=== PATIENT | female | born 1970 | race Caucasian/White ===

== ENCOUNTER 2020-05-22 08:01 | Emergency (ER) | payer OTHER, SELFPAY ==
[2020-05-22 08:09] VITALS: BP 154/79; PULSE 69; RESP 16; TEMP 37; O2SAT 97; BMI 32.3
--- NOTE | 2020-05-22 08:11 | ED.BACK ---
HPI - Back Pain/Injury General Chief Complaint: Back Pain/Injury Stated Complaint: BACK PAIN Time Seen by Provider: 05/22/20 08:11 Source: patient Mode of arrival: ambulatory Limitations: no limitations History of Present Illness MD elicited complaint: back pain Pertinent past history: prior back pain Onset (ago): month(s) Timing: constant Severity: moderate Similar Symptoms Previously: Yes Quality: dull and aching Location: lumbar spine Radiation: left upper leg and right upper leg Relieving factors: movement Context: unknown Associated symptoms: denies other symptoms Treatments prior to arrival: NSAIDS, acetaminophen, other medications, prescription analgesics and other medications Work related injury: No Related Data Previous Rx's Medication Instructions Recorded metformin 500 mg tablet,extended 1,000 mg PO BID 30 Days #120 tab 04/21/20 release 24 hr ezetimibe 10 mg tablet 10 mg PO DAILY 30 Days #30 tab 04/28/20 diazepam [Valium] 5 mg PO TID PRN #10 tab 05/22/20 Allergies Allergy/AdvReac Type Severity Reaction Status Date / Time Iodinated Contrast Media Allergy Intermediate ITCHING Verified 05/22/20 08:11 [IV Dye, Iodine Containing] IVP dye Allergy Unknown facial Uncoded 03/02/20 00:00 swelling, itching Review of Systems Review of Systems: Constitutional : No Weight loss, No Fever, No Chills, ENT/Mouth : No Hearing loss, No Ear Pain, No Nasal Congestion, No Sinus Pain, No Hoarseness, No sore throat, No Rhinorrhea, No Swallowing Difficulty Cardiovascular : No Chest Pain, No SOB Respiratory : No Cough, No Dyspnea Gastrointestinal : No Nausea, No Vomiting, No Diarrhea, No abdominal Pain, No Hematochezia, No Melena Genitourinary : No Dysuria, No Urinary Frequency, No Hematuria, No Urinary Incontinence, Musculoskeletal : positive back pain Skin : No Skin Lesions, No rash Neuro : No Weakness, No Numbness, No Paresthesias, no loss of bowel or bladder incontinence, no saddle anesthesia PMFSH Past Medical History Attestation statement: The following information was validated with the patient. Medical History (Updated 05/22/20 @ 08:36 by Gretchen Perry DO) Chronic back pain Diabetes mellitus with hyperglycemia, with long-term current use of insulin Hyperlipidemia Social History Social History (Updated 05/22/20 @ 08:35 by RIZWAN Agustin Smoking Status: Never smoker Use of substances other than those prescribed or required for medical reasons: No Advance Directives: No Advance Directives Information Provided: No Physical Exam Vital Signs: Vital Signs: Last Vital Signs Temp 98.6 F 05/22/20 08:09 Pulse 69 05/22/20 08:09 Resp 16 05/22/20 08:09 BP 154/79 H 05/22/20 08:09 Pulse Ox 97 05/22/20 08:09 Body Mass Index 32.3 Appearance: Alert. Oriented X3. No acute distress. Eyes: Pupils equal, round and reactive to light. ENT: Pharynx normal. Neck: Normal inspection. Neck supple. CVS: Normal heart rate and rhythm. Pulses normal. Respiratory: No respiratory distress. Breath sounds normal. Abdomen: Soft and nontender. Back: ttp biilateral lower lumbar Skin: Skin warm and dry. Normal skin color. Normal skin turgor. Extremities: No lower extremity edema. No calf ttp Neuro: Oriented X 3. No motor deficit. No sensory deficit. SILT inner thigh, L5 5/5 bilaterally 2+ DTR bilateral patella MDM - Back Pain/Injury MDM Narrative Medical decision making narrative: 49 yo female with chronic back notes it is worse, no b/b incontinence no saddle anesthesia , no IVDA no AC therapy - not toxic, NV intact, no CE symptoms has specialist appointment next week IM toradol DC home Discharge Plan Discharge Clinical Impression: Sciatica Qualifiers: Laterality: bilateral Qualified Code(s): M54.31 - Sciatica, right side Patient Disposition: Home, Self-Care Instructions: Sciatica (ED), Lower Back Exercises (ED) Additional Instructions: return to ED for any worsening symptoms or concerns Prescriptions: New diazepam [Valium] 5 mg tablet 5 mg PO TID PRN (Reason: muscle spasm) Qty: 10 RF: 0 No Action metformin 500 mg tablet extended release 24 hr 1,000 mg PO BID 30 Days Qty: 120 RF: 3 ezetimibe 10 mg tablet 10 mg PO DAILY 30 Days Qty: 30 RF: 3 Referrals: Physician,Unknown [Primary Care Provider] - 2 days (keep your appointment with spine doctor)
[2020-05-22] MEDS: diazePAM 5 MG TABLET PO (09:01)
[2020-05-22] MEDS: Ketorolac Tromethamine 60 MG/2 ML VIAL IM (09:02)
== END 2020-05-22 09:06 | disposition home or self-care (01) ==
PROVIDERS: Emergency Provider Emergency Medicine
DX: M54.41 Lumbago with sciatica, right side (principal); M54.42 Lumbago with sciatica, left side; Z79.899 Other long term (current) drug therapy
CPT/HCPCS: 96372; 99283; 99284; J1885

== ENCOUNTER → 2020-06-03 11:41 | Outpatient (BNVA) | payer OTHER, SELFPAY | PROVIDERS: PCP Nurse Practitioner Family; Visit Provider Physician Assistant | DX: Z76.89 Persons encountering health services in other specified circumstances (principal) ==

== ENCOUNTER 2020-06-09 14:29 | Outpatient (REF) | payer OTHER, SELFPAY ==
--- NOTE | 2020-06-09 14:48 | XR_ITS ---
EXAMINATION: XR WRIST, RIGHT CLINICAL INFORMATION: Pain COMPARISON: Previous right hand x-ray January 2015 TECHNIQUE: 4 views of the right wrist. FINDINGS: Bone alignment is normal. No fracture or dislocation is seen. The joint spaces are normal. There is dorsal soft tissue swelling over the base of the metacarpal bones/USP joint region. XR/XR wrist RT min 3V IMPRESSION: Dorsal soft tissue swelling. Otherwise unremarkable exam.
[2020-06-09 15:16] LABS: MANUAL DIFF FLAG NO
[2020-06-09 15:24] LABS: Basophils Percent Auto 0.6 % (0-2); Eosinophils Absolute Auto 0.4 X10*3/uL (0.0-0.4); Eosinophils Percent Auto 6.2 % (0-4); Hemoglobin 13.2 g/dl (12.0-16.0); Imm Gran Abs Auto 0.02 X10*3/uL (0.00-0.03); Imm Gran Pct Auto 0.3 % (0.0-0.4); Lymphocytes Absolute Auto 2.9 X10*3/uL (1.2-4.9); Lymphocytes Percent Auto 42.5 % (20-40); Mean Corpuscular HGB Conc 32.2 g/dl (31.0-35.0); Mean Corpuscular Volume 93.2 fL (80-98); Mean Platelet Volume 9.8 fL (9.4-12.3); Monocytes Absolute Auto 0.6 X10*3/uL (0.1-1.2); Monocytes Percent Auto 9.1 % (2-11); Neutrophils Absolute Auto 2.8 X10*3/uL (2.0-8.3); Neutrophils Percent Auto 41.3 % (45-73); Platelet Count 289 X10*3/uL (160-400); Red Cell Distribution Width 11.9 % (11.0-16.0); White Blood Count 6.8 X10*3/uL (4.8-10.8)
[2020-06-09 15:47] LABS: Alanine Aminotransferase 61 U/L (0-31); Albumin Level 4.4 g/dL (3.5-5.0); Alkaline Phosphatase 125 U/L (39-117); Anion Gap 15 (12-20); Aspartate Amino Transferase 48 U/L (5-31); Bilirubin Total 0.5 mg/dL (0.0-1.0); Blood Urea Nitrogen 15 mg/dL (9-16); Calcium 10.1 mg/dL (8.4-10.2); Carbon Dioxide 28 mmol/L (22-29); Chloride 98 mmol/L (96-108); Estimated Glomerular Filt Rate 55; Glucose Random 294 mg/dL (60-115); Potassium 4.7 mmol/l (3.3-5.1); Sodium 136 mmol/L (135-145); Total Protein 8.4 g/dL (6.5-8.0)
== END 2020-06-09 14:30 | disposition home or self-care (01) ==
LOC: HO.LAB 14:29
PROVIDERS: Absent Provider Nurse Practitioner Primary Care; PCP Registered Nurse; Referring Provider Nurse Practitioner Gerontology; Visit Provider Physician Assistant
DX: R10.11 Right upper quadrant pain (principal); M25.531 Pain in right wrist; R22.30 Localized swelling, mass and lump, unspecified upper limb
CPT/HCPCS: 36415; 73110; 80053; 85025

== ENCOUNTER 2020-06-17 08:12 | Outpatient (REF) | payer OTHER, SELFPAY ==
--- NOTE | 2020-06-17 08:17 | US_ITS ---
EXAMINATION: US COMPLETE ABDOMEN WITH LIVER ELASTOGRAPHY CLINICAL INFORMATION: Abdominal pain COMPARISON: Previous CT of the abdomen and pelvis January 2019 and abdominal ultrasound November 2018 TECHNIQUE: Real-time imaging of the abdominal viscera. Noninvasive ultrasound liver fibrosis assessment is performed using Amanda ElastPQ point quantification shear wave elastography (pSWE) with a 5 MHz transducer. Multiple elastography samples are obtained. FINDINGS: PANCREAS: Normal. There is a 5 x 0.9 x 2.9 cm solid hypoechoic lesion adjacent to the head of the pancreas and periportal region suggestive of a lymph node. This is unchanged. ABDOMINAL AORTA: The proximal, middle, and distal aortic segments are normal in caliber. INFERIOR VENA CAVA: Visualized portions are normal. LIVER: Liver echotexture is increased. Liver contour is normal. No focal lesion or intrahepatic biliary duct dilatation. The liver is enlarged. The right lobe measures 18 cm in length. The left lobe measures 16 cm in length. The main portal vein is patent with appropriate hepatopedal flow. Shear wave elastography provides a median stiffness of 2.1 m/s (reference: normal median stiffness is 0.81 - 1.22 m/s). The IQR/median stiffness to assess sampling precision is 0.06 (reference: optimal IQR/median stiffness is under 0.3). GALLBLADDER: Surgically removed COMMON BILE DUCT: Normal in caliber measuring 0.7 cm in diameter. RIGHT KIDNEY: Normal. No hydronephrosis. No renal calculi or focal parenchymal lesions. The kidney measures 12.2 cm in maximum dimension. LEFT KIDNEY: There is a 2 mm stone in the lower pole. No hydronephrosis. No focal parenchymal lesions. The kidney measures 12 cm in maximum dimension. SPLEEN: Normal. The spleen measures 10.9 cm in maximum dimension. FREE FLUID: None. US/US abdomen comp w elastography IMPRESSION: 1. Impression: Enlarged echogenic liver suggestive of fatty infiltration. Stable prominent lymph node adjacent to the head of the pancreas/periportal region. Small left renal stone. 2. Elastography: Metavir score F3 to F4 suggestive of moderate to severe increased risk of developing liver fibrosis.
== END 2020-06-17 08:13 | disposition home or self-care (01) ==
LOC: HO.US 08:12
PROVIDERS: PCP Registered Nurse; Visit Provider Physician Assistant
DX: R10.9 Unspecified abdominal pain (principal)
CPT/HCPCS: 76705; 76981

== ENCOUNTER 2020-06-23 14:22 | Outpatient (REF) | payer OTHER, SELFPAY ==
--- NOTE | 2020-06-23 | US_ITS ---
EXAMINATION: US EXTREMITY NON-VASCULAR CLINICAL INFORMATION: Lump right wrist. COMPARISON: None. TECHNIQUE: Limited imaging through the area of lump dorsal wrist was performed. FINDINGS: There is a moderate-sized anechoic fluid collection along the palpable lump right dorsal wrist. There are linear tendon sheaths traversing through this cystic lump, most suggestive of a ganglion or tenosynovitis. The wrist joint was not imaged. US/US extremity nonvascular IMPRESSION: Imaging through the dorsal wrist lump area reveals is a large ganglion, less likely tenosynovitis.
== END 2020-06-23 14:23 | disposition home or self-care (01) ==
LOC: HO.US 14:22
PROVIDERS: PCP Registered Nurse; Visit Provider Nurse Practitioner Primary Care
DX: M25.531 Pain in right wrist (principal); R22.30 Localized swelling, mass and lump, unspecified upper limb
CPT/HCPCS: 76882

== ENCOUNTER → 2020-06-30 13:56 | Outpatient (BNVA) | payer OTHER, SELFPAY | PROVIDERS: PCP Registered Nurse; Referring Provider Registered Nurse; Visit Provider Physician Assistant | DX: Z76.89 Persons encountering health services in other specified circumstances (principal) ==

== ENCOUNTER → 2020-07-14 13:02 | Outpatient (BNVA) | payer OTHER, SELFPAY | PROVIDERS: PCP Registered Nurse; Visit Provider Surgery | DX: M67.431 Ganglion, right wrist (principal) | CPT/HCPCS: 99202 ==

== ENCOUNTER → 2020-09-01 11:23 | Outpatient (BNVA) | payer OTHER, SELFPAY | PROVIDERS: PCP Registered Nurse; Visit Provider Nurse Practitioner Gerontology ==

== ENCOUNTER → 2020-09-04 14:21 | Outpatient (BNVA) | payer OTHER, SELFPAY | PROVIDERS: PCP Registered Nurse; Visit Provider Physician Assistant Medical | DX: S43.402A Unspecified sprain of left shoulder joint, initial encounter (principal); S63.502A Unspecified sprain of left wrist, initial encounter; S60.212A Contusion of left wrist, initial encounter; W10.9XXA Fall (on) (from) unspecified stairs and steps, initial encounter | CPT/HCPCS: 29125; 73030; 73110; 73130; 99203 ==

== ENCOUNTER → 2020-09-09 14:48 | Outpatient (BNVA) | payer OTHER, SELFPAY | PROVIDERS: PCP Registered Nurse; Visit Provider Physician Assistant Medical | DX: S43.402D Unspecified sprain of left shoulder joint, subsequent encounter (principal); S46.002D Unspecified injury of muscle(s) and tendon(s) of the rotator cuff of left shoulder, subsequent encounter; S69.92XD Unspecified injury of left wrist, hand and finger(s), subsequent encounter; X58.XXXD Exposure to other specified factors, subsequent encounter | CPT/HCPCS: 99213 ==

== ENCOUNTER 2020-09-17 07:59 | Outpatient (REF) | payer OTHER, SELFPAY ==
--- NOTE | ~2020-09-17 | MR_ITS ---
EXAMINATION: MRI SHOULDER WITHOUT CONTRAST, LEFT CLINICAL INFORMATION: Shoulder pain, decreased range of motion. COMPARISON: X-ray 09/04/2020. TECHNIQUE: MRI of the shoulder without contrast is performed in a 1.5 Shira high-field scanner. FINDINGS: CORACOACROMIAL ARCH: Moderate acromioclavicular arthritis. Trace fluid in the subacromial-subdeltoid space. Undersurface of the acromion is concave. ROTATOR CUFF: Mild to moderate supraspinatus tendinosis. Articular-sided fraying/ill-defined partial tear in the distal anterior fibers measuring 1.2 x 0.7 cm (AP, ML). Mild infraspinatus tendinosis. Teres minor is intact. Mild subscapularis tendinosis. ROTATOR CUFF MUSCLES: No muscle atrophy or fatty infiltration. BICEPS TENDON: Moderate tendinosis of the proximal intra-articular long head biceps tendon. LABRUM/CAPSULE: No focal labral tear seen. Inferior capsule is intact. GLENOHUMERAL JOINT/MARROW: No fracture. No significant joint effusion. MR/MR shoulder LT wo con IMPRESSION: 1. Mild to moderate supraspinatus tendinosis. 1.2 x 0.7 cm articular-sided fraying/ill-defined partial tear anteriorly. 2. Mild infraspinatus and subscapularis tendinosis. 3. Moderate proximal intra-articular long head biceps tendinosis. 4. Moderate acromioclavicular arthritis.
== END 2020-09-17 08:00 | disposition home or self-care (01) ==
LOC: HO.MRI 07:59
PROVIDERS: Visit Provider Internal Medicine
DX: M25.512 Pain in left shoulder (principal); W18.30XA Fall on same level, unspecified, initial encounter; Y93.9 Activity, unspecified; Y92.9 Unspecified place or not applicable; Y99.0 Civilian activity done for income or pay
CPT/HCPCS: 73221

== ENCOUNTER → 2020-09-17 13:21 | Outpatient (BNVA) | payer OTHER, SELFPAY | PROVIDERS: PCP Registered Nurse; Visit Provider Physician Assistant Medical | DX: S63.502D Unspecified sprain of left wrist, subsequent encounter (principal); S49.92XD Unspecified injury of left shoulder and upper arm, subsequent encounter; X58.XXXD Exposure to other specified factors, subsequent encounter | CPT/HCPCS: 99213 ==

== ENCOUNTER → 2020-09-24 15:08 | Outpatient (BNVA) | payer OTHER, SELFPAY | PROVIDERS: PCP Registered Nurse; Visit Provider Physician Assistant Medical | DX: S63.502D Unspecified sprain of left wrist, subsequent encounter (principal); S46.002D Unspecified injury of muscle(s) and tendon(s) of the rotator cuff of left shoulder, subsequent encounter; X58.XXXD Exposure to other specified factors, subsequent encounter | CPT/HCPCS: 99213 ==

== ENCOUNTER → 2020-10-01 12:35 | Outpatient (BNVA) | payer OTHER, SELFPAY | PROVIDERS: PCP Registered Nurse; Visit Provider Physician Assistant | DX: M75.112 Incomplete rotator cuff tear or rupture of left shoulder, not specified as traumatic (principal) | CPT/HCPCS: 99202 ==

== ENCOUNTER → 2020-10-02 15:24 | Outpatient (BNVA) | payer OTHER, SELFPAY | PROVIDERS: PCP Registered Nurse; Visit Provider Physician Assistant Medical | DX: S63.502D Unspecified sprain of left wrist, subsequent encounter (principal); S46.092D Other injury of muscle(s) and tendon(s) of the rotator cuff of left shoulder, subsequent encounter; X58.XXXD Exposure to other specified factors, subsequent encounter | CPT/HCPCS: 99213 ==

== ENCOUNTER → 2020-10-21 15:20 | Outpatient (BNVA) | payer OTHER, SELFPAY | PROVIDERS: PCP Registered Nurse; Visit Provider Physician Assistant Medical | DX: S46.012D Strain of muscle(s) and tendon(s) of the rotator cuff of left shoulder, subsequent encounter (principal); S63.502D Unspecified sprain of left wrist, subsequent encounter; X58.XXXD Exposure to other specified factors, subsequent encounter | CPT/HCPCS: 99213 ==

== ENCOUNTER 2020-10-23 19:26 | Outpatient (REF) | payer OTHER, SELFPAY ==
--- NOTE | ~2020-10-23 | MR_ITS ---
EXAMINATION: MR WRIST WITHOUT CONTRAST, LEFT CLINICAL INFORMATION: Fall, pain in snuffbox, tenderness, ulnar deviation. Patient reports fall 09/03/2020. COMPARISON: XR left hand/wrist 09/04/2020 TECHNIQUE: MRI of the left wrist was performed using routine sequences on a high-field scanner. FINDINGS: TRIANGULAR FIBROCARTILAGE: The central membranous portion of the triangular fibrocartilage demonstrates diffuse irregular intermediate signal intensity consistent with degeneration and probable fraying. No discrete fluid-filled tear is identified although a subtle tear cannot be entirely excluded. The volar and dorsal radioulnar ligaments appear intact. There is some mild degeneration and fraying of the ulnar band attachments. INTRINSIC LIGAMENTS: There is patchy diffuse degeneration of the scapholunate ligament with no definite discrete fluid-filled tear. The lunotriquetral ligament is grossly intact. TENDONS/MEDIAN NERVE: Intact. ARTICULAR CARTILAGE/BONE: There are focal areas of mild cartilage thinning, small marginal osteophytes, and a few small subchondral degenerative cysts at the pisotriquetral and first CMC joints. There is no acute fracture. JOINT FLUID/SOFT TISSUES: There is a trace distal radioulnar joint effusion. MR/MR wrist LT wo con IMPRESSION: 1. Degeneration and probable fraying of the central membranous portion of the triangular fibrocartilage. A discrete tear is not identified but is difficult to exclude. 2. Degeneration of the scapholunate ligament without a discrete tear identified. 3. 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 4. Trace distal radioulnar joint effusion.
== END 2020-10-23 19:27 | disposition home or self-care (01) ==
LOC: HO.MRI 19:26
PROVIDERS: Visit Provider Internal Medicine
DX: M79.642 Pain in left hand (principal); Z91.81 History of falling
CPT/HCPCS: 73221

== ENCOUNTER 2020-10-27 13:00 | Outpatient (RCR) | payer OTHER, SELFPAY ==
--- NOTE | 2020-09-25 11:56 | MHC.PT.EP ---
[facility] [place] Office [place] Office [place] Office [address] [place] [address] [facility] [place] [phone] F: [phone] F: [phone] F: [phone] F: [phone] Physical Therapy Plan of Care Date of Evaluation: 09/25/20 Date of Surgery: Diagnosis: left shoulder tendonitis Assessment: The patient has reduced cevical, shoulder ROM and strength. She seems to have more pain limitation rather than capsular restriction. Pt needed cues for maximal effort. Her ROM measurements were improved without the use of a goniometer and with repetition. She is a good candidate for skilled PT to educate her on improved sitting posture, body mechanics for house chores, and for gentle AROM, strength to help regain ROM. Frequency and Duration: The patient will be seen 2x/week x 4 weeks Short Term Goals: 2 weeks 1.Pt to able to demonstrate proper sitting posture with the use of a lumbar roll to decrease aggravating factors. 2.Pt to be able to demonstrate proper posture for common leisure activities such as crocheting and phone/tablet use. 3.For the patient to demonstrate proper upright sitting posture with use of the lumbar roll to improve compliance and carryover. 4. Pt to be able to report 50% improvement in functional reaching. 5. Pt to be able to report 50% less pain with getting dressed. Senior Living Goals: 1. Pt to be able to return to normal PLOF without limiting pain. 2. Pt to be able to return to overhead reaching without pain or limitation. 3. Pt to be able to manage her pain with selected exercise and stretching regime. 4. The patient to have greater than 160 degrees of flexion and abduction to show improved functional ROM. 5. The patient to have 5/5 strength with flexion and abduction to demonstrate functional strength 6. The patient to be able to return to all functional reaching, self care ADL's without any limitation from pain or loss of ROM. Treatment Plan: Modalities to reduce pain, spasms and effusion. Manual therapy to restore motion and function. Therapeutic exercise to improve strength and flexibility. Neuromuscular re-education for posture and balance. Therapeutic activities to return to functional activities of daily living. Electronically signed by: Tania Pruett PT DPT Please sign and return to therapist. Thank you for your referral.
== END 2021-03-16 09:29 | disposition home or self-care (01) ==
LOC: HO.PT 13:00
PROVIDERS: Visit Provider Physician Assistant Medical
DX: M75.92 Shoulder lesion, unspecified, left shoulder (principal)
CPT/HCPCS: 97110; 97112; 97140; 97162

== ENCOUNTER → 2020-10-28 13:51 | Outpatient (BNVA) | payer OTHER, SELFPAY | PROVIDERS: PCP Registered Nurse; Visit Provider Physician Assistant Medical | DX: S46.002D Unspecified injury of muscle(s) and tendon(s) of the rotator cuff of left shoulder, subsequent encounter (principal); S63.502D Unspecified sprain of left wrist, subsequent encounter; X58.XXXD Exposure to other specified factors, subsequent encounter | CPT/HCPCS: 99213 ==

== ENCOUNTER → 2020-11-09 15:02 | Outpatient (BNVA) | payer OTHER, SELFPAY | PROVIDERS: PCP Registered Nurse; Visit Provider Orthopaedic Surgery | DX: M79.642 Pain in left hand (principal) | CPT/HCPCS: 99202 ==

== ENCOUNTER → 2020-11-13 15:04 | Outpatient (BNVA) | payer OTHER, SELFPAY | PROVIDERS: PCP Registered Nurse; Visit Provider Physician Assistant Medical | DX: M75.112 Incomplete rotator cuff tear or rupture of left shoulder, not specified as traumatic (principal); S63.502D Unspecified sprain of left wrist, subsequent encounter; X58.XXXD Exposure to other specified factors, subsequent encounter | CPT/HCPCS: 99213 ==

== ENCOUNTER → 2020-12-11 09:57 | Outpatient (BNVA) | payer OTHER, SELFPAY | PROVIDERS: PCP Registered Nurse; Visit Provider Surgery | DX: R10.13 Epigastric pain (principal) | CPT/HCPCS: 99212 ==

== ENCOUNTER 2020-12-25 10:43 | Outpatient (REF) | payer OTHER, SELFPAY ==
[2020-12-25 15:53] LABS: Blood Urea Nitrogen 15 mg/dL (9-16); Estimated Glomerular Filt Rate > 60
== END 2020-12-25 10:44 | disposition home or self-care (01) ==
LOC: HO.LAB 10:43
PROVIDERS: PCP Registered Nurse; Visit Provider Surgery
DX: R10.13 Epigastric pain (principal); R10.9 Unspecified abdominal pain
CPT/HCPCS: 36415; 82565; 84520

== ENCOUNTER 2020-12-28 15:32 | Outpatient (REF) | payer OTHER, SELFPAY ==
--- NOTE | ~2020-12-28 | CT_ITS ---
EXAMINATION: CT ABDOMEN AND PELVIS WITH CONTRAST CLINICAL INFORMATION: Epigastric pain COMPARISON: Previous abdominal ultrasound June 2020 CT of the abdomen and pelvis December 2018 TECHNIQUE: Multidetector volumetric images were obtained from the superior aspect of the liver through the pubic symphysis following administration 85 mL of Omnipaque 350 intravenous contrast. Sagittal and coronal reformatted images were obtained on the technologist's workstation. Oral contrast: Yes This CT examination was performed using dose optimization techniques as appropriate, variously including the following: *Automated exposure control *Adjustment of mA and/or kV according to patient size (this includes techniques or standardized protocols for targeted exams where dose is matched to indication/reason for exam; i.e. extremities or head) *Use of iterative reconstruction technique DLP: 428 mGy-cm FINDINGS: LUNG BASES: The visualized lung bases are unremarkable. LIVER, GALLBLADDER, AND BILIARY TREE: The liver is normal in size, shape, and attenuation. No focal hepatic lesion or biliary ductal dilatation is present. The gallbladder has been removed. PANCREAS: Unremarkable. SPLEEN: Unremarkable. ADRENAL GLANDS: Unremarkable. KIDNEYS AND URETERS: The kidneys are normal in size, shape, and attenuation. No hydronephrosis, hydroureter, or calculi seen. No perinephric stranding. BLADDER: Unremarkable. GASTROINTESTINAL TRACT: There is stool throughout the colon suggestive of constipation. There are no dilated loops of bowel to suggest obstruction. The small and large bowel are otherwise unremarkable. The appendix is unremarkable. The stomach is unremarkable. ABDOMINAL WALL: There is diastasis of the rectus muscles. LYMPH NODES: There are prominent periportal lymph nodes. Largest lymph node is a periportal or precaval lymph node that measures 2.4 x 3 cm axial 28 series 3. This does not appear appreciably changed from 2019 exam. There are small, small bowel mesentery and retroperitoneal lymph nodes. No other adenopathy is seen. There is no ascites. VASCULAR: Unremarkable. PELVIC VISCERA: Unremarkable. OSSEOUS STRUCTURES: Unremarkable. CT/CT abdomen pelvis w con IMPRESSION: Prominent periportal lymph nodes similar to January 2019 exam. There are also smaller retroperitoneal and small bowel mesentery lymph nodes. Constipation. Post cholecystectomy.
[2020-12-28] MEDS: iohexoL 350 MG/ML 100 ML INFUS..BTL 85 ML IV (16:35)
[2020-12-28] MEDS: Barium Sulfate Oral (Berry) 450 ML ORAL.SUSP PO (16:36)
== END 2020-12-28 15:33 | disposition home or self-care (01) ==
LOC: HO.CT 15:32
PROVIDERS: PCP Registered Nurse; Visit Provider Surgery
DX: R10.13 Epigastric pain (principal)
CPT/HCPCS: 74177; Q9967

== ENCOUNTER → 2020-12-31 10:03 | Outpatient (BNVA) | payer OTHER, SELFPAY | PROVIDERS: PCP Registered Nurse; Referring Provider Registered Nurse; Visit Provider Surgery | DX: R10.13 Epigastric pain (principal) | CPT/HCPCS: 99212 ==

== ENCOUNTER → 2021-03-18 07:32 | Outpatient (BNVA) | payer OTHER, SELFPAY | PROVIDERS: PCP Internal Medicine; Visit Provider Physician Assistant | DX: K59.09 Other constipation (principal); R74.8 Abnormal levels of other serum enzymes; R93.5 Abnormal findings on diagnostic imaging of other abdominal regions, including retroperitoneum | CPT/HCPCS: 99212 ==

== ENCOUNTER → 2021-09-29 12:54 | Outpatient (BNVA) | payer MEDICAID, SELFPAY | PROVIDERS: PCP Internal Medicine; Referring Provider Internal Medicine; Visit Provider Physician Assistant | DX: Z13.89 Encounter for screening for other disorder (principal) ==

== ENCOUNTER 2021-10-23 09:20 | Outpatient (REF) | payer MEDICAID, SELFPAY ==
[2021-10-23 09:35] LABS: MANUAL DIFF FLAG NO
[2021-10-23 10:04] LABS: Basophils Absolute Auto 0.1 X10*3/uL (0.0-0.2); Basophils Percent Auto 0.8 % (0-2); Eosinophils Absolute Auto 0.4 X10*3/uL (0.0-0.4); Hematocrit 34.3 % (37.0-47.0); Hemoglobin 11.2 g/dl (12.0-16.0); Lymphocytes Absolute Auto 3.4 X10*3/uL (1.2-4.9); Lymphocytes Percent Auto 52.6 % (20-40); Mean Corpuscular HGB Conc 32.7 g/dl (31.0-35.0); Mean Corpuscular Hemoglobin 29.8 pg (27.0-33.0); Mean Corpuscular Volume 91.2 fL (80.0-98.0); Mean Platelet Volume 9.6 fL (9.4-12.3); Monocytes Absolute Auto 0.6 X10*3/uL (0.1-1.2); Monocytes Percent Auto 9.1 % (2-11); Neutrophils Percent Auto 31.5 % (45-73); Platelet Count 310 X10*3/uL (160-400); Red Blood Count 3.76 X10*6/uL (4.20-5.50); Red Cell Distribution Width 12.5 % (11.0-16.0); White Blood Count 6.5 X10*3/uL (4.8-10.8)
[2021-10-23 10:28] LABS: Alanine Aminotransferase 28 U/L (0-31); Albumin Level 3.8 g/dL (3.5-5.0); Alkaline Phosphatase 80 U/L (39-117); Anion Gap 12 (12-20); Aspartate Amino Transferase 26 U/L (5-31); Bilirubin Total 0.3 mg/dL (0.0-1.0); Blood Urea Nitrogen 18 mg/dL (9-16); Calcium 9.3 mg/dL (8.4-10.2); Carbon Dioxide 26 mmol/L (22-29); Chloride 103 mmol/L (96-108); Cholesterol 183 mg/dL; Estimated Glomerular Filt Rate > 60; Glucose Random 173 mg/dL (60-115); HDL Cholesterol 34 mg/dL; LDL Cholesterol Calculated 85 mg/dl; Potassium 4.1 mmol/L (3.3-5.1); Sodium 137 mmol/L (135-145); Total Protein 7.4 g/dL (6.5-8.0); Triglycerides 324 mg/dL
[2021-10-23 10:36] LABS: Thyroid Stimulating Hormone 0.32 uIU/mL (0.32-4.0)
[2021-10-25 13:21] LABS: Myeloperoxidase Antibody <1.0 AI; Proteinase 3 PR3 Antibodies <1.0 AI
[2021-10-26 19:11] LABS: Immunoglobulin G Subclass 1 589 mg/dL (382-929); Immunoglobulin G Subclass 2 400 mg/dL (241-700); Immunoglobulin G Subclass 3 30 mg/dL (22-178); Immunoglobulin G Subclass 4 44.3 mg/dL (4-86); Immunoglobulin G Total 1171 mg/dL (600-1640)
[2021-10-26 21:57] LABS: Prot Elec - Albumin 3.8 g/dL (3.8-4.8); Prot Elec - Alpha1 0.2 g/dL (0.2-0.3); Prot Elec - Alpha2 0.9 g/dL (0.5-0.9); Prot Elec - Beta 1 0.6 g/dL (0.4-0.6); Prot Elec - Beta 2 0.7 g/dL (0.2-0.5); Prot Elec - Gamma 1.2 g/dL (0.8-1.7); Prot Elec - Total Protein 7.3 g/dL (6.1-8.1)
[2021-10-27 08:26] LABS: PEU-Protein Creat Ratio Rand 0.124 (0.021-0.161); PEU-Rand. Prot/Creat Ratio 124 mg/g creat (21-161); PEU-Random Ur. Gamma Globulin 0 %; PEU-Random Urine A1 Globulin 0 %; PEU-Random Urine A2 Globulin 0 %; PEU-Random Urine Albumin 100 %; PEU-Random Urine Beta Globulin 0 %; PEU-Random Urine Creatinine 186 mg/dL (20-275); PEU-Random Urine Protein 23 mg/dL (5-24)
[2021-10-28 20:41] LABS: Smooth Muscle Antibody <20 U (<20)
[2021-10-29 00:02] LABS: Soluble Liver Ag Autoantibody <20.1 U (0.0-20.0)
== END 2021-10-23 09:21 | disposition home or self-care (01) ==
LOC: HO.LAB 09:20
PROVIDERS: Absent Provider Physician Assistant; PCP Internal Medicine; Visit Provider Nurse Practitioner Gerontology
DX: K76.0 Fatty (change of) liver, not elsewhere classified (principal); R93.5 Abnormal findings on diagnostic imaging of other abdominal regions, including retroperitoneum; K59.09 Other constipation; E88.09 Other disorders of plasma-protein metabolism, not elsewhere classified; R74.8 Abnormal levels of other serum enzymes
CPT/HCPCS: 80053; 80061; 82570; 82784; 83520; 84156; 84165; 84166; 84443; 85025; 86015; 86021

== ENCOUNTER 2021-10-28 09:30 | Outpatient (REF) | payer MEDICAID, SELFPAY ==
--- NOTE | ~2021-10-28 | MR_ITS ---
EXAMINATION: MR ABDOMEN WITHOUT AND WITH CONTRAST CLINICAL INFORMATION: Constipation. Postcholecystectomy. COMPARISON: CT abdomen/pelvis dated from 12/28/2020. TECHNIQUE: MR abdomen was performed without and with use of 7.5 mL intravenous Gadavist gadolinium contrast. Postcontrast images are performed in multiphase dynamic sequences. Imaging was performed in 3 planes. FINDINGS: LUNG BASES: The visualized lung bases are unremarkable. LIVER, GALLBLADDER, AND BILIARY TREE: There is signal loss in the out of phase images consistent with hepatic steatosis. The liver measures 19.4 cm craniocaudally which is increased from 17.[address] from 12/28/2020. No suspicious liver lesions are identified. Cholecystectomy. Stable mild dilatation of the CBD which is expected in a postcholecystectomy state. No intrahepatic biliary ductal dilatation. PANCREAS: A small nonspecific 1.3 cm hypoenhancing area in the uncinate process of the pancreas adjacent to the SMV (102:79) is unchanged when compared to a CT from 2019. This observation is suboptimally assessed in other sequences due to motion. The main pancreatic duct is nondilated. SPLEEN: Normal. ADRENAL GLANDS: Normal. KIDNEYS AND URETERS: The kidneys are normal in size, shape, and enhance symmetrically. No hydronephrosis. No perinephric stranding. GASTROINTESTINAL TRACT: No bowel obstruction. No ascites or fluid collection. ABDOMINAL WALL: No significant hernia is appreciated. LYMPH NODES: Limited evaluation due to motion. Enlarged peripancreatic and periportal lymph nodes are not significantly changed, for instance a sales representative printing supplies periportal lymph node measuring 3.3 x 1.6 cm (4:20). VASCULAR: Unremarkable. OSSEOUS STRUCTURES: No acute or aggressive-appearing osseous abnormalities. MR/MR abdomen wo/w con IMPRESSION: Nonspecific hypodensity in the uncinate process of the pancreas which is incompletely characterized in this examination due to motion. Recommend correlation with a CT abdomen pancreatic protocol which usually is less degraded by motion than when compared to a CT. Hepatic steatosis. Overall, not significantly changed in the degree of periportal and peripancreatic lymphadenopathy, however as above this examination is very limited due to motion.
== END 2021-10-28 09:31 | disposition home or self-care (01) ==
LOC: HO.MRI 09:30
PROVIDERS: Visit Provider Physician Assistant
DX: R93.5 Abnormal findings on diagnostic imaging of other abdominal regions, including retroperitoneum (principal)
CPT/HCPCS: 74183; A9585

== ENCOUNTER 2021-12-22 08:31 | Outpatient (REF) | payer MEDICAID, SELFPAY ==
--- NOTE | ~2021-12-22 | US_ITS ---
EXAMINATION: US PELVIS CLINICAL INFORMATION: Pelvic and perineal pain. COMPARISON: None TECHNIQUE: Ultrasound of the pelvis is performed using both transabdominal and transvaginal transducers along with Doppler. Transvaginal imaging is performed due to inadequate visualization transabdominally. FINDINGS: Uterus: The uterus is anteverted and measures 7.3 cm in length, 3.9 mL in AP and 5.4 cm in transverse dimension. The double wall endometrial thickness is 0.57 cm. The uterus is smooth in contour and has normal myometrial echogenicity. No visible fibroid. Adnexa: Both ovaries are visualized. There is normal color flow to the adnexa. There is no ovarian torsion. There is no pelvic ascites or fluid collection. Right ovary measures 2.5 x 1.9 x 2.1 cm and volume 5.1 mL. No focal lesion seen. Previously right ovary measured 2.3 x 2.0 x 1.4 cm and volume 3.2 mL. Left ovary measures 2.0 x 1.3 x 1.0 cm and volume 1.3 mL. No focal lesion seen. Imaging through the bladder reveals a prevoid volume of 1 70 mL and a postvoid volume of 23 mL. There are bilateral ureteral jets seen no bladder wall thickening noted. US/US pelvic and transvaginal IMPRESSION: Unremarkable uterus Unremarkable ovaries. Normal bilateral ureteral jet with a small postvoid residual bladder volume of 23 mL.
--- NOTE | ~2021-12-22 | US_ITS ---
EXAMINATION: US ABDOMEN COMPLETE CLINICAL INFORMATION: Fatty change of the liver, abdominal pain. COMPARISON: MRI abdomen 10/28/2021. CT abdomen and pelvis 12/28/2020. Ultrasound abdomen complete 06/17/2020 and 11/07/2018. X-ray KUB 08/15/2018 and 12/27/2017. TECHNIQUE: Real-time imaging of the abdominal viscera. FINDINGS: PANCREAS: Pancreas is normal. There is a prominent lymph node seen adjacent to the pancreatic head /periportal region measuring 5.2 x 1.3 x 5.1 cm ABDOMINAL AORTA: The proximal, mid, and distal segments are normal in caliber. INFERIOR VENA CAVA: Visualized portions are normal. LIVER: The liver is enlarged. Liver echotexture is increased. The liver contour is normal. No focal hepatic lesion. There is no intrahepatic biliary duct dilatation seen. GALLBLADDER: Surgically absent. COMMON BILE DUCT: Upper normal in caliber measuring 0.8 cm in diameter. RIGHT KIDNEY: There are 2 small 2 to 3 mm echogenic densities with twinkle artifact in the mid to lower pole questionable for small stones. No hydronephrosis or focal parenchymal lesions. The kidney measures 12.1 cm in maximum dimension. LEFT KIDNEY: Normal. No hydronephrosis. No renal calculi or focal parenchymal lesions. The kidney measures 12.5 cm in maximum dimension. SPLEEN: Normal. The spleen measures 11.4 cm in maximum dimension. FREE FLUID: None. US/US abdomen complete IMPRESSION: Enlarged echogenic liver suggestive of fatty infiltration. Prominent lymph node in the periportal region/adjacent to the head of the pancreas. This appears unchanged. Question small right renal stones.
== END 2021-12-22 08:32 | disposition home or self-care (01) ==
LOC: HO.HMGCX 08:31
PROVIDERS: PCP Advanced Practice Midwife; Visit Provider Advanced Practice Midwife
DX: R10.2 Pelvic and perineal pain (principal); R10.9 Unspecified abdominal pain; K76.0 Fatty (change of) liver, not elsewhere classified
CPT/HCPCS: 76700; 76830; 76856

== ENCOUNTER 2021-12-25 10:00 | Outpatient (REF) | payer MEDICAID, SELFPAY ==
[2021-12-25 10:11] LABS: MANUAL DIFF FLAG NO
[2021-12-25 10:46] LABS: Basophils Percent Auto 0.6 % (0-2); Eosinophils Absolute Auto 0.5 X10*3/uL (0.0-0.4); Hematocrit 34.9 % (37.0-47.0); Hemoglobin 11.2 g/dl (12.0-16.0); Imm Gran Abs Auto 0.03 X10*3/uL (0.00-0.03); Imm Gran Pct Auto 0.4 % (0.0-0.4); Lymphocytes Absolute Auto 3.2 X10*3/uL (1.2-4.9); Lymphocytes Percent Auto 47.8 % (20-40); Mean Corpuscular HGB Conc 32.1 g/dl (31.0-35.0); Mean Corpuscular Hemoglobin 28.9 pg (27.0-33.0); Mean Corpuscular Volume 90.2 fL (80.0-98.0); Mean Platelet Volume 9.7 fL (9.4-12.3); Monocytes Absolute Auto 0.7 X10*3/uL (0.1-1.2); Monocytes Percent Auto 10.4 % (2-11); Neutrophils Absolute Auto 2.2 x10*3/uL (2.0-8.3); Neutrophils Percent Auto 32.8 % (45-73); Platelet Count 229 X10*3/uL (160-400); Red Blood Count 3.87 X10*6/uL (4.20-5.50); Red Cell Distribution Width 13.2 % (11.0-16.0); White Blood Count 6.7 X10*3/uL (4.8-10.8)
[2021-12-25 11:10] LABS: Estimated Average Glucose 214 mg/dL; Hemoglobin A1c % 9.1 %
[2021-12-25 11:14] LABS: Alanine Aminotransferase 41 U/L (0-31); Albumin Level 3.7 g/dL (3.5-5.0); Alkaline Phosphatase 100 U/L (39-117); Anion Gap 13 (12-20); Aspartate Amino Transferase 39 U/L (5-31); Bilirubin Total 0.2 mg/dL (0.0-1.0); Blood Urea Nitrogen 12 mg/dL (9-16); Calcium 9.4 mg/dL (8.4-10.2); Chloride 98 mmol/L (96-108); Estimated Glomerular Filt Rate > 60; Glucose Random 212 mg/dL (60-115); Potassium 4.3 mmol/L (3.3-5.1); Sodium 136 mmol/L (135-145); Total Protein 7.3 g/dL (6.5-8.0)
[2021-12-25 11:15] LABS: Carbon Dioxide 29 mmol/L (22-29)
[2021-12-25 11:40] LABS: Thyroid Stimulating Hormone 0.81 uIU/mL (0.32-4.0); Vitamin D 25-OH Total 45.3 ng/mL (>30)
== END 2021-12-25 10:01 | disposition home or self-care (01) ==
LOC: HO.LAB 10:00
PROVIDERS: Absent Provider Nurse Practitioner Gerontology; PCP Internal Medicine; Visit Provider Physician Assistant
DX: R10.11 Right upper quadrant pain (principal); K59.09 Other constipation; K62.5 Hemorrhage of anus and rectum; E55.9 Vitamin D deficiency, unspecified; E11.65 Type 2 diabetes mellitus with hyperglycemia
CPT/HCPCS: 36415; 80053; 82306; 83036; 84443; 85025

== ENCOUNTER → 2022-03-24 09:11 | Outpatient (BNVA) | payer OTHER, SELFPAY | PROVIDERS: PCP Internal Medicine; Visit Provider Physician Assistant | DX: S60.413A Abrasion of left middle finger, initial encounter (principal); W50.3XXA Accidental bite by another person, initial encounter | CPT/HCPCS: 36415; 86706; 99203 ==

== ENCOUNTER → 2022-03-30 13:51 | Outpatient (BNVA) | payer OTHER, SELFPAY | PROVIDERS: PCP Internal Medicine; Visit Provider Physician Assistant | DX: S60.413A Abrasion of left middle finger, initial encounter (principal); W50.3XXA Accidental bite by another person, initial encounter | CPT/HCPCS: 99213 ==

== ENCOUNTER 2022-07-19 13:49 | Outpatient (REF) | payer MEDICAID, SELFPAY ==
--- NOTE | ~2022-07-19 | XR_ITS ---
EXAMINATION: XR KNEE, LEFT CLINICAL INFORMATION: Acute left knee pain. COMPARISON: Radiographs left knee 02/19/2007. TECHNIQUE: 3 views of the left knee are obtained. FINDINGS: No fracture or dislocation or destructive process. There is small to moderate suprapatellar effusion. Hoffa's fat pad appears normal. There is spurring at the quadriceps insertion patella. Axial view patella shows no lateralization or tilting. There is small lateral patellar spur. There is no definite joint narrowing. Small marginal osteophyte is present medial tibial plateau. There is interval subtle cystic change posterior medial tibial plateau approximately 1.2 x 1.5 cm. No visible matrix mineralization. This could be related to tendinopathy at the posterior cruciate ligament. Further assessment could be obtained with MRI. XR/XR knee LT 3V IMPRESSION: -Small to moderate suprapatellar effusion. -Spurring at quadriceps insertion patella. No lateralization or tilting. -Benign-appearing cystic change posterior medial tibial plateau, new since 2006. No visible matrix mineralization. This could be related to tendinopathy at the posterior cruciate ligament. Further assessment could be obtained with MRI.
== END 2022-07-19 13:50 | disposition home or self-care (01) ==
LOC: HO.XRAY 13:49
PROVIDERS: PCP Internal Medicine; Visit Provider Emergency Medicine
DX: M25.562 Pain in left knee (principal)
CPT/HCPCS: 73562

== ENCOUNTER → 2022-08-04 14:13 | Outpatient (BNVA) | payer MEDICAID, SELFPAY | PROVIDERS: PCP Internal Medicine; Visit Provider Orthopaedic Surgery | DX: M17.12 Unilateral primary osteoarthritis, left knee (principal); E11.65 Type 2 diabetes mellitus with hyperglycemia | CPT/HCPCS: 99212; J1100 ==

== ENCOUNTER → 2022-10-11 11:09 | Outpatient (BNVA) | payer MEDICAID, SELFPAY | PROVIDERS: PCP Internal Medicine; Visit Provider Orthopaedic Surgery | DX: R20.0 Anesthesia of skin (principal) | CPT/HCPCS: 99212 ==

== ENCOUNTER 2022-11-23 08:50 | Outpatient (REF) | payer MEDICAID, SELFPAY ==
--- NOTE | 2022-11-23 08:53 | EMG_ITS ---
Please see scanned EMG / Nerve Conduction Report. MTDD
== END 2022-11-23 08:51 | disposition home or self-care (01) ==
LOC: HO.NEURO 08:50
PROVIDERS: PCP Internal Medicine; Visit Provider Orthopaedic Surgery
DX: R20.0 Anesthesia of skin (principal)
CPT/HCPCS: 95885; 95911

== ENCOUNTER → 2022-12-28 08:28 | Outpatient (BNVA) | payer MEDICAID, SELFPAY | PROVIDERS: PCP Internal Medicine; Visit Provider Orthopaedic Surgery | DX: G56.03 Carpal tunnel syndrome, bilateral upper limbs (principal); E11.65 Type 2 diabetes mellitus with hyperglycemia | CPT/HCPCS: 99202 ==

== ENCOUNTER 2023-05-09 13:53 | Outpatient (AMB) | payer SELFPAY ==
--- NOTE | 2023-05-09 13:57 | MHC.OFFVIS ---
Intake Intake Visit Reasons: OV-CTS, left upper limb Intake Note: Kelly presents today to discus her A1C and left hand carpal tunnel. Allergies Iodinated Contrast Media [IV Dye, Iodine Containing] Allergy (Intermediate, Verified 12/28/22 08:43) ITCHING HPI OV-CTS, left upper limb HPI Details Kelly is a 52 year old rigt hand dominant woman who returns to discuss her bilateral carpal tunnel syndrome. 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 She continues to have constant numbness in her left middle finger, with intermittent numbness in the thumb and index finger. She would like to discuss scheduling surgery for this hand. She was scheduled for surgery sometime in 01/2023, but this was cancelled due to an elevated HgA1c. Her next test should be done sometime in June. She has numbness in the right hand as well, but this is less bothersome for her right now. She has been modifying her diet the last few months in order to help manage her Diabetes. [facility] Medical History Abdominal pain Chronic back pain Chronic constipation Elevated liver enzymes Essential hypertension H. 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 normal sensation to the tips of all other digits today in clinic No thenar or intrinsic wasting Good APB muscle belly firing and good finger cross Vascular: Cap refill brisk ROM: She can make a fist and extend all her digits. No locking or catching Nerve Conduction Study: Moderate carpal tunnel syndrome bilaterally, slightly worse on the right Normal EMG of the right C5-T1 innervated muscles Dr. Nuñez 11/23/22 Psych Appearance: grossly normal Affect: normal affect Attitude: cooperative Assessment & Plan Assessment & Plan (1) Carpal tunnel syndrome of left wrist: Code(s): G56.02 - Carpal tunnel syndrome, left upper limb (2) Carpal tunnel syndrome of right wrist: Code(s): G56.01 - Carpal tunnel syndrome, right upper limb (3) Type 2 diabetes mellitus with hyperglycemia: Code(s): E11.65 - Type 2 diabetes mellitus with hyperglycemia Plan Assessment & Plan: 1. Left Carpal tunnel syndrome, moderate Symptoms intermittent, but daily, however constant numbness in the middle finger This is her most symptomatic complaint 2. Right Carpal tunnel syndrome, moderate Symptoms intermittent, but daily I educated her about this condition I discussed treatment options I recommend surgery, beginning with the left side, and she is in agreement The risks and benefits of operative treatment were discussed with the patient and the patient wishes to proceed with surgery. These risks include, but are not limited to risk of damage to blood vessels, nerves, tendons, infection, recurrence, incomplete relief of preoperative symptoms, persistent pain, possible need for further surgery and the risks associated with regional blocks and anesthesia. The plan is to take the patient to the operating room sometime in the next few weeks for the following procedures: 1. Left carpal tunnel release, under local All of the preoperative paperwork including the consent was filled out today. All the patient's questions were answered. She denies blood thinners, asthma, heart, lung, kidney issues She is a Diabetic, we are waiting on a new HgA1c that is <8.0% in order to proceed with surgery. Her next appointment for bloodwork is sometime in June. If her next HgA1c is above 8.0% she may contact the clinic and we can consider carpal tunnel injections for her while she works on managing her Diabetes We can discuss treatment for her right hand at a later date. 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 Coding Level of Care Code Est Pt Level 4 (12456) Diagnoses Carpal tunnel syndrome of left wrist G56.02 Carpal tunnel syndrome of right wrist G56.01 Type 2 diabetes mellitus with hyperglycemia E11.65
== END 2023-05-09 14:57 | disposition home or self-care (01) ==
PROVIDERS: PCP Internal Medicine; Visit Provider Orthopaedic Surgery
DX: G56.03 Carpal tunnel syndrome, bilateral upper limbs (principal); E11.65 Type 2 diabetes mellitus with hyperglycemia
CPT/HCPCS: 99214

== ENCOUNTER → 2023-05-09 13:53 | Outpatient (BNVA) | payer OTHER, SELFPAY | PROVIDERS: PCP Internal Medicine; Visit Provider Orthopaedic Surgery | DX: G56.03 Carpal tunnel syndrome, bilateral upper limbs (principal); E11.65 Type 2 diabetes mellitus with hyperglycemia | CPT/HCPCS: 99212 ==

== ENCOUNTER 2023-06-14 18:21 | Outpatient (REF) | payer MEDICAID, SELFPAY ==
[2023-06-19 08:27] LABS: Alphahydroxymidazolam,GCMS Ur NEGATIVE; Alphahydroxytriazolam, GCMS Ur NEGATIVE; Alprazolam, GCMS Urine NEGATIVE; Flurazepam Metabolite,GCMS Ur NEGATIVE; Lorazepam GCMS Urine NEGATIVE; Nordiazepam, GCMS Urine NEGATIVE; Oxazepam, GCMS Urine NEGATIVE; Temazepam, GCMS Urine NEGATIVE
== END 2023-06-14 18:22 | disposition home or self-care (01) ==
LOC: HO.HHCLNP 18:21
PROVIDERS: Visit Provider Internal Medicine
DX: M54.42 Lumbago with sciatica, left side (principal); G89.29 Other chronic pain
CPT/HCPCS: 80346

== ENCOUNTER 2023-08-18 10:51 | Outpatient (REF) | payer OTHER, MEDICAID, SELFPAY ==
[2023-08-18 12:26] LABS: HBS Num1 38.41 mIU/mL (0-7.99); HBc Num1 0.14 S/CO (0.00-0.79); HIV AB/AG Nonreactive (Nonreactive); HIV Num 1 0.06 S/CO (0.00-0.99); Hepatitis A Antibody IgM 0.25 Index (0-0.79); Hepatitis B Core Antibody Nonreactive (Nonreactive); Hepatitis B Surface Antigen Negative (Negative); ~HepC Num1 0.31 S/CO (0.00-0.79); ~Hepatitis A Antibody IgM Nonreactive (Nonreactive); ~Hepatitis B Surface Antibody REACTIVE (Nonreactive); ~Hepatitis C Antibody Nonreactive (Nonreactive)
[2023-08-18 12:27] LABS: Syphilis Screen Nonreactive (Nonreactive)
[2023-08-20 20:28] LABS: TS Negative Control Passed; TS Panel A 0; TS Panel B 0; TS Positive Control Passed; TSpotTB Negative (Negative)
[2023-08-21 18:29] LABS: Mumps Virus IgG Antibody <9.00 AU/mL; Rubella IgG Antibody 8.08 Index; Rubeola IgG (Measles) >300.00 AU/mL
== END 2023-08-18 10:52 | disposition home or self-care (01) ==
LOC: HO.HHCL 10:51
PROVIDERS: Visit Provider Internal Medicine
DX: Z00.00 Encounter for general adult medical examination without abnormal findings (principal); Z11.4 Encounter for screening for human immunodeficiency virus [HIV]; Z11.1 Encounter for screening for respiratory tuberculosis
CPT/HCPCS: 36415; 86481; 86704; 86706; 86709; 86735; 86762; 86765; 86780; 86803; 87340; 87389

== ENCOUNTER 2023-09-21 13:13 | Emergency (ER) | payer OTHER, SELFPAY ==
--- NOTE | 2023-09-21 13:17 | ECG_ITS ---
Test Reason : CHEST PAIN Blood Pressure : / mmHG Vent. Rate : 062 BPM Atrial Rate : 062 BPM P-R Int : 158 ms QRS Dur : 082 ms QT Int : 430 ms P-R-T Axes : 037 002 026 degrees QTc Int : 436 ms Normal sinus rhythm Possible Anterior infarct , age undetermined Abnormal ECG When compared with ECG of 19-AUG-2017 08:55, Borderline criteria for Anterior infarct are now Present Referred By: Edilson [place] Electronically Signed By:ZACKARY BRANDT MD
--- NOTE | 2023-09-21 13:24 | ED_ITS ---
HPI - General Adult General Chief complaint: Chest Pain Stated complaint: Chest pain, headache Related Data Home Medications ?Medication ?Instructions ?Recorded ?Confirmed blood sugar diagnostic #10 ea 06/01/20 03/18/21 cyclobenzaprine 10 mg tablet mg PO 06/01/20 03/18/21 fluoxetine 20 mg capsule 20 mg PO DAILY 06/01/20 03/18/21 lisinopril 20 1 tab PO DAILY 06/01/20 03/18/21 mg-hydrochlorothiazide 25 mg tablet multivitamin-ferrous 1 tab PO DAILY 06/01/20 03/18/21 fumarate-folic acid 18 mg-400 mcg tablet ondansetron HCl 4 mg tablet mg PO 06/01/20 03/18/21 oxycodone 5 mg tablet 5 mg PO BID PRN 06/01/20 03/18/21 pantoprazole 40 mg tablet,delayed 40 mg PO DAILY 06/01/20 03/18/21 release zolpidem 10 mg tablet mg PO 06/01/20 03/18/21 acetaminophen 500 mg tablet 500 mg PO Q12H PRN 07/14/20 03/18/21 diclofenac sodium 1 % topical gel 2 g topical QID 07/14/20 03/18/21 lidocaine 5 % topical patch 0 patch topical 07/14/20 03/18/21 albuterol sulfate 90 mcg/actuation 2 puff PO Q4-6H PRN 09/01/20 03/18/21 aerosol inhaler fluoxetine 40 mg capsule 40 mg PO QAM 09/01/20 03/18/21 furosemide 20 mg tablet 20 mg PO QAM PRN swelling 03/18/21 03/18/21 Previous Rx's ?Medication ?Instructions ?Recorded empagliflozin 25 mg tablet 25 mg PO QAM #30 tabs 06/06/20 (Jardiance) ezetimibe 10 mg tablet 10 mg PO DAILY #30 tabs 11/30/20 diphenhydramine HCl 25 mg capsule 25 mg PO BEDTIME for premed due to 12/25/20 (Benadryl) allery to CT contrast (itching) #2 caps prednisone 50 mg tablet 50 mg PO .4 times for premed prior 12/25/[address] for allergy (itching) #4 tabs bisacodyl 10 mg rectal suppository 10 mg DC DAILY PRN constipation 03/18/21 (Dulcolax (bisacodyl)) #20 ea methylcellulose (laxative) 500 mg 500 mg PO BID #60 tabs 09/21/21 tablet (Citrucel) methylcellulose (laxative) 500 mg 500 mg PO BID #60 tabs 09/29/21 tablet (Citrucel) bisacodyl 10 mg rectal suppository 10 mg DC DAILY PRN for 10/26/21 constipation #20 supp dulaglutide 1.5 mg/0.5 mL 1.5 mg (0.5 mL) subcut QWEEK #2 mL 10/29/21 subcutaneous pen injector (Trulicity) metformin 500 mg tablet,extended 1,000 mg (2 x 500 mg) PO BID #120 11/03/21 release 24 hr tabs cholecalciferol (vitamin D3) 125 125 mcg PO DAILY #30 caps 01/04/22 mcg (5,000 unit) capsule docusate sodium 100 mg capsule 200 mg (2 x 100 mg) PO BEDTIME #60 05/16/22 caps polyethylene glycol 3350 17 gram 17 g PO DAILY #30 packets 05/16/22 oral powder packet Allergies Allergy/AdvReac Type Severity Reaction Status Date / Time Iodinated Contrast Media Allergy Intermediate ITCHING Verified 09/21/23 13:25 [IV Dye, Iodine Containing] PMFSH Past Medical History Medical History Abdominal pain Chronic back pain Chronic constipation Elevated liver enzymes Essential hypertension H. 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 52 yo f hx of NAFLD, DM, HTN presents w/ substernal cp w/ radiation to LUE started upon wakening this am. Also has been having headache diffuse in nature. No sob, fevers, vision changes or dizziness. Plan0- labs, ekg Medical Decision Making Lab Data 09/21/23 13:21 09/21/23 13:21 Labs: Lab Results 09/21/23 Range/Units 13:21 WBC 7.6 (4.8-10.8) X10*3/uL RBC 4.07 L (4.20-5.50) X10*6/uL Hgb 11.1 L (12.0-16.0) g/dl Hct 35.1 L (37.0-47.0) % MCV 86.2 (80.0-98.0) fL MCH 27.3 (27.0-33.0) pg MCHC 31.6 (31.0-35.0) g/dl RDW 14.5 (11.0-16.0) % Plt Count 278 (160-400) X10*3/uL MPV 8.6 L (9.4-12.3) fL Immature Gran % (Auto) 0.3 (0.0-0.4) % Neut % (Auto) 49.1 (45-73) % Lymph % (Auto) 36.8 (20-40) % [place] % (Auto) 6.7 (2-11) % Eos % (Auto) 6.6 H (0-4) % Baso % (Auto) 0.5 (0-2) % Lymph # (Auto) 2.8 (1.2-4.9) X10*3/uL [place] # (Auto) 0.5 (0.1-1.2) X10*3/uL Eos # (Auto) 0.5 H (0.0-0.4) X10*3/uL Baso # (Auto) 0.0 (0.0-0.2) X10*3/uL Abs Immat Gran (auto) 0.02 (0.00-0.03) X10*3/uL Absolute Neuts (auto) 3.7 (2.0-8.3) x10*3/uL Absolute Nucleated RBC 0.000 (0.0-0.012) X10*3/uL Nucleated RBC % (auto) 0.0 (0.0-0.2) /100WBC Sodium 138 (135-145) mmol/L Potassium 4.1 (3.3-5.1) mmol/L Chloride 101 (96-108) mmol/L Carbon Dioxide 27 (22-29) mmol/L Anion Gap 14 (12-20) BUN 16 (9-16) mg/dL Creatinine 0.75 (0.5-1.4) mg/dL Estim Creat Clear Calc 84.7 Estimated GFR > 60 Random Glucose 150 H (60-115) mg/dL Calcium 9.5 (8.4-10.2) mg/dL Magnesium 2.0 (1.6-2.6) mg/dL Total Bilirubin 0.2 (0.0-1.0) mg/dL AST 60 H (5-31) U/L ALT 50 H (0-31) U/L Alkaline Phosphatase 92 (39-117) U/L Troponin I High Sens < 2.7 (<3.5-17.0) ng/L Total Protein 8.0 (6.5-8.0) g/dL Albumin 4.0 (3.5-5.0) g/dL Influenza Type A (PCR) NEGATIVE (Negative) Influenza Type B (PCR) NEGATIVE (Negative) RSV RNA Qual (PCR) NEGATIVE (Negative) SARS-CoV-2 RNA (RT-PCR) NEGATIVE (Negative) Discharge Plan Discharge Clinical Impression: Eloped from emergency department Patient Disposition: Left W/O Completing Treatment Prescriptions: No Action Jardiance 25 mg tablet 25 mg PO QAM Qty: 30 3RF ezetimibe 10 mg tablet 10 mg PO DAILY Qty: 30 0RF diphenhydramine HCl [Benadryl] 25 mg capsule 25 mg PO BEDTIME Qty: 2 0RF Rx Instructions: Take two 25mg caps (50 mg total) one hour prior to the scheduled CT time. prednisone 50 mg tablet 50 mg PO .4 times Qty: 4 0RF Rx Instructions: Take one tablet at 6pm the night before the CT scan, one tablet at midnight the night before the CT and one tablet at 6am the day of the CT. Take the 4th tablet with you to the hospital when you report for the test. Citrucel 500 mg tablet 500 mg PO BID Qty: 60 1RF bisacodyl 10 mg suppository 10 mg DC DAILY PRN (Reason: for constipation) Qty: 20 0RF Trulicity 1.5 mg/0.5 mL pen injector 1.5 mg subcut QWEEK Qty: 2 7RF metformin 500 mg tablet extended release 24 hr 1,000 mg PO BID Qty: 120 6RF cholecalciferol (vitamin D3) 125 mcg (5,000 unit) capsule 125 mcg PO DAILY Qty: 30 11RF docusate sodium 100 mg capsule 200 mg PO BEDTIME Qty: 60 1RF polyethylene glycol 3350 17 gram powder in packet 17 g PO DAILY Qty: 30 1RF zolpidem 10 mg tablet PO Certavite-Antioxidant 18-400 mg-mcg tablet 1 tab PO DAILY fluoxetine 20 mg capsule 20 mg PO DAILY oxycodone 5 mg tablet 5 mg PO BID PRN lisinopril-hydrochlorothiazide 20-25 mg tablet 1 tab PO DAILY pantoprazole 40 mg tablet,delayed release (DR/EC) 40 mg PO DAILY cyclobenzaprine 10 mg tablet PO ondansetron HCl 4 mg tablet PO (DME) FreeStyle Lite Strips Strip See Rx Instructions .ROUTE .MEDSUPPLY Qty: 10 Rx Instructions: As directed albuterol sulfate 90 mcg/actuation HFA aerosol inhaler 2 puff PO Q4-6H PRN fluoxetine 40 mg capsule 40 mg PO QAM acetaminophen 500 mg tablet 500 mg PO Q12H PRN lidocaine 5 % adhesive patch,medicated 0 patch topical diclofenac sodium 1 % gel 2 g topical QID furosemide 20 mg tablet 20 mg PO QAM PRN (Reason: swelling) bisacodyl [Dulcolax (bisacodyl)] 10 mg suppository 10 mg DC DAILY PRN (Reason: constipation) Qty: 20 0RF Citrucel 500 mg tablet 500 mg PO BID Qty: 60 5RF Discharge Date/Time: 09/21/23 18:27
[2023-09-21 13:26] VITALS: BP 115/52; PULSE 73; RESP 17; TEMP 36.6; O2SAT 98; BMI 31.4
[2023-09-21 13:31] LABS: MANUAL DIFF FLAG NO
[2023-09-21 13:33] LABS: Basophils Percent Auto 0.5 % (0-2); Eosinophils Absolute Auto 0.5 X10*3/uL (0.0-0.4); Eosinophils Percent Auto 6.6 % (0-4); Hematocrit 35.1 % (37.0-47.0); Hemoglobin 11.1 g/dl (12.0-16.0); Imm Gran Abs Auto 0.02 X10*3/uL (0.00-0.03); Imm Gran Pct Auto 0.3 % (0.0-0.4); Lymphocytes Absolute Auto 2.8 X10*3/uL (1.2-4.9); Lymphocytes Percent Auto 36.8 % (20-40); Mean Corpuscular HGB Conc 31.6 g/dl (31.0-35.0); Mean Corpuscular Hemoglobin 27.3 pg (27.0-33.0); Mean Corpuscular Volume 86.2 fL (80.0-98.0); Mean Platelet Volume 8.6 fL (9.4-12.3); Monocytes Absolute Auto 0.5 X10*3/uL (0.1-1.2); Monocytes Percent Auto 6.7 % (2-11); Neutrophils Absolute Auto 3.7 x10*3/uL (2.0-8.3); Neutrophils Percent Auto 49.1 % (45-73); Platelet Count 278 X10*3/uL (160-400); Red Blood Count 4.07 X10*6/uL (4.20-5.50); Red Cell Distribution Width 14.5 % (11.0-16.0); White Blood Count 7.6 X10*3/uL (4.8-10.8)
[2023-09-21 13:47] LABS: Alanine Aminotransferase 50 U/L (0-31); Alkaline Phosphatase 92 U/L (39-117); Anion Gap 14 (12-20); Aspartate Amino Transferase 60 U/L (5-31); Bilirubin Total 0.2 mg/dL (0.0-1.0); Blood Urea Nitrogen 16 mg/dL (9-16); Calcium 9.5 mg/dL (8.4-10.2); Carbon Dioxide 27 mmol/L (22-29); Chloride 101 mmol/L (96-108); Creatinine Clr Calc Pharmacy 84.7; Estimated Glomerular Filt Rate > 60; Glucose Random 150 mg/dL (60-115); Potassium 4.1 mmol/L (3.3-5.1); Sodium 138 mmol/L (135-145)
[2023-09-21 13:56] LABS: Troponin-I High Sensitivity < 2.7 ng/L (<3.5-17.0)
[2023-09-21 14:10] LABS: Influenza A PCR NEGATIVE (Negative); Influenza B PCR NEGATIVE (Negative); Resp Syncy Virus RNA Qual PCR NEGATIVE (Negative); SARS COV2 PCR INHOUSE NEGATIVE (Negative)
[2023-09-21 16:51] VITALS: BP 127/71; PULSE 65; RESP 18; TEMP 36.2; O2SAT 98
--- NOTE | 2023-09-21 16:53 | PC.NURSE ---
Pt reporting CP has resolved, now having a HERNANDEZ, GONZALO adjusted to a 3 based off vitals, and labs that have returned.
== END 2023-09-21 18:27 | disposition left against medical advice (07) ==
PROVIDERS: Physician Assistant; Emergency Provider Emergency Medicine
DX: R07.89 Other chest pain (principal); R51.9 Headache, unspecified; Z11.52 Encounter for screening for COVID-19; Z20.822 Contact with and (suspected) exposure to COVID-19; Z79.899 Other long term (current) drug therapy
CPT/HCPCS: 0241U; 36415; 80053; 83735; 84484; 85025; 93005; 99283

== ENCOUNTER → 2023-09-21 13:17 | Outpatient (BNV) | payer OTHER, SELFPAY | PROVIDERS: Emergency Provider Emergency Medicine; Visit Provider Internal Medicine Cardiovascular Disease | DX: R07.9 Chest pain, unspecified (principal) | CPT/HCPCS: 93010 ==

== ENCOUNTER 2023-11-23 15:23 | Outpatient (REF) | payer OTHER, SELFPAY | END 2023-11-23 15:24 | disposition home or self-care (01) | LOC: HO.MAMMO 15:23 | PROVIDERS: PCP Internal Medicine; Visit Provider Internal Medicine | DX: Z12.31 Encounter for screening mammogram for malignant neoplasm of breast (principal) | CPT/HCPCS: 77063; 77067 ==

== ENCOUNTER → 2023-11-23 15:30 | Outpatient (BNV) | payer OTHER, SELFPAY | PROVIDERS: PCP Internal Medicine; Visit Provider Radiology Diagnostic Radiology | DX: Z12.31 Encounter for screening mammogram for malignant neoplasm of breast (principal) | CPT/HCPCS: 77063; 77067 ==

== ENCOUNTER 2024-01-22 17:48 | Outpatient (REF) | payer OTHER, SELFPAY ==
[2024-01-23 15:37] LABS: Bacterial Vaginosis PCR POSITIVE (Negative); Candida Group PCR DETECTED (Not Detect); Candida glab krusei PCR NOT DETECTED (Not Detect); Trichomonas vaginalis PCR NOT DETECTED (Not Detect)
== END 2024-01-22 17:49 | disposition home or self-care (01) ==
LOC: HO.HHCLNP 17:48
PROVIDERS: Visit Provider Nurse Practitioner Family
DX: N89.8 Other specified noninflammatory disorders of vagina (principal)
CPT/HCPCS: 0352U

== ENCOUNTER 2024-04-12 08:58 | Outpatient (REF) | payer OTHER, SELFPAY ==
[2024-04-12 12:43] LABS: Alanine Aminotransferase 45 U/L (0-31); Albumin Level 4.1 g/dL (3.5-5.0); Alkaline Phosphatase 85 U/L (39-117); Anion Gap 12 (12-20); Aspartate Amino Transferase 49 U/L (5-31); Bilirubin Total 0.4 mg/dL (0.0-1.0); Blood Urea Nitrogen 15 mg/dL (9-16); Calcium 9.8 mg/dL (8.4-10.2); Carbon Dioxide 28 mmol/L (22-29); Chloride 103 mmol/L (96-108); Cholesterol 197 mg/dL (<200); Estimated Glomerular Filt Rate > 60; Glucose Random 118 mg/dL (60-115); HDL Cholesterol 47 mg/dL (>40); LDL Cholesterol Calculated 122 mg/dL (<100); Potassium 4.3 mmol/L (3.3-5.1); Sodium 139 mmol/L (135-145); Total Protein 8.1 g/dL (6.5-8.0); Triglycerides 140 mg/dL (<150)
[2024-04-12 14:14] LABS: Reflex LDLD? No
== END 2024-04-12 08:59 | disposition home or self-care (01) ==
LOC: HO.HHCL 08:58
PROVIDERS: Visit Provider Internal Medicine
DX: E11.65 Type 2 diabetes mellitus with hyperglycemia (principal)
CPT/HCPCS: 36415; 80053; 80061

== ENCOUNTER 2024-06-12 16:04 | Emergency (ER) | payer OTHER, SELFPAY ==
--- NOTE | ~2024-06-12 | CT_ITS ---
EXAMINATION: CT ABDOMEN AND PELVIS WITHOUT CONTRAST CLINICAL INFORMATION: Abdominal pain, right lower quadrant. COMPARISON: CT abdomen/pelvis dated 12/28/2020 TECHNIQUE: Multidetector volumetric imaging was performed from the superior aspect of the liver through the pubic symphysis. Sagittal and coronal reformatted images were obtained on the technologist's workstation. This CT examination was performed using dose optimization techniques as appropriate, variously including the following: *Automated exposure control *Adjustment of mA and/or kV according to patient size (this includes techniques or standardized protocols for targeted exams where dose is matched to indication/reason for exam; i.e. extremities or head) *Use of iterative reconstruction technique DLP: 515 mGy-cm FINDINGS: LUNG BASES: The visualized lung bases are unremarkable. LIVER, GALLBLADDER, AND BILIARY TREE: The liver is diffusely low in attenuation likely representing hepatic steatosis. Mild nodular contour of the liver likely represents hepatic cirrhosis. No focal hepatic lesion or biliary ductal dilatation is present. Status post cholecystectomy with surgical clips located in the gallbladder fossa. PANCREAS: Unremarkable. SPLEEN: Unremarkable. ADRENAL GLANDS: Unremarkable. KIDNEYS AND URETERS: The kidneys are normal in size, shape, and attenuation. No hydronephrosis, hydroureter, or calculi seen. No perinephric stranding. BLADDER: Unremarkable. GASTROINTESTINAL TRACT: Significant wall thickening in a short segment of small bowel in the left lower quadrant with bowel wall measuring 8 mm and associated surrounding fat stranding. Fecalization the inflamed loop of small bowel in adjacent loops of small bowel suggesting slow transit. Moderate stool burden. The large bowel is otherwise unremarkable. The appendix is unremarkable. ABDOMINAL WALL: No significant hernia is appreciated. LYMPH NODES: Normal. VASCULAR: Mild atherosclerosis of aorta and its branches. No abdominal aortic aneurysm. PELVIC VISCERA: The uterus and adnexa are unremarkable. Trace amount of free fluid in the pelvis. OSSEOUS STRUCTURES: Unremarkable. CT/CT abdomen pelvis wo IV con IMPRESSION: 1. Significant wall thickening in a short segment of small bowel in the left lower quadrant with associated surrounding fat stranding. Fecalization the inflamed loop of small bowel in adjacent loops of small bowel suggesting slow transit. Findings are suggestive of enteritis. However, given the focal nature, cannot exclude malignancy. Recommend short interval follow-up CT of the abdomen/pelvis in 6-8 weeks to assess for resolution. 2. Hepatic steatosis. Mild nodular contour of the liver likely represents hepatic cirrhosis. Fleischner guidelines were followed. Electronically signed by: Nanette Oviedo MD 06/12/2024 10:20 PM SARAHY MURILLO
[2024-06-12 16:08] VITALS: BP 123/65; PULSE 63; RESP 18; TEMP 36.4; O2SAT 99; BMI 32.2
--- NOTE | 2024-06-12 16:08 | ED.ABDPAIN ---
HPI - Abdominal Pain General Chief Complaint: Abdominal Pain Stated Complaint: Referred by Pcp for CT scan and Blood Work Related Data Home Medications ?Medication ?Instructions ?Recorded ?Confirmed blood sugar diagnostic #10 ea 06/01/20 03/18/21 cyclobenzaprine 10 mg tablet mg PO 06/01/20 03/18/21 fluoxetine 20 mg capsule 20 mg PO DAILY 06/01/20 03/18/21 lisinopril 20 1 tab PO DAILY 06/01/20 03/18/21 mg-hydrochlorothiazide 25 mg tablet multivitamin-ferrous 1 tab PO DAILY 06/01/20 03/18/21 fumarate-folic acid 18 mg-400 mcg tablet ondansetron HCl 4 mg tablet mg PO 06/01/20 03/18/21 oxycodone 5 mg tablet 5 mg PO BID PRN 06/01/20 03/18/21 pantoprazole 40 mg tablet,delayed 40 mg PO DAILY 06/01/20 03/18/21 release zolpidem 10 mg tablet mg PO 06/01/20 03/18/21 acetaminophen 500 mg tablet 500 mg PO Q12H PRN 07/14/20 03/18/21 diclofenac sodium 1 % topical gel 2 g topical QID 07/14/20 03/18/21 lidocaine 5 % topical patch 0 patch topical 07/14/20 03/18/21 albuterol sulfate 90 mcg/actuation 2 puff PO Q4-6H PRN 09/01/20 03/18/21 aerosol inhaler fluoxetine 40 mg capsule 40 mg PO QAM 09/01/20 03/18/21 furosemide 20 mg tablet 20 mg PO QAM PRN swelling 03/18/21 03/18/21 Previous Rx's ?Medication ?Instructions ?Recorded empagliflozin 25 mg tablet 25 mg PO QAM #30 tabs 06/06/20 (Jardiance) ezetimibe 10 mg tablet 10 mg PO DAILY #30 tabs 11/30/20 diphenhydramine HCl 25 mg capsule 25 mg PO BEDTIME for premed due to 12/25/20 (Benadryl) allery to CT contrast (itching) #2 caps prednisone 50 mg tablet 50 mg PO .4 times for premed prior 12/25/[address] for allergy (itching) #4 tabs bisacodyl 10 mg rectal suppository 10 mg KS DAILY PRN constipation 03/18/21 (Dulcolax (bisacodyl)) #20 ea methylcellulose (laxative) 500 mg 500 mg PO BID #60 tabs 09/21/21 tablet (Citrucel) methylcellulose (laxative) 500 mg 500 mg PO BID #60 tabs 09/29/21 tablet (Citrucel) bisacodyl 10 mg rectal suppository 10 mg KS DAILY PRN for 10/26/21 constipation #20 supp dulaglutide 1.5 mg/0.5 mL 1.5 mg (0.5 mL) subcut QWEEK #2 mL 10/29/21 subcutaneous pen [facility]or ([facility] metformin 500 mg tablet,extended 1,000 mg (2 x 500 mg) PO BID #120 11/03/21 release 24 hr tabs cholecalciferol (vitamin D3) 125 125 mcg PO DAILY #30 caps 01/04/22 mcg (5,000 unit) capsule docusate sodium 100 mg capsule 200 mg (2 x 100 mg) PO BEDTIME #60 05/16/22 caps polyethylene glycol 3350 17 gram 17 g PO DAILY #30 packets 05/16/22 oral powder packet Allergies Allergy/AdvReac Type Severity Reaction Status Date / Time Iodinated Contrast Media Allergy Intermediate ITCHING Verified 06/12/24 16:10 [IV Dye, Iodine Containing] PMFSH Past Medical History Medical History Abdominal pain Chronic back pain Chronic constipation Elevated liver enzymes Essential hypertension H. pylori infection Hyperlipidemia IBS (irritable bowel syndrome) Kidney stones NAFLD (nonalcoholic fatty liver disease) Type 2 diabetes mellitus with hyperglycemia Vitamin D deficiency Surgical History H/O colonoscopy History of cholecystectomy History of esophagogastroduodenoscopy (EGD) Family History Family History Father Diabetes Mother Diabetes Sister Diabetes Social History Social History Household Members: Spouse and Children Alcohol intake: never Advance Directives: No Advance Directives Information Provided: No Do you have a plan to hurt others: No Plan Current occupational status: employed 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 Full HPI, ROS and PE to be performed by primary ED provider. 53-year-old female with a past medical history NAFLD, chronic constipation, H pylori, IBS, diabetes, HLD presenting to the ED c/o lower abdominal pain since Monday associated nausea & constipation PE: Abdomen soft diffusely tender > lower abdomen. No rebound or guarding Plan: Labs, UA Medical Decision Making Lab Data 06/12/24 18:41 06/12/24 18:41 Labs: Lab Results 06/12/24 06/12/24 Range/Units 18:41 18:48 WBC 8.3 (4.8-10.8) X10*3/uL RBC 4.39 (4.20-5.50) X10*6/uL Hgb 13.3 (12.0-16.0) g/dl Hct 40.4 (37.0-47.0) % MCV 92.0 (80.0-98.0) fL MCH 30.3 (27.0-33.0) pg MCHC 32.9 (31.0-35.0) g/dl RDW 13.0 (11.0-16.0) % Plt Count 262 (160-400) X10*3/uL MPV 9.0 L (9.4-12.3) fL Immature Gran % (Auto) 0.1 (0.0-0.4) % Neut % (Auto) 30.1 L (45-73) % Lymph % (Auto) 52.5 H (20-40) % [place] % (Auto) 9.6 (2-11) % Eos % (Auto) 6.7 H (0-4) % Baso % (Auto) 1.0 (0-2) % Lymph # (Auto) 4.3 (1.2-4.9) X10*3/uL [place] # (Auto) 0.8 (0.1-1.2) X10*3/uL Eos # (Auto) 0.6 H (0.0-0.4) X10*3/uL Baso # (Auto) 0.1 (0.0-0.2) X10*3/uL Abs Immat Gran (auto) 0.01 (0.00-0.03) X10*3/uL Absolute Neuts (auto) 2.5 (2.0-8.3) x10*3/uL Absolute Nucleated RBC 0.000 (0.0-0.012) X10*3/uL Nucleated RBC % (auto) 0.0 (0.0-0.2) /100WBC Sodium 139 (135-145) mmol/L Potassium 4.2 (3.3-5.1) mmol/L Chloride 104 (96-108) mmol/L Carbon Dioxide 27 (22-29) mmol/L Anion Gap 12 (12-20) BUN 11 (9-16) mg/dL Creatinine 0.69 (0.5-1.4) mg/dL Estim Creat Clear Calc 92.2 Estimated GFR > 60 Random Glucose 106 (60-115) mg/dL Calcium 9.3 (8.4-10.2) mg/dL Magnesium 1.7 (1.6-2.6) mg/dL Total Bilirubin 0.3 (0.0-1.0) mg/dL AST 38 H (5-31) U/L ALT 35 H (0-31) U/L Alkaline Phosphatase 88 (39-117) U/L Total Protein 8.0 (6.5-8.0) g/dL Albumin 4.1 (3.5-5.0) g/dL Lipase 27 (8-78) U/L Beta HCG, Quant < 2 mIU/mL Urine Color Yellow Urine Appearance Clear Urine pH 6.0 (5.0-9.0) Ur Specific [place] >= 1.030 H (1.005-1.025) Urine Protein Negative (Neg-Trace) mg/dL Urine Glucose (UA) >=1000 H (Negative) mg/dL Urine Ketones Negative (Negative) mg/dL Urine Blood Negative (Negative) Urine Nitrite Negative (Negative) Ur Leukocyte Esterase Negative (Negative) Urine RBC 0-2 (0-2) /HPF Urine WBC 11-20 H (0-5) /HPF Ur Squamous Epith Cells 0-2 (0-2) /HPF Urine Bacteria None Seen (None Seen) Hyaline Casts 0-2 (0-2) /LPF Discharge Plan Discharge Clinical Impression: Abdominal pain Patient Disposition: Left W/O Completing Treatment Prescriptions: No Action Jardiance 25 mg tablet 25 mg PO QAM Qty: 30 3RF ezetimibe 10 mg tablet 10 mg PO DAILY Qty: 30 0RF diphenhydramine HCl [Benadryl] 25 mg capsule 25 mg PO BEDTIME Qty: 2 0RF Rx Instructions: Take two 25mg caps (50 mg total) one hour prior to the scheduled CT time. prednisone 50 mg tablet 50 mg PO .4 times Qty: 4 0RF Rx Instructions: Take one tablet at 6pm the night before the CT scan, one tablet at midnight the night before the CT and one tablet at 6am the day of the CT. Take the 4th tablet with you to the hospital when you report for the test. Citrucel 500 mg tablet 500 mg PO BID Qty: 60 1RF bisacodyl 10 mg suppository 10 mg KS DAILY PRN (Reason: for constipation) Qty: 20 0RF Trulicity 1.5 mg/0.5 mL pen injector 1.5 mg subcut QWEEK Qty: 2 7RF metformin 500 mg tablet extended release 24 hr 1,000 mg PO BID Qty: 120 6RF cholecalciferol (vitamin D3) 125 mcg (5,000 unit) capsule 125 mcg PO DAILY Qty: 30 11RF docusate sodium 100 mg capsule 200 mg PO BEDTIME Qty: 60 1RF polyethylene glycol 3350 17 gram powder in packet 17 g PO DAILY Qty: 30 1RF zolpidem 10 mg tablet PO Certavite-Antioxidant 18-400 mg-mcg tablet 1 tab PO DAILY fluoxetine 20 mg capsule 20 mg PO DAILY oxycodone 5 mg tablet 5 mg PO BID PRN lisinopril-hydrochlorothiazide 20-25 mg tablet 1 tab PO DAILY pantoprazole 40 mg tablet,delayed release (DR/EC) 40 mg PO DAILY cyclobenzaprine 10 mg tablet PO ondansetron HCl 4 mg tablet PO (DME) FreeStyle Lite Strips Strip See Rx Instructions .ROUTE .MEDSUPPLY Qty: 10 Rx Instructions: As directed albuterol sulfate 90 mcg/actuation HFA aerosol inhaler 2 puff PO Q4-6H PRN fluoxetine 40 mg capsule 40 mg PO QAM acetaminophen 500 mg tablet 500 mg PO Q12H PRN lidocaine 5 % adhesive patch,medicated 0 patch topical diclofenac sodium 1 % gel 2 g topical QID furosemide 20 mg tablet 20 mg PO QAM PRN (Reason: swelling) bisacodyl [Dulcolax (bisacodyl)] 10 mg suppository 10 mg KS DAILY PRN (Reason: constipation) Qty: 20 0RF Citrucel 500 mg tablet 500 mg PO BID Qty: 60 5RF Discharge Date/Time: 06/12/24 21:51
[2024-06-12 19:01] LABS: MANUAL DIFF FLAG NO
[2024-06-12 19:04] LABS: Basophils Absolute Auto 0.1 X10*3/uL (0.0-0.2); Eosinophils Absolute Auto 0.6 X10*3/uL (0.0-0.4); Eosinophils Percent Auto 6.7 % (0-4); Hematocrit 40.4 % (37.0-47.0); Hemoglobin 13.3 g/dl (12.0-16.0); Imm Gran Abs Auto 0.01 X10*3/uL (0.00-0.03); Imm Gran Pct Auto 0.1 % (0.0-0.4); Lymphocytes Absolute Auto 4.3 X10*3/uL (1.2-4.9); Lymphocytes Percent Auto 52.5 % (20-40); Mean Corpuscular HGB Conc 32.9 g/dl (31.0-35.0); Mean Corpuscular Hemoglobin 30.3 pg (27.0-33.0); Monocytes Absolute Auto 0.8 X10*3/uL (0.1-1.2); Monocytes Percent Auto 9.6 % (2-11); Neutrophils Absolute Auto 2.5 x10*3/uL (2.0-8.3); Neutrophils Percent Auto 30.1 % (45-73); Platelet Count 262 X10*3/uL (160-400); Red Blood Count 4.39 X10*6/uL (4.20-5.50); White Blood Count 8.3 X10*3/uL (4.8-10.8)
[2024-06-12 19:04] LABS: Appearance Urine Clear; Color Urine Yellow; Glucose Urine UA >=1000 mg/dL (Negative); Leukocyte Esterase Urine Negative (Negative); Nitrite Urine Negative (Negative); Specific Gravity - Urine >= 1.030 (1.005-1.025); UMIC TRIGGER UACC YES; Urine Blood Negative (Negative); Urine Ketones Negative (Negative); Urine Protein Negative (Neg-Trace)
[2024-06-12 19:20] LABS: Bacteria Urine None Seen (None Seen); Hyaline Casts Urine 0-2 /LPF (0-2); RBC Urine 0-2 /HPF (0-2); Squamous Epithelial Cell Urine 0-2 /HPF (0-2); UACC Culture Trigger YES
[2024-06-12 19:27] LABS: Alanine Aminotransferase 35 U/L (0-31); Albumin Level 4.1 g/dL (3.5-5.0); Alkaline Phosphatase 88 U/L (39-117); Anion Gap 12 (12-20); Aspartate Amino Transferase 38 U/L (5-31); Bilirubin Total 0.3 mg/dL (0.0-1.0); Blood Urea Nitrogen 11 mg/dL (9-16); Calcium 9.3 mg/dL (8.4-10.2); Carbon Dioxide 27 mmol/L (22-29); Chloride 104 mmol/L (96-108); Creatinine Clr Calc Pharmacy 92.2; Estimated Glomerular Filt Rate > 60; Glucose Random 106 mg/dL (60-115); Lipase 27 U/L (8-78); Magnesium 1.7 mg/dL (1.6-2.6); Potassium 4.2 mmol/L (3.3-5.1); Sodium 139 mmol/L (135-145)
[2024-06-12 19:30] LABS: HCG Quantitative < 2 mIU/mL
== END 2024-06-12 21:51 | disposition left against medical advice (07) ==
PROVIDERS: Physician Assistant; Emergency Provider Emergency Medicine Emergency Medical Services; PCP Internal Medicine
DX: R10.9 Unspecified abdominal pain (principal); E11.9 Type 2 diabetes mellitus without complications; I10 Essential (primary) hypertension; E78.5 Hyperlipidemia, unspecified
CPT/HCPCS: 36415; 74176; 80053; 81001; 83690; 83735; 84702; 85025; 87086; 99282

== ENCOUNTER 2024-07-23 16:50 | Emergency (ER) | payer OTHER, SELFPAY ==
[2024-07-23 17:17] VITALS: BP 118/84; PULSE 132; RESP 20; TEMP 35.9; O2SAT 99; BMI 31.5
--- NOTE | 2024-07-23 17:20 | ED.GENADULT ---
HPI - General Adult General Chief complaint: Nausea/Vomiting/Diarrhea Stated complaint: Vomiting Time Seen by Provider: 07/23/24 18:37 Related Data Home Medications ?Medication ?Instructions ?Recorded ?Confirmed blood sugar diagnostic #10 ea 06/01/20 03/18/21 cyclobenzaprine 10 mg tablet mg PO 06/01/20 03/18/21 fluoxetine 20 mg capsule 20 mg PO DAILY 06/01/20 03/18/21 lisinopril 20 1 tab PO DAILY 06/01/20 03/18/21 mg-hydrochlorothiazide 25 mg tablet multivitamin-ferrous 1 tab PO DAILY 06/01/20 03/18/21 fumarate-folic acid 18 mg-400 mcg tablet ondansetron HCl 4 mg tablet mg PO 06/01/20 03/18/21 oxycodone 5 mg tablet 5 mg PO BID PRN 06/01/20 03/18/21 pantoprazole 40 mg tablet,delayed 40 mg PO DAILY 06/01/20 03/18/21 release zolpidem 10 mg tablet mg PO 06/01/20 03/18/21 acetaminophen 500 mg tablet 500 mg PO Q12H PRN 07/14/20 03/18/21 diclofenac sodium 1 % topical gel 2 g topical QID 07/14/20 03/18/21 lidocaine 5 % topical patch 0 patch topical 07/14/20 03/18/21 albuterol sulfate 90 mcg/actuation 2 puff PO Q4-6H PRN 09/01/20 03/18/21 aerosol inhaler fluoxetine 40 mg capsule 40 mg PO QAM 09/01/20 03/18/21 furosemide 20 mg tablet 20 mg PO QAM PRN swelling 03/18/21 03/18/21 Previous Rx's ?Medication ?Instructions ?Recorded empagliflozin 25 mg tablet 25 mg PO QAM #30 tabs 06/06/20 (Jardiance) ezetimibe 10 mg tablet 10 mg PO DAILY #30 tabs 11/30/20 diphenhydramine HCl 25 mg capsule 25 mg PO BEDTIME for premed due to 12/25/20 (Benadryl) allery to CT contrast (itching) #2 caps prednisone 50 mg tablet 50 mg PO .4 times for premed prior 12/25/[address] for allergy (itching) #4 tabs bisacodyl 10 mg rectal suppository 10 mg MT DAILY PRN constipation 03/18/21 (Dulcolax (bisacodyl)) #20 ea methylcellulose (laxative) 500 mg 500 mg PO BID #60 tabs 09/21/21 tablet (Citrucel) methylcellulose (laxative) 500 mg 500 mg PO BID #60 tabs 09/29/21 tablet (Citrucel) bisacodyl 10 mg rectal suppository 10 mg MT DAILY PRN for 10/26/21 constipation #20 supp dulaglutide 1.5 mg/0.5 mL 1.5 mg (0.5 mL) subcut QWEEK #2 mL 10/29/21 subcutaneous pen injector (Trulicity) metformin 500 mg tablet,extended 1,000 mg (2 x 500 mg) PO BID #120 11/03/21 release 24 hr tabs cholecalciferol (vitamin D3) 125 125 mcg PO DAILY #30 caps 01/04/22 mcg (5,000 unit) capsule docusate sodium 100 mg capsule 200 mg (2 x 100 mg) PO BEDTIME #60 05/16/22 caps polyethylene glycol 3350 17 gram 17 g PO DAILY #30 packets 05/16/22 oral powder packet aluminum-mag hydroxide-simethicone 30 ml PO Q6H PRN indigestion #300 07/23/24 200 mg-200 mg-20 mg/5 mL oral susp mL (Maalox Advanced) famotidine 20 mg tablet (Pepcid) 20 mg PO BID PRN abdominal 07/23/24 discomfort #60 tabs ondansetron 4 mg disintegrating 4 mg PO Q6H #14 tabs 07/23/24 tablet Allergies Allergy/AdvReac Type Severity Reaction Status Date / Time Iodinated Contrast Media Allergy Intermediate ITCHING Verified 07/23/24 17:18 [IV Dye, Iodine Containing] [facility] Past Medical History Medical History Abdominal pain Chronic back pain Chronic constipation Elevated liver enzymes Essential hypertension H. pylori infection Hyperlipidemia IBS (irritable bowel syndrome) Kidney stones NAFLD (nonalcoholic fatty liver disease) Type 2 diabetes mellitus with hyperglycemia Vitamin D deficiency Surgical History H/O colonoscopy History of cholecystectomy History of esophagogastroduodenoscopy (EGD) Family History Family History Father Diabetes Mother Diabetes Sister Diabetes Social History Social History Household Members: Spouse and Children Alcohol intake: never Smoked in Last 30 Days: No Use of substances other than those prescribed or required for medical reasons: No Advance Directives: No Advance Directives Information Provided: Yes Patient : No Current occupational status: employed 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 Patient states no other symptoms. Labs ordered Reevaluation(s) Reevaluation #1: Patient is feeling better I will discharge the patient home at this time with close PCP follow up patient is still pending some of her effusions but his case with the plan to go home Time: 20:11 Medications Administered Discontinued Medications Generic Name Dose Route Start Last Admin Trade Name Dougq PRN Reason Stop Dose Admin Famotidine 20 mg 07/23/24 18:53 07/23/24 19:08 Famotidine/Pf 20 Mg/2 Ml Vial IVPUSH 07/23/24 18:54 20 mg ONCE ONE Administration Sodium Chloride 1,000 mls @ 999 mls/hr 07/23/24 19:00 07/23/24 19:05 Ns IV 07/23/24 20:00 999 mls/hr .Q1H1M GIULIANO Administration Sodium Chloride 1,000 mls @ 999 mls/hr 07/23/24 19:00 07/23/24 19:06 Ns IV 07/23/24 20:00 999 mls/hr .Q1H1M GIULIANO Administration Ondansetron HCl 4 mg 07/23/24 18:53 07/23/24 19:08 Ondansetron Hcl 4 Mg/2 Ml Vial IVPUSH 07/23/24 18:54 4 mg ONCE ONE Administration Medical Decision Making Lab Data 07/23/24 18:10 07/23/24 18:10 Labs: Lab Results 07/23/24 07/23/24 07/23/24 Range/Units 18:10 19:31 19:34 WBC 15.0 H (4.8-10.8) X10*3/uL RBC 5.35 D (4.20-5.50) X10*6/uL Hgb 16.3 H D (12.0-16.0) g/dl Hct 48.5 H D (37.0-47.0) % MCV 90.7 (80.0-98.0) fL MCH 30.5 (27.0-33.0) pg MCHC 33.6 (31.0-35.0) g/dl RDW 12.9 (11.0-16.0) % Plt Count 276 (160-400) X10*3/uL MPV 8.7 L (9.4-12.3) fL Immature Gran % (Auto) 0.4 (0.0-0.4) % Neut % (Auto) 79.5 H (45-73) % Lymph % (Auto) 9.0 L (20-40) % [place] % (Auto) 8.8 (2-11) % Eos % (Auto) 2.0 (0-4) % Baso % (Auto) 0.3 (0-2) % Lymph # (Auto) 1.3 (1.2-4.9) X10*3/uL [place] # (Auto) 1.3 H (0.1-1.2) X10*3/uL Eos # (Auto) 0.3 (0.0-0.4) X10*3/uL Baso # (Auto) 0.1 (0.0-0.2) X10*3/uL Abs Immat Gran (auto) 0.06 H (0.00-0.03) X10*3/uL Absolute Neuts (auto) 11.9 H (2.0-8.3) x10*3/uL Absolute Nucleated RBC 0.000 (0.0-0.012) X10*3/uL Nucleated RBC % (auto) 0.0 (0.0-0.2) /100WBC VBG pH 7.41 (7.32-7.43) VBG pCO2 37 mmHg VBG pO2 80 mmHg VBG HCO3 23 (22-26) mmol/L VBG O2 Saturation 95.0 % VBG Base Excess -0.3 mmol/L Sodium 139 (135-145) mmol/L Potassium 4.7 (3.3-5.1) mmol/L Chloride 99 (96-108) mmol/L Carbon Dioxide 27 (22-29) mmol/L Anion Gap 18 (12-20) BUN 23 H (9-16) mg/dL Creatinine 0.86 (0.5-1.4) mg/dL Estim Creat Clear Calc 73.1 Estimated GFR > 60 Random Glucose 208 H (60-115) mg/dL Calcium 9.9 D (8.4-10.2) mg/dL Total Bilirubin 0.6 (0.0-1.0) mg/dL AST 51 H (5-31) U/L ALT 51 H (0-31) U/L Alkaline Phosphatase 107 (39-117) U/L Troponin I High Sens < 2.7 (<3.5-17.0) ng/L Total Protein 9.6 H (6.5-8.0) g/dL Albumin 4.8 (3.5-5.0) g/dL Lipase 37 (8-78) U/L Beta-Hydroxybutyrate 0.44 H (0.02-0.27) mmol/L Beta HCG, Quant < 2 mIU/mL Urine Color Yellow Urine Appearance Clear Urine pH 7.0 (5.0-9.0) Ur Specific [place] >= 1.030 H (1.005-1.025) Urine Protein Trace (Neg-Trace) mg/dL Urine Glucose (UA) >=1000 H (Negative) mg/dL Urine Ketones 40 (Negative) mg/dL Urine Blood Negative (Negative) Urine Nitrite Negative (Negative) Ur Leukocyte Esterase Negative (Negative) Urine RBC 0-2 (0-2) /HPF Urine WBC 0-5 (0-5) /HPF Ur Squamous Epith Cells 0-2 (0-2) /HPF Urine Bacteria None Seen (None Seen) Hyaline Casts 0-2 (0-2) /LPF Urine Test NEGATIVE (NEGATIVE) Influenza Type A (PCR) NEGATIVE (Negative) Influenza Type B (PCR) NEGATIVE (Negative) RSV RNA Qual (PCR) NEGATIVE (Negative) SARS-CoV-2 RNA (RT-PCR) NEGATIVE (Negative) S. pyogenes GrpA JIMMIE Negative (Negative) Discharge Plan Discharge Clinical Impression: Abdominal pain, Epigastric abdominal pain, Dehydration, Vomiting, Diarrhea Patient Disposition: Home, Self-Care Instructions: Dehydration (ED), Acute Nausea and Vomiting (ED), Acute Diarrhea (ED), Abdominal Pain (ED) Additional Instructions: You were seen in the ER for vomiting and diarrhea. You are found to have some dehydration you were given several L of fluids medications help with the nausea we will send her home with Danaedenisha that she can use as needed for nausea as well if you have any other concerns please return to the ER. Prescriptions: New famotidine [Pepcid] 20 mg tablet 20 mg PO BID PRN (Reason: abdominal discomfort) Qty: 60 0RF alum-mag hydroxide-simeth [Maalox Advanced] 200-200-20 mg/5 mL suspension 30 ml PO Q6H PRN (Reason: indigestion) Qty: 300 0RF ondansetron 4 mg tablet,disintegrating 4 mg PO Q6H Qty: 14 0RF No Action Jardiance 25 mg tablet 25 mg PO QAM Qty: 30 3RF ezetimibe 10 mg tablet 10 mg PO DAILY Qty: 30 0RF diphenhydramine HCl [Benadryl] 25 mg capsule 25 mg PO BEDTIME Qty: 2 0RF Rx Instructions: Take two 25mg caps (50 mg total) one hour prior to the scheduled CT time. prednisone 50 mg tablet 50 mg PO .4 times Qty: 4 0RF Rx Instructions: Take one tablet at 6pm the night before the CT scan, one tablet at midnight the night before the CT and one tablet at 6am the day of the CT. Take the 4th tablet with you to the hospital when you report for the test. Citrucel 500 mg tablet 500 mg PO BID Qty: 60 1RF bisacodyl 10 mg suppository 10 mg MT DAILY PRN (Reason: for constipation) Qty: 20 0RF Trulicity 1.5 mg/0.5 mL pen injector 1.5 mg subcut QWEEK Qty: 2 7RF metformin 500 mg tablet extended release 24 hr 1,000 mg PO BID Qty: 120 6RF cholecalciferol (vitamin D3) 125 mcg (5,000 unit) capsule 125 mcg PO DAILY Qty: 30 11RF docusate sodium 100 mg capsule 200 mg PO BEDTIME Qty: 60 1RF polyethylene glycol 3350 17 gram powder in packet 17 g PO DAILY Qty: 30 1RF zolpidem 10 mg tablet PO Certavite-Antioxidant 18-400 mg-mcg tablet 1 tab PO DAILY fluoxetine 20 mg capsule 20 mg PO DAILY oxycodone 5 mg tablet 5 mg PO BID PRN lisinopril-hydrochlorothiazide 20-25 mg tablet 1 tab PO DAILY pantoprazole 40 mg tablet,delayed release (DR/EC) 40 mg PO DAILY cyclobenzaprine 10 mg tablet PO ondansetron HCl 4 mg tablet PO (DME) FreeStyle Lite Strips Strip See Rx Instructions .ROUTE .MEDSUPPLY Qty: 10 Rx Instructions: As directed albuterol sulfate 90 mcg/actuation HFA aerosol inhaler 2 puff PO Q4-6H PRN fluoxetine 40 mg capsule 40 mg PO QAM acetaminophen 500 mg tablet 500 mg PO Q12H PRN lidocaine 5 % adhesive patch,medicated 0 patch topical diclofenac sodium 1 % gel 2 g topical QID furosemide 20 mg tablet 20 mg PO QAM PRN (Reason: swelling) bisacodyl [Dulcolax (bisacodyl)] 10 mg suppository 10 mg MT DAILY PRN (Reason: constipation) Qty: 20 0RF Citrucel 500 mg tablet 500 mg PO BID Qty: 60 5RF Print Language: [place] Islander
--- NOTE | 2024-07-23 17:24 | ECG_ITS ---
Test Reason : EPIGASTRIC Blood Pressure : */* mmHG Vent. Rate : 125 BPM Atrial Rate : 125 BPM P-R Int : 150 ms QRS Dur : 70 ms QT Int : 320 ms P-R-T Axes : 48 11 31 degrees QTcB Int : 461 ms Sinus tachycardia Possible Left atrial enlargement Anterior infarct (cited on or before 21-Sep-2023) Abnormal ECG When compared with ECG of 21-Sep-2023 13:18, Vent. rate has increased by 63 bpm Questionable change in initial forces of Anterior leads Referred By: Kaushik Otoole Electronically Signed By: Karl Perez
[2024-07-23 18:14] LABS: MANUAL DIFF FLAG NO
[2024-07-23 18:17] LABS: Basophils Absolute Auto 0.1 X10*3/uL (0.0-0.2); Basophils Percent Auto 0.3 % (0-2); Eosinophils Absolute Auto 0.3 X10*3/uL (0.0-0.4); Hematocrit 48.5 % (37.0-47.0); Hemoglobin 16.3 g/dl (12.0-16.0); Imm Gran Abs Auto 0.06 X10*3/uL (0.00-0.03); Imm Gran Pct Auto 0.4 % (0.0-0.4); Lymphocytes Absolute Auto 1.3 X10*3/uL (1.2-4.9); Mean Corpuscular HGB Conc 33.6 g/dl (31.0-35.0); Mean Corpuscular Hemoglobin 30.5 pg (27.0-33.0); Mean Corpuscular Volume 90.7 fL (80.0-98.0); Mean Platelet Volume 8.7 fL (9.4-12.3); Monocytes Absolute Auto 1.3 X10*3/uL (0.1-1.2); Monocytes Percent Auto 8.8 % (2-11); Neutrophils Absolute Auto 11.9 x10*3/uL (2.0-8.3); Neutrophils Percent Auto 79.5 % (45-73); Platelet Count 276 X10*3/uL (160-400); Red Blood Count 5.35 X10*6/uL (4.20-5.50); Red Cell Distribution Width 12.9 % (11.0-16.0)
[2024-07-23 18:25] LABS: IDNOW Serial# 08D9AD1C; Strep A Nucleic Acid Negative (Negative)
[2024-07-23 18:28] VITALS: BP 148/97; PULSE 105; RESP 20; TEMP 36.6; O2SAT 99
[2024-07-23 18:38] LABS: Alanine Aminotransferase 51 U/L (0-31); Albumin Level 4.8 g/dL (3.5-5.0); Alkaline Phosphatase 107 U/L (39-117); Anion Gap 18 (12-20); Aspartate Amino Transferase 51 U/L (5-31); Bilirubin Total 0.6 mg/dL (0.0-1.0); Blood Urea Nitrogen 23 mg/dL (9-16); Calcium 9.9 mg/dL (8.4-10.2); Carbon Dioxide 27 mmol/L (22-29); Chloride 99 mmol/L (96-108); Creatinine Clr Calc Pharmacy 73.1; Estimated Glomerular Filt Rate > 60; Glucose Random 208 mg/dL (60-115); Lipase 37 U/L (8-78); Potassium 4.7 mmol/L (3.3-5.1); Sodium 139 mmol/L (135-145); Total Protein 9.6 g/dL (6.5-8.0)
[2024-07-23 18:44] LABS: HCG Quantitative < 2 mIU/mL; Troponin-I High Sensitivity < 2.7 ng/L (<3.5-17.0)
[2024-07-23 18:52] LABS: Influenza A PCR NEGATIVE (Negative); Influenza B PCR NEGATIVE (Negative); Resp Syncy Virus RNA Qual PCR NEGATIVE (Negative); SARS COV2 PCR INHOUSE NEGATIVE (Negative)
--- NOTE | 2024-07-23 18:54 | ED_ITS ---
HPI - Nausea/Vomiting/Diarrhea General Chief complaint: Nausea/Vomiting/Diarrhea Stated complaint: Vomiting Time Seen by Provider: 07/23/24 18:37 Source: patient and family Mode of arrival: ambulatory Limitations: no limitations History of Present Illness ED Provider: Dr. Gracia HPI Narrative: 53-year-old female past medical history of these chronic epigastric pain chronic constipation ex lap cholecystectomy S elevated liver enzymes type 2 diabetic hypertension hyperlipidemia presents to the emergency department with nausea vomiting and acute on chronic abdominal pain. She started about 15:00 started with diarrhea presented to the ER shortly thereafter. She denies any falls or injuries initially she was tachycardic heart rate has normalized without any intervention she would have labs sent from triage which were showing just mild hypokalemia she denies any sick contacts and states she has otherwise been healthy MD elicited complaint: nausea, vomiting, diarrhea and abdominal pain Related Data Home Medications ?Medication ?Instructions ?Recorded ?Confirmed blood sugar diagnostic #10 ea 06/01/20 03/18/21 cyclobenzaprine 10 mg tablet mg PO 06/01/20 03/18/21 fluoxetine 20 mg capsule 20 mg PO DAILY 06/01/20 03/18/21 lisinopril 20 1 tab PO DAILY 06/01/20 03/18/21 mg-hydrochlorothiazide 25 mg tablet multivitamin-ferrous 1 tab PO DAILY 06/01/20 03/18/21 fumarate-folic acid 18 mg-400 mcg tablet ondansetron HCl 4 mg tablet mg PO 06/01/20 03/18/21 oxycodone 5 mg tablet 5 mg PO BID PRN 06/01/20 03/18/21 pantoprazole 40 mg tablet,delayed 40 mg PO DAILY 06/01/20 03/18/21 release zolpidem 10 mg tablet mg PO 06/01/20 03/18/21 acetaminophen 500 mg tablet 500 mg PO Q12H PRN 07/14/20 03/18/21 diclofenac sodium 1 % topical gel 2 g topical QID 07/14/20 03/18/21 lidocaine 5 % topical patch 0 patch topical 07/14/20 03/18/21 albuterol sulfate 90 mcg/actuation 2 puff PO Q4-6H PRN 09/01/20 03/18/21 aerosol inhaler fluoxetine 40 mg capsule 40 mg PO QAM 09/01/20 03/18/21 furosemide 20 mg tablet 20 mg PO QAM PRN swelling 03/18/21 03/18/21 Previous Rx's ?Medication ?Instructions ?Recorded empagliflozin 25 mg tablet 25 mg PO QAM #30 tabs 06/06/20 (Jardiance) ezetimibe 10 mg tablet 10 mg PO DAILY #30 tabs 11/30/20 diphenhydramine HCl 25 mg capsule 25 mg PO BEDTIME for premed due to 12/25/20 (Benadryl) allery to CT contrast (itching) #2 caps prednisone 50 mg tablet 50 mg PO .4 times for premed prior 12/25/[address] for allergy (itching) #4 tabs bisacodyl 10 mg rectal suppository 10 mg [place] DAILY PRN constipation 03/18/21 (Dulcolax (bisacodyl)) #20 ea methylcellulose (laxative) 500 mg 500 mg PO BID #60 tabs 09/21/21 tablet (Citrucel) methylcellulose (laxative) 500 mg 500 mg PO BID #60 tabs 09/29/21 tablet (Citrucel) bisacodyl 10 mg rectal suppository 10 mg OH DAILY PRN for 10/26/21 constipation #20 supp dulaglutide 1.5 mg/0.5 mL 1.5 mg (0.5 mL) subcut QWEEK #2 mL 10/29/21 subcutaneous [facility] metformin 500 mg tablet,extended 1,000 mg (2 x 500 mg) PO BID #120 11/03/21 release 24 hr tabs cholecalciferol (vitamin D3) 125 125 mcg PO DAILY #30 caps 01/04/22 mcg (5,000 unit) capsule docusate sodium 100 mg capsule 200 mg (2 x 100 mg) PO BEDTIME #60 05/16/22 caps polyethylene glycol 3350 17 gram 17 g PO DAILY #30 packets 05/16/22 oral powder packet Allergies Allergy/AdvReac Type Severity Reaction Status Date / Time Iodinated Contrast Media Allergy Intermediate ITCHING Verified 07/23/24 17:18 [IV Dye, Iodine Containing] Review of Systems 2 Review of Systems: Review of systems: General: Patient denies any fever chills recent illness or falls Musculoskeletal: Denies back pain or body aches or other injuries HEENT: denies headache, runny nose, ear pain Respiratory: denies shortness of breath, cough Cardiovascular: no chest pain or palpitations : denies dysuria, frequency Abdomen: Diarrhea nausea vomiting and generalized abdominal pain Extremities: no swelling, no pain Skin: no diaphoresis Yes all other systems are reviewed and are negative PMFSH Past Medical History Medical History Abdominal pain Chronic back pain Chronic constipation Elevated liver enzymes Essential hypertension H. pylori infection Hyperlipidemia IBS (irritable bowel syndrome) Kidney stones NAFLD (nonalcoholic fatty liver disease) Type 2 diabetes mellitus with hyperglycemia Vitamin D deficiency Surgical History H/O colonoscopy History of cholecystectomy History of esophagogastroduodenoscopy (EGD) Family History Family History Father Diabetes Mother Diabetes Sister Diabetes Social History Social History Household Members: Spouse and Children Alcohol intake: never Smoked in Last 30 Days: No Use of substances other than those prescribed or required for medical reasons: No Advance Directives: No Advance Directives Information Provided: Yes Patient : No Current occupational status: employed 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 Physical Exam 2 Vital Signs: Vital Signs: Last Vital Signs Temp 97.9 F 07/23/24 18:28 Pulse 105 H 07/23/24 18:28 Resp 20 07/23/24 18:28 BP 148/97 H 07/23/24 18:28 Pulse Ox 99 07/23/24 18:28 O2 Del Method Room Air 07/23/24 18:28 BMI result Body Mass Index 31.5 General: Well-appearing well-nourished in no signs of distress HEENT: Normocephalic atraumatic Neck: No signs of JVD, no masses no tenderness or lymphadenopathy Cardiovascular: Regular rate and rhythm Respiratory: Clear to auscultation bilaterally Abdomen: Soft nontender no masses Extremities: Normal pedal pulses no signs of edema Skin: Dry warm no rashes Back: No tenderness full ROM Medical Decision Making Medical Decision Making MDM Narrative: With benign abdomen and labs already coming back I think the patient would benefit from potassium replenishment I will send off a magnesium level I will give the patient a couple of L of fluid Pepcid Zofran and reassess. Differential Diagnosis Differential Diagnoses: The differential diagnosis associated with the presentation includes Dehydration electrolyte abnormality hypokalemia hypomagnesemia GI illness acute surgical abdomen gastritis. Patient has a fairly benign abdomen I do not think there is any indication for CT scan at this time Lab Data MDM Lab Attestation statement: I reviewed the patient's lab results. 07/23/24 18:10 07/23/24 18:10 Labs: Lab Results 07/23/24 Range/Units 18:10 WBC 15.0 H (4.8-10.8) X10*3/uL RBC 5.35 D (4.20-5.50) X10*6/uL Hgb 16.3 H D (12.0-16.0) g/dl Hct 48.5 H D (37.0-47.0) % MCV 90.7 (80.0-98.0) fL MCH 30.5 (27.0-33.0) pg MCHC 33.6 (31.0-35.0) g/dl RDW 12.9 (11.0-16.0) % Plt Count 276 (160-400) X10*3/uL MPV 8.7 L (9.4-12.3) fL Immature Gran % (Auto) 0.4 (0.0-0.4) % Neut % (Auto) 79.5 H (45-73) % Lymph % (Auto) 9.0 L (20-40) % [place] % (Auto) 8.8 (2-11) % Eos % (Auto) 2.0 (0-4) % Baso % (Auto) 0.3 (0-2) % Lymph # (Auto) 1.3 (1.2-4.9) X10*3/uL [place] # (Auto) 1.3 H (0.1-1.2) X10*3/uL Eos # (Auto) 0.3 (0.0-0.4) X10*3/uL Baso # (Auto) 0.1 (0.0-0.2) X10*3/uL Abs Immat Gran (auto) 0.06 H (0.00-0.03) X10*3/uL Absolute Neuts (auto) 11.9 H (2.0-8.3) x10*3/uL Absolute Nucleated RBC 0.000 (0.0-0.012) X10*3/uL Nucleated RBC % (auto) 0.0 (0.0-0.2) /100WBC Sodium 139 (135-145) mmol/L Potassium 4.7 (3.3-5.1) mmol/L Chloride 99 (96-108) mmol/L Carbon Dioxide 27 (22-29) mmol/L Anion Gap 18 (12-20) BUN 23 H (9-16) mg/dL Creatinine 0.86 (0.5-1.4) mg/dL Estim Creat Clear Calc 73.1 Estimated GFR > 60 Random Glucose 208 H (60-115) mg/dL Calcium 9.9 D (8.4-10.2) mg/dL Total Bilirubin 0.6 (0.0-1.0) mg/dL AST 51 H (5-31) U/L ALT 51 H (0-31) U/L Alkaline Phosphatase 107 (39-117) U/L Troponin I High Sens < 2.7 (<3.5-17.0) ng/L Total Protein 9.6 H (6.5-8.0) g/dL Albumin 4.8 (3.5-5.0) g/dL Lipase 37 (8-78) U/L Beta HCG, Quant < 2 mIU/mL Influenza Type A (PCR) NEGATIVE (Negative) Influenza Type B (PCR) NEGATIVE (Negative) RSV RNA Qual (PCR) NEGATIVE (Negative) SARS-CoV-2 RNA (RT-PCR) NEGATIVE (Negative) S. pyogenes GrpA JIMMIE Negative (Negative) Radiology Impression Discussion of test interpretation with radiology: I have reviewed the radiologist's reading. External Record Review External record reviewed: Inpatient record, Office record and Outpatient record Discharge Plan Discharge Prescriptions: No Action Jardiance 25 mg tablet 25 mg PO QAM Qty: 30 3RF ezetimibe 10 mg tablet 10 mg PO DAILY Qty: 30 0RF diphenhydramine HCl [Benadryl] 25 mg capsule 25 mg PO BEDTIME Qty: 2 0RF Rx Instructions: Take two 25mg caps (50 mg total) one hour prior to the scheduled CT time. prednisone 50 mg tablet 50 mg PO .4 times Qty: 4 0RF Rx Instructions: Take one tablet at 6pm the night before the CT scan, one tablet at midnight the night before the CT and one tablet at 6am the day of the CT. Take the 4th tablet with you to the hospital when you report for the test. Citrucel 500 mg tablet 500 mg PO BID Qty: 60 1RF bisacodyl 10 mg suppository 10 mg [place] DAILY PRN (Reason: for constipation) Qty: 20 0RF Trulicity 1.5 mg/0.5 mL pen injector 1.5 mg subcut QWEEK Qty: 2 7RF metformin 500 mg tablet extended release 24 hr 1,000 mg PO BID Qty: 120 6RF cholecalciferol (vitamin D3) 125 mcg (5,000 unit) capsule 125 mcg PO DAILY Qty: 30 11RF docusate sodium 100 mg capsule 200 mg PO BEDTIME Qty: 60 1RF polyethylene glycol 3350 17 gram powder in packet 17 g PO DAILY Qty: 30 1RF zolpidem 10 mg tablet PO Certavite-Antioxidant 18-400 mg-mcg tablet 1 tab PO DAILY fluoxetine 20 mg capsule 20 mg PO DAILY oxycodone 5 mg tablet 5 mg PO BID PRN lisinopril-hydrochlorothiazide 20-25 mg tablet 1 tab PO DAILY pantoprazole 40 mg tablet,delayed release (DR/EC) 40 mg PO DAILY cyclobenzaprine 10 mg tablet PO ondansetron HCl 4 mg tablet PO (DME) FreeStyle Lite Strips Strip See Rx Instructions .ROUTE .MEDSUPPLY Qty: 10 Rx Instructions: As directed albuterol sulfate 90 mcg/actuation HFA aerosol inhaler 2 puff PO Q4-6H PRN fluoxetine 40 mg capsule 40 mg PO QAM acetaminophen 500 mg tablet 500 mg PO Q12H PRN lidocaine 5 % adhesive patch,medicated 0 patch topical diclofenac sodium 1 % gel 2 g topical QID furosemide 20 mg tablet 20 mg PO QAM PRN (Reason: swelling) bisacodyl [Dulcolax (bisacodyl)] 10 mg suppository 10 mg [place] DAILY PRN (Reason: constipation) Qty: 20 0RF Citrucel 500 mg tablet 500 mg PO BID Qty: 60 5RF Print Language: Armenian
[2024-07-23] MEDS: 0.9 % Sodium Chloride 1,000 ML 999 ML IV ×2 (19:05→19:06)
[2024-07-23] MEDS: ondansetron HCL 4 MG/2 ML VIAL IVPUSH (19:08)
[2024-07-23] MEDS: Famotidine/PF 20 MG/2 ML VIAL IVPUSH (19:08)
[2024-07-23 19:20] LABS: Beta-Hydroxybutyrate 0.44 mmol/L (0.02-0.27)
[2024-07-23 19:37] LABS: Appearance Urine Clear; Color Urine Yellow; Glucose Urine UA >=1000 mg/dL (Negative); Leukocyte Esterase Urine Negative (Negative); Nitrite Urine Negative (Negative); Specific Gravity - Urine >= 1.030 (1.005-1.025); UMIC TRIGGER UACC YES; Urine Blood Negative (Negative); Urine Ketones 40 mg/dL (Negative); Urine Protein Trace mg/dL (Neg-Trace)
[2024-07-23 19:41] LABS: VBG Base Excess -0.3 mmol/L; VBG HCO3 23 mmol/L (22-26); VBG pCO2 37 mmHg; VBG pH 7.41 (7.32-7.43); VBG pO2 80 mmHg
[2024-07-23 19:41] LABS: Venous Blood Gas Refer to POC result
[2024-07-23 19:52] LABS: Bacteria Urine None Seen (None Seen); Hyaline Casts Urine 0-2 /LPF (0-2); RBC Urine 0-2 /HPF (0-2); Squamous Epithelial Cell Urine 0-2 /HPF (0-2); WBC Urine 0-5 /HPF (0-5)
[2024-07-23 19:53] LABS: UPreg QC Valid YES; Urine Pregnancy NEGATIVE (NEGATIVE)
[2024-07-23 21:12] VITALS: BP 136/79; PULSE 100; RESP 16; TEMP 36.8; O2SAT 99
== END 2024-07-23 21:13 | disposition home or self-care (01) ==
PROVIDERS: Physician Assistant; Emergency Provider Student in an Organized Health Care Education/Training Program; PCP Internal Medicine
DX: E86.0 Dehydration (principal); R11.2 Nausea with vomiting, unspecified; R19.7 Diarrhea, unspecified; R10.13 Epigastric pain; E11.9 Type 2 diabetes mellitus without complications; I10 Essential (primary) hypertension; E78.5 Hyperlipidemia, unspecified; Z79.84 Long term (current) use of oral hypoglycemic drugs; Z79.85 Long-term (current) use of injectable non-insulin antidiabetic drugs; Z79.899 Other long term (current) drug therapy; Z03.818 Encounter for observation for suspected exposure to other biological agents ruled out
CPT/HCPCS: 0241U; 36415; 80053; 81001; 81025; 82010; 82803; 83690; 84484; 84702; 85025; 87651; 93005; 96361; 96374; 96375; 99284; 99285; J2405

== ENCOUNTER → 2024-07-23 17:24 | Outpatient (BNV) | payer OTHER, SELFPAY | PROVIDERS: Emergency Provider Student in an Organized Health Care Education/Training Program; PCP Internal Medicine; Visit Provider Internal Medicine Cardiovascular Disease | DX: R00.0 Tachycardia, unspecified (principal); R94.31 Abnormal electrocardiogram [ECG] [EKG]; R10.13 Epigastric pain | CPT/HCPCS: 93010 ==

== ENCOUNTER 2024-09-20 09:36 | Emergency (ER) | payer OTHER, SELFPAY ==
--- NOTE | ~2024-09-20 | CT_ITS ---
EXAMINATION: CT ABDOMEN PELVIS WITHOUT IV CONTRAST HISTORY: abdominal pain. Flank pain COMPARISON: Comparison is made with the prior examination dated 06/12/2024. TECHNIQUE: CT scan of the abdomen and pelvis was performed without contrast using standard departmental protocol. Coronal and sagittal reformatted images were generated and reviewed. This CT exam was performed with one or more of the following dose reduction techniques: automated exposure control, adjustment of the mA and/or kV according to patient size, use of iterative reconstruction technique. DLP: 468 mGy-cm FINDINGS: LOWER CHEST: The visualized lung bases are clear. There is no pleural effusion. CARDIOVASCULATURE: The heart is normal in size. There is no pericardial effusion. LIVER: The liver demonstrates diffusely decreased attenuation, consistent with steatosis. The liver again demonstrates a nodular contour, consistent with cirrhosis. There is hypertrophy of the left and caudate lobes. GALLBLADDER / BILE DUCTS: The gallbladder is surgically absent. There is no intra or extrahepatic biliary ductal dilatation. SPLEEN: The spleen is normal in size and has an unremarkable unenhanced appearance. PANCREAS: The pancreas has an unremarkable unenhanced appearance. ADRENAL GLANDS: Unremarkable. KIDNEYS/RETROPERITONEUM: No renal or ureteral calculi are identified. There is no hydronephrosis or hydroureter. LYMPH NODES: No retroperitoneal lymphadenopathy is identified in the abdomen or pelvis. VASCULATURE: The abdominal aorta is normal in caliber. MESENTERY/PERITONEUM: No free fluid. No masses. There is no free intraperitoneal gas. STOMACH: The stomach is unremarkable. SMALL BOWEL: The small bowel is normal in caliber. COLON: There is a large amount of stool throughout the colon. APPENDIX: Normal. URINARY BLADDER/PELVIC ORGANS: The urinary bladder is collapsed, limiting evaluation. The uterus has an unremarkable unenhanced appearance. BONES / SOFT TISSUES: No suspicious bony or soft tissue abnormalities. CT/CT abdomen pelvis wo IV con IMPRESSION: 1. Large amount of stool throughout the colon. 2. No evidence of nephrolithiasis or ureteral obstruction. 3. Cirrhosis of the liver and hepatic steatosis. Electronically signed by: Noah Mccormack MD 09/20/2024 11:50 AM EDT
[2024-09-20 09:45] VITALS: BP 143/78; PULSE 81; RESP 16; TEMP 36.6; O2SAT 98; BMI 30.3
[2024-09-20 10:30] LABS: MANUAL DIFF FLAG NO
[2024-09-20 10:33] LABS: Basophils Absolute Auto 0.1 X10*3/uL (0.0-0.2); Basophils Percent Auto 0.7 % (0-2); Eosinophils Absolute Auto 0.4 X10*3/uL (0.0-0.4); Eosinophils Percent Auto 5.2 % (0-4); Hematocrit 38.5 % (37.0-47.0); Hemoglobin 12.8 g/dl (12.0-16.0); Imm Gran Abs Auto 0.03 X10*3/uL (0.00-0.03); Imm Gran Pct Auto 0.4 % (0.0-0.4); Lymphocytes Absolute Auto 2.8 X10*3/uL (1.2-4.9); Lymphocytes Percent Auto 39.8 % (20-40); Mean Corpuscular HGB Conc 33.2 g/dl (31.0-35.0); Mean Corpuscular Hemoglobin 30.6 pg (27.0-33.0); Mean Corpuscular Volume 92.1 fL (80.0-98.0); Mean Platelet Volume 8.8 fL (9.4-12.3); Monocytes Absolute Auto 0.7 X10*3/uL (0.1-1.2); Monocytes Percent Auto 9.9 % (2-11); Neutrophils Absolute Auto 3.1 x10*3/uL (2.0-8.3); Platelet Count 218 X10*3/uL (160-400); Red Blood Count 4.18 X10*6/uL (4.20-5.50); Red Cell Distribution Width 13.2 % (11.0-16.0); White Blood Count 7.1 X10*3/uL (4.8-10.8)
[2024-09-20 10:34] LABS: Appearance Urine Clear; Color Urine Yellow; Glucose Urine UA >=1000 mg/dL (Negative); Leukocyte Esterase Urine Negative (Negative); Nitrite Urine Negative (Negative); Specific Gravity - Urine >= 1.030 (1.005-1.025); UMIC TRIGGER UACC YES; Urine Blood Negative (Negative); Urine Ketones Negative (Negative); Urine Protein Negative (Neg-Trace)
[2024-09-20 10:39] LABS: Bacteria Urine None Seen (None Seen); Hyaline Casts Urine 0-2 /LPF (0-2); RBC Urine 0-2 /HPF (0-2); UACC Culture Trigger YES
[2024-09-20 10:55] LABS: Alanine Aminotransferase 55 U/L (0-31); Albumin Level 3.6 g/dL (3.5-5.0); Alkaline Phosphatase 79 U/L (39-117); Anion Gap 13 (12-20); Aspartate Amino Transferase 39 U/L (5-31); Bilirubin Direct 0.2 mg/dL (0.0-0.5); Bilirubin Total 0.4 mg/dL (0.0-1.0); Blood Urea Nitrogen 14 mg/dL (9-16); Calcium 9.1 mg/dL (8.4-10.2); Carbon Dioxide 20 mmol/L (22-29); Chloride 106 mmol/L (96-108); Creatinine Clr Calc Pharmacy 90.7; Estimated Glomerular Filt Rate > 60; Glucose Random 216 mg/dL (60-115); Lipase 21 U/L (8-78); Potassium 4.1 mmol/L (3.3-5.1); Sodium 135 mmol/L (135-145); Total Protein 7.6 g/dL (6.5-8.0)
[2024-09-20 10:58] LABS: HCG Quantitative < 2 mIU/mL
--- NOTE | 2024-09-20 11:01 | ED_ITS ---
HPI - General Adult General Chief complaint: General Medical Stated complaint: Back pain Time Seen by Provider: 09/20/24 10:48 Source: patient Mode of arrival: ambulatory Limitations: no limitations History of Present Illness ED Provider: Kaushik Otoole HPI narrative: 53-year-old female history of kidney stones presents to ED for abdominal pain and flank pain with increase urinary frequency. Patient denies any hematuria, vaginal discharge, or vaginal bleeding. Related Data Home Medications ?Medication ?Instructions ?Recorded ?Confirmed blood sugar diagnostic #10 ea 06/01/20 03/18/21 cyclobenzaprine 10 mg tablet mg PO 06/01/20 03/18/21 fluoxetine 20 mg capsule 20 mg PO DAILY 06/01/20 03/18/21 lisinopril 20 1 tab PO DAILY 06/01/20 03/18/21 mg-hydrochlorothiazide 25 mg tablet multivitamin-ferrous 1 tab PO DAILY 06/01/20 03/18/21 fumarate-folic acid 18 mg-400 mcg tablet ondansetron HCl 4 mg tablet mg PO 06/01/20 03/18/21 oxycodone 5 mg tablet 5 mg PO BID PRN 06/01/20 03/18/21 pantoprazole 40 mg tablet,delayed 40 mg PO DAILY 06/01/20 03/18/21 release zolpidem 10 mg tablet mg PO 06/01/20 03/18/21 acetaminophen 500 mg tablet 500 mg PO Q12H PRN 07/14/20 03/18/21 diclofenac sodium 1 % topical gel 2 g topical QID 07/14/20 03/18/21 lidocaine 5 % topical patch 0 patch topical 07/14/20 03/18/21 albuterol sulfate 90 mcg/actuation 2 puff PO Q4-6H PRN 09/01/20 03/18/21 aerosol inhaler fluoxetine 40 mg capsule 40 mg PO QAM 09/01/20 03/18/21 furosemide 20 mg tablet 20 mg PO QAM PRN swelling 03/18/21 03/18/21 Previous Rx's ?Medication ?Instructions ?Recorded empagliflozin 25 mg tablet 25 mg PO QAM #30 tabs 06/06/20 (Jardiance) ezetimibe 10 mg tablet 10 mg PO DAILY #30 tabs 11/30/20 diphenhydramine HCl 25 mg capsule 25 mg PO BEDTIME for premed due to 12/25/20 (Benadryl) allery to CT contrast (itching) #2 caps prednisone 50 mg tablet 50 mg PO .4 times for premed prior 12/25/[address] for allergy (itching) #4 tabs bisacodyl 10 mg rectal suppository 10 mg AR DAILY PRN constipation 03/18/21 (Dulcolax (bisacodyl)) #20 ea methylcellulose (laxative) 500 mg 500 mg PO BID #60 tabs 09/21/21 tablet (Citrucel) methylcellulose (laxative) 500 mg 500 mg PO BID #60 tabs 09/29/21 tablet (Citrucel) bisacodyl 10 mg rectal suppository 10 mg AR DAILY PRN for 10/26/21 constipation #20 supp dulaglutide 1.5 mg/0.5 mL 1.5 mg (0.5 mL) subcut QWEEK #2 mL 10/29/21 subcutaneous pen inject[facility] metformin 500 mg tablet,extended 1,000 mg (2 x 500 mg) PO BID #120 11/03/21 release 24 hr tabs cholecalciferol (vitamin D3) 125 125 mcg PO DAILY #30 caps 01/04/22 mcg (5,000 unit) capsule docusate sodium 100 mg capsule 200 mg (2 x 100 mg) PO BEDTIME #60 05/16/22 caps polyethylene glycol 3350 17 gram 17 g PO DAILY #30 packets 05/16/22 oral powder packet aluminum-mag hydroxide-simethicone 30 ml PO Q6H PRN indigestion #300 07/23/24 200 mg-200 mg-20 mg/5 mL oral susp mL (Maalox Advanced) famotidine 20 mg tablet (Pepcid) 20 mg PO BID PRN abdominal 07/23/24 discomfort #60 tabs ondansetron 4 mg disintegrating 4 mg PO Q6H #14 tabs 07/23/24 tablet polyethylene glycol 3350 17 17 g PO DAILY 1 week #119 grams 09/20/24 gram/dose oral powder (Miralax) Allergies Allergy/AdvReac Type Severity Reaction Status Date / Time Iodinated Contrast Media Allergy Intermediate ITCHING Verified 09/20/24 09:51 [IV Dye, Iodine Containing] Review of Systems 2 Review of Systems: abdominal pain/Flank pain Yes all other systems are reviewed and are negative [facility] Past Medical History Medical History Abdominal pain Chronic back pain Chronic constipation Elevated liver enzymes Essential hypertension H. 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 Physical Exam ED Vital Signs: Vital Signs - 24 hr 09/20/24 09:45 Temperature 97.9 F Pulse Rate 81 Respiratory Rate 16 Blood Pressure 143/78 H Pulse Oximetry 98 Oxygen Delivery Method Room Air BMI result Body Mass Index 30.3 Const General: cooperative, healthy appearing, comfortable, no acute distress, well developed, alert, awake and Physically active Orientation/consciousness: patient oriented x3 HENMT Head: Yes normal to inspection, Yes No palpable skull fracture present, Yes normocephalic and Yes atraumatic Eyes General: appearance normal, both eyes and all related structures Neck Neck: Yes normal visual inspection, Yes full ROM, Yes no lymphadenopathy, Yes no meningeal signs, Yes trachea midline, Yes supple, No anterior neck swelling and No tender Chest Chest palpation & inspection: normal inspection of the chest and normal palpation of entire chest wall Resp Effort & Inspection: normal respiratory effort and able to speak in complete sentences Auscultation: clear to auscultation bilaterally Cardio Jugular venous distension: no JVD Heart sounds: S1 normal heart sound present and S2 normal heart sound present GI Inspection: Yes normal to inspection Palpation (GI): Soft to palpation, not firm, Tenderness to palpation present (GI) in the LLQ and in the RLQ, no guarding and not rigid General: Yes no CVA tenderness Back/Spine/Pelvis Back: no CVA tenderness and back tenderness (LEft flank pain) Skin General skin exam: no rashes or lesions noted, elasticity normal and turgor normal Neuro General: patient oriented x3, gait normal, tone normal, moves all extremities, Normal light touch and pain sensation, no meningeal signs, no focal motor deficits, CN's II-XI intact bilaterally and normal sensation to monofilament Extrem General: Yes normal to inspection, Yes full ROM and Yes capillary refill normal Psych Appearance: grossly normal, well kempt and not disheveled Medications Administered Discontinued Medications Generic Name Dose Route Start Last Admin Trade Name Kwabena PRN Reason Stop Dose Admin Sodium Chloride 1,000 mls @ 999 mls/hr 09/20/24 11:14 09/20/24 12:56 Ns IV 09/20/24 12:14 Infused .Q1H1M STA Infusion Ketorolac Tromethamine 30 mg 09/20/24 11:00 09/20/24 11:05 Ketorolac Tromethamine 30 Mg/Ml Vial IM 09/20/24 11:01 30 mg ONCE ONE Administration Ondansetron HCl 4 mg 09/20/24 11:00 09/20/24 11:05 Ondansetron Odt 4 Mg Tab.Rapdis TRANSLINGU 09/20/24 11:01 4 mg ONCE ONE Administration Medical Decision Making Medical Decision Making MDM Narrative: 53-year-old female presents to ED lower abdominal pain and flank pain with a history of kidney stones. UA shows slight white blood cell count labs are normal. Was sent for CT scan. Unable to do IV contrast due to allergy to IV contrast. Toradol fluids ordered. 12:48pm: Abdominal CT scan negative for kidney stones or any acute abdominal etiology. That is going to shows large amount of stool. Also shows cirrhosis and fatty liver. Patient is educated on this and told to follow up with primary care provider. Patient will be discharged with MiraLax. Not suspecting CA, perforation, peritonitis, spontaneous bacterial peritonitis, pyelonephritis, sepsis, any life-threatening etiology. Urine only shows white blood cells but no bacteria Differential Diagnosis Differential Diagnoses: The differential diagnosis associated with the presentation includes (UTI, kidney stones, pyelonephritis) Admission/Observation Consideration of admission/observation: Escalation of care including admission/observation considered Lab Data MDM Lab Attestation statement: I reviewed the patient's lab results. 09/20/24 10:24 09/20/24 10:24 Labs: Lab Results 03/14/25 Range/Units 10:24 WBC 7.1 (4.8-10.8) X10*3/uL RBC 4.18 L D (4.20-5.50) X10*6/uL Hgb 12.8 D (12.0-16.0) g/dl Hct 38.5 D (37.0-47.0) % MCV 92.1 (80.0-98.0) fL MCH 30.6 (27.0-33.0) pg MCHC 33.2 (31.0-35.0) g/dl RDW 13.2 (11.0-16.0) % Plt Count 218 (160-400) X10*3/uL MPV 8.8 L (9.4-12.3) fL Immature Gran % (Auto) 0.4 (0.0-0.4) % Neut % (Auto) 44.0 L (45-73) % Lymph % (Auto) 39.8 (20-40) % [place] % (Auto) 9.9 (2-11) % Eos % (Auto) 5.2 H (0-4) % Baso % (Auto) 0.7 (0-2) % Lymph # (Auto) 2.8 (1.2-4.9) X10*3/uL [place] # (Auto) 0.7 (0.1-1.2) X10*3/uL Eos # (Auto) 0.4 (0.0-0.4) X10*3/uL Baso # (Auto) 0.1 (0.0-0.2) X10*3/uL Abs Immat Gran (auto) 0.03 (0.00-0.03) X10*3/uL Absolute Neuts (auto) 3.1 (2.0-8.3) x10*3/uL Absolute Nucleated RBC 0.000 (0.0-0.012) X10*3/uL Nucleated RBC % (auto) 0.0 (0.0-0.2) /100WBC Sodium 135 (135-145) mmol/L Potassium 4.1 (3.3-5.1) mmol/L Chloride 106 (96-108) mmol/L Carbon Dioxide 20 L (22-29) mmol/L Anion Gap 13 (12-20) BUN 14 (9-16) mg/dL Creatinine 0.68 (0.5-1.4) mg/dL Estim Creat Clear Calc 90.7 Estimated GFR > 60 Random Glucose 216 H (60-115) mg/dL Calcium 9.1 D (8.4-10.2) mg/dL Total Bilirubin 0.4 (0.0-1.0) mg/dL Direct Bilirubin 0.2 (0.0-0.5) mg/dL AST 39 H (5-31) U/L ALT 55 H (0-31) U/L Alkaline Phosphatase 79 (39-117) U/L Total Protein 7.6 (6.5-8.0) g/dL Albumin 3.6 (3.5-5.0) g/dL Lipase 21 (8-78) U/L Beta HCG, Quant < 2 mIU/mL Urine Color Yellow Urine Appearance Clear Urine pH 6.0 (5.0-9.0) Ur Specific [place] >= 1.030 H (1.005-1.025) Urine Protein Negative (Neg-Trace) mg/dL Urine Glucose (UA) >=1000 H (Negative) mg/dL Urine Ketones Negative (Negative) mg/dL Urine Blood Negative (Negative) Urine Nitrite Negative (Negative) Ur Leukocyte Esterase Negative (Negative) Urine RBC 0-2 (0-2) /HPF Urine WBC 6-10 H (0-5) /HPF Ur Squamous Epith Cells 3-5 (0-2) /HPF Urine Bacteria None Seen (None Seen) Hyaline Casts 0-2 (0-2) /LPF Independent Interpretation I performed an independent interpretation of an: CT Scan Radiology Impression Discussion of test interpretation with radiology: I have reviewed the radiologist's reading. Independent Historian Clinical information obtained from an independent historian. History obtained from or confirmed by: Other Prescription Management I considered prescription management with: Pain Medication Discharge Plan Discharge Clinical Impression: Abdominal pain, Constipation, Hepatic steatosis Patient Disposition: Home, Self-Care Instructions: Constipation (ED), Non-Alcoholic Fatty Liver Disease (ED), Abdominal Pain (ED) Additional Instructions: Recommend follow-up with your primary care provider. CT scan shows constipation. CT scan also shows cirrhosis and fatty liver. 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 Return to the ED immediately for worsening abdominal pain, nausea, vomiting, flank pain, fever, chills, hematuria, dysuria, flank pain, or any other concerning symptoms. FINDINGS: LOWER CHEST: The visualized lung bases are clear. There is no pleural effusion. CARDIOVASCULATURE: The heart is normal in size. There is no pericardial effusion. LIVER: The liver demonstrates diffusely decreased attenuation, consistent with steatosis. The liver again demonstrates a nodular contour, consistent with cirrhosis. There is hypertrophy of the left and caudate lobes. GALLBLADDER / BILE DUCTS: The gallbladder is surgically absent. There is no intra or extrahepatic biliary ductal dilatation. SPLEEN: The spleen is normal in size and has an unremarkable unenhanced appearance. PANCREAS: The pancreas has an unremarkable unenhanced appearance. ADRENAL GLANDS: Unremarkable. KIDNEYS/RETROPERITONEUM: No renal or ureteral calculi are identified. There is no hydronephrosis or hydroureter. LYMPH NODES: No retroperitoneal lymphadenopathy is identified in the abdomen or pelvis. VASCULATURE: The abdominal aorta is normal in caliber. MESENTERY/PERITONEUM: No free fluid. No masses. There is no free intraperitoneal gas. STOMACH: The stomach is unremarkable. SMALL BOWEL: The small bowel is normal in caliber. COLON: There is a large amount of stool throughout the colon. APPENDIX: Normal. URINARY BLADDER/PELVIC ORGANS: The urinary bladder is collapsed, limiting evaluation. The uterus has an unremarkable unenhanced appearance. BONES / SOFT TISSUES: No suspicious bony or soft tissue abnormalities. CT/CT abdomen pelvis wo IV con IMPRESSION: 1. Large amount of stool throughout the colon. 2. No evidence of nephrolithiasis or ureteral obstruction. 3. Cirrhosis of the liver and hepatic steatosis. Electronically signed by: Noah Mccormack MD 09/20/2024 11:50 AM EDT Dictated By: Noah Mccormack MD Signed By: <Electronically signed by Noah Mccormack MD in OV> 09/20/24 1150 DD/ 1110 TD/TT: 09/20/24 1130 Storyboard Artist: Prescriptions: New polyethylene glycol 3350 [Miralax] 17 gram/dose powder 17 g PO DAILY 7 Days Qty: 119 0RF No Action Jardiance 25 mg tablet 25 mg PO QAM Qty: 30 3RF ezetimibe 10 mg tablet 10 mg PO DAILY Qty: 30 0RF diphenhydramine HCl [Benadryl] 25 mg capsule 25 mg PO BEDTIME Qty: 2 0RF Rx Instructions: Take two 25mg caps (50 mg total) one hour prior to the scheduled CT time. prednisone 50 mg tablet 50 mg PO .4 times Qty: 4 0RF Rx Instructions: Take one tablet at 6pm the night before the CT scan, one tablet at midnight the night before the CT and one tablet at 6am the day of the CT. Take the 4th tablet with you to the hospital when you report for the test. Citrucel 500 mg tablet 500 mg PO BID Qty: 60 1RF bisacodyl 10 mg suppository 10 mg AR DAILY PRN (Reason: for constipation) Qty: 20 0RF Trulicity 1.5 mg/0.5 mL pen injector 1.5 mg subcut QWEEK Qty: 2 7RF metformin 500 mg tablet extended release 24 hr 1,000 mg PO BID Qty: 120 6RF cholecalciferol (vitamin D3) 125 mcg (5,000 unit) capsule 125 mcg PO DAILY Qty: 30 11RF docusate sodium 100 mg capsule 200 mg PO BEDTIME Qty: 60 1RF polyethylene glycol 3350 17 gram powder in packet 17 g PO DAILY Qty: 30 1RF famotidine [Pepcid] 20 mg tablet 20 mg PO BID PRN (Reason: abdominal discomfort) Qty: 60 0RF alum-mag hydroxide-simeth [Maalox Advanced] 200-200-20 mg/5 mL suspension 30 ml PO Q6H PRN (Reason: indigestion) Qty: 300 0RF ondansetron 4 mg tablet,disintegrating 4 mg PO Q6H Qty: 14 0RF zolpidem 10 mg tablet PO Certavite-Antioxidant 18-400 mg-mcg tablet 1 tab PO DAILY fluoxetine 20 mg capsule 20 mg PO DAILY oxycodone 5 mg tablet 5 mg PO BID PRN lisinopril-hydrochlorothiazide 20-25 mg tablet 1 tab PO DAILY pantoprazole 40 mg tablet,delayed release (DR/EC) 40 mg PO DAILY cyclobenzaprine 10 mg tablet PO ondansetron HCl 4 mg tablet PO (DME) FreeStyle Lite Strips Strip See Rx Instructions .ROUTE .MEDSUPPLY Qty: 10 Rx Instructions: As directed albuterol sulfate 90 mcg/actuation HFA aerosol inhaler 2 puff PO Q4-6H PRN fluoxetine 40 mg capsule 40 mg PO QAM acetaminophen 500 mg tablet 500 mg PO Q12H PRN lidocaine 5 % adhesive patch,medicated 0 patch topical diclofenac sodium 1 % gel 2 g topical QID furosemide 20 mg tablet 20 mg PO QAM PRN (Reason: swelling) bisacodyl [Dulcolax (bisacodyl)] 10 mg suppository 10 mg AR DAILY PRN (Reason: constipation) Qty: 20 0RF Citrucel 500 mg tablet 500 mg PO BID Qty: 60 5RF Referrals: [facility] [Provider Group] (Cirrhosis hepatic steatosis. Foster pain) Judi Allen MD [Primary Care Provider] - (Abdominal pain. Increased urinary frequency) Stand Alone Forms: Work/School Release Interventions: ED Discharge Assessment Last Done: 09/20/24 13:04 Discharge Date/Time: 09/20/24 13:05 Print Language: Bahamian
[2024-09-20] MEDS: Ondansetron ODT 4 MG TAB.RAPDIS TRANSLINGU (11:05)
[2024-09-20] MEDS: Ketorolac Tromethamine 30 MG/ML VIAL IM (11:05)
--- OUTSIDE RECORDS SUMMARY | 2024-09-20 11:13 | XMS_ITS | Encounter Summary ---
Author Organization [facility] [facility] Address [address] [place] [address] [address] [place] [address] Care Team Providers Care Bingo Clerk Name Role Phone Judi Allen MD Primary Care Provider + Reason for Visit * Reason Comments Med Refill Encounter Details Date Type Department Care Team ([facility] st Contact Info) Description 10/14/2022 Refill [facility] [address] [place], [place] [phone] Judi Allen MD [address] [place], [place] [phone] Chronic bilateral low back pain, unspecified whether sciatica present Social History Tobacco Use Types Packs/Day Years Used Date Smoking Tobacco: Never Smokeless Tobacco: Never Alcohol Use Standard Drinks/Week Comments Never 0 (1 standard drink = 0.6 oz pur e alcohol) PHQ-2 Answer Date Recorded Patient Health Questionnaire-2 Score 0 08/16/2022 Depression Answer Date Recorded Patient Health Questionnaire-2 Score 0 08/16/2022 Comments Unknown Sex and Gender Information Value Date Recorded Sex Assigned at Female 05/09/2022 10:16 AM EDT Legal Sex Female 10:16 AM EDT Gender Identity Female 05/09/2022 10:16 AM EDT Sexual Orientation Don't know 05/09/2022 10 :16 AM EDT COVID-19 Exposure Response Date Recorded In the last 10 days, have yo u been in contact with someone who was confirmed or suspected to have Coronavirus/COVID-19? No / Unsure 10/13/2022 3:05 PM EDT documented as of this encounter Plan of Treatment Upcoming Encounters Date Type Department Care Team (Late st Contact Info) Description 10/09/2024 2:30 PM EDT Clinical Support [facility] [address] [place] [phone] Marlena López RN 11/27/2024 9:15 AM EDT Office Visit [facility] [address] [place] [phone] Judi Allen MD [address] [place] [phone] documented as of this encounter Visit Diagnoses Diagnosis Chronic bilateral low back pain, unspecified whether sciatica present documented in this encounter Care Teams Bingo Clerk Relationship Specialty Start Date End Date Judi Allen MD [address] [place] [phone] PCP - General Family Medicine 03/25/21 documented as of this encounter
--- OUTSIDE RECORDS SUMMARY | 2024-09-20 11:13 | XMS_ITS | Encounter Summary ---
Author Organization [employer] [facility] Address [address] [place] [address] [address] [place] [address] Care Team Providers Care Car Jockey Name Role Phone Judi Allen MD Primary Care Provider + Encounter Details Date Type Department Care Team ([facility] Contact Info) Description 09/23/2022 Telephone [facility] [address] [place], [place] [phone] Judi Allen MD [address] [place], [place] [phone] Social History Tobacco Use Types Packs/Day Years [...] suspected to have Coronavirus/COVID-19? No / Unsure 09/16/2022 10:41 AM EST documented as of this encounter Plan of Treatment Upcoming Encounters Date Type Department Care Team ([facility] Contact Info) Description 10/09/2024 2:30 PM EDT Clinical Support [address] [id number] Marlena López RN 11/27/2024 9:15 AM EDT Office Visit [address] [phone] Judi Allen MD [address] [place] [phone] documented as of this encounter Visit Diagnoses Not on filedocumented in this encounter Care Teams Car Jockey Relationship Specialty Start Date End Date Judi Allen MD [address] [place] [phone] PCP - General Family Medicine 03/25/21 documented as of this encounter
--- OUTSIDE RECORDS SUMMARY | 2024-09-20 11:13 | XMS_ITS | Encounter Summary ---
Author Organization [employer] [facility] Address [address] [facility] 7t [place] [address] Care Team Providers Care Precision Assembly Inspector Name Role Phone Judi Allen MD Primary Care Provider + Encounter Details Date Type Department Care Team (Late st Contact Info) Description 09/20/2024 Orders Only GENERIC EXTERNAL DATA DEPARTMENT Provider, Generic External Data Social History Tobacco Use Types Packs/Day Years Used Date Smoking Tobacco: Never Smokeless Tobacco: Never Alcohol Use Standard Drinks/Week Comments Never 0 (1 standard drink = 0.6 oz pur e alcohol) Depression Answer Date Recorded Patient Health Questionnaire-9 Score 13 08/23/2023 Patient Health Questionnaire-9 Score 13 08/23/2023 Last PHQ-9: Questionnaire Data Not on file 0 08/23/2023 Housing Stability Answer Date Recorded What is your housing situation today? I have luís reynolds 04/28/[address] you li ve. Do you have problems with any of the following? None of the above 04/28/2023 Food Insecurity Answer Date Recorded Within the past 12 months, y ou worried that your food would run out before you got money to buy more: Never True 04/28/2023 Within the past 12 months,th e food you bought just didn't last and you didn't have enough money to get more: Never True Transportation Answer Date Recorded In the past 12 months, has l ack of transportation kept you from medical appts, meetings, work or from getting things needed for daily living? No 04/28/2023 Utilities Answer Date Recorded In the past 12 months, has t he electric, gas, oil or water company threatened to shut off services in your home? No 04/28/2023 Depression Answer Date Recorded Patient Health Questionnaire-2 Score 4 08/23/2023 Comments No Sex and Gender Information Value Date Recorded Sex Assigned at Female 05/09/2022 10:16 AM EDT Legal Sex Female 10:16 AM EDT Gender Identity Female 05/09/2022 10:16 AM EDT Sexual Orientation Don't know 05/09/2022 10 :16 AM EDT documented as of this encounter Plan of Treatment Upcoming Encounters Date Type Department Care Team (Late st Contact Info) Description 10/09/2024 2:30 PM EDT Clinical Support [facility] MED[facility]INE [address] [place] [address] Marlena López RN 11/27/2024 9:15 AM EDT Office Visit [facility] MED[facility]INE [address] [place] [address] [phone] Judi Allen MD [address] [place], [place] [phone] documented as of this encounter Procedures Procedure Name Priority Date/Time Associated Diagnosis Comments URINALYSIS, COMPLETE, WITH REFLEX TO CULTURE Routine 09/20/2024 10:24 AM EDT CBC WITH AUTO DIFFERENTIAL Routine 09/20/2024 10:24 AM EDT HCG, TOTAL, QN Routine 09/20/2024 10:24 AM EDT LIPASE Routine 09/20/2024 10:24 AM EDT HEPATIC FUNCTION PANEL Routine 10:24 AM EDT COMPREHENSIVE METABOLIC PANEL Routine 09/20/2024 10:24 AM EDT documented in this encounter Results * hCG, Total, Quantitative (09/20/2024 10:24 AM EDT) HCG Quantitative <2 mIU/mL [facility] Comment:Weeks post LMP Appro ximate hCG(Last Menstrual Period) Range (mIU/ml)3 - 4 weeks 9 - 1304 - 5 weeks 75 - 2,6005 - 6 weeks 850 - 20,8006 - 7 weeks 4000 - 100,2007 - 12 weeks 11,500 - 289,64932 - 16 weeks 18,300 - 137,77076 - 29 weeks (2nd trimester) 1,400 - 53,98123 - 41 weeks (3rd trimester) 940 - 60,000The [place] B- hCG assay is used for the early detection ofpregnancy; it cannot be used to diagnose any conditionunrelated to . If a B-hCG level is not supportedby the clinical evidence, results should be confirmed by analternative method (qualitative urine hCG, for example). 09/20/2024 10:2 4 AM EDT 09/20/2024 10:27 AM EDT Generic External Data Provider LAB BLOOD ORDERAB LES Final Result Performing Organization Address [facility] Co de Phone Number [facility] [address] [place] [phone] * Lipase (09/20/2024 10:24 AM EDT) Lipase 21 8 - 78 U/L [facility] 09/20/2024 10:2 4 AM EDT 09/20/2024 10:27 AM EDT Generic External Data Provider LAB BLOOD ORDERAB LES Final Result Performing Organization Address [facility] Co de Phone Number [facility] [address] [place] [phone] * Hepatic Function Panel (09/20/2024 10:24 AM EDT) Bilirubin, Direct 0.2 0.0 - 0.5 mg/dL [facility] 09/20/2024 10:2 4 AM EDT 09/20/2024 10:27 AM EDT Generic External Data Provider LAB BLOOD ORDERAB LES Final Result [facility] [address] [place], [place] [phone] * (ABNORMAL) Comprehensive Metabolic Panel (09/20/2024 10:24 AM EDT) Sodium 135 135 - 145 mmol/L [facility] Potassium 4.1 3.3 - 5.1 mmol/L [facility] Chloride 106 96 - 108 mmol/L [facility] Carbon Dioxide 20(L) 22 - 29 mmol/L [facility] Anion Gap 13 12 - 20 [facility] Urea Nitrogen (BUN) 14 9 - 16 mg/dL [facility] Creatinine, Serum 0.68 0.5 - 1.4 mg/dL [facility] Creatinine Clr Calc Pharmacy 90.7 [facility] Comment:Provided height and weight: 157.48 cm,75.1 kg.eGFR (calculated from the MDRD study equation) and eCrCl(calculated from the Cockcroft-Gault equation) are based ondifferent parameters and may not yield comparable results.If eCrCl result is absurd, please check patient'sheight/weight. Estimated Glomerular Filt Rate >60 [facility] Comment:Chronic Kidney Disea se: Estimated GFR < 60 mL/min/1.16x8Letxjh Kidney Disease: Estimated GFR < 15 mL/min/1.73m2 Glucose 216(H) 60 - 115 mg/dL [facility] Calcium 9.1 8.4 - 10.2 mg/dL [facility] Bilirubin, Total 0.4 0.0 - 1.0 mg/dL [facility] Aspartate Amino Transferase 39(H) 5 - 31 U/L [facility] Alanine Aminotransferase 55(H) 0 - 31 U/L [facility] Total Protein 7.6 6.5 - 8.0 g/dL [facility] Albumin Level 3.6 3.5 - 5.0 g/dL [facility] Alkaline Phosphatase 79 39 - 117 U/L [facility] 09/20/2024 10:2 4 AM EDT 09/20/2024 10:27 AM EDT us Generic External Data Provider LAB BLOOD ORDERAB LES Final Result [facility] [address] [place] [phone] * (ABNORMAL) CBC auto differential (09/20/2024 10:24 AM EDT) White Blood Count 7.1 4.8 - 10.8 X10*3/uL [facility] Red Blood Count 4.18(L) 4.20 - 5.50 X10*6/uL [facility] Hemoglobin 12.8 12.0 - 16.0 g/dl [facility] Hematocrit 38.5 37.0 - 47.0 % [facility] Mean Corpuscular Volume 92.1 80.0 - 98.0 fL [facility] Mean Corpuscular Hemoglobin 30.6 27.0 - 33.0 pg [facility] Mean Corpuscular HGB Conc 33.2 31.0 - 35.0 g/dl [facility] Red Cell Distribution Width 13.2 11.0 - 16.0 % [facility] Platelet Count 218 160 - 400 X10*3/uL [facility] Mean Platelet Volume 8.8(L) 9.4 - 12.3 fL [facility] Neutrophils Percent Auto 44.0(L) 45 - 73 % [facility] Imm Gran Pct Auto 0.4 0.0 - 0.4 % [facility] Lymphocytes Percent Auto 39.8 20 - 40 % [facility] Monocytes Percent Auto 9.9 2 - 11 % [facility] Eosinophils Percent Auto 5.2(H) 0 - 4 % [facility] Basophils Percent Auto 0.7 0 - 2 % [facility] NRBC Pct Auto 0.0 0.0 - 0.2 /100WBC [facility] Neutrophils Absolute Auto 3.1 2.0 - 8.3 x10*3/uL [facility] Imm Gran Abs Auto 0.03 0.00 - 0.03 X10*3/uL [facility] Lymphocytes Absolute Auto 2.8 1.2 - 4.9 X10*3/uL [facility] Monocytes Absolute Auto 0.7 0.1 - 1.2 X10*3/uL [facility] Eosinophils Absolute Auto 0.4 0.0 - 0.4 X10*3/uL [facility] Basophils Absolute Auto 0.1 0.0 - 0.2 X10*3/uL [facility] NRBC Abs Auto 0.000 0.0 - 0.012 X10*3/uL [facility] 09/20/2024 10:2 4 AM EDT 09/20/2024 10:27 AM EDT us Generic External Data Provider LAB BLOOD ORDERAB LES Final Result [facility] [address] [place] [phone] * (ABNORMAL) Urinalysis, Complete, with Reflex to Culture (09/20/2024 10:24 AM EDT) Color Urine Yellow [facility] Appearance Urine Clear [facility] PH 6.0 5.0 - 9.0 [facility] Glucose Urine UA >=1000(A) Negative mg/dL [facility] Urine Blood Negative Negative [facility] Specific [place] - Urine >=1.030(H) 1.005 - 1.025 [facility] Urine Protein Negative Neg-Trace mg/dL [facility] Urine Ketones Negative Negative mg/dL [facility] Nitrite Urine Negative Negative [facility] Leukocyte Esterase Urine Negative Negative [facility] RBC Urine 0-2 0 - 2 /HPF [facility] Urine WBC 6-10(A) 0 - 5 /HPF [facility] Urine Squamous Epithelial Cell 3-5 0 - 2 /HPF [facility] Urine Bacteria None Seen None Seen [facility] Hyaline Casts, Urine 0-2 0 - 2 /LPF [facility] 09/20/2024 10:2 4 AM EDT 09/20/2024 10:27 AM EDT Narrative [facility] - 09/20/2024 10:44 AM EDT [id number], [employer] us Generic External Data Provider LAB URINE ORDERAB LES Final Result Performing Organization Address City/State/[facility] Co de Phone Number [facility] [address] [place] [phone] documented in this encounter Visit Diagnoses Not on filedocumented in this encounter Additional Health Concerns Assessment Noted Time PHQ-9 Depression Total Score: 13 024 3:34 PM EST documented as of this encounter Care Teams Precision Assembly Inspector Relationship Specialty Start Date End Date Judi Allen MD [address] [place] [phone] PCP - General Family Medicine 03/25/21 documented as of this encounter
--- OUTSIDE RECORDS SUMMARY | 2024-09-20 11:13 | XMS_ITS | Encounter Summary ---
Author Organization [email or web address] Address [address] [facility] 7t [place] [address] Care Team Providers Care Dining Chair Seat Cushion Trimmer Name Role Phone Judi Allen MD Primary Care Provider + Reason for Visit * Reason Comments Med Refill Encounter Details Date Type Department Care Team ([facility] st Contact Info) Description 09/14/2024 Refill [facility] [address] [place], [place] [phone] Judi Allen MD [address] [place], [place] [phone] Primary insomnia Social History Tobacco Use Types Packs/Day Years [...] Description 10/09/2024 2:30 PM EDT Clinical Support [address] [address] Marlena López RN 11/27/2024 9:15 AM EDT Office Visit [facility] [address] [place] [phone] Judi Allen MD [address] [place] [phone] documented as of this encounter Visit Diagnoses Diagnosis Primary insomnia Persistent disorder of initiating or maintaining sleep documented in this encounter Additional Health Concerns Assessment Noted Time PHQ-9 Depression Total Score: 13 024 3:34 PM EST documented as of this encounter Care Teams Dining Chair Seat Cushion Trimmer Relationship Specialty Start Date End Date Judi Allen MD [address] [place] [phone] PCP - General Family Medicine 03/25/21 documented as of this encounter
--- OUTSIDE RECORDS SUMMARY | 2024-09-20 11:13 | XMS_ITS | Encounter Summary ---
Author Organization [employer] Address [address] [facility] [address] 7t [place] [address] Care Team Providers Care Corset Fitter Name Role Phone Judi Allen MD Primary Care Provider + Encounter Details Date Type Department Care Team (Late st Contact Info) Description 08/27/2024 Refill [facility] [address] [place], [place] [phone] Judi Allen MD [address] [place] [address] Chronic bilateral low back pain, unspecified whether [...] AM EDT documented as of this encounter Miscellaneous Notes * Addendum Note - Kamari López RN - 08/27/2024 12:08 PM ESTAddended by: KAMARI LÓPEZ on: 08/27/2024 12:08 PM Modules accepted: Orders * Telephone Encounter - Brenda Metzger LPN - 08/27/2024 11:48 AM EST Received fax from [facility] Oxycodone 5 mg. documented in this encounter Plan of Treatment Upcoming Encounters Date Type Department Care Team (Late st Contact Info) Description 10/09/2024 2:30 PM EDT Clinical Support [facility] MEDICINE [address] [place] [phone] Kamari López RN 11/27/2024 9:15 AM EDT Office Visit [facility] MEDICINE [address] [place] [phone] Judi Allen MD [address] [place] [address] documented as of this encounter Visit Diagnoses Diagnosis Chronic bilateral low back pain, unspecified whether sciatica present documented in this encounter Additional Health Concerns Assessment Noted Time PHQ-9 Depression Total Score: 13 024 3:34 PM EST documented as of this encounter Care Teams Corset Fitter Relationship Specialty Start Date End Date Judi Allen MD [address] [place] [phone] PCP - General Family Medicine 03/25/21 documented as of this encounter
--- OUTSIDE RECORDS SUMMARY | 2024-09-20 11:13 | XMS_ITS | Encounter Summary ---
Author Organization [employer] [facility] Address [address] [place] [address] 7 [place] [address] Care Team Providers Care Blood Or Blood Bank Technician Name Role Phone Judi Allen MD Primary Care Provider + Encounter Details Date Type Department Care Team (Late st Contact Info) Description 01/30/2023 Orders Only [facility] MEDICINE [address] [place] [address] [phone] Sia Youssef LPN Social History Tobacco Use Types Packs/Day Years [...] Description 10/09/2024 2:30 PM EDT Clinical Support [facility] MEDICINE [address] [place] [address] [phone] Marlena López RN 11/27/2024 9:15 AM EDT Office Visit [address] [phone] Judi Allen MD [address] [place] [phone] documented as of this encounter Visit Diagnoses Not on filedocumented in this encounter Care Teams Blood Or Blood Bank Technician Relationship Specialty Start Date End Date Judi Allen MD [address] [place] [phone] PCP - General Family Medicine 03/25/21 documented as of this encounter
--- OUTSIDE RECORDS SUMMARY | 2024-09-20 11:13 | XMS_ITS | Encounter Summary ---
Author Organization [email or web address] [facility] Address [address] [facility] 7t [place] [address] Care Team Providers Care Human Resources Coordinator Name Role Phone Judi Allen MD Primary Care Provider + Reason for Visit * Reason Comments Med Refill Encounter Details Date Type Department Care Team ([facility] st Contact Info) Description 05/17/2024 Refill [facility] [address] [place], [place] [phone] Judi Allen MD [address] [place], [place] [phone] Type 2 diabetes mellitus with hyperglycemia, without long-term current use of insulin ([facility]) Social History Tobacco Use Types Packs/Day Years [...] is your housing situation today? I have luísklaudia reynolds 04/28/[address] you [...] EDT Clinical Support [facility] [address] [place] [phone] Marlena López RN 11/27/2024 9:15 AM EDT Office Visit [facility] [address] [place] [phone] Judi Allen MD [address] [place] [phone] documented as of this encounter Visit Diagnoses Diagnosis Type 2 diabetes mellitus with hyperglycemia, without long-term current use of insulin ([facility]) documented in this encounter Additional Health Concerns Assessment Noted Time PHQ-9 Depression Total Score: 13 024 3:34 PM EST documented as of this encounter Care Teams Human Resources Coordinator Relationship Specialty Start Date End Date Judi Allen MD [address] [place] [phone] PCP - General Family Medicine 03/25/21 documented as of this encounter
--- OUTSIDE RECORDS SUMMARY | 2024-09-20 11:13 | XMS_ITS | Encounter Summary ---
Author Organization [employer] [facility] Address [address] [place] [address] 7t [place] [address] Care Team Providers Care Requisition Approver Name Role Phone Judi Allen MD Primary Care Provider + Encounter Details Date Type Department Care Team (Late Contact Info) Description 10/27/2022 Orders Only [facility] MEDICINE [address] [place] [phone] Sia Youssef LPN Social History Tobacco Use [...] suspected to have Coronavirus/COVID-19? No / Unsure 10/28/2022 11:37 AM EDT documented as of this encounter Plan of Treatment Upcoming Encounters Date Type Department Care Team (Late st Contact Info) Description 10/09/2024 2:30 PM EDT Clinical Support [facility] MEDICINE [address] [place] [phone] Marlena López RN 11/27/2024 9:15 AM EDT Office Visit [facility] MED[facility] [address] [place] [address] Jdui Allen MD [address] [place] [address] documented as of this encounter Visit Diagnoses Not on filedocumented in this encounter Care Teams Requisition Approver Relationship Specialty Start Date End Date Judi Allen MD [address] [place] [phone] PCP - General Family Medicine 03/25/21 documented as of this encounter
--- OUTSIDE RECORDS SUMMARY | 2024-09-20 11:13 | XMS_ITS | Encounter Summary ---
Author Organization [employer] [facility] Address [address] [place] [address] 7t [place] [address] Care Team Providers Care Financial Internship Name Role Phone Judi Allen MD Primary Care Provider + Reason for Visit * Reason Comments Med Refill Encounter Details Date Type Department Care Team ([facility] st Contact Info) Description 09/06/2022 Refill [facility] [address] [place], [place] [phone] Judi Allen MD [address] [place], [place] [phone] Chronic bilateral low back pain, unspecified whether [...] suspected to have Coronavirus/COVID-19? No / Unsure 08/31/2022 2:16 PM EST documented as of this encounter Plan of Treatment Upcoming Encounters Date Type Department Care Team (Late st Contact Info) Description 10/09/2024 2:30 PM EDT Clinical Support [facility] MEDICINE [address] [place] [phone] Marlena López RN 11/27/2024 9:15 AM EDT Office Visit [facility] [address] [place] [phone] Judi Allen MD [address] [place] [phone] documented as of this encounter Visit Diagnoses Diagnosis Chronic bilateral low back pain, unspecified whether sciatica present documented in this encounter Care Teams Financial Internship Relationship Specialty Start Date End Date Judi Allen MD [address] [place] [phone] PCP - General Family Medicine 03/25/21 documented as of this encounter
--- OUTSIDE RECORDS SUMMARY | 2024-09-20 11:13 | XMS_ITS | Encounter Summary ---
Author Organization [employer] [facility] Address [address] [place] [address] 7t [place] [address] Care Team Providers Care Cash Van Salesperson Name Role Phone Judi Allen MD Primary Care Provider + Encounter Details Date Type Department Care Team ([facility] Contact Info) Description 11/22/2022 Abstract [facility] MEDICINE [address] [place], [place] [phone] Judi Allen MD [address] [place], [place] [phone] Social History Tobacco Use Types Packs/Day Years [...] Upcoming Encounters Date Type Department Care Team ([facility] Contact Info) Description 10/09/2024 2:30 PM EDT Clinical Support [address] [address] Marlena López RN 11/27/2024 9:15 AM EDT Office Visit [address] [phone] Judi Allen MD [address] [place] [phone] documented as of this encounter Visit Diagnoses Not on filedocumented in this encounter Care Teams Cash Van Salesperson Relationship Specialty Start Date End Date Judi Allen MD [address] [place] [phone] PCP - General Family Medicine 03/25/21 documented as of this encounter
--- OUTSIDE RECORDS SUMMARY | 2024-09-20 11:13 | XMS_ITS | Clinical Summary ---
Author Organization [employer] Address [address] [facility] [address] [place] [address] Care Team Providers Care Plate Put In Worker Name Role Phone Judi Allen MD Primary Care Provider + Allergies Active Allergy Reactions Criticality Noted Date Comments Azithromycin 02/28/2017 Iodine 02/28/2017 Medications * This document contains information received from the source organization and may not represent a complete record from that organization. FREESTYLE LITE test strip TEST BLOOD SUGAR TWICE DAILY 100 strip 11 023 Active naloxone (Narcan) 4 mg/0.1 mL nasal spray Administer 1 spray (4 mg) into affected nostril(s) if needed for opioid reversal. 2 each 2 023 Active Multiple Vitamins-Minera ls (CertaVite/Anti oxidants) tablet TAKE 1 TABLET BY MOUTH EVERY DAY 90 tablet 3 023 Active Sodium Fluoride (PreviDent 5000 Plus) 1.1 % cream Apply 1 mg to teeth 3 times daily. 1 g 3 023 Active gabapentin (Neurontin) 300 MG capsuleIndicati ons:Generalized anxiety disorder with panic attacks,Arm paresthesia, left Take 1 capsule (300 mg) by mouth 2 times daily. 60 capsule 3 024 Active pantoprazole (ProtoNix) 40 MG EC tabletIndicatio ns:Gastroesopha geal reflux disease, unspecified whether esophagitis present TAKE 1 TABLET BY MOUTH ONCE DAILY 90 tablet 3 024 Active FLUoxetine (PROzac) 20 MG capsuleIndicati ons:Recurrent major depressive disorder, in partial remission (CMS/HCC) TAKE 3 CAPSULES BY MOUTH EVERY MORNING 270 capsule 3 2 024 Active lidocaine (Lidoderm) 5 % patch APPLY 1 PATCH TOPICALLY TO SKIN, LEAVE ON FOR 12 HOURS AND OFF FOR 12 HOURS DIRECTED 30 patch 3 Active estradiol (Estrace) 0.1 MG/GM vaginal cream INSERT 1 GRAM VAGINALLY EVERY NIGHT FOR 14 DAYS THEN INSERT 1 GRAM VAGINALLY TWICE A WEEK 42.5 g Active cholecalciferol 125 MCG (5000 UT) capsule TAKE 1 CAPSULE BY MOUTH DAILY IN THE MORNING 90 capsule Active clotrimazole-be tamethasone (Lotrisone) creamIndication s:Intertrigo of genitocrural region due to Wendy species APPLY TO THE AFFECTED AREA(S) TWICE DAILY 15 g Active chlorhexidine (Peridex) 0.12 % solution RINSE FOR 30 SECONDS WITH 15 ML THREE TIMES DAILY FOR 11 DAYS, SPIT OUT, DO NOT SWALLOW Active acetaminophen (Tylenol) 500 MG tablet Take 2 tablets (1,000 mg) by mouth every 6 (six) hours if needed for moderate pain or fever for up to 25 doses. 30 tablet Active albuterol (2.5 MG/3ML) 0.083% nebulizer solution Take 3 mL by nebulization every 6 (six) hours if needed for wheezing. 75 mL Active cyclobenzaprine (Flexeril) 10 MG tablet Take 1 tablet (10 mg) by mouth at bedtime for 10 days. 10 tablet Active meclizine (Antivert) 25 MG tablet TAKE 1 TABLET BY MOUTH THREE TIMES DAILY IN THE MORNING, AT NOON, AND AT BEDTIME NEEDED FOR DIZZINESS OR FOR NAUSEA 30 tablet Active Diclofenac Sodium 1 % gelIndications: Arthritis APPLY 2 GRAMS TOPICALLY TO AFFECTED AREA(S) FOUR TIMES DAILY 100 g 3 Active albuterol 108 (90 Base) MCG/ACT inhaler INHALE 2 PUFFS EVERY 4 HOURS NEEDED FOR WHEEZING OR SHORTNESS OF BREATH 8.5 g 3 Active hydrocortisone 2.5 % cream Apply pea sized amount to skin bid for 1 week 15 g Active metFORMIN XR (Glucophage-XR) 500 MG 24 hr tabletIndicatio ns:Type 2 diabetes mellitus with other specified complication, unspecified whether superintendent terminal insulin use (CMS/[facility]) TAKE 2 TABLETS BY MOUTH EVERY TWELVE HOURS 360 tablet 2 Active Multiple Vitamins-Iron (Tab-A-Fatimah/Iro n/Beta Carotene) tablet TAKE 1 TABLET BY MOUTH EVERY DAY 90 tablet 3 Active atorvastatin (Lipitor) 40 MG tablet Take 1 tablet (40 mg) by mouth at bedtime. 90 tablet 3 024 2024 Active lisinopril-hydr oCHLOROthiazide 20-25 MG tablet Take 1 tablet by mouth Once per day. 90 tablet 3 024 Active senna-docusate sodium (Senokot-S) 8.6-50 MG tablet Take 1 tablet by mouth Once per day. 30 tablet 11 024 2024 Active Jardiance 25 MGIndications:T ype 2 diabetes mellitus with hyperglycemia, without long-term current use of insulin ([facility]) TAKE 1 TABLET BY MOUTH EVERY DAY IN THE MORNING 30 tablet 11 025 Active oxyCODONE (Roxicodone) 5 MG immediate release tabletIndicatio ns:Chronic bilateral low back pain, unspecified whether sciatica present Take 1 tablet (5 mg) by mouth every 8 (eight) hours if needed for severe pain for up to 28 days. Do not start before August 29, 2024. 84 tablet 025 2024 Active zolpidem (Ambien) 10 MG tabletIndicatio ns:Primary insomnia TAKE 1 TABLET BY MOUTH AT BEDTIME NEEDED 15 tablet 2 025 Active zolpidem (Ambien) 10 MG tabletIndicatio ns:Primary insomnia TAKE 1 TABLET BY MOUTH AT BEDTIME NEEDED 15 tablet 2 024 2024 Discontinued oxyCODONE (Roxicodone) 5 MG immediate release tabletIndicatio ns:Chronic bilateral low back pain, unspecified whether sciatica present TAKE 1 TABLET BY MOUTH THREE TIMES DAILY IN THE MORNING, AT NOON, AND AT BEDTIME NEEDED FOR SEVERE PAIN 84 tablet 025 2024 Discontinued(R eorder (will not trigger notification to Pharmacy)) Active Problems Problem Noted Date Diagnosed Date Enteritis 06/13/2024 Assessment & Plan (06/13/2024 2:34 PM EST): Likely related to constipation, no evidence of infection. Advised to increase water intake, avoid sodas or sweetened drinks Increase fiber intake (she has metamucil), raisins, prunes, pear. Take Sennakot daily + Bisacodyl supp daily prn constipation more than 1d Hold Trulicity this week as it may have exacerbated an already existing constipation from chronic narcotic rx. She will restart 3mg/w (she has some left at home, from previous rx) and fu w me in few weeks. Drug-induced constipation 06/13/2024 Assessment & Plan (06/13/2024 2:35 PM EST): Likely related to increased dose of Trulicity, she had underlying constipation from chronic narcotic rx. She will hold Trulicity as above, see enteritis POC Chronic idiopathic constipation 05/02/2024 Assessment & Plan (05/02/2024 1:36 PM EDT): May be related to increased Oxycodone dose. Increase fiber and water intake + start Senna. Long-term current use of opiate analgesic 2023 Overview (03/19/2024): Medication: oxycodone 5mg TID PRN Indication: Lumbar OA w/ radiculopathy Last [employer] Agreement: 06/14/23 Sprain of metacarpophalangeal joint of right ricardo mb 02/02/2024 Assessment & Plan (05/02/2024 1:43 PM EDT): S/P cortisol injections. Fu with Orthopaedics prn. Advised to use thumb splint. Assessment & Plan (02/02/2024 1:11 PM EDT): Will order thumb splint to mobilize joint for 4 weeks. Use Tylenol plus Diclofenac gel prn. F/u with me next visit. Osteoarthritis of spine with radiculopathy, lumb ar region 10/09/2023 Assessment & Plan (03/19/2024 8:24 PM EDT): -Good engagement and participation with Group Medical Visit model -Encouraged multifactorial approach to pain control including pharm and non- pharm modalities -UTOX and Pill count as expected Assessment & Plan (02/20/2024 2:32 PM EDT): -Good engagement and participation with Group Medical Visit model -Encouraged multifactorial approach to pain control including pharm and non- pharm modalities -UTOX and Pill count as expected Assessment & Plan (02/02/2024 3:36 PM EDT): She is doing failry well with non pharmacological treatment, will do PA for Lidocaine patch. Will increase oxycodone up to TID to optimize pharmacological management (med tapered down due to breaking narc contract), next dose is due on 02/11/24, it can be refilled on or after 02/07 Pt is aware of rules of narcotic contract and avoid use of other recreational substances. Will continue going to Chronic pain clinic, may need more individualized treatment or additional screening. Assessment & Plan (01/16/2024 3:52 PM EDT): -Good engagement and participation with Group Medical Visit model, today was first visit. -Encouraged multifactorial approach to pain control including pharm and non- pharm modalities -UTOX and Pill count as expected Assessment & Plan (11/10/2023 3:32 PM EDT): -Pain is mildly controlled with Oxycodone bid. I advised to take gabapentin at 3-4pm then at bedtime + Flexeril with tylenol at bedtime -Counseled re acupuncture clinic. I will refer again to chronic pain clinic as she's about to be on a 3 mo school vacation Assessment & Plan (10/09/2023 6:01 PM EDT): -She has known [facility], last Xrays were on 2019 and she has been seen at [facility] until last year. I had a lengthy discussion with patient about the lack of evidence re senior care opiate use on chronic pain and added the fact that she was being taper down to oxycodone bid, I will continue with similar dose and fu after she's seen at In house chronic pain clinic (appt needs to be rs). -Continue gabapentin 300mg bid for neuropathic pain and help with anxiety as well. -Call [facility] and rs appt, I will fu on this in 6w. -Oxycodone 5mg bid sent to pharmacy x 2w, she has Naloxone at home -FU with [employer] team on 10/17 Screening mammogram for breast cancer 08/18/2023 Umbilical hernia without obstruction and without gangrene 08/18/2023 Assessment & Plan (08/18/2023 10:49 AM EST): Asymptomatic and easy reducible Watch and wait, pt to reconsult pain or change in color of skin Bilateral carpal tunnel syndrome 07/26/2023 Assessment & Plan (07/26/2023 9:11 PM EST): Rx bl wrist braces specially at night. FU with Dr Crystal. We'll fu next month and discuss OT option. Generalized anxiety disorder with panic attacks 07/26/2023 Assessment & Plan (10/17/2023 3:47 PM EDT): During IBH Consult Kelly presenting with excessive worry/anxiety, difficulty controlling worry, easily fatigued, difficulty concentrating/Mind going blank , and irritability; for a period of 18+ mo, for all symptoms in the context of work and illness. Work setting and house chores are triggers identified for symptoms. Able to manage in the past, lately not that much. Positive support from family, however, difficulty to express emotions and communicate feelings. PLAN: (check all that apply) Continue with current services (defined as services in the past 12 months) . Pt in wait list for OP services with [facility], provided agency information to patient. Assessment & Plan (10/09/2023 6:07 PM EDT): She seems to have PTSD component as well but not fully committed to therapy due to conflicting schedule Continue Fluoxetine 60mg + Gabapentin bid Will attempt to have a better pain control I advised her to get FMLA so that she can do psychotherapy but she may need to rs appts first. Advised against using benzos or any other recreational substance. She feels safe at home and is able to contract for safety in Assessment & Plan (08/23/2023 4:01 PM EST): During IBH Consult Kelly presenting with depressed mood, loss of interests/pleasure , changes in sleep difficulty falling asleep, psychomotor agitation, trouble concentrating, thoughts of worthlessness or guilt, fatigue/loss of energy, inappropriate guilt , hopelessness, difficulty concentrating and excessive worry/anxiety, difficulty controlling worry, restless/keyed up/On edge, easily fatigued, difficulty concentrating/Mind going blank , irritability, muscle tension, and sleep disturbance difficulty falling asleep; for a period of 18+ mo, for all symptoms in the context of illness or family illness and life stressors (work, home chores). Kelly reported feeling overwhelmed by work stuff and also house chores that she needs to do everyday. Symptoms have been present on and off within the last years. No time to practice self-care. Positive support from family, however, difficulty to express emotions and communicate feelings. PLAN: (check all that apply) New/Additional Services needed Off-site services for . Referral for OP individual therapy will be placed. Clinician will assist patient during next physical appointment. Assessment & Plan (07/26/2023 10:01 PM EST): Increase gabapentin to 300mg bid, hold Prn sedation, persistent edema. Increase fluoxetine as above. Counseled re breathing techniques, reach out for safety. Refer to service. Avoid using meds nto rx for her, avoid benzos. Opiate analgesic contract exists 07/26/2023 Assessment & Plan (08/18/2023 10:49 AM EST): We have done [employer] education re opiate side effects including dizziness, somnolence, constipation, urinary retention, dependance, etc. Patient is aware of the importance of avoiding any activity that requires vigilance while taking these meds including driving. We have discussed re avoiding diversion of medication, including giving pills to relatives. Patient is to keep medications in a safe place and is aware that rx will not be replaced if lost or stolen. Medication is oxycontin. Pt has had repeated pos utox for non-prescribed substances, oxycontin has been tapered down to BID and will fu closely w [employer] nurse Refer to in house pain clinic Pt to fu closely w behavioral health and continue fluoxetine Assessment & Plan (07/26/2023 10:16 PM EST): See knee pain Patient is on Opiate contract which she has broken twice within the past 12mo due to POS Utox for benzos which are not rx for her. Issue has been addressed and will do slow opiate taper. Will consider buprenorphine treatment if dependence continues. Monitor closely with [employer] nurse. Intertrigo of genitocrural region due to Wendy species 07/26/2023 Assessment & Plan (07/26/2023 9:48 PM EST): Use lotrisone cream bid on affected areas, can put Zonc oxide paste on top of it to speed up healing. Counseled re tight control of DM. Carpal tunnel syndrome of left wrist 01/12/2023 Overview (01/12/2023): [facility] on 11/2022 (Dr. Nuñez): Moderate carpal tunnel syndrome bilaterally, slightly worse on the right Normal EMG of the right C5-T1 innervated muscles Assessment & Plan (05/02/2024 1:42 PM EDT): S/P release surgery. Fu with Orthopaedics. Recurrent major depressive disorder, in partial remission 08/17/2022 Assessment & Plan (08/23/2023 4:01 PM EST): During IBH Consult Kelly presenting with depressed mood, loss of interests/pleasure , changes in sleep difficulty falling asleep, psychomotor agitation, trouble concentrating, thoughts of worthlessness or guilt, fatigue/loss of energy, inappropriate guilt , hopelessness, difficulty concentrating and excessive worry/anxiety, difficulty controlling worry, restless/keyed up/On edge, easily fatigued, difficulty concentrating/Mind going blank , irritability, muscle tension, and sleep disturbance difficulty falling asleep; for a period of 18+ mo, for all symptoms in the context of illness or family illness and life stressors (work, home chores). Kelly reported feeling overwhelmed by work stuff and also house chores that she needs to do everyday. Symptoms have been present on and off within the last years. No time to practice self-care. Positive support from family, however, difficulty to express emotions and communicate feelings. PLAN: (check all that apply) New/Additional Services needed Off-site services for . Referral for OP individual therapy will be placed. Clinician will assist patient during next physical appointment. Assessment & Plan (07/26/2023 9:56 PM EST): She had been off fluoxetine for few months, never saw psychotherapist. Increase fluoxetine to 60mg/d Increase gabapentin to 300mg bid, if not tolerated, use only 300mg at bedtime (currently on 100mg bid, tolerates well) Refer to for therapy, she can only do it after 2pm. Assessment & Plan (09/08/2022 9:39 AM EST): Doing better on fluoxetine 60 mg Add gabapentin 100mg BID which she will take in the afternoon after work and at night. Cautioned to take Ambien at least 2 hours after gabapentin if needed. will check with N regarding pharmacology and psychotherapy referral. Encounter for preventive health examination 02/2023 Assessment & Plan (08/18/2023 10:47 AM EST): Discussed with patient re increase fresh fruit and vegetable intake. Counseled re moderate exercise as tolerated, up to 20min/d Patient feels safe at home. PAP smear up to date, next one due 2026 Mammogram to be ordered Eye exam overdue, will refer to [facility] CRC screen report from a few yrs ago pending Lipids/FBS up to date Vaccinations up to date, she declined Covid booster, otherwise up to date Dental visit up to date, next one due January 2024 Assessment & Plan (08/17/2022 11:13 AM EST): Agreed to Influenza and Tdap today. Encouraged to comeback for covid booster and Shingrix In the future. Refer to colonoscopy and mammogram Arm paresthesia, left 08/16/2022 Assessment & Plan (09/08/2022 9:43 AM EST): Resolved. Continue stretching exercises and reconsult PRN. Assessment & Plan (08/17/2022 11:05 AM EST): It could be related to cervical or brachial neuropathy? OA? I explained that it most likely a benign condition, temporarily for now and we will fu at next appt. Reccommended stretching exercises, fu and refer to PT and imaging if sxs perisist in 3m Primary osteoarthritis of left knee 08/16/2022 Assessment & Plan (10/09/2023 6:03 PM EDT): Recurrent. Continue Oxycodone bid, counseled re weight reduction Consider intraarticular injection/PT Assessment & Plan (07/26/2023 9:47 PM EST): Recurrent. She has been treated with oxycodone TID which pt also uses for back pain. Given recent Utox results continue to be POS for benzodiazepines, we will continue slow opiate taper. Continue 5mg bid at next dose for 1mo, I will fu in 4-5w. Counseled regarding safety issues as she has been introducing nonprescriped benzodiazapine. Discussed with her regarding importance of avoiding driving or activities that require vigilance when driving. See previous note on 06/22/23 re taper and FU with [employer] nurse. She couldn't provide urine for Utox today. She's aware that she'll be called for random Utox. Assessment & Plan (09/08/2022 9:41 AM EST): Stable, being treated with oxycodone TID which pt also uses for back pain. Counseled regarding safety issues as she has been introducing nonprescriped benzodiazapine. We have addressed results of Utox and she declines using anything different than oxycodone for pain, Unclear of where Propoxyphene levels in urine are from. Discussed with her regarding importance of avoiding driving or activities that require vigilance when driving. See previous note and FU with [employer] nurse. Will work with her over the next month to cut down to off on nonprescriped controlled substances. FU with me in 4-6 weeks. Anemia 08/12/2022 Cervical lymphadenopathy 08/12/2022 Eczema 08/12/2022 Hypertriglyceridemia 08/12/2022 Wheezing 08/12/2022 Unintentional weight loss 08/12/2022 Tired 08/12/2022 Mass of neck 08/12/2022 Allergic rhinitis 04/15/2014 Insomnia 04/15/2014 Loss of sense of smell 05/17/2013 Backache 02/04/2013 Assessment & Plan (08/17/2022 11:11 AM EST): Has lumbar radiculopathy. 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 Continues to do stretching exercises. Utox today showed not prescribed susbtances. Issue was d/w her and accepted taking someone else's meds. Agreed to modify and avoid this behavior, I will refer to MH team. Will notify [employer] nurse and bring her more often for Utox and pill count. Patient aware of potential interaction of benzos with both ambien and oxycodone Depressive disorder 12/29/2011 Assessment & Plan (08/17/2022 11:09 AM EST): Has increased anxiety, unclear if related to life situations or exacerbated by taking benzos, unclear about other substances. Counseled to cut down to off on benzos. Increase fluoxetine to 60mg and refer to N FU in 3-4w. Type 2 diabetes mellitus wit h other specified complication, unspecified whether superintendent terminal insulin use 12/29/2011 Assessment & Plan (05/02/2024 1:28 PM EDT): Uncontrolled, will increase Trulicity to 4.5 mg. No change in other medications. Continue current medications. Counseled re more frequent low calorie/carb meals. Check fgstk 2x daily Encouraged physical activity as tolerated. FU in 3 months. Assessment & Plan (02/02/2024 12:15 PM EDT): Improving, A1c is not at goal yet. Continue on Metformin + Trulicity + Jardiance, same dose Counseled re more frequent low calorie/carb meals. Check fgstk twice daily Encouraged physical activity as tolerated. FU in 3 months with labs. Assessment & Plan (11/10/2023 3:35 PM EDT): Significantly improved. A1c is not at goal yet. No change in meds Counseled re more frequent low calorie/carb meals. Check fgstk 2x daily Encouraged physical activity as tolerated. FU in 3 months. Assessment & Plan (10/09/2023 6:04 PM EDT): Continue Jardiance + Trulicity + Metformin and fu 1mo Assessment & Plan (08/18/2023 10:46 AM EST): Improving, continue medications, Jardiance added 2 wks ago Fu in 6 wks See previous note Assessment & Plan (07/26/2023 9:50 PM EST): Improved, A1c is not at goal yet. Continue on Trulicity 3mg (4.5mg is not available at this time/back order)+ Metformin 1000mg bid. Add jardiance Counseled re more frequent low calorie/carb meals. Check fgstk 2x daily Encouraged physical activity as tolerated. FU in 4-6w. Assessment & Plan (09/08/2022 9:42 AM EST): Seems to be improved, will FU in 6 weeks. Assessment & Plan (08/17/2022 11:07 AM EST): Uncontrolled Increase trulicity to 3mg/w, continue Metformin Counseled re more frequent low calorie/carb meals. Check fgstk 2x daily Encouraged physical activity as tolerated. FU in 3-4w w labs Essential hypertension 12/29/2011 Assessment & Plan (11/10/2023 3:34 PM EDT): Controlled. Continue lisinopril/hctz same dose Counseled re low salt diet/increase moderate physical activity. Check home BP BIW and prn CP/HERNANDEZ/MAHARAJ Non smoking patient. Assessment & Plan (10/09/2023 6:02 PM EDT): Borderline controlled. Compliant w/meds Continue lasix and lisinopril-HCTZ same dose. Counseled re low salt diet/increase moderate physical activity. Check home BP BIW and prn CP/HERNANDEZ/MAHARAJ Non smoking patient. Assessment & Plan (08/17/2022 11:06 AM EST): Controlled. Compliant w/meds Continue lasix same dose. Bring meds at next appt and discuss about potential change to an cristina inh. Counseled re low salt diet/increase moderate physical activity. Check home BP BIW and prn CP/HERNANDEZ/MAHARAJ Non smoking patient. Kidney stone 12/29/2011 Pure hypercholesterolemia 12/29/2011 Assessment & Plan (05/02/2024 1:34 PM EDT): We discussed re rx options. Recommended moderate amount of exercise and increase consumption of fruit, vegetables, fish and high fiber foods. Should decrease consumption of highly saturated fats or trans fats. Start Atorvastatin 40 mg at bedtime. Fu with labs in 3 months. Resolved Problems Problem Noted Date Diagnosed Date Resolved Date Cough 08/12/2022 02/02/2024 Right flank pain 08/12/2022 02/02/2024 Asthma 04/15/2014 02/02/2024 Encounters Date Type Department Care Team Description 09/20/2024 Orders Only GENERIC EXTERNAL DATA DEPARTMENT Provider, Generic External Data 09/14/2024 Refill [facility] [address] [place], [place] [phone] Judi Allen MD Primary insomnia 09/05/2024 Telephone [facility] [address] [place], [place] [phone] Judi Allen MD Appointment Request 08/27/2024 Refill [facility] [address] [place], [place] [phone] Judi Allen MD Chronic bilateral low back pain, unspecified whether sciatica present 08/04/2024 Refill [facility] [address] [place], [place] [phone] Judi Allen MD Type 2 diabetes mellitus with hyperglycemia, without long-term current use of insulin ([facility]) 07/31/2024 3:30 PM EST Office Visit [facility] [address] [place] [address] Breann Miller, DDNati 07/31/2024 Refill [facility] [address] [place] [address] Judi Allen MD Chronic bilateral low back pain, unspecified whether sciatica present 07/23/2024 Orders Only GENERIC EXTERNAL DATA DEPARTMENT Provider, Generic External Data 07/17/2024 2:30 PM EST Clinical Support [facility] [address] [place] [phone] Marlena López RN Chronic bilateral low back pain, unspecified whether sciatica present (Primary Dx) 07/17/2024 Travel 07/17/2024 Telephone [facility] [address] [place] [address] Marlena López RN 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 07/11/2024 Telephone [facility] [address] [place] [address] Judi Allen MD September recall 07/01/2024 Refill [facility] [address] [place], [place] [phone] Judi Allen MD Chronic bilateral low back pain, unspecified whether sciatica present from Last 3 Months Immunizations Name Administration Dates Next Due Influenza injectable quadriv alent IIV4 with preservative 08/16/2022 Influenza injectable quadriv alent preservative free 07/26/2023,06/08/2020,05/16/2019,08/20 Influenza, seasonal, injecta ble, preservative free 04/27/2016 Pfizer Covid-19 Vaccine 12+ 04/27/2016 Pneumococcal Conjugate PCV 20 07/26/2023 Pneumococcal Polysaccharide PPSV23 09/29/2010 Tdap 08/16/2022,09/29/2010 Social History Tobacco Use Types Packs/Day Years Used Date Smoking Tobacco: Never Smokeless Tobacco: Never Tobacco Cessation:Counseling Given: Not Answered Alcohol Use Standard Drinks/Week Comments Never 0 [...] Don't know 05/09/2022 10 :16 AM EDT Last Filed Vital Signs Vital Sign Reading Time Taken Comments Blood Pressure 135/85 06/13/2024 1:30 PM EST Pulse 78 06/13/2024 1:30 PM EST Temperature 36.6 ??C (97.9 ??F) 06/13/2024 1:30 PM ES T Respiratory Rate 18 06/13/2024 1:30 PM EST Oxygen Saturation 97% 06/12/2024 2:35 PM EST Inhaled Oxygen Concentration - - Weight 77.4 kg (170 lb 9.6 oz) 06/13/2024 1:30 P M EST Height 157.5 cm (5' 2 ) 06/13/2024 1:30 PM EST Body Mass Index 31.2 06/13/2024 1:30 PM EST Plan of Treatment Upcoming Encounters Date Type Department Care Team (Late st Contact Info) Description 10/09/2024 2:30 PM EDT Clinical Support [facility] [address] [place] [phone] Marlena López RN 11/27/2024 9:15 AM EDT Office Visit [facility] [address] [place] [phone] Judi Allen MD [address] [place] [phone] Health Maintenance Due Date Last Done Comments CT Colonography 1970 Colonoscopy 1970 Colorectal Cancer Screening 1970 FIT DNA/Cologuard 1970 FIT 1970 FOBT 1970 Sigmoidoscopy 1970 Eye Exam 1980 Alcohol/Substance Use Screening 1982 Hepatitis B Vaccines (1 of 3 - 19+ 3-dose series) 1989 Zoster Vaccines (1 of 2) 2020 Dental Oral Exam 08/11/2023 02/07/2023, 04/26/2019 Dental Prophylaxis 11/11/2023 05/12/2023, 07/17/2019 Diabetes: Urine Protein Screening 01/06/2024 01/05/2023, 04/28/2020 Dental X-Ray: Bitewings 02/09/2024 02/08/20 23, 09/17/2021, 04/26/2019 Depression Monitoring (PHQ-9) 02/21/2024 08/23/2023, 08/23/2023 COVID-19 Vaccine ( season) 2024 11/25/2020, 11/04/2020, 04/27/2016 Influenza Vaccine (#1) 2024 4, 08/16/2022, 06/08/2020, Additional history exists Diabetes: Hemoglobin A1C 08/02/2024 024, 02/02/2024, 11/10/2023, Additional history exists Diabetes: Foot Exam 08/18/2024 08/18/2023, 08/18/2023, 08/18/2023, Additional history exists Depression Screening 08/23/2024 08/23/2023, 08/23/19 SDOH Screening 09/27/2024 09/28/2023 Pap Smear 11/17/2024 11/17/2021 Lipid Panel 04/12/2025 04/12/2024, 12/09, 04/28/2020 Tobacco Screening 07/31/2025 07/31/2024 Mammogram 11/22/2025 11/23/2023, 07/11, 03/16/2018 Dental X-Ray: Full Mouth 02/08/2026 02/07/2023, 04/09 Cervical Cancer Screening 11/17/2026 HPV/Cotest 11/17/2026 11/17/2021, 11/14/2018 DTaP/Tdap/Td Vaccines (3 - Td or Tdap) 08/16/2032 08/16/2022, 09/29/2010 RSV Patients and Patients Aged 60 years or older (1 - 1-dose 75+ series) 2045 Pneumococcal Vaccine: 50+ Years Completed 07/26/2023, 09/29/2010 HIV Screening Completed 08/18/2023, 01/09, 04/28/2020 Hepatitis C Screening Completed 08/18/2023, 020 HIB Vaccines Aged Out No longer eligi ble based on patient's age to complete this topic HPV Vaccines Aged Out No longer eligi ble based on patient's age to complete this topic Hepatitis A Vaccines Aged Out No long er eligible based on patient's age to complete this topic IPV Vaccines Aged Out No longer eligi ble based on patient's age to complete this topic Meningococcal Vaccine Aged Out No rk lima eligible based on patient's age to complete this topic RSV under 20 months Aged Out No longe r eligible based on patient's age to complete this topic Rotavirus Vaccines Aged Out No longer eligible based on patient's age to complete this topic Procedures Procedure Name Priority Date/Time Associated Diagnosis Comments HCG, TOTAL, QN Routine 09/20/2024 10:24 AM EDT LIPASE Routine 09/20/2024 10:24 AM EDT HEPATIC FUNCTION PANEL Routine 10:24 AM EDT COMPREHENSIVE METABOLIC PANEL Routine 09/20/2024 10:24 AM EDT CBC WITH AUTO DIFFERENTIAL Routine 09/20/2024 10:24 AM EDT URINALYSIS, COMPLETE, WITH REFLEX TO CULTURE Routine 09/20/2024 10:24 AM EDT NO CHARGE VISIT Routine 07/31/2024 3:30 PM EST VENOUS BLOOD GAS Routine 07/23/2024 7:34 PM EST HCG, QL, URINE Routine 07/23/2024 7:31 PM EST URINALYSIS, COMPLETE, WITH REFLEX TO CULTURE Routine 07/23/2024 7:31 PM EST URINALYSIS WITH REFLEX MICROSCOPIC Routine 07/23/2024 7:31 PM EST BETA-HYDROXYBUTYRATE Routine 07/23/2024 6:10 PM EST HIGH SENSITIVITY TROPONIN I Routine 07/23/2024 6:10 PM EST HCG, TOTAL, QN Routine 07/23/2024 6:10 PM EST LIPASE Routine 07/23/2024 6:10 PM EST COMPREHENSIVE METABOLIC PANEL Routine 07/23/2024 6:10 PM EST CBC WITH AUTO DIFFERENTIAL Routine 07/23/2024 6:10 PM EST SARS COV2/INFLUENZA A/B AND RSV RNA QL NAAT Routine 07/23/2024 6:10 PM EST STREP A NUCLEIC ACID Routine 07/23/2024 6:10 PM EST POCT DOREEN-14 URINE DRUG SCREEN Routine 07/17/2024 2:46 PM EST Chronic bilateral low back pain, unspecified whether sciatica present POCT GLYCATED HEMOGLOBIN, TOTAL Routine 05/02/2024 10:26 AM EDT Type 2 diabetes mellitus with hyperglycemia, without long-term current use of insulin ([facility]) LIPID PANEL WITH REFLEX TO DIRECT LDL Routine 04/12/2024 8:58 AM EDT Type 2 diabetes mellitus with hyperglycemia, without long-term current use of insulin ([facility]) BI MAMMOGRAM SCREENING TOMOSYNTHESIS BILATERAL Routine 11/23/2023 3:35 PM EDT HEPATITIS PANEL, GENERAL Routine 08/18/2023 10:53 AM EST Encounter for preventive health examination HIV 1/2 ANTIGEN/ANTIBODY, FOURTH GENERATION W/RFL Routine 08/18/2023 10:53 AM EST Encounter for preventive health examination PROPHYLAXIS - ADULT Routine 05/12/2023 9 :00 AM EDT Xerostomia Dental plaque INTRAORAL - COMPLETE SERIES OF RADIOGRAPHIC IMAGES Routine 02/07/2023 3:00 PM EDT Dental caries Xerostomia Encounter for dental examination PERIODIC ORAL EVALUATION - ESTABLISHED PATIENT Routine 02/07/2023 3:00 PM EDT Dental caries Xerostomia Encounter for dental examination ALBUMIN, RANDOM URINE W/O CREATININE Routine 01/05/2023 10:25 AM EDT Type 2 diabetes mellitus with hyperglycemia, without long-term current use of insulin ([facility]) THINPREP IMAGING PAP AND HPV MRNA E6/E7 WITH REFLEX TO HPV 16,18/45 Routine 11/17/2021 2:37 PM EDT from Last 3 Months or Most Recently Relevant to Health Maintenance Results * (ABNORMAL) Urinalysis, Complete, with Reflex to Culture (09/20/2024 10:24 AM EDT) Only the most recent of2 resultswithin the time period is included. Color Urine Yellow [facility] Appearance Urine Clear [facility] PH 6.0 5.0 - 9.0 [facility] Glucose Urine UA >=1000(A) Negative mg/dL [facility] Urine Blood Negative Negative [facility] Specific [place] - Urine >=1.030(H) 1.005 - 1.025 [facility] Urine Protein Negative Neg-Trace mg/dL [facility] Urine Ketones Negative Negative mg/dL [facility] Nitrite Urine Negative Negative [facility] Leukocyte Esterase Urine Negative Negative [facility] RBC Urine 0-2 0 - 2 /HPF [facility] Urine WBC 6-10(A) 0 - 5 /HPF [facility] Urine Squamous Epithelial Cell 3-5 0 - 2 /HPF [facility] Urine Bacteria None Seen None Seen [facility] Hyaline Casts, Urine 0-2 0 - 2 /LPF [facility] 09/20/2024 10:2 4 AM EDT 09/20/2024 10:27 AM EDT Narrative [facility] - 09/20/2024 10:44 AM EDT [id number], Clean Catch us Generic External Data Provider LAB URINE ORDERAB LES Final Result [facility] [address] [place] [phone] * (ABNORMAL) CBC auto differential (09/20/2024 10:24 AM EDT) Only the most recent of2 resultswithin the time period is included. White Blood Count 7.1 4.8 - 10.8 X10*3/uL [facility] Red Blood Count 4.18(L) 4.20 - 5.50 X10*6/uL [facility] Hemoglobin 12.8 12.0 - 16.0 g/dl [facility] Hematocrit 38.5 37.0 - 47.0 % [facility] Mean Corpuscular Volume 92.1 80.0 - 98.0 fL [facility] Mean Corpuscular Hemoglobin 30.6 27.0 - 33.0 pg [facility] Mean Corpuscular HGB Conc 33.2 31.0 - 35.0 g/dl [facility] Red Cell Distribution Width 13.2 11.0 - 16.0 % [facility] Platelet Count 218 160 - 400 X10*3/uL [facility] Mean Platelet Volume 8.8(L) 9.4 - 12.3 fL [facility] Neutrophils Percent Auto 44.0(L) 45 - 73 % [facility] Imm Gran Pct Auto 0.4 0.0 - 0.4 % [facility] Lymphocytes Percent Auto 39.8 20 - 40 % [facility] Monocytes Percent Auto 9.9 2 - 11 % [facility] Eosinophils Percent Auto 5.2(H) 0 - 4 % [facility] Basophils Percent Auto 0.7 0 - 2 % [facility] NRBC Pct Auto 0.0 0.0 - 0.2 /100WBC [facility] Neutrophils Absolute Auto 3.1 2.0 - 8.3 x10*3/uL [facility] Imm Gran Abs Auto 0.03 0.00 - 0.03 X10*3/uL [facility] Lymphocytes Absolute Auto 2.8 1.2 - 4.9 X10*3/uL [facility] Monocytes Absolute Auto 0.7 0.1 - 1.2 X10*3/uL [facility] Eosinophils Absolute Auto 0.4 0.0 - 0.4 X10*3/uL [facility] Basophils Absolute Auto 0.1 0.0 - 0.2 X10*3/uL [facility] NRBC Abs Auto 0.000 0.0 - 0.012 X10*3/uL [facility] 09/20/2024 10:2 4 AM EDT 09/20/2024 10:27 AM EDT us Generic External Data Provider LAB BLOOD ORDERAB LES Final Result [facility] [address] [place] [phone] * hCG, Total, Quantitative (09/20/2024 10:24 AM EDT) Only the most recent of2 resultswithin the time period is included. HCG Quantitative <2 mIU/mL [facility] Comment:Weeks post LMP Appro ximate hCG(Last Menstrual Period) Range (mIU/ml)3 - 4 weeks 9 - 1304 - 5 weeks 75 - 2,6005 - 6 weeks 850 - 20,8006 - 7 weeks 4000 - 100,2007 - 12 weeks 11,500 - 289,46402 - 16 weeks 18,300 - 137,27745 - 29 weeks (2nd trimester) 1,400 - 53,62321 - 41 weeks (3rd trimester) 940 - [...] ORDERAB LES Final Result Performing Organization Address City/[facility]/ZIP Co de Phone Number [facility] [address] [place] [address] [phone] * Lipase (09/20/2024 10:24 AM EDT) Only the most recent of2 resultswithin the time period is included. Lipase 21 8 - 78 U/L [facility] 09/20/2024 10:2 4 AM EDT 09/20/2024 10:27 AM EDT us Generic External Data Provider LAB BLOOD ORDERAB LES Final Result [facility] [address] [place] [phone] * Hepatic Function Panel (09/20/2024 10:24 AM EDT) Bilirubin, Direct 0.2 0.0 - 0.5 mg/dL [facility] 09/20/2024 10:2 4 AM EDT 09/20/2024 10:27 AM EDT us Generic External Data Provider LAB BLOOD ORDERAB LES Final Result [facility] [address] [place] [address] [phone] * (ABNORMAL) Comprehensive Metabolic Panel (09/20/2024 10:24 AM EDT) Only the most recent of2 resultswithin the time period is included. Sodium 135 135 - 145 mmol/L [facility] Potassium 4.1 3.3 - 5.1 mmol/L [facility] Chloride 106 96 - 108 mmol/L [facility] Carbon Dioxide 20(L) 22 - 29 mmol/L [facility] Anion Gap 13 12 - 20 [facility] Urea Nitrogen (BUN) 14 9 - 16 mg/dL [facility] Creatinine, Serum 0.68 0.5 - 1.4 mg/dL [facility] Creatinine Clr Calc Pharmacy 90.7 [facility] Comment:Provided height and weight: 157.48 cm,75.1 kg.eGFR (calculated from the MDRD study equation) and eCrCl(calculated from the Cockcroft-Gault equation) are based ondifferent parameters and may not yield comparable results.If eCrCl result is absurd, please check patient'sheight/weight. Estimated Glomerular Filt Rate >60 [facility] Comment:Chronic Kidney Disea se: Estimated GFR < 60 mL/min/1.47q3Qgiknx Kidney Disease: Estimated GFR < 15 mL/min/1.73m2 Glucose 216(H) 60 - 115 mg/dL [facility] Calcium 9.1 8.4 - 10.2 mg/dL [facility] Bilirubin, Total 0.4 0.0 - 1.0 mg/dL [facility] Aspartate Amino Transferase 39(H) 5 - 31 U/L [facility] Alanine Aminotransferase 55(H) 0 - 31 U/L [facility] Total Protein 7.6 6.5 - 8.0 g/dL [facility] Albumin Level 3.6 3.5 - 5.0 g/dL [facility] Alkaline Phosphatase 79 39 - 117 U/L [facility] 09/20/2024 10:2 4 AM EDT 09/20/2024 10:27 AM EDT us Generic External Data Provider LAB BLOOD ORDERAB LES Final Result [facility] [address] [place] [phone] * VENOUS BLOOD GAS (07/23/2024 7:34 PM EST) VBG pH 7.41 7.32 - 7.43 [facility] Comment:METER #: [id number] additional_comment: Bishop schrader VBG PCO2 37 mmHg [facility] Comment:METER #: [id number] additional_comment: Bishop schrader VBG PO2 80 mmHg [facility] Comment:METER #: [id number] additional_comment: Bishop [place] Base Excess -0.3 mmol/L [facility] Comment:METER #: [id number] additional_comment: Bishop [place]AR[place] HCO3 23 22 - 26 mmol/L [facility] Comment:METER #: [id number] additional_comment: Bishop schrader O2 Sat, Milo 95.0 % [facility] Comment:METER #: [id number] additional_comment: Bishop schrader 07/23/2024 7:34 PM EST 07/23/2024 7:40 PM EST us Generic External Data Provider LAB BLOOD ORDERAB LES Final Result Performing Organization Address [facility] Co de Phone Number [facility] [address] [place] [phone] * HCG, Qualitative, Urine (07/23/2024 7:31 PM EST) Urine NEGATIVE NEGATIVE [facility] Comment:This test was develo ped to detect early . Falsenegative results may occur after the 5th - 7th week ofpregnancy when using this test method. If clinicallyindicated, consider a serum hCG. 07/23/2024 7:31 PM EST 07/23/2024 7:34 PM EST us Generic External Data Provider LAB URINE ORDERAB LES Final Result Performing Organization Address [facility] Co de [facility] Number [facility] [address] [place] [phone] * (ABNORMAL) Urinalysis w/reflex microscopic (07/23/2024 7:31 PM EST) Color Urine Yellow [facility] Appearance Urine Clear [facility] PH 7.0 5.0 - 9.0 [facility] Glucose Urine UA >=1000(A) Negative mg/dL [facility] Urine Blood Negative Negative [facility] Specific [place] - Urine >=1.030(H) 1.005 - 1.025 [facility] Urine Protein Trace Neg-Trace mg/dL [facility] Urine Ketones 40 Negative mg/dL [facility] Nitrite Urine Negative Negative [facility] Leukocyte Esterase Urine Negative Negative [facility] 07/23/2024 7:31 PM EST 07/23/2024 7:34 PM EST Narrative [facility] - 07/23/2024 7:50 PM EST Urine, Clean Catch us Generic External Data Provider LAB URINE ORDERAB LES Final Result Performing Organization Address [facility] Co de Phone Number [facility] [address] [place] [phone] * Strep A Nucleic Acid (07/23/2024 6:10 PM EST) IDNOW SERIAL# [id number] [facility] Strep A Nucleic Acid Negative Negative [facility] Comment:All test results mus t be correlated with clinical findings.This test has not been evaluated for monitoring treatment ofinfection.Additional follow-up testing using the culture method isrequired if the result is negative and clinical symptomspersist, or in the event of an acute rheumatic feveroutbreak. 07/23/2024 6:10 PM EST 07/23/2024 6:13 PM EST Generic External Data Provider LAB MICROBIOLOGY - GENERAL ORDERABLES Final Result Performing Organization Address [facility]/ZIP Co de Phone Number [facility] [address] [place] [address] [phone] * High Sensitivity Troponin I (07/23/2024 6:10 PM EST) Pathologist [facility] TROPONIN I HIGH SENSITIVITY <2.7 <3.5 - 17.0 ng/L [facility] Comment:The [place] high sens itivity Troponin-I results should beused in conjunction with other diagnostic information suchas ECG, clinical observations and information, and patientsymptoms to aid in the diagnosis of [place]. 07/23/2024 6:10 PM EST 07/23/2024 6:13 PM EST Generic External Data Provider LAB BLOOD ORDERAB LES Final Result Performing Organization Address [facility]/ZIP Co de Phone Number [facility] [address] [place] [phone] [phone] * SARS-CoV-2 RNA, Influenza A/B, and RSV RNA, Ql NAAT (07/23/2024 6:10 PM EST) Pathologist [facility] Influenza A PCR NEGATIVE Negative [facility] Influenza B PCR NEGATIVE Negative [facility] Resp Syncy Virus RNA Qual PCR NEGATIVE Negative [facility] SARS COV2 PCR NEGATIVE Negative [facility] Comment:All test results mus t be correlated with clinical findings.Negative results do not preclude SARS-CoV2, influenza Avirus, influenza B virus and/or RSV infectionand should not be used as the sole basis for treatment orother patient management decisions. Negative results must becombined with clinical observations, patient history, andepidemiological information.This test has not been evaluated for monitoring treatment ofinfection.This test has been authorized by the FDA under an EmergencyUse Authorization (EUA) for use by authorized laboratories.Testing performed on the Stuffle GeneXpert utilizingreal-time RT-PCR.All SARS CoV2 and positive influenza A/B results arereported to [facility]. 07/23/2024 6:10 PM EST 07/23/2024 6:13 PM EST Generic External Data Provider LAB MICROBIOLOGY - GENERAL ORDERABLES Final Result Performing Organization Address [facility]/ZIP Co de Phone Number [facility] [address] [place] [phone] * (ABNORMAL) Beta-Hydroxybutyrate (07/23/2024 6:10 PM EST) Beta-Hydroxybu tyrate 0.44(H) 0.02 - 0.27 mmol/L [facility] 07/23/2024 6:10 PM EST 07/23/2024 6:13 PM EST Generic External Data Provider LAB BLOOD ORDERAB LES Final Result Performing Organization Address [facility] Co de Phone Number [facility] [address] [place] [phone] * POCT DOREEN-14 Urine Drug Screen (07/17/2024 2:46 PM EST) Oxycodone Screen, Urine Positive Urine Urine specimen obtained by clean catch procedure / Unknown 07/17/2024 2:46 PM EST Narrative Marlena López RN - 07/17/2024 2:46 PM EST UTOX cup Lot#[id number] Exp. 04/03/26 Internal Pass Control Judi Allen MD POINT OF CARE TEST ENTER /EDIT ORDERABLES Final Result * (ABNORMAL) POCT HGB A1C (05/02/2024 10:26 AM EDT) Hemoglobin A1C 8.2(A) 4.0 - 6.0 % QC Media Lot # [id number] Lot# Expiration Date Blood 05/02/2024 10:2 6 AM EDT Judi Allen MD POINT OF CARE TEST ENTER /EDIT ORDERABLES Final Result * (ABNORMAL) Lipid Panel with Reflex to Direct LDL (04/12/2024 8:58 AM EDT) Triglycerides 140 <150 mg/dL [facility] Comment:Desirable Triglyceri de: less than 150 mg/dLBorderline High Triglyceride 150-199 mg/dLHigh Triglyceride: 200-499 mg/dLVery High Triglyceride: greater than or equal to 5OO mg/dL Cholesterol 197 <200 mg/dL [facility] Comment:Desirable Cholestero l: less than 200 mg/dLBorderline High Cholesterol: 200-239 mg/dLHigh Cholesterol: greater than 239 mg/dL LDL Cholesterol Calculated 122(H) <100 mg/dL [facility] Comment:Desirable LDL: less than 100 mg/dLNear Optimal/Above Optimal LDL: 110- 129 mg/dLBorderline High LDL: 130-159 mg/dLHigh LDL: 160-189 mg/dLVery High LDL: greater than or equal to 190 mg/dL HDL Cholesterol 47 >40 mg/dL [facility] Comment:Desirable HDL: great er than 40 mg/dL Note: This HDL assay may give artificially low results in patients with liver disease. Blood 04/12/2024 8:58 AM EDT 04/12/2024 11:06 AM EDT us Judi Allen MD LAB BLOOD ORDERABLES Fin al Result [facility] [address] [place] [address] [phone] * BI Mammogram Screening Tomosynthesis Bilateral (11/23/2023 3:35 PM EDT) Anatomical Region Laterality Modality Breast Bilateral Mammography 11/23/2023 3:35 PM EDT Narrative 12/25/2023 8:43 AM EDT ? [facility] [place] ? [address] ?[place] [id number] ? Mammography Report ? Signed ? Patient: Clas,Kelly ?MR#: [id number] ? : 1970 ?Acct:[id number] ? Age/Sex: 53 / F ?ADM Date: 11/23/23 ? Loc: HO.MAMMO ? Attending Dr: Judi Allen MD ? Ordering Physician: Judi Allen MD ?Results: 1Ne ?? gative ? Date of Service: 11/23/23 ?Follow Up: 1 Year From Orig ?? inal Mammogram ? Procedure(s): MM tomosynthesis screening BI ?? Accession Number(s): [id number] ? cc: Judi Allen MD ? EXAMINATION: ?? MM SCREENING DIGITAL BREAST TOMOSYNTHESIS, BILATERAL ? CLINICAL INFORMATION: ? Screening. Asymptomatic. ? COMPARISON: ?? Mammography: This study is compared with prior exams dating back to ?? 2017. ? TECHNIQUE: ?? Digital breast tomosynthesis is performed in both the craniocaudal and ?? mediolateral oblique views along with computer-aided detection (CAD). ?? Synthesized 2D images are generated from the tomosynthesis. ? FINDINGS: ?? There are scattered areas of fibroglandular density (ACR BI-RADS breast ?? composition Category b). ? There are no significant masses, abnormal calcifications, or other ?? abnormalities. ? MM/MM tomosynthesis screening BI ?? IMPRESSION: ?? No mammographic evidence of malignancy. ? ASSESSMENT: ? BI-RADS BI-RADS 1 - Negative ? RECOMMENDATION: ?? Routine annual mammography screening. ? 1 year F/U ? This examination should not preclude the clinical evaluation of a ?? suspicious palpable abnormality. ? This patient's information was entered into a reminder system with a ?? target due date for their next mammogram. ? Dictated By: ?Diamond Figueroa MD ? Signed By: ?<Electronically signed by Diamnod Figueroa MD in OV> ? 12/25/23 0839 ? DD/ [id number] ? TD/TT: ? Airline Pilot/First Officer: ? Procedure Note Ariella Camargo - 12/25/2023 [facility] [address] [place] [address] Dr. [place], [place] [id number] Mammography Report Signed Patient: Elijah Schumacher#: [id number] : 1970Acct:[id number] Age/Sex: 53 / FADM Date: 11/23/23 Loc: HO.MAMMO Attending Dr: Judi Allen MD Ordering Physician: Judi Allenesults: 1Ne gative Date of Service: 11/23/23Follow Up: 1 Year From Orig inal Mammogram Procedure(s): MM tomosynthesis screening BI Accession Number(s): [id number] cc: Judi Allen MD EXAMINATION: MM SCREENING DIGITAL BREAST TOMOSYNTHESIS, BILATERAL CLINICAL INFORMATION: Screening. Asymptomatic. COMPARISON: Mammography: This study is compared with prior exams dating back to 2017. TECHNIQUE: Digital breast tomosynthesis is performed in both the craniocaudal and mediolateral oblique views along with computer-aided detection (CAD). Synthesized 2D images are generated from the tomosynthesis. FINDINGS: There are scattered areas of fibroglandular density (ACR BI-RADS breast composition Category b). There are no significant masses, abnormal calcifications, or other abnormalities. MM/MM tomosynthesis screening BI IMPRESSION: No mammographic evidence of malignancy. ASSESSMENT: BI-RADS BI-RADS 1 - Negative RECOMMENDATION: Routine annual mammography screening. 1 year F/U This examination should not preclude the clinical evaluation of a suspicious palpable abnormality. This patient's information was entered into a reminder system with a target due date for their next mammogram. Dictated By: Diamond Figueroa MD Signed By: <Electronically signed by Diamond Figueroa MD in OV> 12/25/23 0839 DD/ 1535 TD/TT: Airline Pilot/First Officer: Judi Allen MD IMG BI PROCEDURES Final Result * Hepatitis Panel, General (08/18/2023 10:53 AM EST) Hepatitis A IgM Nonreactive Nonreactive [facility] Comment:IgM antibodies to HERNANDEZ V not detected; does not exclude earlyacute or recovered HAV infection. ~Hepatitis B Surface Antibody REACTIVE Nonreactive [facility] Comment:REACTIVE: > 11.99 mI U/mL Hepatitis B Core Antibody Nonreactive Nonreactive [facility] Hepatitis C Antibody Nonreactive Nonreactive [facility] Comment:Antibodies to HCV no t detected; does not exclude early acuteHCV infection. Hepatitis B Surface Ag Negative Negative [facility] Blood 08/18/2023 10:5 3 AM EST 08/18/2023 11:21 AM EST us Judi Allen MD LAB BLOOD ORDERABLES Fin al Result Performing Organization Address [facility] Co de Phone Number [facility] [address] [place] [phone] * HIV-1/2 Antigen and Antibodies, Fourth Generation, with Reflexes (08/18/2023 10:53 AM EST) HIV AB/AG Nonreactive Nonreactive [facility] Comment:HIV-1 p24 Ag and/or HIV-1/HIV-2 Ab not detected.A test result that is nonreactive does not exclude thepossibility of exposure to or infection with HIV-1 and/orHIV-2. Nonreactive results in this assay for individualswith prior exposure to HIV-1 and/or HIV-2 may be due toantigen and antibody levels that are below the limit ofdetection of this assay.The [employer] HIV Ag/Ab Combo assay result andsupplemental assay results should be interpreted inconjunction with the patient's clinical presentation,history and other laboratory results. If the results areinconsistent with clinical evidence, additional testing issuggested to confirm the result. Blood Venous blood specimen / Unknown 08/18/2023 10:53 AM EST 08/18/2023 11:21 AM EST us Judi Allen MD LAB BLOOD ORDERABLES Fin al Result Performing Organization Address [facility] Co de Phone Number [facility] [address] [place] [phone] * Albumin, Random Urine W/O Creatinine (01/05/2023 10:25 AM EDT) Albumin, Urine 0.6 See Note: mg/dL [facility] [employer] [place] [facility] Comment: Reference Range: Reference Range Not established [facility] Comment: The ADA defines abnormalities in albumin excretion as follows: Albuminuria Category ? Result (mcg/mg creatinine) Normal to Mildly increased ?<30 Moderately increased ?30-299 Severely increased ?> OR = 300 The ADA recommends that at least two of three specimens collected within a 3-6 month period be abnormal before considering a patient to be within a diagnostic category. Urine Urine specimen obtained by clean catch procedure / Unknown 01/05/2023 10:25 AM EDT 01/05/2023 10:25 AM EDT Narrative [facility] - 01/05/2023 11:12 PM EDT FASTING:YES FASTING: YES us Judi Allen MD LAB URINE ORDERABLES Fin al Result [facility] [address] [place] [address], [place] [address] [facility] [address] [place] [phone] * THINPREP TIS PAP AND HPV mRNA E6/E7 WITH REFLEX TO HPV 16,18/45 (11/17/2021 2:37 PM EDT) Clinical Information: None given [facility] COMMENT SEE COMMENT [facility] Comment: EXPLANATORY NOTE: ? The Pap is a screening test for cervical cancer. It is ?? not a diagnostic test and is subject to false negative ?? and false positive results. It is most reliable when a ?? satisfactory sample, regularly obtained, is submitted ?? with relevant clinical findings and history, and when ?? the Pap result is evaluated along with historic and ?? current clinical information. ?? COMMENT: This Pap test has been evaluated with computer assisted technology. [facility] Labor Relations Officer: SEE COMMENT [facility] Comment: RMM, CT(ASCP) CT screening location: [address] ??[address] HPV nRNA E6/E7 Not Detected Not Detected [facility] Comment: Methodology: Patents Examiner-Mediated Amplification This assay detects E6/E7 viral messenger RNA (mRNA) from 14 high-risk HPV types (16,18,31,33,35,39,45,51,52,56,58,59,66,68). ? The analytical performance characteristics of this assay have been determined by [facility]. The modifications have not been cleared or approved by the FDA. This assay has been validated pursuant to the CLIA regulations and is used for clinical purposes. ?? For additional information, please refer to http://education.Mama/faq/CCB294a7 (This link if provided for information/ educational purposes only.) Interpretation/Re sult: Negative for intraepithelial lesion or malignancy. [facility] LMP: PM [facility] Prev. BX: NONE GIVEN [facility] Prev. PAP: ASC HPV NEG 11/2018 [facility] Review Labor Relations Officer: SEE COMMENT [facility] Comment: [facility], CT(ASCP) CT screening location: [address] ??[address] SOURCE: None given [facility] Statement Of Adequacy: SEE COMMENT [facility] Comment: Satisfactory for evaluation. Endocervical/transformation zone component present. 11/17/2021 2:37 PM EDT [facility] PATHOLOGY ORDERABLES Final Result [facility] [address] from Last 3 Months or Most Recently Relevant to Health Maintenance Insurance [facility] [place] [id number] * Guarantor: Kelly Schumacher Account Type Relation to Patient Date of Phone Billing Address Personal/Family Self [address] [place] Care Teams Plate Put In Worker Relationship Specialty Start Date End Date Judi Allen MD [address] [place] [address] [place] [address] PCP - General Family Medicine 03/25/21
--- OUTSIDE RECORDS SUMMARY | 2024-09-20 11:13 | XMS_ITS | Encounter Summary ---
Author Organization [employer] Address [address] [place] [address] 7t [place] [address] Care Team Providers Care Pbx Technician Name Role Phone Judi Allen MD Primary Care Provider + Encounter Details Date Type Department Care Team (Late Contact Info) Description 10/28/2022 Orders Only [facility] MED & PEDS [address] [place], [place] [phone] Brenda Metzger LPN Social History Tobacco Use Types Packs/Day [...] Upcoming Encounters Date Type Department Care Team ([facility] Contact Info) Description 10/09/2024 2:30 PM EDT Clinical Support [facility] [address] [place] [address] Marlena López, RN 11/27/2024 9:15 AM EDT Office Visit [facility] [address] [place] [address] Judi Allen MD [address] [place] [address] documented as of this encounter Visit Diagnoses Not on filedocumented in this encounter Care Teams Pbx Technician Relationship Specialty Start Date End Date Judi Allen MD [address] [place] [address] PCP - General Family Medicine 03/25/21 documented as of this encounter
--- OUTSIDE RECORDS SUMMARY | 2024-09-20 11:13 | XMS_ITS | Encounter Summary ---
Author Organization [employer] Address [address] [facility] 7t [place] [address] Care Team Providers Care Carbon Accountant Name Role Phone Judi Allen MD Primary Care Provider + Reason for Visit * Reason Comments Med Refill Encounter Details Date Type Department Care Team ([facility] st Contact Info) Description 04/21/2023 Refill [facility] 230 [place], [place] [phone] Judi Allen MD 230 [place], [place] [phone] Arm paresthesia, left Social History Tobacco Use Types Packs/Day Years Used Date Smoking Tobacco: Never Smokeless Tobacco: Never Alcohol Use Standard Drinks/Week Comments Never 0 (1 standard drink = 0.6 oz pur e alcohol) PHQ-2 Answer Date Recorded Patient Health Questionnaire-2 Score 0 08/16/2022 Housing Stability Answer Date Recorded What is your housing situation today? I have luís reynolds 04/19/[address] you li ve. Do you have problems with any of the following? None of the above 04/19/2023 Food Insecurity Answer Date Recorded Within the past 12 months, y ou worried that your food would run out before you got money to buy more: Never True 04/19/2023 Within the past 12 months,th e food you bought just didn't last and you didn't have enough money to get more: Never True 05/2023 Transportation Answer Date Recorded In the past 12 months, has l ack of transportation kept you from medical appts, meetings, work or from getting things needed for daily living? No 04/19/2023 Utilities Answer Date Recorded In the past 12 months, has t he electric, gas, oil or water company threatened to shut off services in your home? No 04/19/2023 Depression Answer Date Recorded Patient Health Questionnaire-2 [...] Description 10/09/2024 2:30 PM EDT Clinical Support [address] [address] Marlena López RN 11/27/2024 9:15 AM EDT Office Visit [facility] [address] [place] [address] Judi Allen MD [address] [place] [address] documented as of this encounter Visit Diagnoses Diagnosis Arm paresthesia, left Disturbance of skin sensation documented in this encounter Care Teams Carbon Accountant Relationship Specialty Start Date End Date Judi Allen MD [address] [place] [address] PCP - General Family Medicine 03/25/21 documented as of this encounter
--- OUTSIDE RECORDS SUMMARY | 2024-09-20 11:13 | XMS_ITS | Encounter Summary ---
Author Organization [employer] Address [address] [place] [address] 7t [place] [address] Care Team Providers Care Patient Care Name Role Phone Judi Allen MD Primary Care Provider + Encounter Details Date Type Department Care Team (Late Contact Info) Description 11/24/2022 Orders Only [facility] MED & PEDS [address] [place], [place] [phone] Brenda Metzger LPN Social History Tobacco Use [...] Upcoming Encounters Date Type Department Care Team ([facility] Contact Info) Description 10/09/2024 2:30 PM EDT Clinical Support [facility] [address] [place] [address] Marlena López RN 11/27/2024 9:15 AM EDT Office Visit [facility] [address] [place] [address] Judi Allen MD 230 [place] [address] documented as of this encounter Visit Diagnoses Not on filedocumented in this encounter Care Teams Patient Care Relationship Specialty Start Date End Date Judi Allen MD [address] [place] [address] PCP - General Family Medicine 03/25/21 documented as of this encounter
--- OUTSIDE RECORDS SUMMARY | 2024-09-20 11:13 | XMS_ITS | Encounter Summary ---
Author Organization [employer] [facility] Address [address] [place] [address] 7 [place] [address] Care Team Providers Care Cell Lead Name Role Phone Judi Allen MD Primary Care Provider + Reason for Visit * Reason Comments Med Refill Encounter Details Date Type Department Care Team ([facility] st Contact Info) Description 02/17/2023 Refill [facility] 230 [place], [place] [phone] Judi Allen MD 230 [place], [place] [phone] Chronic bilateral low back pain, unspecified whether sciatica present; Primary hypertension Social History Tobacco Use Types Packs/Day Years [...] as of this encounter Miscellaneous Notes * Telephone Encounter - Dorie Brice RN - 02/17/2023 10:37 AM EDT New refill request opened and sent to provider documented in this encounter Plan of Treatment Upcoming Encounters Date Type Department Care Team (Late st Contact Info) Description 10/09/2024 2:30 PM EDT Clinical Support [address] [address] Marlena López RN 11/27/2024 9:15 AM EDT Office Visit [address] [address] Judi Allen MD [address] [place] [address] documented as of this encounter Visit Diagnoses Diagnosis Chronic bilateral low back pain, unspecified whether sciatica present Primary hypertension Unspecified essential hypertension documented in this encounter Care Teams Cell Lead Relationship Specialty Start Date End Date Judi Allen MD [address] [place] [address] PCP - General Family Medicine 03/25/21 documented as of this encounter
--- OUTSIDE RECORDS SUMMARY | 2024-09-20 11:13 | XMS_ITS | Encounter Summary ---
Author Organization [employer] Address [address] [place] [address] 7 [place] [address] Care Team Providers Care Plumber Cub Name Role Phone Judi Allen MD Primary Care Provider + Reason for Visit * Reason Onset Date Comments Appointment Request 09/05/2024 Encounter Details Date Type Department Care Team ([facility] st Contact Info) Description 09/05/2024 Telephone [facility] 230 [place], [place] [phone] Judi Allen MD 230 [place], [place] [phone] Appointment Request Social History Tobacco Use Types Packs/Day Years [...] encounter Miscellaneous Notes * Telephone Encounter - Tiffany Mckeon MA - 09/05/2024 3:35 PM EST Tc to pt to r/s appt with PCP on 09/16/24 as Provider won't be in that afternoon. Appt has been scheduled for 11/27/24 at 9:15 am. documented in this encounter Plan of Treatment Upcoming Encounters Date Type Department Care Team (Late st Contact Info) Description 10/09/2024 2:30 PM EDT Clinical Support [facility] [address] [place] [phone] Marlena López RN 11/27/2024 9:15 AM EDT Office Visit [facility] [address] [place] [address] Judi Allen MD [address] [place] [address] documented as of this encounter Visit Diagnoses Not on filedocumented in this encounter Additional Health Concerns Assessment Noted Time PHQ-9 Depression Total Score: 13 024 3:34 PM EST documented as of this encounter Care Teams Plumber Cub Relationship Specialty Start Date End Date Judi Allen MD [address] [place] [address] PCP - General Family Medicine 03/25/21 documented as of this encounter
--- OUTSIDE RECORDS SUMMARY | 2024-09-20 11:14 | XMS_ITS | Encounter Summary ---
Author Organization [facility] [facility] Address [address] [facility] 7t [place] [address] Care Team Providers Care National Sales Manager Name Role Phone Judi Allen MD Primary Care Provider + Reason for Visit * Reason Comments Med Refill Encounter Details Date Type Department Care Team ([facility] st Contact Info) Description 10/03/2023 Refill [facility] 230 [place], [place] [phone] Judi Allen MD 230 [place], [place] [phone] Chronic bilateral low back pain, unspecified whether [...] Patient Health Questionnaire-2 Score 4 08/23/2023 Comments Unknown Sex and Gender Information Value [...] Description 10/09/2024 2:30 PM EDT Clinical Support [facility] [address] [place] [address] Marlena López RN 11/27/2024 9:15 AM EDT Office Visit [facility] [address] [place] [address] Judi Allen MD [address] [place] [address] documented as of this encounter Visit Diagnoses Diagnosis Chronic bilateral low back pain, unspecified whether sciatica present documented in this encounter Additional Health Concerns Assessment Noted Time PHQ-9 Depression Total Score: 13 024 3:34 PM EST documented as of this encounter Care Teams National Sales Manager Relationship Specialty Start Date End Date Judi Allen MD [address] [place] [address] PCP - General Family Medicine 03/25/21 documented as of this encounter
--- OUTSIDE RECORDS SUMMARY | 2024-09-20 11:14 | XMS_ITS | Encounter Summary ---
Author Organization [employer] [facility] Address [address] [place] [address] 7t [place] [address] Care Team Providers Care Director Of Institutional Sales Name Role Phone Judi Allen MD Primary Care Provider + Encounter Details Date Type Department Care Team (Late st Contact Info) Description 07/28/2022 Orders Only [facility] MED & PEDS [address] [place] [address] Brenda Metzger LPN Social History Tobacco Use Types Packs/Day Years Used Date Smoking Tobacco: Never Smokeless Tobacco: Never Comments Unknown Sex and Gender Information Value [...] suspected to have Coronavirus/COVID-19? No / Unsure 07/19/2022 10:13 AM EST documented as of this encounter Plan of Treatment Upcoming Encounters Date Type Department Care Team (Late st Contact Info) Description 10/09/2024 2:30 PM EDT Clinical Support [facility] [address] [place] [phone] Marlena López RN 11/27/2024 9:15 AM EDT Office Visit [facility] [address] [place] [address] Judi Allen MD [address] [place] [address] [phone] documented as of this encounter Visit Diagnoses Not on filedocumented in this encounter Care Teams Director Of Institutional Sales Relationship Specialty Start Date End Date Judi Allen MD [address] [place] [phone] PCP - General Family Medicine 03/25/21 documented as of this encounter
--- OUTSIDE RECORDS SUMMARY | 2024-09-20 11:14 | XMS_ITS | Encounter Summary ---
Author Organization [employer] Address [address] [facility] 7t [place] [address] Care Team Providers Care Card Game Operator Name Role Phone Judi Allen MD Primary Care Provider + Encounter Details Date Type Department Care Team (Late st Contact Info) Description 01/24/2024 Orders Only [facility] MED [facility] PEDS [address] [place], [place] [phone] Tiki Marie FNP [address] [place] [address] Social History Tobacco Use Types Packs/Day Years [...] Description 10/09/2024 2:30 PM EDT Clinical Support [facility] [address] [place] [address] Marlena López RN 11/27/2024 9:15 AM EDT Office Visit [facility] [address] [place] [phone] Judi Allen MD [address] [place] [address] documented as of this encounter Visit Diagnoses Not on filedocumented in this encounter Additional Health Concerns Assessment Noted Time PHQ-9 Depression Total Score: 13 024 3:34 PM EST documented as of this encounter Care Teams Card Game Operator Relationship Specialty Start Date End Date Juid Allen MD [address] [place] [address] PCP - General Family Medicine 03/25/21 documented as of this encounter
--- OUTSIDE RECORDS SUMMARY | 2024-09-20 11:14 | XMS_ITS | Encounter Summary ---
Author Organization [employer] Address [address] [facility] [address] 7t [place] [address] Care Team Providers Care Social Services Director Name Role Phone Judi Allen MD Primary Care Provider + Encounter Details Date Type Department Care Team (Late st Contact Info) Description 05/29/2023 Orders Only [facility] MED & PEDS [address] [place], [place] [phone] Brenda Metzger LPN Social History Tobacco Use [...] Description 10/09/2024 2:30 PM EDT Clinical Support [facility]INE [address] [place] [address] Marlena López RN 11/27/2024 9:15 AM EDT Office Visit [facility] [address] [place] [address] Judi Allen MD [address] [place] [address] documented as of this encounter Visit Diagnoses Not on filedocumented in this encounter Care Teams Social Services Director Relationship Specialty Start Date End Date Judi Allen MD [address] [place] [address] PCP - General Family Medicine 03/25/21 documented as of this encounter
--- OUTSIDE RECORDS SUMMARY | 2024-09-20 11:14 | XMS_ITS | Encounter Summary ---
Author Organization [employer] Address [address] [facility] 7t [place] [address] Care Team Providers Care Furrier Apprentice Name Role Phone Judi Allen MD Primary Care Provider + Reason for Visit * Reason Comments Med Refill Encounter Details Date Type Department Care Team ([facility] st Contact Info) Description 11/01/2023 Refill [facility] 230 [place], [place] [phone] Judi Allen MD 230 [place], [place] [phone] Arm paresthesia, left Social History Tobacco Use [...] Description 10/09/2024 2:30 PM EDT Clinical Support [address] [address] Marlena López RN 11/27/2024 9:15 AM EDT Office Visit [address] [address] Judi Allen MD [address] [place] [address] documented as of this encounter Visit Diagnoses Diagnosis Arm paresthesia, left Disturbance of skin sensation documented in this encounter Additional Health Concerns Assessment Noted Time PHQ-9 Depression Total Score: 13 024 3:34 PM EST documented as of this encounter Care Teams Furrier Apprentice Relationship Specialty Start Date End Date Judi Allen MD [address] [place] [address] PCP - General Family Medicine 03/25/21 documented as of this encounter
--- OUTSIDE RECORDS SUMMARY | 2024-09-20 11:14 | XMS_ITS | Encounter Summary ---
Author Organization [employer] [facility] Address [address] [place] [address] 7 [place] [address] Care Team Providers Care Cryptography Teacher Name Role Phone Judi Allen MD Primary Care Provider + Encounter Details Date Type Department Care Team (Late st Contact Info) Description 08/12/[address] [facility]INE [address] [place] [address] [phone] Judi Allen MD [address] [place] [address] [phone] Social History Tobacco Use Types Packs/Day Years Used Date Smoking Tobacco: Never Smokeless Tobacco: Never PHQ-2 Answer Date Recorded Patient Health Questionnaire-2 [...] suspected to have Coronavirus/COVID-19? No / Unsure 08/10/2022 2:49 PM EST documented as of this encounter Plan of Treatment Upcoming Encounters Date Type Department Care Team (Late st Contact Info) Description 10/09/2024 2:30 PM EDT Clinical Support [facility] [address] [place] [address] [phone] Marlena López RN 11/27/2024 9:15 AM EDT Office Visit [facility] 230 [place], [place] [phone] Judi Allen MD [address] [place] [address] documented as of this encounter Procedures Procedure Name Priority Date/Time Associated Diagnosis Comments BASIC METABOLIC PANEL Routine 11/09/2021 10:57 AM EDT documented in this encounter Results * (ABNORMAL) Basic Metabolic Panel (11/09/2021 10:57 AM EDT) Glucose 195 mg/dL BUN 12 4 - 21 mg/dL Creatinine 0.5 0.5 - 1.1 mg/dL Potassium 4.2 3.4 - 5.5 mmol/L Sodium 136(A) 137 - 147 mmol/L Blood Venous blood specimen / Unknown us Historical Provider LAB BLOOD ORDERABLES Brie l Result documented in this encounter Visit Diagnoses Not on filedocumented in this encounter Care Teams Cryptography Teacher Relationship Specialty Start Date End Date Judi Allen MD [address] [place] [address] PCP - General Family Medicine 03/25/21 documented as of this encounter
--- OUTSIDE RECORDS SUMMARY | 2024-09-20 11:14 | XMS_ITS | Clinical Summary ---
Author Organization [facility] Address [address] [place] [address] Phone Care Team Providers Care Plant Protection Guard Name Role Phone Name, Michael BYNUM Primary Care Provider [phone] Allergies No known active allergies Medications acetaminophen (TYLENOL) 500 mg tablet Take 1 tablet (500 mg total) by mouth 3 (three) times a day if needed. for pain 02/28/20 24 Active albuterol 2.5 mg /3 mL (0.083 %) nebulizer solution INHALE 1 AMPULE USING A NEBULIZER EVERY 6 HOURS NEEDED FOR WHEEZING 10/13/19 24 Active atorvastatin (LIPITOR) 40 mg tablet Take 1 tablet (40 mg total) by mouth. at bedtime 05/02/20 24 Active bisacodyL (DULCOLAX) 10 mg suppository UNWRAP AND INSERT 1 SUPPOSITORY RECTALLY ONCE DAILY FOR 10 DAYS 06/13/20 24 Active blood sugar diagnostic (FreeStyle Lite Strips) test strip 2 (two) times a day. As Directed 07/31/19 24 Active cholecalciferol (VITAMIN D-3) 125 mcg (5,000 unit) capsule Take 1 capsule (5,000 Units total) by mouth 1 (one) time each day in the morning. 04/23/20 24 Active clotrimazole-be tamethasone (LOTRISONE) 1-0.05 % cream APPLY TOPICALLY TO THE AFFECTED AREA(S) TWICE DAILY 11/01/19 24 Active cyclobenzaprine (FLEXERIL) 10 mg tablet TAKE 1 TABLET BY MOUTH AT BEDTIME FOR 10 DAYS 11/10/19 24 Active diclofenac (VOLTAREN) 1 % topical gel APPLY 2 GRAMS TOPICALLY TO AFFECTED AREA(S) FOUR TIMES DAILY 01/10/20 24 Active Trulicity 3 mg/0.5 mL pen injector injection INJECT ONE PEN (= 3MG) SUBCUTANEOUSLY ONCE A WEEK DIRECTED 02/26/20 24 Active Jardiance 25 mg tablet Take 1 tablet (25 mg total) by mouth 1 (one) time each day in the morning. 07/12/19 25 Active estradioL (ESTRACE) 0.01 % (0.1 mg/gram) vaginal cream INSERT 1 GRAM VAGINALLY EVERY NIGHT FOR FOURTEEN DAYS, THEN INSERT 1 GRAM VAGINALLY TWICE A WEEK 08/29/19 24 Active fluconazole (DIFLUCAN) 150 mg tablet Take 1 tablet (150 mg total) by mouth. 01/24/20 24 Active FLUoxetine (PROzac) 20 mg capsule Take 3 capsules (60 mg total) by mouth 1 (one) time each day in the morning. 08/29/19 24 Active furosemide (LASIX) 20 mg tablet TAKE 1 TABLET BY MOUTH EVERY DAY IN THE MORNING NEEDED FOR SWELLING 03/04/20 24 Active gabapentin (NEURONTIN) 100 mg capsule Take 1 capsule (100 mg total) by mouth 2 (two) times a day. 08/03/19 24 Active hydrocortisone 2.5 % cream APPLY A PEA SIZED AMOUNT TO SKIN TWICE DAILY FOR ONE WEEK 01/22/20 24 Active ibuprofen (ADVIL,MOTRIN) 600 mg tablet TAKE 1 TABLET BY MOUTH THREE TIMES DAILY WITH MEALS NEEDED FOR PAIN DO NOT EXCEED 4 TABLETS PER DAY 02/28/20 24 Active lidocaine (LIDODERM) 5 % patch APPLY 1 PATCH TOPICALLY TO SKIN, LEAVE ON FOR 12 HOURS AND OFF FOR 12 HOURS DIRECTED 08/23/19 24 Active lisinopril-hydr oCHLOROthiazide (PRINZIDE,ZESTO RETIC) 20-25 mg per tablet Take 1 tablet by mouth 1 (one) time each day. 06/03/20 24 Active meclizine (ANTIVERT) 25 mg tablet TAKE 1 TABLET BY MOUTH THREE TIMES DAILY IN THE MORNING, AT NOON, AND AT BEDTIME NEEDED FOR DIZZINESS OR FOR NAUSEA 11/14/19 24 Active metFORMIN XR (GLUCOPHAGE-XR) 500 mg 24 hr tablet Take 2 tablets (1,000 mg total) by mouth every 12 (twelve) hours. 07/08/20 24 Active metroNIDAZOLE (FLAGYL) 500 mg tablet TAKE 1 TABLET BY MOUTH TWICE DAILY FOR 7 DAYS AVOID ALCOHOLIC BEVERAGES WHILE TAKING AND FOR 3 DAYS AFTER 01/24/20 24 Active Certavite-Antio xidant 18-400 mg-mcg tablet tablet Take 1 tablet by mouth 1 (one) time each day. 06/24/20 24 Active oxyCODONE (ROXICODONE) 5 mg immediate release tablet TAKE 1 TABLET BY MOUTH THREE TIMES DAILY IN THE MORNING, AT NOON, AND AT BEDTIME NEEDED FOR SEVERE PAIN 07/04/20 24 Active pantoprazole (PROTONIX) 40 mg EC tablet Take 1 tablet (40 mg total) by mouth 1 (one) time each day. 03/04/20 24 Active predniSONE (DELTASONE) 20 mg tablet TAKE 2 TABLETS BY MOUTH ONCE DAILY IN THE MORNING FOR 5 DAYS 10/13/19 24 Active Stool Softener-Stimul ant Laxat 8.6-50 mg per tablet Take 1 tablet by mouth 1 (one) time each day. 06/13/20 24 Active triamcinolone acetonide (KENALOG-40) 40 mg/mL injection 1 mL (40 mg total) by Other route. 03/12/20 24 Active zolpidem (AMBIEN) 10 mg tablet Take 1 tablet (10 mg total) by mouth at bedtime as needed. 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/22/2023 Overview (07/15/2024): Patient had a wrist arthroscopy and TFCC repair 10 years ago Encounters Date Type Department Care Team Description 07/15/2024 8:30 AM EST Office Visit Orthopedic Surgery - [address] [place] [address] Krystal Reilly PA Trigger finger of right thumb (Primary Dx) from Last 3 Months Immunizations Name Administration Dates Next Due Influenza Quadrivalent, 0.5m l, preservative free (Fluarix; FluLaval; Fluzone) ages 6mo and older (Afluria) 3yo and older 07/26/2023,06/08/2020,05/16/2019,2018 Influenza Quadrivalent, with preservative (Fluzone; Afluria) 6mo and older 08/16/2022 Influenza trivalent, 0.5mL, preservative free (Fluarix; FluLaval; Fluzone) ages 6mo and older (Afluria) 3 years and older 04/27/2016 Pneumococcal conjugate 20 va lent (Prevnar 20, PCV 20) 2mo and older 07/26/2023 Tdap Tetanus diptheria acell ular pertussis (Boostrix; Adacel) 7yo and older 08/16/2022 Social History Tobacco Use Types Packs/Day Years Used Date Smoking Tobacco: Never Smokeless Tobacco: Never Alcohol Use Standard Drinks/Week Comments Never 0 (1 standard drink = 0.6 oz pur e alcohol) Comments Unknown Sex and Gender Information Value Date Recorded Sex Assigned at Not on file Legal Sex Female 8:16 PM EST Gender Identity Not on file Sexual Orientation Not on file Obstetrics History Last Filed Vital Signs Vital Sign Reading Time Taken Comments Blood Pressure 115/73 02/05/2024 1:37 PM EDT Pulse - - Temperature - - Respiratory Rate - - Oxygen Saturation - - Inhaled Oxygen Concentration - - Weight 74.4 kg (164 lb) 02/05/2024 1:37 PM EDT Height 157.5 cm (5' 2 ) 02/05/2024 1:37 PM EDT Body Mass Index 30 02/05/2024 1:37 PM EDT Plan of Treatment Health Maintenance Due Date Last Done Comments Breast Cancer Screening 1970 Diabetes: Annual Foot Exam 1980 Diabetes: Annual Retina Eye Exam 1980 Hepatitis B Vaccines (1 of 3 - 19+ 3-dose series) 1989 Cervical Cancer Screening: Pap Smear 10/22/1991 Zoster Vaccines (1 of 2) 2020 Cholesterol Screening (Lipid Panel) 08/03/2023 Colorectal Cancer Screening: Colonoscopy 08/03/2023 Hepatitis C Screening 08/03/2023 Social Influencers of Health Screening 08/03/2023 COVID-19 Vaccine ( - season) 2024 11/25/2020, 11/04/2020, 04/27/2016 Influenza Vaccine (#1) 2024 , 08/16/2022, 06/08/2020, Additional history exists Diabetes: Annual Urine Albumin-Creatinine Ratio (uACR) 07/15/2024 01/05/2023 Depression Screening 08/23/2024 08/23/2023 Diabetes: Blood Sugar Control Test (HGBA1C) 10/31/2024 05/02/2024 Diabetes: Annual GFR (Glomerular Filtration Rate) 06/12/2025 06/12/2024 Hypertension/CHF/CAD Annual BMP Blood Test 06/12/2025 06/12/2024 DTaP,Tdap,and Td Vaccines (3 - Td or Tdap) 08/16/2032 08/16/2022, 09/29/2010 Pneumococcal Vaccine: 50+ Years Completed 07/26/2023, 09/29/2010 Pneumococcal Vaccine: Pediatrics (0 to 5 Years) and At-Risk Patients (6 to 64 Years) Aged Out 07/26/2023, 09/29/2010 No longer eligibl e based on patient's age to complete this topic HIV Screening Completed 08/18/2023 HIB Vaccines Aged Out No longer eligi [...] on patient's age to complete this topic MMR Vaccines Aged Out No longer eligi ble based on patient's age to complete this topic Meningococcal ACWY Vaccine Aged Out N o longer eligible based on patient's age to complete this topic Meningococcal B Vacine Aged Out No lo nger eligible based on patient's age to complete this topic RSV Immunization Patients Under 20 months Aged Out No longer eligible based on patient's age to complete this topic Varicella Vaccines Aged Out No longer eligible based on patient's age to complete this topic Procedures Procedure Name Priority Date/Time Associated Diagnosis Comments WV INJECTION SINGLE TENDON SHEATH OR LIGAMENT APONEUROSIS Routine 07/15/2024 8:30 AM EST Trigger finger of right thumb from Last 3 Months Results * WV INJECTION SINGLE TENDON SHEATH OR LIGAMENT APONEUROSIS (07/15/2024 8:30 AM EST) Narrative Krystal Reilly PA - 07/15/2024 8:30 AM SVITLANA Moyer ? 07/15/2024 ??9:00 AM Hand / UE Inj/Asp: R thumb A1 for trigger finger Indications: pain Details: 25 G needle, volar approach Medications: 0.5 mL lidocaine 1 %; 20 mg triamcinolone acetonide 40 mg/mL Informed Consent: ??Relevant images/test results available and reviewed: yes ?Health status cleared: ??Yes ??Procedure/treatment, purpose, treatment alternatives, risks/potential complications and benefits explained: yes ?Risk/complications/benefits details: ??Risks of infection, thinning of the skin and temporary skin discoloration discussed. ??Discussed risks of temporary increased pain after injection and swelling and mild redness at injection site for couple days. ??Explained occasionally cortisone injection can cause facial flushing temporarily. ??Benefits pain management. ??For postop injection pain ice, Tylenol and/or NSAIDs if patient can take ??Patient questions answered: yes ?Patient agrees, verbalizes understanding, and wants to proceed: yes ?Consent given by: ??Patient ??Informed consent discussion completed by Physician/KONSTANTIN with patient: ?? Verbal ??Pre-procedure timeout performed: yes ?? Krystal SHANE IN CLINIC/BEDSIDE ORDERABLES Final Result from Last 3 Months Insurance [facility] [employer] Care Teams Plant Protection Guard Relationship Specialty Start Date End Date Name, MD Michael [address] [place] [address] PCP - General 06/23/23
--- OUTSIDE RECORDS SUMMARY | 2024-09-20 11:14 | XMS_ITS | Encounter Summary ---
Author Organization [facility] Address [address] [place] [address] 7 [place] [address] Care Team Providers Care Strap Cutting Machine Operator Name Role Phone Judi Allen MD Primary Care Provider + Encounter Details Date Type Department Care Team (Latest Contact Info) Description 07/17/2019 Abstract [facility] CONVERSION[facility] Dental, Provider, DDS Social History Tobacco Use Types Packs/Day Years Used Date Smoking Tobacco: Never Assessed Comments Unknown Sex and Gender Information Value [...] Description 10/09/2024 2:30 PM EDT Clinical Support [facility] [address] [place] [phone] Marlena López RN 11/27/2024 9:15 AM EDT Office Visit [facility] [address] [place] [phone] Judi Allen MD [address] [place] [address] documented as of this encounter Visit Diagnoses Not on filedocumented in this encounter Care Teams Strap Cutting Machine Operator Relationship Specialty Start Date End Date Judi Allen MD [address] [place] [address] [phone] PCP - General Family Medicine 03/25/21 documented as of this encounter
--- OUTSIDE RECORDS SUMMARY | 2024-09-20 11:14 | XMS_ITS | Encounter Summary ---
Author Organization [facility] Address [address] [place] [address] 7 [place] [address] Care Team Providers Care Manager Quality Systems Name Role Phone Judi Allen MD Primary Care Provider + Encounter Details Date Type Department Care Team (Late st Contact Info) Description 07/13/2022 Orders Only [facility] [address] [place], [place] [phone] Brenda Metzger LPN Social History Tobacco Use [...] 10/09/2024 2:30 PM EDT Clinical Support [facility] [address] [place] [place] [address] [phone] Marlena López RN 11/27/2024 9:15 AM EDT Office Visit [facility] [address] [place] [place] [phone] Judi Allen MD [address] [place], [place] [phone] documented as of this encounter Procedures Procedure Name Priority Date/Time Associated Diagnosis Comments XR KNEE 3 VIEWS LEFT Routine 07/19/2022 2:24 PM EST documented in this encounter Results * XR Knee 3 Views Left (07/19/2022 2:24 PM EST) Anatomical Region Laterality Modality Lower Extremities, Knee Left Radiogra phic Imaging 07/19/2022 2:24 PM EST Narrative 07/23/2022 1:32 PM EST ? [facility] ?[address] ?[place] [address] ?XRay Report ? Signed ? Patient: Clas,Kelly ?MR#: [id number] ? : 1970 ?Acct:[id number] ? Age/Sex: 51 / F ?ADM Date: 07/19/22 ? Loc: HO.XRAY ? Attending Dr: Jose Armando Limon MD ? Ordering Physician: JOSE ARMANDO LIMON MD ?? Date of Service: 07/19/22 ?? Procedure(s): XR knee LT 3V ?? Accession Number(s): [id number] ? cc: JOSE ARMANDO LIMON MD ? EXAMINATION: ?? XR KNEE, LEFT ? CLINICAL INFORMATION: ?? Acute left knee pain. ? COMPARISON: ?? Radiographs left knee 02/19/2007. ? TECHNIQUE: ?? 3 views of the left knee are obtained. ? FINDINGS: ?? No fracture or dislocation or destructive process. There is small to ?? moderate suprapatellar effusion. Hoffa's fat pad appears normal. ? There is spurring at the quadriceps insertion patella. Axial view ?? patella shows no lateralization or tilting. There is small lateral ?? patellar spur. ? There is no definite joint narrowing. Small marginal osteophyte is ?? present medial tibial plateau. ? There is interval subtle cystic change posterior medial tibial plateau ?? approximately 1.2 x 1.5 cm. No visible matrix mineralization. This ?? could be related to tendinopathy at the posterior cruciate ligament. ?? Further assessment could be obtained with MRI. ? XR/XR knee LT 3V ?? IMPRESSION: ?? -Small to moderate suprapatellar effusion. ? -Spurring at quadriceps insertion patella. No lateralization or ?? tilting. ? -Benign-appearing cystic change posterior medial tibial plateau, new ?? since 2006. ?? No visible matrix mineralization. This could be related ?? to tendinopathy at the posterior cruciate ligament. Further assessment ?? could be obtained with MRI. ? Dictated By: ?Spencer Santiago MD ? Signed By: ?<Electronically signed by Spencer Santiago MD in OV> ?07/23/229 ? DD/ [facility] ? TD/TT: ? Sales Service Representative: CRAFT ? Procedure Note Donotuseinterpreter, Image - 08/15/[address] [address] XRay Report Signed Patient: Elijah Schumacher#: [id number] : 1970Acct:[id number] Age/Sex: 51 / FADM Date: 07/19/22 Loc: [facility]IG[facility] Attending Dr: Jose Armando Limon MD Ordering Physician: JOSE ARMANDO LIMON MD Date of Service: 07/19/22 Procedure(s): XR knee LT 3V Accession Number(s): [id number] cc: JOSE ARMANDO LIMON MD EXAMINATION: XR KNEE, LEFT CLINICAL INFORMATION: Acute left knee pain. COMPARISON: Radiographs left knee 02/19/2007. TECHNIQUE: 3 views of the left knee are obtained. FINDINGS: No fracture or dislocation or destructive process. There is small to moderate suprapatellar effusion. Hoffa's fat pad appears normal. There is spurring at the quadriceps insertion patella. Axial view patella shows no lateralization or tilting. There is small lateral patellar spur. There is no definite joint narrowing. Small marginal osteophyte is present medial tibial plateau. There is interval subtle cystic change posterior medial tibial plateau approximately 1.2 x 1.5 cm. No visible matrix mineralization. This could be related to tendinopathy at the posterior cruciate ligament. Further assessment could be obtained with MRI. XR/XR knee LT 3V IMPRESSION: -Small to moderate suprapatellar effusion. -Spurring at quadriceps insertion patella. No lateralization or tilting. -Benign-appearing cystic change posterior medial tibial plateau, new since 2006. No visible matrix mineralization. This could be related to tendinopathy at the posterior cruciate ligament. Further assessment could be obtained with MRI. Dictated By: Spencer Santiago MD Signed By: <Electronically signed by Spencer Santiago MD in OV> 07/23/22 1329 DD/ 1424 TD/TT: Sales Service Representative: [facility] External Provider IMG XR PROCEDURES Final Result documented in this encounter Visit Diagnoses Not on filedocumented in this encounter Care Teams Manager Quality Systems Relationship Specialty Start Date End Date Judi Allen MD [address] [place] [phone] PCP - General Family Medicine 03/25/21 documented as of this encounter
[2024-09-20] MEDS: 0.9 % Sodium Chloride 1,000 ML 999 ML IV (11:21)
[2024-09-20 13:02] VITALS: BP 125/78; PULSE 61; RESP 16; TEMP 36.3; O2SAT 98
[2024-09-20 13:04] VITALS: BP 125/78; PULSE 61; RESP 16; TEMP 36.3; O2SAT 98
== END 2024-09-20 13:05 | disposition home or self-care (01) ==
PROVIDERS: Emergency Provider Emergency Medicine; PCP Internal Medicine
DX: K59.00 Constipation, unspecified (principal); K76.0 Fatty (change of) liver, not elsewhere classified; R10.2 Pelvic and perineal pain; R35.0 Frequency of micturition; K74.60 Unspecified cirrhosis of liver; Z87.442 Personal history of urinary calculi; Z79.899 Other long term (current) drug therapy
CPT/HCPCS: 36415; 74176; 80053; 81001; 82248; 83690; 84702; 85025; 87086; 96360; 96361; 96372; 99284; 99285; J1885

== ENCOUNTER → 2024-09-20 11:00 | Outpatient (BNV) | payer OTHER, SELFPAY | PROVIDERS: Emergency Provider Emergency Medicine; PCP Internal Medicine; Visit Provider Radiology Diagnostic Radiology | DX: K74.60 Unspecified cirrhosis of liver (principal); K76.0 Fatty (change of) liver, not elsewhere classified; K56.41 Fecal impaction | CPT/HCPCS: 74176 ==

== ENCOUNTER 2024-10-07 07:45 | Emergency (ER) | payer OTHER, SELFPAY ==
--- NOTE | ~2024-10-07 | XR_ITS ---
EXAMINATION: XR LUMBAR SPINE 2-3 VIEWS HISTORY: bilateral lower back pain COMPARISON: Comparison is made with the prior examination dated 09/16/2019. FINDINGS: AP, lateral, and coned down views of the lumbar spine are submitted. Osseous mineralization is normal. Five nonrib-bearing lumbar vertebral bodies are identified, maintaining normal height and alignment without evidence of fracture or spondylolisthesis. Minimal degenerative changes are noted with anterior spurring. The intervertebral disc spaces are preserved. The posterior elements are intact. The visualized paraspinal soft tissues are unremarkable. XR/XR lumbar spine 2-3V IMPRESSION: Minimal degenerative disc disease. Electronically signed by: Noah Mccormack MD 10/07/2024 09:45 AM EDT
--- NOTE | ~2024-10-07 | XR_ITS ---
EXAMINATION: XR CHEST 2 VIEWS HISTORY: left sided chest pain COMPARISON: Comparison is made with the prior examination dated 08/18/2017. FINDINGS: PA and lateral views of the chest are submitted. The lungs are expanded and clear. There is no pleural effusion, pneumothorax, or pulmonary vascular congestion. The heart is normal in size. The bones are intact. XR/XR chest 2V IMPRESSION: No acute cardiopulmonary abnormality. Electronically signed by: Noah Mccormack MD 10/07/2024 09:44 AM EDT
[2024-10-07 07:47] VITALS: BP 152/86; PULSE 90; RESP 16; TEMP 36.3; O2SAT 98; BMI 29.2
--- NOTE | 2024-10-07 07:52 | ECG_ITS ---
Test Reason : cp Blood Pressure : */* mmHG Vent. Rate : 71 BPM Atrial Rate : 71 BPM P-R Int : 154 ms QRS Dur : 78 ms QT Int : 422 ms P-R-T Axes : 27 -16 32 degrees QTcB Int : 458 ms Normal sinus rhythm Moderate voltage criteria for LVH, may be normal variant ( R in aVL , Calvin product ) Inferior infarct , age undetermined Cannot rule out Anterior infarct (cited on or before 21-Sep-2023) Abnormal ECG When compared with ECG of 23-Jul-2024 18:03, Vent. rate has decreased by 54 bpm Referred By: Generic ED Physician Electronically Signed By: MARTHA LOPEZ
[2024-10-07 08:05] LABS: MANUAL DIFF FLAG NO
[2024-10-07 08:07] LABS: Basophils Absolute Auto 0.1 X10*3/uL (0.0-0.2); Basophils Percent Auto 0.8 % (0-2); Eosinophils Absolute Auto 0.4 X10*3/uL (0.0-0.4); Eosinophils Percent Auto 4.9 % (0-4); Hematocrit 42.8 % (37.0-47.0); Hemoglobin 14.3 g/dl (12.0-16.0); Imm Gran Abs Auto 0.02 X10*3/uL (0.00-0.03); Imm Gran Pct Auto 0.3 % (0.0-0.4); Lymphocytes Absolute Auto 2.7 X10*3/uL (1.2-4.9); Lymphocytes Percent Auto 37.8 % (20-40); Mean Corpuscular HGB Conc 33.4 g/dl (31.0-35.0); Mean Corpuscular Hemoglobin 31.2 pg (27.0-33.0); Mean Corpuscular Volume 93.4 fL (80.0-98.0); Mean Platelet Volume 8.6 fL (9.4-12.3); Monocytes Absolute Auto 0.6 X10*3/uL (0.1-1.2); Neutrophils Absolute Auto 3.4 x10*3/uL (2.0-8.3); Neutrophils Percent Auto 48.2 % (45-73); Platelet Count 265 X10*3/uL (160-400); Red Blood Count 4.58 X10*6/uL (4.20-5.50); Red Cell Distribution Width 12.7 % (11.0-16.0); White Blood Count 7.1 X10*3/uL (4.8-10.8)
--- NOTE | 2024-10-07 08:10 | PC.NURSE ---
Pt coming from home, reporting she was here 1 week ago for back pain, was told she was constipated, she has been taking the medications she was dc with and has had bowel movents. Denies urinary symptoms, denies problems with urinary/bowl accidents. Pt reporting the pain is becoming more sharp than before.
[2024-10-07 08:26] LABS: Alanine Aminotransferase 34 U/L (0-31); Albumin Level 4.1 g/dL (3.5-5.0); Alkaline Phosphatase 76 U/L (39-117); Anion Gap 12 (12-20); Aspartate Amino Transferase 35 U/L (5-31); Bilirubin Direct 0.2 mg/dL (0.0-0.5); Bilirubin Total 0.5 mg/dL (0.0-1.0); Blood Urea Nitrogen 11 mg/dL (9-16); Calcium 9.3 mg/dL (8.4-10.2); Carbon Dioxide 25 mmol/L (22-29); Chloride 105 mmol/L (96-108); Creatinine Clr Calc Pharmacy 79.8; Estimated Glomerular Filt Rate > 60; Glucose Random 184 mg/dL (60-115); Lipase 26 U/L (8-78); Potassium 3.8 mmol/L (3.3-5.1); Sodium 138 mmol/L (135-145); Total Protein 8.2 g/dL (6.5-8.0)
[2024-10-07 08:33] LABS: Troponin-I High Sensitivity < 2.7 ng/L (<3.5-17.0)
--- NOTE | 2024-10-07 08:33 | ED_ITS ---
HPI - Back Pain/Injury General Chief Complaint: Back Pain/Injury Stated Complaint: Back Pain No Injury Time Seen by Provider: 10/07/24 08:20 Source: patient Mode of arrival: ambulatory Limitations: no limitations History of Present Illness ED Provider: LALITA NICOLE PA-C HPI Narrative: 53 year old female with pmhx significant for HLD, HTN, T2DM, NAFLD presents to the ED today for evaluation of chest pain x3 days and back pain x2 weeks. Her chest pain began on Monday while at rest. Pain has been constant since onset. Pain extends from left side of her chest down her LUE. Pain is reproducible to palpation. Pain is not exertional, positional or relieved by rest. She has not taken any OTC pain medications for this at home. Denies trauma/ injury. No recent upper respiratory symptoms. admits to associated nausea without vomiting. denies hx VT. She also complains of lower back pain. Pain extends from left lower back to right lower back. Pain is worse with movement/ ambulation. She reports history of sciatica. She was prescribed PT in the past for this however was never called to make an appointment. 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 She states she may have pulled her back during one of these transfers. She has been trialing 1/2 a dose of flexeril at home with some relief. Denies numbness/tingling/weakness of the lower extremities, saddle anesthesia, bowel or bladder incontinence or retention, dysuria, hematuria. She adds she was recently diagnosed with constipation. She is taking miralax and has had normal daily BMs. Related Data Home Medications ?Medication ?Instructions ?Recorded ?Confirmed blood sugar diagnostic #10 ea 06/01/20 03/18/21 cyclobenzaprine 10 mg tablet mg PO 06/01/20 03/18/21 fluoxetine 20 mg capsule 20 mg PO DAILY 06/01/20 03/18/21 lisinopril 20 1 tab PO DAILY 06/01/20 03/18/21 mg-hydrochlorothiazide 25 mg tablet multivitamin-ferrous 1 tab PO DAILY 06/01/20 03/18/21 fumarate-folic acid 18 mg-400 mcg tablet ondansetron HCl 4 mg tablet mg PO 06/01/20 03/18/21 oxycodone 5 mg tablet 5 mg PO BID PRN 06/01/20 03/18/21 pantoprazole 40 mg tablet,delayed 40 mg PO DAILY 06/01/20 03/18/21 release zolpidem 10 mg tablet mg PO 06/01/20 03/18/21 acetaminophen 500 mg tablet 500 mg PO Q12H PRN 07/14/20 03/18/21 diclofenac sodium 1 % topical gel 2 g topical QID 07/14/20 03/18/21 lidocaine 5 % topical patch 0 patch topical 07/14/20 03/18/21 albuterol sulfate 90 mcg/actuation 2 puff PO Q4-6H PRN 09/01/20 03/18/21 aerosol inhaler fluoxetine 40 mg capsule 40 mg PO QAM 09/01/20 03/18/21 furosemide 20 mg tablet 20 mg PO QAM PRN swelling 03/18/21 03/18/21 Previous Rx's ?Medication ?Instructions ?Recorded empagliflozin 25 mg tablet 25 mg PO QAM #30 tabs 06/06/20 (Jardiance) ezetimibe 10 mg tablet 10 mg PO DAILY #30 tabs 11/30/20 diphenhydramine HCl 25 mg capsule 25 mg PO BEDTIME for premed due to 12/25/20 (Benadryl) allery to CT contrast (itching) #2 caps prednisone 50 mg tablet 50 mg PO .4 times for premed prior 12/25/[address] for allergy (itching) #4 tabs bisacodyl 10 mg rectal suppository 10 mg NC DAILY PRN constipation 03/18/21 (Dulcolax (bisacodyl)) #20 ea methylcellulose (laxative) 500 mg 500 mg PO BID #60 tabs 09/21/21 tablet (Citrucel) methylcellulose (laxative) 500 mg 500 mg PO BID #60 tabs 09/29/21 tablet (Citrucel) bisacodyl 10 mg rectal suppository 10 mg NC DAILY PRN for 10/26/21 constipation #20 supp dulaglutide 1.5 mg/0.5 mL 1.5 mg (0.5 mL) subcut QWEEK #2 mL 10/29/21 subcutaneous pen injector (Trulicity) metformin 500 mg tablet,extended 1,000 mg (2 x 500 mg) PO BID #120 11/03/21 release 24 hr tabs cholecalciferol (vitamin D3) 125 125 mcg PO DAILY #30 caps 01/04/22 mcg (5,000 unit) capsule docusate sodium 100 mg capsule 200 mg (2 x 100 mg) PO BEDTIME #60 05/16/22 caps polyethylene glycol 3350 17 gram 17 g PO DAILY #30 packets 05/16/22 oral powder packet aluminum-mag hydroxide-simethicone 30 ml PO Q6H PRN indigestion #300 07/23/24 200 mg-200 mg-20 mg/5 mL oral susp mL (Maalox Advanced) famotidine 20 mg tablet (Pepcid) 20 mg PO BID PRN abdominal 07/23/24 discomfort #60 tabs ondansetron 4 mg disintegrating 4 mg PO Q6H #14 tabs 07/23/24 tablet polyethylene glycol 3350 17 17 g PO DAILY 1 week #119 grams 09/20/24 gram/dose oral powder (Miralax) acetaminophen 325 mg tablet 650 mg (2 x 325 mg) PO Q4-6H PRN 10/07/24 (Tylenol) pain (scale score 1-3) #30 tabs cyclobenzaprine 5 mg tablet 5 mg PO Q8H PRN muscle spasm #7 10/07/24 tabs ibuprofen 600 mg tablet 600 mg PO Q8H PRN pain (scale 10/07/24 score 1-3) #20 tabs lidocaine 5 % topical patch 1 patch topical DAILY #15 ea 10/07/24 (Lidoderm) Allergies Allergy/AdvReac Type Severity Reaction Status Date / Time Iodinated Contrast Media Allergy Intermediate ITCHING Verified 10/07/24 07:48 [IV Dye, Iodine Containing] Review of Systems 2 Review of Systems: Yes all other systems are reviewed and are negative [facility] Past Medical History Attestation statement: The following information was validated with the patient. Source: old records reviewed and nursing notes reviewed Medical History NAFLD (nonalcoholic fatty liver disease) Chronic constipation Elevated liver enzymes Abdominal pain Kidney stones H. 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 Skin: Warm, dry, intact. No rashes or lesions. Head: Normocephalic, atraumatic. EENT: Hearing is intact b/l. Conjunctiva clear. Sclera is anicteric. PERRLA. EOM intact. Moist mucous membranes.? Neck: Supple without LAD Cardiac: Chest wall symmetric. There is reproducible tenderness to palpation of left anterior chest wall without palpable deformity or crepitus. RRR. No JVD. Lungs: Normal respiratory effort without accessory muscle use. CTA bilaterally. Abdomen: Soft, non-tender, non-distended. No rebound tenderness or guarding. Positive BS x4. Back: No midline spinous or paraspinal tenderness. No step off deformity. Ext: Upper and lower extremities atraumatic, without tenderness, deformity, swelling or erythema. No pitting edema. No calf tenderness bilaterally. Neuro: AOx3. Normal speech. Strength 5/5 intact throughout. No saddle anesthesia. Sensation intact to light touch. NV intact distally. Ambulating with steady gait. Psych: Appropriate mood and affect. Responds appropriately to questions. Course Course Course Narrative: CBC without leukocytosis or left shift. No anemia. H&H stable. Chemistry without acute electrolyte abnormality requiring intervention. no dariana. liver function at baseline. trop flat x2. cxr without infiltrate or consolidation. ekg showing nsr with a rate of 71 bpm, no acute ischemic changes or st elevations. Medications Administered Discontinued Medications Generic Name Dose Route Start Last Admin Trade Name Kwabena PRN Reason Stop Dose Admin Cyclobenzaprine HCl 10 mg 10/07/24 09:23 10/07/24 10:11 Cyclobenzaprine Hcl 10 Mg Tablet PO 10/07/24 09:24 10 mg ONCE ONE Administration Ketorolac Tromethamine 30 mg 10/07/24 09:24 10/07/24 10:11 Ketorolac Tromethamine 30 Mg/Ml Vial IM 10/07/24 09:25 30 mg ONCE ONE Administration Lidocaine 1 patch 10/07/24 09:24 10/07/24 10:11 Lidocaine 4 % Patch Adh..Patch TRANSDERMA 10/07/24 09:25 1 patch ONCE ONE Administration Protocol Morphine Sulfate 4 mg 10/07/24 11:23 10/07/24 11:36 Morphine Sulfate 4 Mg/Ml Cartridge IVPUSH 10/07/24 11:24 4 mg ONCE ONE Administration Protocol Ondansetron HCl 4 mg 10/07/24 09:59 10/07/24 10:11 Ondansetron Odt 4 Mg Tab.Rapdis TRANSLINGU 10/07/24 10:00 4 mg ONCE ONE Administration Medical Decision Making Medical Decision Making [facility] Narrative: 53 year old female with pmhx significant for HLD, HTN, T2DM, NAFLD presents to the ED today for evaluation of chest pain x3 days and back pain x2 weeks. mildly hypertensive, vitals are otherwise wnl. not tachycardic or hypoxic. This patient presents with chest pain, with symptoms suggestive of noncardiac chest pain.? History without high risk features (not substernal, no exertional component, not relieved with rest). Exam without evidence of volume overload. EKG without signs of active ischemia. Given the timing of pain to ED presentation, plan to send delta troponin to evaluate for NSTEMI. Differential diagnosis also includes anemia, electrolyte abnormality, costochondritis, msk pain, pneumonia, pleurisy. Presentation not consistent with acute PE, pneumothorax, thoracic aortic dissection, cardiac effusion or tamponade, myocarditis, pericarditis. Plan: labs, troponin, EKG, CXR, pain control, reassessment Differential Diagnosis Differential Diagnoses: The differential diagnosis associated with the presentation includes as above. Admission/Observation not indicated. Lab Data [facility] Lab Attestation statement: I reviewed the patient's lab results. as above. 10/07/24 08:01 10/07/24 08:01 Labs: Lab Results 10/07/24 10/07/24 10/07/24 Range/Units 08:01 10:15 12:18 WBC 7.1 (4.8-10.8) X10*3/uL RBC 4.58 (4.20-5.50) X10*6/uL Hgb 14.3 (12.0-16.0) g/dl Hct 42.8 (37.0-47.0) % MCV 93.4 (80.0-98.0) fL MCH 31.2 (27.0-33.0) pg MCHC 33.4 (31.0-35.0) g/dl RDW 12.7 (11.0-16.0) % Plt Count 265 (160-400) X10*3/uL MPV 8.6 L (9.4-12.3) fL Immature Gran % (Auto) 0.3 (0.0-0.4) % Neut % (Auto) 48.2 (45-73) % Lymph % (Auto) 37.8 (20-40) % [place] % (Auto) 8.0 (2-11) % Eos % (Auto) 4.9 H (0-4) % Baso % (Auto) 0.8 (0-2) % Lymph # (Auto) 2.7 (1.2-4.9) X10*3/uL [place] # (Auto) 0.6 (0.1-1.2) X10*3/uL Eos # (Auto) 0.4 (0.0-0.4) X10*3/uL Baso # (Auto) 0.1 (0.0-0.2) X10*3/uL Abs Immat Gran (auto) 0.02 (0.00-0.03) X10*3/uL Absolute Neuts (auto) 3.4 (2.0-8.3) x10*3/uL Absolute Nucleated RBC 0.000 (0.0-0.012) X10*3/uL Nucleated RBC % (auto) 0.0 (0.0-0.2) /100WBC Sodium 138 (135-145) mmol/L Potassium 3.8 (3.3-5.1) mmol/L Chloride 105 (96-108) mmol/L Carbon Dioxide 25 (22-29) mmol/L Anion Gap 12 (12-20) BUN 11 (9-16) mg/dL Creatinine 0.76 (0.5-1.4) mg/dL Estim Creat Clear Calc 79.8 Estimated GFR > 60 Random Glucose 184 H (60-115) mg/dL Calcium 9.3 (8.4-10.2) mg/dL Total Bilirubin 0.5 (0.0-1.0) mg/dL Direct Bilirubin 0.2 (0.0-0.5) mg/dL AST 35 H (5-31) U/L ALT 34 H (0-31) U/L Alkaline Phosphatase 76 (39-117) U/L Troponin I High Sens < 2.7 < 2.7 (<3.5-17.0) ng/L Total Protein 8.2 H (6.5-8.0) g/dL Albumin 4.1 (3.5-5.0) g/dL Lipase 26 (8-78) U/L Urine Color Yellow Urine Appearance Cloudy Urine pH 6.5 (5.0-9.0) Ur Specific [place] >= 1.030 H (1.005-1.025) Urine Protein Negative (Neg-Trace) mg/dL Urine Glucose (UA) >=1000 H (Negative) mg/dL Urine Ketones Trace (Negative) mg/dL Urine Blood Negative (Negative) Urine Nitrite Negative (Negative) Ur Leukocyte Esterase Small (1+) H (Negative) Urine RBC 0-2 (0-2) /HPF Urine WBC 11-20 H (0-5) /HPF Ur Squamous Epith Cells 11-20 (0-2) /HPF Urine Bacteria 1+ (None Seen) Hyaline Casts 0-2 (0-2) /LPF Independent Interpretation I performed an independent interpretation of an: EKG and Plain X-Ray Interpretation: cxr without infiltrate or consolidation xr lumbar spine without fracture EKG showing normal sinus rhythm, rate of 71 beats per minute, QT 422, QTC 458, no acute ischemic changes or ST elevations Radiology Impression Discussion of test interpretation with radiology: I have reviewed the radiologist's reading. Radiologist Impression: Procedure(s): XR chest 2V Accession Number(s): [id number] cc: Judi Allen MD; Lalita Nicole~ EXAMINATION: XR CHEST 2 VIEWS HISTORY: left sided chest pain COMPARISON: Comparison is made with the prior examination dated 08/18/2017. FINDINGS: PA and lateral views of the chest are submitted. The lungs are expanded and clear. There is no pleural effusion, pneumothorax, or pulmonary vascular congestion. The heart is normal in size. The bones are intact. XR/XR chest 2V IMPRESSION: No acute cardiopulmonary abnormality. Procedure(s): XR lumbar spine 2-3V Accession Number(s): [id number] cc: Judi Allen MD; Lalita Nicole~ EXAMINATION: XR LUMBAR SPINE 2-3 VIEWS HISTORY: bilateral lower back pain COMPARISON: Comparison is made with the prior examination dated 09/16/2019. FINDINGS: AP, lateral, and coned down views of the lumbar spine are submitted. Osseous mineralization is normal. Five nonrib-bearing lumbar vertebral bodies are identified, maintaining normal height and alignment without evidence of fracture or spondylolisthesis. Minimal degenerative changes are noted with anterior spurring. The intervertebral disc spaces are preserved. The posterior elements are intact. The visualized paraspinal soft tissues are unremarkable. XR/XR lumbar spine 2-3V IMPRESSION: Minimal degenerative disc disease. External Record Review External record reviewed: Inpatient record Prescription Management I considered prescription management with: Pain Medication Chronic Conditions Patient?s care impacted by: Diabetes and Hypertension Social Determinants Patient?s care significantly limited by Social Determinants of Health including: Other Social Determinant of Health Critical Care Time Critical Care Time Critical Care Time: Yes Total Critical Care Time: 31 Attestation: Critical care time in the amount of 31 minutes has been provided to the patient in terms of direct patient care, frequent reevaluation on IV morphine, review and interpretation of medical data and results, and management of potentially life-threatening conditions. This is all outside of any medical procedures. Discharge Plan Discharge Clinical Impression: Atypical chest pain Patient Disposition: Home, Self-Care Instructions: Chest Pain (ED), Chest Wall Pain (ED) Additional Instructions: You were evaluated in the Emergency Department today for chest pain. Your evaluation has shown no signs of medical conditions requiring emergent intervention at this time. You may take motrin/ tyelnol at home as needed for pain. 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 If you do not have one, a referral has been provided. Please call them to make an appointment, they will not call you. Regarding your back pain, you found relief with a muscle relaxer, NSAID, and lido patch today. I have sent flexeril and lidocaine patches to your pharmacy. You may take motrin/ tyelnol at home as needed. Return to the Emergency Department if you experience worsening or uncontrolled chest pain, shortness of breath, light headedness, feeling faint, nausea, vomiting, or any other concerning symptoms. Prescriptions: New cyclobenzaprine 5 mg tablet 5 mg PO Q8H PRN (Reason: muscle spasm) Qty: 7 0RF lidocaine [Lidoderm] 5 % adhesive patch,medicated 1 patch topical DAILY Qty: 15 0RF Rx Instructions: leave on most painful area for up to 12 hrs ibuprofen 600 mg tablet 600 mg PO Q8H PRN (Reason: pain (scale score 1-3)) Qty: 20 0RF acetaminophen [Tylenol] 325 mg tablet 650 mg PO Q4-6H PRN (Reason: pain (scale score 1-3)) Qty: 30 0RF No Action Jardiance 25 mg tablet 25 mg PO QAM Qty: 30 3RF ezetimibe 10 mg tablet 10 mg PO DAILY Qty: 30 0RF diphenhydramine HCl [Benadryl] 25 mg capsule 25 mg PO BEDTIME Qty: 2 0RF Rx Instructions: Take two 25mg caps (50 mg total) one hour prior to the scheduled CT time. prednisone 50 mg tablet 50 mg PO .4 times Qty: 4 0RF Rx Instructions: Take one tablet at 6pm the night before the CT scan, one tablet at midnight the night before the CT and one tablet at 6am the day of the CT. Take the 4th tablet with you to the hospital when you report for the test. Citrucel 500 mg tablet 500 mg PO BID Qty: 60 1RF bisacodyl 10 mg suppository 10 mg NC DAILY PRN (Reason: for constipation) Qty: 20 0RF Trulicity 1.5 mg/0.5 mL pen injector 1.5 mg subcut QWEEK Qty: 2 7RF metformin 500 mg tablet extended release 24 hr 1,000 mg PO BID Qty: 120 6RF cholecalciferol (vitamin D3) 125 mcg (5,000 unit) capsule 125 mcg PO DAILY Qty: 30 11RF docusate sodium 100 mg capsule 200 mg PO BEDTIME Qty: 60 1RF polyethylene glycol 3350 17 gram powder in packet 17 g PO DAILY Qty: 30 1RF polyethylene glycol 3350 [Miralax] 17 gram/dose powder 17 g PO DAILY 7 Days Qty: 119 0RF famotidine [Pepcid] 20 mg tablet 20 mg PO BID PRN (Reason: abdominal discomfort) Qty: 60 0RF alum-mag hydroxide-simeth [Maalox Advanced] 200-200-20 mg/5 mL suspension 30 ml PO Q6H PRN (Reason: indigestion) Qty: 300 0RF ondansetron 4 mg tablet,disintegrating 4 mg PO Q6H Qty: 14 0RF zolpidem 10 mg tablet PO Certavite-Antioxidant 18-400 mg-mcg tablet 1 tab PO DAILY fluoxetine 20 mg capsule 20 mg PO DAILY oxycodone 5 mg tablet 5 mg PO BID PRN lisinopril-hydrochlorothiazide 20-25 mg tablet 1 tab PO DAILY pantoprazole 40 mg tablet,delayed release (DR/EC) 40 mg PO DAILY cyclobenzaprine 10 mg tablet PO ondansetron HCl 4 mg tablet PO (DME) FreeStyle Lite Strips Strip See Rx Instructions .ROUTE .MEDSUPPLY Qty: 10 Rx Instructions: As directed albuterol sulfate 90 mcg/actuation HFA aerosol inhaler 2 puff PO Q4-6H PRN fluoxetine 40 mg capsule 40 mg PO QAM acetaminophen 500 mg tablet 500 mg PO Q12H PRN lidocaine 5 % adhesive patch,medicated 0 patch topical diclofenac sodium 1 % gel 2 g topical QID furosemide 20 mg tablet 20 mg PO QAM PRN (Reason: swelling) bisacodyl [Dulcolax (bisacodyl)] 10 mg suppository 10 mg NC DAILY PRN (Reason: constipation) Qty: 20 0RF Citrucel 500 mg tablet 500 mg PO BID Qty: 60 5RF Referrals: Judi Allen MD [Primary Care Provider] - Stand Alone Forms: Work/School Release Interventions: ED Discharge Assessment Last Done: 10/07/24 14:52 Discharge Date/Time: 10/07/24 14:52 Print Language: Khmer
[2024-10-07] MEDS: Cyclobenzaprine HCl 10 MG TABLET PO (10:11)
[2024-10-07] MEDS: Ondansetron ODT 4 MG TAB.RAPDIS TRANSLINGU (10:11)
[2024-10-07] MEDS: Ketorolac Tromethamine 30 MG/ML VIAL IM (10:11)
[2024-10-07] MEDS: Lidocaine 4 % Patch ADH..PATCH 1 PATCH TRANSDERMA (10:11)
[2024-10-07 10:22] LABS: Appearance Urine Cloudy; Color Urine Yellow; Glucose Urine UA >=1000 mg/dL (Negative); Leukocyte Esterase Urine Small (1+) (Negative); Nitrite Urine Negative (Negative); PH 6.5 (5.0-9.0); Specific Gravity - Urine >= 1.030 (1.005-1.025); UMIC TRIGGER UACC YES; Urine Blood Negative (Negative); Urine Ketones Trace mg/dL (Negative); Urine Protein Negative (Neg-Trace)
[2024-10-07 10:25] LABS: Bacteria Urine 1+ (None Seen); Hyaline Casts Urine 0-2 /LPF (0-2); RBC Urine 0-2 /HPF (0-2); UACC Culture Trigger YES
[2024-10-07 10:51] VITALS: BP 137/90; PULSE 77; RESP 16; TEMP 36.7; O2SAT 97
[2024-10-07 11:36] VITALS: RESP 22
[2024-10-07] MEDS: Morphine Sulfate 4 MG/ML CARTRIDGE IVPUSH (11:36)
[2024-10-07 11:37] VITALS: BP 154/92; PULSE 71; RESP 20; TEMP 37.2; O2SAT 96
[2024-10-07 12:48] LABS: Troponin-I High Sensitivity < 2.7 ng/L (<3.5-17.0)
[2024-10-07 14:50] VITALS: BP 148/91; PULSE 69; RESP 18; TEMP 36.1; O2SAT 99
[2024-10-07 14:52] VITALS: BP 148/91; PULSE 69; RESP 18; TEMP 36.1; O2SAT 99
== END 2024-10-07 14:52 | disposition home or self-care (01) ==
PROVIDERS: Physician Assistant Medical; Emergency Provider Emergency Medicine; PCP Internal Medicine
DX: R07.89 Other chest pain (principal); M54.50 Low back pain, unspecified; R94.31 Abnormal electrocardiogram [ECG] [EKG]; E11.9 Type 2 diabetes mellitus without complications; Z79.899 Other long term (current) drug therapy
CPT/HCPCS: 36415; 71046; 72100; 80048; 80076; 81001; 83690; 84484; 85025; 87086; 93005; 96372; 96374; 99284; 99285; J1885; J2270

== ENCOUNTER → 2024-10-07 07:52 | Outpatient (BNV) | payer OTHER, SELFPAY | PROVIDERS: Emergency Provider Emergency Medicine; PCP Internal Medicine; Visit Provider Internal Medicine | DX: R07.9 Chest pain, unspecified (principal); R94.31 Abnormal electrocardiogram [ECG] [EKG] | CPT/HCPCS: 93010 ==

== ENCOUNTER → 2024-10-07 09:23 | Outpatient (BNV) | payer OTHER, SELFPAY | PROVIDERS: Emergency Provider Emergency Medicine; PCP Internal Medicine; Visit Provider Radiology Diagnostic Radiology | DX: M54.50 Low back pain, unspecified (principal); R07.9 Chest pain, unspecified | CPT/HCPCS: 71046; 72100 ==

== ENCOUNTER 2024-12-12 15:45 | Outpatient (REF) | payer OTHER, SELFPAY ==
--- NOTE | ~2024-12-12 | MM_ITS ---
EXAMINATION: MM SCREENING DIGITAL BREAST TOMOSYNTHESIS, BILATERAL CLINICAL INFORMATION: Screening. Asymptomatic. COMPARISON: Mammography: Comparison is made with available priors TECHNIQUE: Digital breast mammography with tomosynthesis is performed in both the craniocaudal and mediolateral oblique views along with computer-aided detection (CAD). FINDINGS: The breasts are heterogeneously dense, which may obscure small masses (ACR BI-RADS breast composition Category c). There are no significant masses, abnormal calcifications, or other abnormalities. MM/MM tomosynthesis screening BI IMPRESSION: No mammographic evidence of malignancy. ASSESSMENT: BI-RADS BI-RADS 1 - Negative RECOMMENDATION: Routine annual mammography screening. 1 year F/U This examination should not preclude the clinical evaluation of a suspicious palpable abnormality. This patient's information was entered into a reminder system with a target due date for their next mammogram. Electronically signed by: Avani Overton DO 12/16/2024 05:30 PM EDT
--- OUTSIDE RECORDS SUMMARY | 2024-12-12 18:05 | XMS_ITS | Encounter Summary ---
Author Organization [employer] Address [address] [place] [address] [address] [place] [address] Care Team Providers Care Cloth Shader Name Role Phone Judi Allen MD Primary Care Provider + Reason for Visit * Reason Comments Med Refill Encounter Details Date Type Department Care Team (Late st Contact Info) Description 02/17/[address] [facility] [address] [place], [place] [id number] Judi Allen MD [address] [place] [address] Chronic bilateral low back pain, unspecified whether [...] Care Team (Late st Contact Info) Description 01/07/2025 10:30 AM EDT Clinical Support [facility] [address] [place] [address] Marlena López, MARIPOSA documented as of this encounter Visit Diagnoses Diagnosis Chronic bilateral low back pain, unspecified whether sciatica present Primary hypertension Unspecified essential hypertension documented in this encounter Care Teams Cloth Shader Relationship Specialty Start Date End Date Judi Allen MD [address] [place] [address] PCP - General Family Medicine 03/25/21 documented as of this encounter
== END 2024-12-12 15:46 | disposition home or self-care (01) ==
LOC: HO.MAMMO 15:45
PROVIDERS: PCP Internal Medicine; Visit Provider Internal Medicine
DX: Z12.31 Encounter for screening mammogram for malignant neoplasm of breast (principal)
CPT/HCPCS: 77063; 77067

== ENCOUNTER → 2024-12-12 15:45 | Outpatient (BNV) | payer OTHER, SELFPAY | PROVIDERS: PCP Internal Medicine; Visit Provider Internal Medicine | DX: Z12.31 Encounter for screening mammogram for malignant neoplasm of breast (principal) | CPT/HCPCS: 77063; 77067 ==

== ENCOUNTER 2025-01-16 15:00 | Outpatient (AMB) | payer OTHER, SELFPAY ==
--- NOTE | 2025-01-16 15:02 | A.OFFVIS_ITS ---
Vital Signs 01/16/25 15:18 Height 5 ft 2 in Weight 161 lb BMI 29.4 BP 106/68 Blood Pressure Location Rt brachial Position Sitting Pulse 68 Pulse Source Pulse Oximeter Pulse Oximetry (%) 97 Oxygen Delivery Method Room Air Intake Visit Reasons: Chronic Idiopathic constipation/Corinne pt Intake Note: Patient complex follow up for Chronic constipation Patient cc: C.O. CIC mgmt, education, questions about Linzess, intermittent + mild B/L LQ pain. Pt states that her sx have been much better since starting Linzess. Radioactivity Technician Required: No Accompanied by: Self / Same As Patient Allergies Iodinated Contrast Media (IV Dye, Iodine Containing) Allergy (Intermediate, Verified 01/16/25 15:02) ITCHING Medication List - Last Reconciled 01/16/25 by July Cano CNP acetaminophen (Tylenol) 650 mg (2 x 325 mg) PO Q4-6H PRN albuterol sulfate 90 mcg/actuation 2 puffs PO Q4-6H PRN atorvastatin 40 mg PO BEDTIME blood sugar diagnostic As directed buspirone mg PO BID cholecalciferol (vitamin D3) 125 mcg PO DAILY diclofenac sodium 1% 2 grams topical QID diphenhydramine HCl (Benadryl) 25 mg PO BEDTIME empagliflozin (Jardiance) 25 mg PO QAM ezetimibe 10 mg PO DAILY famotidine (Pepcid) 20 mg PO BID PRN fluoxetine 40 mg PO QAM furosemide 20 mg PO QAM PRN ibuprofen 600 mg PO Q8H PRN lidocaine 5% (Lidoderm) 1 patch topical DAILY linaclotide (Linzess) 145 mcg PO QAM lisinopril-hydrochlorothiazide 20-25 mg 1 tab PO DAILY metformin ER 1,000 mg (2 x 500 mg) PO BID hkljpxjtswfq-ifmp-zulsi acid 18-400 mg-mcg 1 tab PO DAILY pantoprazole 40 mg PO DAILY polyethylene glycol 3350 (Miralax) 17 grams PO DAILY PRN semaglutide (Ozempic) 0.25 mg subcut QWEEK zolpidem mg PO HPI HPI Chronic Idiopathic constipation/Corinne pt: Details: Patient is a 54-year-old female with PMH of diabetes, hypertension and hyperlipidemia. Last visit with SVITLANA Lopez 09/29/2021 for chronic constipation. Shares recent emergency room visits in July and September 2024 due to back pain with findings of significant stool accumulation in her colon. The patient reports improvement in her constipation symptoms since starting Linzess one month ago. She is now having daily bowel movements without straining or pushing, describing her stools as Type 4 on the Bee Stool Chart. Previously, she experienced blood when wiping during episodes of severe constipation, but this has resolved since starting Linzess. She continues to have abdominal pain, particularly in the lower abdomen, which is relieved after using the bathroom. She mentions a history of hemorrhoids that appear during constipation episodes but are not currently present. She denies current use of MiraLax, stating it was ineffective before starting Linzess. She reports following dietary recommendations, including increased consumption of fruits like green apples, pears, and apricots, while avoiding bread and carbohydrates. She denies current heartburn or difficulty swallowing. Patient denies: fever/chills, n/v, appetite changes, pyrosis, reg urgitation,dysphasia or unintentional wt loss . [facility] Medical History (Updated 01/16/25 @ 16:33 by July Cano CNP) Hemorrhoids Colon cancer screening Transaminitis NAFLD (nonalcoholic fatty liver disease) Chronic constipation Elevated liver enzymes Abdominal pain Kidney stones H. 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 Review of Systems Const Reports as per HPI ENT Reports as per HPI Card Reports as per HPI Resp Reports as per HPI GI Reports as per HPI Reports as per HPI Physical Exam Const General: healthy appearing, no acute distress and well developed Nutritional Appearance: well nourished Orientation/consciousness: patient oriented x3 HEENT Head: Yes normal to inspection, Yes normocephalic and Yes atraumatic Face and sinus: Yes normal facial exam Eyes General: appearance normal, both eyes and all related structures Neck Neck: Yes normal visual inspection Resp Effort & Inspection: normal respiratory effort, able to speak in complete sentences, no tracheal deviation and symmetric chest movement Auscultation: clear to auscultation bilaterally Cardio Jugular venous distension: no JVD Rate: regular rate Rhythm: regular rhythm Heart sounds: S1 normal heart sound present, S2 normal heart sound present, no gallops and no murmurs GI Inspection: Yes normal to inspection and No distended Palpation (GI): Soft to palpation, not firm, nontender and No hepatosplenomegaly present Auscultation: normal bowel sounds Neuro General: patient oriented x3 Gait exam (Neuro): Normal gait present Psych Appearance: grossly normal Mental Status: mental status grossly normal Speech and movement: Normal speech and movement present Affect: normal affect Attitude: cooperative Thought process: Normal thought process present Thought content: Normal thought content present Insight: Good insight present (Psych) Judgement: Good judgement present (Psych) Results Reviewed Results Reviewed: Date of Service: 09/20/24 Procedure(s): CT abdomen pelvis wo IV con Accession Number(s): [id number] cc: Kaushik Otoole; Judi Allen MD~ Report Number: [id number]: Total DLP = 468.00 mGy-cm EXAMINATION: CT ABDOMEN PELVIS WITHOUT IV CONTRAST HISTORY: abdominal pain. Flank pain COMPARISON: Comparison is made with the prior examination dated 06/12/2024. TECHNIQUE: CT scan of the abdomen and pelvis was performed without contrast using standard departmental protocol. Coronal and sagittal reformatted images were generated and reviewed. This CT exam was performed with one or more of the following dose reduction techniques: automated exposure control, adjustment of the mA and/or kV according to patient size, use of iterative reconstruction technique. DLP: 468 mGy-cm FINDINGS: LOWER CHEST: The visualized lung bases are clear. There is no pleural effusion. CARDIOVASCULATURE: The heart is normal in size. There is no pericardial effusion. LIVER: The liver demonstrates diffusely decreased attenuation, consistent with steatosis. The liver again demonstrates a nodular contour, consistent with cirrhosis. There is hypertrophy of the left and caudate lobes. GALLBLADDER / BILE DUCTS: The gallbladder is surgically absent. There is no intra or extrahepatic biliary ductal dilatation. SPLEEN: The spleen is normal in size and has an unremarkable unenhanced appearance. PANCREAS: The pancreas has an unremarkable unenhanced appearance. ADRENAL GLANDS: Unremarkable. KIDNEYS/RETROPERITONEUM: No renal or ureteral calculi are identified. There is no hydronephrosis or hydroureter. LYMPH NODES: No retroperitoneal lymphadenopathy is identified in the abdomen or pelvis. VASCULATURE: The abdominal aorta is normal in caliber. MESENTERY/PERITONEUM: No free fluid. No masses. There is no free intraperitoneal gas. STOMACH: The stomach is unremarkable. SMALL BOWEL: The small bowel is normal in caliber. COLON: There is a large amount of stool throughout the colon. APPENDIX: Normal. URINARY BLADDER/PELVIC ORGANS: The urinary bladder is collapsed, limiting evaluation. The uterus has an unremarkable unenhanced appearance. BONES / SOFT TISSUES: No suspicious bony or soft tissue abnormalities. CT/CT abdomen pelvis wo IV con IMPRESSION: 1. Large amount of stool throughout the colon. 2. No evidence of nephrolithiasis or ureteral obstruction. 3. Cirrhosis of the liver and hepatic steatosis. DATE OF SERVICE: 05/07/19 Colon cancer screening Chronic constipation Post-Op dx: Normal colon (Fair to poor prep) Procedure Description: Colonoscopy till cecum Surgeon(s): RIAN MIRANDA COLONOSCOPY PROCEDURE NOTE Procedure: The patient was placed in the left lateral decubitis position and pre-procedure medications were administered. After a digital rectal examination of the ano-rectum, the video colonoscope was inserted into the rectum and advanced through the colon to the cecum. The colonoscope was slowly withdrawn in a retrograde panoramic fashion and the colon mucosa was carefully examined including a retroflexed view of the rectum. Findings and interventions are described below. Procedure Difficulty: Colon was long and tortuous and there was some loop formation. LLQ pressure was applied to intubate the ascending colon Findings: Terminal Ileum ? Not evaluated Cecum ? Partially evaluated due to undigested vegetable matter Ascending Colon ? Partially evaluated due to undigested vegetable matter Transverse Colon - Partially evaluated due to undigested vegetable matter Descending Colon ? Partially evaluated due to undigested vegetable matter Sigmoid Colon ? Partially evaluated due to undigested vegetable matter Rectum ? Partially evaluated due to undigested vegetable matter Ano-rectum - Partially evaluated due to undigested vegetable matter. ranjana-anal skin tags. Colon preparation: Fair/poor in some areas due to undigested vegetable matter which could not be suctioned. 60 to 65% of the mucosa was visualized Impression and Post Procedure Diagnosis: Colonoscopy Findings: No polyps were detected Plan: Patient has an appointment on 05/24/19 in the GI [facility] with Rian Miranda M.D.-. I will discuss colon cancer screening with stool FIT test every 1-2 years since patient was not able to prep adequately for the procedure. Above findings were reviewed with the patient Assessment & Plan Assessment & Plan (1) Chronic constipation: Code(s): K59.09 - Other constipation Category: Medical Plan: C/w Irritable Bowel Syndrome Constipation Type - Improvement on Linzess with daily Type 4 stools, resolved rectal bleeding. - CBC, kidney function, liver enzymes (09/2024): Normal hemoglobin, normal kidney function, elevated liver enzymes. - Continue Linzess at current dose. Reinforced lifestyle modifications to promote regularity: -higher fiber diet, examples provided -adequate hydration with water -150 minutes of moderate intensity exercise per week (2) Colon cancer screening: Comment: 05/07/19 Colonoscopy complete with poor-fair prep. annual FIT testing advised Code(s): Z12.11 - Encounter for screening for malignant neoplasm of colon Category: Medical Plan: Last CRC screening 2019 as above - Order stool-based colorectal cancer screening test. - Proceed with colonoscopy if stools remain regular. (3) Transaminitis: Code(s): R74.01 - Elevation of levels of liver transaminase levels Category: Medical Plan: Unclear etiology, fatty liver disease possible cause. - basic and screening labs ordered, Patient to fast for 8 hours before blood draw (water allowed). - Discuss potential causes and next steps based on results. (4) Hemorrhoids: Code(s): K64.9 - Unspecified hemorrhoids Category: Medical Qualifiers: Hemorrhoid type: unspecified Qualified Code(s): K64.9 - Unspecified hemorrhoids Plan: history of external and intermittent, currently asymptomatic. - Monitor symptoms. - Reassess at follow-up visit if symptoms recur. Plan Follow-up 2 months or sooner as needed Time: I spent a total of 40 minutes on the date of encounter which includes: Preparing to see the patient (reviewed previous documentation, test results and medical history) Performing a medically appropriate exam and/or evaluation Ordering medications, tests, and procedures Documenting clinical information in the health record Orders: Orders Comprehensive [place]. Panel Fast Today July Cano CNP R74.01 - Elevation of levels of liver transaminase levels Smooth Muscle Antibody Today July Cano CNP R74.01 - Elevation of levels of liver transaminase levels Mitochondrial Antibody Today July Cano CNP R74.01 - Elevation of levels of liver transaminase levels Ferritin Today July Cano CNP R74.01 - Elevation of levels of liver transaminase levels Lipase Today July Cano CNP R74.01 - Elevation of levels of liver transaminase levels AMB Fecal Immunochemical Test Today July Cano CNP Z12.11 - Encounter for screening for malignant neoplasm of colon Prothrombin Time INR Today July Cano CNP R74.01 - Elevation of levels of liver transaminase levels Medications: Changed From polyethylene glycol 3350 (Miralax) 17 grams PO DAILY 1 week 119 grams 0RF To polyethylene glycol 3350 (Miralax) 17 grams PO DAILY PRN SVITLANA Danielle Coding Level of Care Code New Pt New Pt Level 3 (75061) Patient Type New Diagnoses Chronic constipation K59.09 Colon cancer screening Z12.11 Transaminitis R74.01 Hemorrhoids, unspecified hemorrhoid type K64.9 Hemorrhoid type: unspecified
--- OUTSIDE RECORDS SUMMARY | 2025-01-16 15:04 | XMS_ITS | Clinical Summary ---
Author Organization [address] [facility] Address [address] [place] [address] Phone Care Team Providers Care Diagnostics Sales Developer Name Role Phone Name, Michael BYNUM Primary Care Provider [phone] Allergies No known active allergies Medications acetaminophen [...] (one) time each day. 03/04/20 24 Active Stool Softener-Stimul ant Laxat 8.6-50 mg per tablet Take 1 tablet by mouth 1 (one) time each day. 06/13/20 24 Active zolpidem (AMBIEN) 10 mg tablet Take 1 tablet (10 mg total) by mouth at bedtime as needed. 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, right, sequela 11/22/2023 Overview (07/15/2024): Patient had a wrist arthroscopy and TFCC repair 10 years ago Immunizations Name Administration Dates Next Due Influenza [...] - - Weight 74.4 kg (164 lb) 10/14/2024 3:14 PM EDT Height 157.5 cm (5' 2.01 ) 10/14/2024 3:14 PM ED T Body Mass Index 29.99 10/14/2024 3:14 PM EDT Plan of Treatment Health Maintenance Due Date Last Done Comments Breast Cancer Screening 1970 Diabetes: Annual Foot Exam 1980 Diabetes: Annual Retina Eye Exam 1980 Hepatitis A Vaccines (1 of 2 - Risk 2-dose series) 1989 Hepatitis B Vaccines (1 of 3 - 19+ 3-dose series) 1989 Cervical Cancer Screening: Pap Smear 10/22/1991 Zoster Vaccines (1 of 2) 2020 Cholesterol Screening (Lipid Panel) 08/03/2023 Colorectal Cancer Screening: Colonoscopy 08/03/2023 Hepatitis C Screening 08/03/2023 Social Influencers of Health Screening 08/03/2023 COVID-19 Vaccine ( season) 2024 11/25/2020, 11/04/2020, 04/27/2016 Diabetes: Annual Urine Albumin-Creatinine Ratio (uACR) 07/15/2024 01/05/2023 Depression Screening 08/23/2024 08/23/2023 Influenza Vaccine (#1) 2025 , 08/16/2022, 06/08/2020, Additional history exists Diabetes: Blood Sugar Control Test (HGBA1C) 04/10/2025 10/09/2024, 05/02/2024 Diabetes: Annual GFR (Glomerular Filtration Rate) 10/07/2025 10/07/2024, 09/20/2024, 07/23/2024, Additional history exists Hypertension/CHF/CAD Annual BMP Blood Test 10/07/2025 10/07/2024, 09/20/2024, 07/23/2024, Additional history exists DTaP,Tdap,and Td Vaccines (3 - Td or Tdap) 08/16/2032 08/16/2022, 09/29/2010 Pneumococcal Vaccine: 50+ Years Completed 07/26/2023, 09/29/2010 HIV Screening Completed 08/18/2023 HIB Vaccines Aged [...] age to complete this topic Meningococcal B Vaccine Aged Out No l onger eligible based on patient's age to complete this topic RSV Immunization Patients Under 20 months Aged Out No longer eligible based on patient's age to complete this topic Varicella Vaccines Aged Out No longer eligible based on patient's age to complete this topic Insurance [facility] [employer] Care Teams Diagnostics Sales Developer Relationship Specialty Start Date End Date Name, MD Michael [address] [facility] [place] PCP - General 06/23/23
--- OUTSIDE RECORDS SUMMARY | 2025-01-16 15:04 | XMS_ITS | Encounter Summary ---
Author Organization [employer] Address [address] [place] [address] [address] [place] [address] Care Team Providers Care Purchase Price Analyst Name Role Phone Judi Allen MD Primary Care Provider + Reason for Visit * Reason Comments Med Refill Encounter Details Date Type Department Care Team (Late st Contact Info) Description 02/17/2023 Refill [facility] [address] [place] [address] Judi Allen MD [address] [place] [address] Chronic bilateral low back pain, unspecified whether [...] Care Team (Late st Contact Info) Description 03/11/2025 9:00 AM EDT Telemedicine [address] [address] Judi Allen MD [address] [place] [phone] 04/16/2025 2:00 PM EDT Clinical Support [address] [address] Marlena López, MARIPOSA documented as of this encounter Visit Diagnoses Diagnosis Chronic bilateral low back pain, unspecified whether sciatica present Primary hypertension Unspecified essential hypertension documented in this encounter Care Teams Purchase Price Analyst Relationship Specialty Start Date End Date Judi Allen MD [address] [place] [phone] PCP - General Family Medicine 03/25/21 documented as of this encounter
[2025-01-16 15:18] VITALS: BP 106/68; PULSE 68; O2SAT 97; BMI 29.4
== END 2025-01-16 15:53 | disposition home or self-care (01) ==
LOC: HO.HGI 15:00
PROVIDERS: PCP Internal Medicine; Visit Provider Nurse Practitioner Family
DX: K59.09 Other constipation (principal); R74.01 Elevation of levels of liver transaminase levels; K64.9 Unspecified hemorrhoids
CPT/HCPCS: 99203

== ENCOUNTER → 2025-01-16 15:00 | Outpatient (BNVA) | payer OTHER, SELFPAY | PROVIDERS: PCP Internal Medicine; Visit Provider Nurse Practitioner Family | DX: Z12.11 Encounter for screening for malignant neoplasm of colon (principal); K59.09 Other constipation; K64.9 Unspecified hemorrhoids; R74.01 Elevation of levels of liver transaminase levels | CPT/HCPCS: 99202 ==

== ENCOUNTER 2025-02-22 10:35 | Outpatient (REF) | payer OTHER, SELFPAY ==
[2025-02-22 11:21] LABS: INTERNATIONAL NORM RATIO 1.1 (0.9-1.1); Prothrombin Time 12.4 SEC (10.9-12.4)
[2025-02-22 11:40] LABS: Alanine Aminotransferase 38 U/L (0-31); Albumin Level 3.8 g/dL (3.5-5.0); Alkaline Phosphatase 94 U/L (39-117); Anion Gap 14 (12-20); Aspartate Amino Transferase 39 U/L (5-31); Blood Urea Nitrogen 12 mg/dL (9-16); Calcium 9.3 mg/dL (8.4-10.2); Carbon Dioxide 27 mmol/L (22-29); Chloride 102 mmol/L (96-108); Cholesterol 195 mg/dL (<200); Estimated Glomerular Filt Rate > 60; HDL Cholesterol 39 mg/dL (>40); Lipase 24 U/L (8-78); Potassium 4.1 mmol/L (3.3-5.1); Sodium 139 mmol/L (135-145); Total Protein 7.3 g/dL (6.5-8.0); Triglycerides 158 mg/dL (<150)
[2025-02-22 12:02] LABS: Ferritin 39 ng/mL (10-250)
[2025-02-22 12:17] LABS: Reflex LDLD? No
== END 2025-02-22 10:36 | disposition home or self-care (01) ==
LOC: HO.LAB 10:35
PROVIDERS: PCP Internal Medicine; Visit Provider Nurse Practitioner Family
DX: E11.65 Type 2 diabetes mellitus with hyperglycemia (principal); R74.01 Elevation of levels of liver transaminase levels
CPT/HCPCS: 36415; 80053; 80061; 80076; 82248; 82728; 83690; 85610; 86015; 86381

== ENCOUNTER 2025-03-26 15:48 | Outpatient (AMB) | payer OTHER, SELFPAY ==
--- NOTE | 2025-03-26 15:50 | A.OFFVIS_ITS ---
Vital Signs 03/26/25 15:51 Height 5 ft 2 in Weight 162 lb BMI 29.6 BP 134/65 Blood Pressure Location Lt brachial Position Sitting Pulse 75 Pulse Oximetry (%) 96 Oxygen Delivery Method Room Air Intake Visit Reasons: 2 mo f/u, labs results Intake Note: Patient cc: Patient 2 month follow up for chronic constipation and lab results. Patient cc: costipation is better, after eating she is getting hicock, denies any other GI issues. Consumer Marketing Analyst Required: Yes Consumer Marketing Analyst Name: Alexis MONIQUE Accompanied by: Self / Same As Patient Allergies Iodinated Contrast Media (IV Dye, Iodine Containing) Allergy (Intermediate, Verified 03/26/25 15:49) ITCHING HPI HPI 2 mo f/u, labs results: Details: Patient is a 54-year-old female with PMH of diabetes, hypertension and hyperlipidemia. Kelly present for f/u on chronic constipation and monitoring of elevated liver enzymes. Pt continues to struggle with chronic constipation. Linzess initially effective, allowing daily BMs and improved passage, but over past ~2 mos, BM frequency has decreased (now q2-3d), with episodes of significant cramping and abdominal discomfort, sometimes radiating toward sciatic nerve distribution; stools are soft when passage finally occurs. Occasional blood on wiping, attributed to hard stools. Linzess taken consistently, 1qd, am, prior to meals. Miralax trialed daily but minimal relief. No new diet changes but did switch DM med from Trulicity to Ozempic within same period. No N/V. Intermittent flatus. No hospitalizations, UC visits, or acute flares since last encounter. Social hx: -denies ETOH use -denies recreational drug use -non-smoker [facility] Medical History (Updated 01/16/25 @ 16:33 by July Cano CNP) Hemorrhoids Colon cancer screening Transaminitis NAFLD (nonalcoholic fatty liver disease) Chronic constipation Elevated liver enzymes Abdominal pain Kidney stones H. 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 Review of Systems Const Reports as per HPI ENT Reports as per HPI Card Reports as per HPI Resp Reports as per HPI GI Reports as per HPI Reports as per HPI Physical Exam Vital Signs: Last Vital Signs Pulse 75 03/26/25 15:51 BP 134/65 03/26/25 15:51 Pulse Ox 96 03/26/25 15:51 Oxygen Delivery Method Room Air 03/26/25 15:51 BMI result Body Mass Index 29.6 Const General: healthy appearing, no acute distress and well developed Nutritional Appearance: average body habitus Orientation/consciousness: patient oriented x3 HEENT Head: Yes normal to inspection, Yes normocephalic and Yes atraumatic Face and sinus: Yes normal facial exam Eyes General: appearance normal, both eyes and all related structures Neck Neck: Yes normal visual inspection Resp Effort & Inspection: normal respiratory effort, able to speak in complete sentences, no tracheal deviation and symmetric chest movement Cardio Jugular venous distension: no JVD GI Inspection: Yes normal to inspection, No distended and Yes obesity Palpation (GI): Soft to palpation, not firm, nontender and No hepatosplenomegaly present Auscultation: normal bowel sounds Neuro General: patient oriented x3 Gait exam (Neuro): Normal gait present Psych Appearance: grossly normal Mental Status: mental status grossly normal Speech and movement: Normal speech and movement present Affect: normal affect Attitude: cooperative Thought process: Normal thought process present Thought content: Normal thought content present Insight: Good insight present (Psych) Judgement: Good judgement present (Psych) Assessment & Plan Assessment & Plan (1) Chronic constipation: Code(s): K59.09 - Other constipation Category: Medical Plan: Worsening since transition to Ozempic; now experiencing interval BMs (q2-3d), hard stools, marked cramping/pain, and minor rectal bleeding. Additional Testing: None immediate?pending outcome stool-based CRC test. Medications: -Plan to increase Linzess to max dose (per pt?s insurance refill cycle; will start higher dose with next fill). -Continue Miralax prn. -Reinforce timing of Linzess (empty stomach, >30 min before meal). -Monitor for increased frequency/looser stools once on higher dose; maintain communication if side effects develop. Lifestyle Recommendations: -Reiterate importance of hydration, high-fiber diet (fruits, veg, beans, nuts per pt preferences). -Encourage physical activity beyond baseline occupational activity. Follow-Up Plan: -RTC in 2 mos to evaluate response to Linzess max titration; reassess bowel regimen efficacy and GI sx. -Report any significant increase in abd pain, N/V, obstipation, or overt GIB promptly. (2) NAFLD (nonalcoholic fatty liver disease): Code(s): K76.0 - Fatty (change of) liver, not elsewhere classified Category: Medical Plan: Stable; mild transaminitis, likely multifactorial (DM, possible central obesity/dyslipidemia), labs reassuring re: exclusion of other etiologies (autoimmune/viral). Additional Testing:Routine hepatic panel monitoring?frequency coordinated w/ PCP. Medications:No new med changes for liver dx; continue DM management as prescribed by PCP/rag room supervisor. Lifestyle Recommendations:Video Games Storywriter to maintain whole-foods diet, limit fried/fatty/sugary foods, avoid alcohol. Follow-Up Plan:Encourage ongoing monitoring with PCP; review hepatic panels at routine intervals. (3) Colon cancer screening: Comment: 05/07/19 Colonoscopy complete with poor-fair prep. annual FIT testing advised Code(s): Z12.11 - Encounter for screening for malignant neoplasm of colon Category: Medical Plan: Incomplete previous colonoscopy due to poor prep; currently pursuing stool-based CRC screen per Endoscopist rec. Additional Testing: -Stool-based screening?kit provided in office, pt to complete and submit. -Shared decision making to proceed with colonoscopy. We will discuss advanced bowel prep regimen for repeat colonoscopy at next visit. Medications:Review as above Lifestyle Recommendations:Re-education on prep compliance strategies for future colonoscopy. Follow-Up Plan:Review stool test results at next visit; advance to colonoscopy if indicated. Plan Follow-up two months or sooner as needed Time: I spent a total of 40 minutes on the date of encounter which includes: Preparing to see the patient (reviewed previous documentation, test results and medical history) Performing a medically appropriate exam and/or evaluation Ordering medications, tests, and procedures Documenting clinical information in the health record Orders: Orders AMB Stool Cards / FIT Kit Given Today Z12.11 - Encounter for screening for malignant neoplasm of colon Referrals GI Procedure Notification Z12.11 - Encounter for screening for malignant neoplasm of colon Medications: New linaclotide Take one tablet daily taken at least 30 minutes before a meal on an empty stomach 290 mcg PO QAM 30 caps 1RF Coding Level of Care Code Established Pt Est Pt Level 5 (45174) Patient Type Established Diagnoses Chronic constipation K59.09 NAFLD (nonalcoholic fatty liver disease) K76.0 Colon cancer screening Z12.11
[2025-03-26 15:51] VITALS: BP 134/65; PULSE 75; O2SAT 96; BMI 29.6
--- OUTSIDE RECORDS SUMMARY | 2025-03-26 19:06 | XMS_ITS | Encounter Summary ---
Author Organization [employer] Address [address] [place] [address] 7 [place] [address] Care Team Providers Care Public Employment Mediator Name Role Phone Judi Allen MD Primary Care Provider + Reason for Visit * Reason Comments Med Refill Encounter Details Date Type Department Care Team (Late st Contact Info) Description 02/17/2023 Refill [facility] MEDICINE [address] [place], [place] [phone] Judi Allen MD 230 [place] [address] Chronic bilateral low back pain, unspecified whether [...] Care Team (Late st Contact Info) Description 04/16/2025 2:00 PM EDT Clinical Support [address] [address] Marlena López, RN 05/21/2025 9:15 AM EST Office Visit [address] [address] Judi Allen MD [address] [place] [address] documented as of this encounter Visit Diagnoses Diagnosis Chronic bilateral low back pain, unspecified whether sciatica present Primary hypertension Unspecified essential hypertension documented in this encounter Care Teams Public Employment Mediator Relationship Specialty Start Date End Date Judi Allen MD [address] [place] [address] PCP - General Family Medicine 03/25/21 documented as of this encounter
--- OUTSIDE RECORDS SUMMARY | 2025-03-26 19:06 | XMS_ITS | Encounter Summary ---
Author Organization [employer] Address [address] [place] [address] 7 [place] [address] Care Team Providers Care Per Diem Physical Therapist Name Role Phone Judi Allen MD Primary Care Provider + Reason for Visit * Reason Comments Med Refill Encounter Details Date Type Department Care Team (Late Contact Info) Description 09/06/[address] [facility] MEDICINE 230 [place] [address] Judi Allen MD 230 [place] [address] Chronic bilateral low back pain, unspecified whether [...] Encounters Date Type Department Care Team (Late Contact Info) Description 04/16/2025 2:00 PM EDT Clinical Support [address] [address] Marlena López RN 05/21/2025 9:15 AM EST Office Visit [address] [address] Judi Allen MD [address] [place] [address] documented as of this encounter Visit Diagnoses Diagnosis Chronic bilateral low back pain, unspecified whether sciatica present documented in this encounter Care Teams Per Diem Physical Therapist Relationship Specialty Start Date End Date Judi Allen MD [address] [place] [address] PCP - General Family Medicine 03/25/21 documented as of this encounter
--- OUTSIDE RECORDS SUMMARY | 2025-03-26 19:06 | XMS_ITS | Encounter Summary ---
Author Organization [employer] Address [address] [facility] 7t [place] [address] Care Team Providers Care Weights And Measures Sealer Name Role Phone Judi Allen MD Primary Care Provider + Encounter Details Date Type Department Care Team ([facility] st Contact Info) Description 01/24/2024 Orders Only [facility] CHC MED & PEDS [address] [place], [place] [phone] Tiki Marie, LUCI [address] [place] [address] Social History Tobacco Use Types Packs/Day Years [...] Description 04/16/2025 2:00 PM EDT Clinical Support [facility] MEDICINE [address] [place] [address] Marlena López RN 05/21/2025 9:15 AM EST Office Visit [facility] MEDICINE [address] [place] [address] Judi Allen MD [address] [place] [address] documented as of this encounter Visit Diagnoses Not on filedocumented in this encounter Additional Health Concerns Assessment Noted Time PHQ-9 Depression Total Score: 13 024 3:34 PM EST documented as of this encounter Care Teams Weights And Measures Sealer Relationship Specialty Start Date End Date Judi Allen MD [address] [place] [phone] PCP - General Family Medicine 03/25/21 documented as of this encounter
--- OUTSIDE RECORDS SUMMARY | 2025-03-26 19:06 | XMS_ITS | Encounter Summary ---
Author Organization [employer] Address [address] [place] [address] 7 [place] [address] Care Team Providers Care Nurse Discharge Name Role Phone Judi Allen MD Primary Care Provider + Encounter Details Date Type Department Care Team (Late st Contact Info) Description 10/27/2022 Orders Only [facility] MEDICINE [address] [place] [address] [phone] Sia Youssef LPN Social History Tobacco Use [...] Description 04/16/2025 2:00 PM EDT Clinical Support [facility] MEDICINE [address] [place] [address] Marlena López RN 05/21/2025 9:15 AM EST Office Visit [facility] MEDICINE 230 [place] [address] Judi Allen MD 230 [place] [address] documented as of this encounter Visit Diagnoses Not on filedocumented in this encounter Care Teams Nurse Discharge Relationship Specialty Start Date End Date Judi Allen MD 230 [place] [address] PCP - General Family Medicine 03/25/21 documented as of this encounter
--- OUTSIDE RECORDS SUMMARY | 2025-03-26 19:06 | XMS_ITS | Encounter Summary ---
Author Organization [employer] Address [address] [place] [address] 7 [place] [address] Care Team Providers Care M1A1 Tank Crewman Name Role Phone Judi Allen MD Primary Care Provider + Reason for Visit * Reason Comments Med Refill Encounter Details Date Type Department Care Team ([facility] st Contact Info) Description 05/17/2024 Refill [facility] MEDICINE 230 [place], [place] [phone] Judi Allen MD 230 [place], [place] [phone] Type 2 diabetes mellitus with hyperglycemia, without long-term current use of insulin ([facility]) Social History Tobacco Use Types Packs/Day Years [...] Description 04/16/2025 2:00 PM EDT Clinical Support [facility] MEDICINE [address] [place] [address] Marlena López RN 05/21/2025 9:15 AM EST Office Visit [facility] MEDICINE [address] [place] [address] Judi Allen MD [address] [place] [address] documented as of this encounter Visit Diagnoses Diagnosis Type 2 diabetes mellitus with hyperglycemia, without long-term current use of insulin ([facility]) documented in this encounter Additional Health Concerns Assessment Noted Time PHQ-9 Depression Total Score: 13 024 3:34 PM EST documented as of this encounter Care Teams M1A1 Tank Crewman Relationship Specialty Start Date End Date Judi Allen MD [address] [place] [address] PCP - General Family Medicine 03/25/21 documented as of this encounter
--- OUTSIDE RECORDS SUMMARY | 2025-03-26 19:06 | XMS_ITS | Encounter Summary ---
Author Organization [employer] Address [address] [place] [address] 7t [place] [address] Care Team Providers Care Grounds Foreman Name Role Phone Judi Allen MD Primary Care Provider + Reason for Visit * Reason Comments Med Refill Encounter Details Date Type Department Care Team ([facility] st Contact Info) Description 10/03/2023 Refill [facility] MEDICINE 230 [place], [place] [phone] Judi Allen MD 230 [place] [address] Chronic bilateral low back pain, unspecified whether [...] Description 04/16/2025 2:00 PM EDT Clinical Support [address] [address] Marlena López RN 05/21/2025 9:15 AM EST Office Visit [address] [address] Judi Allen MD [address] [place] [address] documented as of this encounter Visit Diagnoses Diagnosis Chronic bilateral low back pain, unspecified whether sciatica present documented in this encounter Additional Health Concerns Assessment Noted Time PHQ-9 Depression Total Score: 13 024 3:34 PM EST documented as of this encounter Care Teams Grounds Foreman Relationship Specialty Start Date End Date Judi Allen MD [address] [place] [address] PCP - General Family Medicine 03/25/21 documented as of this encounter
--- OUTSIDE RECORDS SUMMARY | 2025-03-26 19:06 | XMS_ITS | Encounter Summary ---
Author Organization [employer] Address [address] [place] [address] 7 [place] [address] Care Team Providers Care Environmental Coordinator Name Role Phone Judi Allen MD Primary Care Provider + Encounter Details Date Type Department Care Team (Late st Contact Info) Description 01/30/[address] [facility] MEDICINE [address] [place] [address] [phone] Sia Youssef LPN Social History Tobacco Use [...] 04/16/2025 2:00 PM EDT Clinical Support [address] [phone] Marlena López RN 05/21/2025 9:15 AM EST Office Visit [facility] MEDICINE [address] [place] [address] [phone] Judi Allen MD [address] [place] [address] [phone] documented as of this encounter Visit Diagnoses Not on filedocumented in this encounter Care Teams Environmental Coordinator Relationship Specialty Start Date End Date Judi Allen MD [address] [place] [address] PCP - General Family Medicine 03/25/21 documented as of this encounter
--- OUTSIDE RECORDS SUMMARY | 2025-03-26 19:06 | XMS_ITS | Encounter Summary ---
Author Organization [employer] Address [address] [place] [address] 7t [place] [address] Care Team Providers Care Arcade Game Technician Name Role Phone Judi Allen MD Primary Care Provider + Encounter Details Date Type Department Care Team (Late st Contact Info) Description 07/13/2022 Orders Only [facility] CHC MED & PEDS 505 [place], [place] [phone] Brenda Metzger LPN Social History Tobacco Use [...] Description 04/16/2025 2:00 PM EDT Clinical Support [facility] MEDICINE [address] [place] [address] Marlena López, RN 05/21/2025 9:15 AM EST Office Visit [facility] MEDICINE [address] [place] [address] [phone] Judi Allen MD [address] [place] [address] [phone] documented as of this encounter Procedures Procedure Name Priority Date/Time Associated Diagnosis Comments XR KNEE 3 VIEWS LEFT Routine 07/19/2022 2:24 PM EST documented in this encounter Results * XR Knee 3 Views Left (07/19/2022 2:24 PM EST) Anatomical Region Laterality Modality Lower Extremities, Knee Left Radiogra phic Imaging 07/19/2022 2:24 PM EST Narrative 07/23/2022 1:32 PM EST [address] [address] XRay Report Signed Patient: Kelly Schumacher MR#: [id number] : 1970 Acct:[id number] Age/Sex: 51 / F ADM Date: 07/19/22 Loc: HO.XRAY Attending Dr: Jose Armando Limon MD Ordering Physician: JOSE ARMANDO LIMON MD Date of Service: 07/19/22 Procedure(s): XR knee LT 3V Accession Number(s): [id number] cc: JOSE ARMANDO LIMON MD EXAMINATION: XR [...] could be obtained with MRI. Dictated By: Sepncer Santiago MD Signed By: <Electronically signed by Spencer Santiago MD in OV> 07/23/22 1329 DD/ 1424 TD/TT: Hoop Expander: CRAFT Procedure Note Donotuseinterpreter, Image - 08/15/[address] [address] XRay Report Signed Patient: Elijah Schumacher#: [id number] : 1970Acct:[id number] Age/Sex: 51 / FADM Date: 07/19/22 Loc: HO.XRAY Attending Dr: Jose Armando Limon MD Ordering Physician: JOSE ARMANDO LIMON MD Date of Service: 07/19/22 Procedure(s): XR knee LT 3V Accession Number(s): [id number] cc: JOSE ARMANDO LIMON MD EXAMINATION: XR [...] in OV> 07/23/22 1329 DD/ 1424 TD/TT: Hoop Expander: LUANA [facility] External Provider IMG XR PROCEDURES Final Result documented in this encounter Visit Diagnoses Not on filedocumented in this encounter Care Teams Arcade Game Technician Relationship Specialty Start Date End Date Judi Allen MD [address] [place] [address] PCP - General Family Medicine 03/25/21 documented as of this encounter
--- OUTSIDE RECORDS SUMMARY | 2025-03-26 19:06 | XMS_ITS | Encounter Summary ---
Author Organization [employer] Address [address] [place] [address] 7 [place] [address] Care Team Providers Care Factory Lay Out Engineer Name Role Phone Judi Allen MD Primary Care Provider + Reason for Visit * Reason Comments Med Refill Encounter Details Date Type Department Care Team (Late Contact Info) Description 10/14/2022 Refill [facility] MEDICINE 230 [place] [address] Judi Allen MD 230 [place] [address] Chronic bilateral low back pain, unspecified whether [...] Description 04/16/2025 2:00 PM EDT Clinical Support [address] [address] Marlena López RN 05/21/2025 9:15 AM EST Office Visit [address] [address] Judi Allen MD [address] [place] [address] documented as of this encounter Visit Diagnoses Diagnosis Chronic bilateral low back pain, unspecified whether sciatica present documented in this encounter Care Teams Factory Lay Out Engineer Relationship Specialty Start Date End Date Judi Allen MD [address] [place] [phone] PCP - General Family Medicine 03/25/21 documented as of this encounter
--- OUTSIDE RECORDS SUMMARY | 2025-03-26 19:06 | XMS_ITS | Encounter Summary ---
Author Organization [employer] Address [address] [place] [address] 7t [place] [address] Care Team Providers Care Bread Icer Name Role Phone Judi Allen MD Primary Care Provider + Encounter Details Date Type Department Care Team ([facility] Contact Info) Description 11/24/2022 Orders Only [facility] CHC MED & PEDS [address] [place], [place] [phone] Brenda Metzger LPN Social History Tobacco Use [...] Description 04/16/2025 2:00 PM EDT Clinical Support [facility] MEDICINE 230 [place] [address] Marlena López RN 05/21/2025 9:15 AM EST Office Visit [facility] MEDICINE [address] [place] [address] Judi Allen MD 230 [place] [address] documented as of this encounter Visit Diagnoses Not on filedocumented in this encounter Care Teams Bread Icer Relationship Specialty Start Date End Date Judi Allen MD [address] [place] [address] PCP - General Family Medicine 03/25/21 documented as of this encounter
--- OUTSIDE RECORDS SUMMARY | 2025-03-26 19:06 | XMS_ITS | Encounter Summary ---
Author Organization [email or web address] Address [address] [place] [address] 7t [place] [address] Care Team Providers Care Composition Weatherboard Applier Name Role Phone Judi Allen MD Primary Care Provider + Encounter Details Date Type Department Care Team (Late Contact Info) Description 11/22/2022 Abstract [facility] MEDICINE [address] [place] [address] [phone] Judi Allen MD [address] [place] [address] [phone] Social History Tobacco Use Types Packs/Day Years [...] Description 04/16/2025 2:00 PM EDT Clinical Support [facility] MEDICINE [address] [place] [address] Marlena López RN 05/21/2025 9:15 AM EST Office Visit [facility] MEDICINE 230 [place] [address] Judi Allen MD [address] [place] [address] documented as of this encounter Visit Diagnoses Not on filedocumented in this encounter Care Teams Composition Weatherboard Applier Relationship Specialty Start Date End Date Judi Allen MD [address] [place] [phone] PCP - General Family Medicine 03/25/21 documented as of this encounter
--- OUTSIDE RECORDS SUMMARY | 2025-03-26 19:06 | XMS_ITS | Encounter Summary ---
Author Organization [email or web address] Address [address] [place] [address] 7t [place] [address] Care Team Providers Care Fish Checker Name Role Phone Judi Allen MD Primary Care Provider + Encounter Details Date Type Department Care Team ([facility] st Contact Info) Description 05/29/2023 Orders Only [facility] CHC MED & PEDS [address] [place], [place] [phone] Brenda Metzger LPN Social History Tobacco Use [...] Description 04/16/2025 2:00 PM EDT Clinical Support [facility] MEDICINE [address] [place] [address] Marlena López RN 05/21/2025 9:15 AM EST Office Visit [facility] MEDICINE [address] [place] [address] Judi Allen MD [address] [place] [address] documented as of this encounter Visit Diagnoses Not on filedocumented in this encounter Care Teams Fish Checker Relationship Specialty Start Date End Date Judi Allen MD [address] [place] [address] PCP - General Family Medicine 03/25/21 documented as of this encounter
--- OUTSIDE RECORDS SUMMARY | 2025-03-26 19:06 | XMS_ITS | Clinical Summary ---
Author Organization [employer] Address [address] [place] [address] 7[address] [place] [address] Care Team Providers Care Joint Creaser Name Role Phone Gómez Fermin MD Primary Care Provider + Allergies Active Allergy Reactions Criticality Noted Date Comments Azithromycin 02/28/2017 Iodinated Contrast Media Itching High 09/20/2024 Iodine 02/28/2017 Medications * This document contains information received from the source organization and may not represent a complete record from that organization. FREESTYLE LITE test strip TEST BLOOD SUGAR TWICE DAILY 100 strip 11 023 Active naloxone (Narcan) 4 mg/0.1 mL nasal spray Administer 1 spray (4 mg) into affected nostril(s) if needed for opioid reversal. 2 each 2 023 Active Sodium Fluoride (PreviDent 5000 Plus) 1.1 % cream Apply 1 mg to teeth 3 times daily. 1 g 3 023 Active gabapentin (Neurontin) 300 MG capsuleIndicati ons:Generalized anxiety disorder with panic attacks,Arm paresthesia, left Take 1 capsule (300 mg) by mouth 2 times daily. 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 10 tablet 024 Active meclizine (Antivert) 25 MG tablet TAKE 1 TABLET BY MOUTH THREE TIMES DAILY IN THE MORNING, AT NOON, AND AT BEDTIME NEEDED FOR DIZZINESS OR FOR NAUSEA 30 tablet Active Diclofenac Sodium 1 % gelIndications: Arthritis APPLY 2 GRAMS TOPICALLY TO AFFECTED AREA(S) FOUR TIMES DAILY 100 g 3 024 Active hydrocortisone 2.5 % cream Apply pea sized amount to skin bid for 1 week 15 g 024 Active Multiple Vitamins-Iron (Tab-A-Fatimah/Iro n/Beta Carotene) tablet [...] hyperglycemia, without long-term current use of insulin (CMS/[facility]) TAKE 1 TABLET BY MOUTH EVERY DAY IN THE MORNING 30 tablet 11 01/27/2 025 Active lidocaine (Lidoderm) 5 % patchIndication s:Chronic bilateral low back pain with left-sided sciatica Apply 1 patch topically Once per day. Remove & discard patch within 12 hours or as directed by MD. 30 patch 3 025 Active pantoprazole (ProtoNix) 40 MG EC tabletIndicatio ns:Gastroesopha geal reflux disease, unspecified whether esophagitis present TAKE 1 TABLET BY MOUTH EVERY DAY 90 tablet 3 025 Active cholecalciferol (Vitamin D-3) 125 MCG (5000 UT) capsule TAKE 1 CAPSULE BY MOUTH EVERY DAY IN THE MORNING 90 capsule 3 025 Active albuterol 108 (90 Base) MCG/ACT inhaler INHALE 2 PUFFS BY MOUTH EVERY 4 HOURS NEEDED FOR WHEEZING OR SHORTNESS OF BREATH 8.5 g 3 025 Active linaCLOtide (Linzess) 145 MCG capsule Take 1 capsule (145 mcg) by mouth before breakfast. Do not crush or chew. 30 capsule 11 025 2025 Active FLUoxetine (PROzac) 20 MG capsuleIndicati ons:Recurrent major depressive disorder, in partial remission (CMS/HCC) TAKE 3 CAPSULES BY MOUTH EVERY DAY IN THE MORNING 270 capsule 3 025 Active clotrimazole (Lotrimin) 1 % cream APPLY TOPICALLY TWICE DAILY FOR FOURTEEN DAYS 30 g 1 025 Active metFORMIN XR (Glucophage-XR) 500 MG 24 hr tabletIndicatio ns:Type 2 diabetes mellitus with other specified complication, unspecified whether [place] use ([facility]) TAKE 2 TABLETS BY MOUTH EVERY 12 HOURS 360 tablet 2 025 Active busPIRone (Buspar) 5 MG tabletIndicatio ns:Generalized anxiety disorder with panic attacks TAKE 1/2 TABLET BY MOUTH TWICE DAILY FOR 7 DAYS, MAY INCREASE TO 1 TABLET BY MOUTH TWICE DAILY THEREAFTER 60 tablet 1 025 Active Multiple Vitamins-Minera ls (CertaVite/Anti oxidants) tablet TAKE 1 TABLET BY MOUTH EVERY DAY 90 tablet 025 Active semaglutide (Ozempic, 1 MG/DOSE,) 4 MG/3ML solution pen-injectorInd ications:Type 2 diabetes mellitus with hyperglycemia, without long-term current use of insulin ([facility]) Inject 1 mg under the skin 1 (one) time per week. 1 each 3 025 Active oxyCODONE (Roxicodone) 5 MG immediate release tabletIndicatio ns:Chronic bilateral low back pain, unspecified whether sciatica present Take 1 tablet (5 mg) by mouth if needed in the morning, at noon, and at bedtime for severe pain for up to 28 days. 84 tablet 025 2024 Active zolpidem (Ambien) 10 MG tabletIndicatio ns:Primary insomnia TAKE 1 TABLET BY MOUTH AT BEDTIME NEEDED 15 tablet 2 025 Active Multiple Vitamins-Minera ls (CertaVite/Anti oxidants) tablet TAKE 1 TABLET BY MOUTH EVERY DAY 90 tablet 3 023 2024 Discontinued busPIRone (Buspar) 5 MG tabletIndicatio ns:Generalized anxiety disorder with panic attacks TAKE 1/2 TABLET BY MOUTH TWICE DAILY FOR 7 DAYS, MAY INCREASE TO 1 TABLET BY MOUTH TWICE DAILY THEREAFTER 60 tablet 1 025 2024 Discontinued zolpidem (Ambien) 10 MG tabletIndicatio ns:Primary insomnia TAKE 1 TABLET BY MOUTH AT BEDTIME NEEDED 15 tablet 2 025 2024 Discontinued Semaglutide,0.2 5 or 0.5MG/DOS, (Ozempic, 0.25 or 0.5 MG/DOSE,) 2 MG/3ML solution pen-injectorInd ications:Type 2 diabetes mellitus with hyperglycemia, without long-term current use of insulin ([facility]) Inject 0.5 mg under the skin 1 (one) time per week. 3 mL 1 025 2024 Discontinued oxyCODONE (Roxicodone) 5 MG immediate release tabletIndicatio ns:Chronic bilateral low back pain, unspecified whether sciatica present TAKE 1 TABLET BY MOUTH EVERY 8 HOURS NEEDED FOR SEVERE PAIN FOR UP TO 28 DAYS 84 tablet 025 2024 Discontinued(R eorder (will not trigger notification to Pharmacy)) Active Problems Problem Noted Date Diagnosed Date Class 1 obesity due to exces s calories with serious comorbidity and body mass index (BMI) of 30.0 to 30.9 in adult 11/27/2024 Assessment & Plan (03/11/2025 2:56 PM EDT): Discussed re weight reduction options including exercise, life style modifications, diet. Recommended to decrease soda and sugary beverage consumption, increase protein intake with meals (at least 1 portion of protein with each meal) to assist with satiety, increase dietary fiber Recommended at least 150 min/week of moderate intensity exercise. Increase Ozempic to 1 mg/day and continue metformin Follow-up with me in 6 weeks Will refer to dietitian Assessment & Plan (11/28/2024 3:30 PM EDT): Discussed re weight reduction options including exercise, life style modifications, diet. Recommended to decrease soda and sugary beverage consumption, increase protein intake with meals (at least 1 portion of protein with each meal) to assist with satiety, increase dietary fiber Recommended at least 150 min/week of moderate intensity exercise. Patient is on Ozempic mainly due to DM, will continue to titrate up as tolerated. Abnormal CT of the abdomen 10/08/2024 Atypical chest pain 10/08/2024 Elevated liver enzymes 10/08/2024 Assessment & Plan (03/11/2025 3:01 PM EDT): Autoimmune hepatitis test is negative as well as viral hepatitis. It is most likely related to long-term uncontrolled diabetes, obesity and use of narcotics. We discussed about tighter control of diabetes, weight reduction and avoid recreational substances or alcohol Will refer to GI, Dr. Amador does not take her insurance any longer. Epigastric abdominal pain 10/08/2024 Ganglion 10/08/2024 Hepatic steatosis 10/08/2024 NAFLD (nonalcoholic fatty liver disease) 025 Numbness of left hand 10/08/2024 Partial tear of left rotator cuff 10/08/2024 Vitamin D deficiency 10/08/2024 Hyperlipidemia 10/08/2024 Overview (10/08/2024): LDL goal <100 Osteoarthritis of left knee 10/08/2024 Enteritis 06/13/2024 Assessment & Plan (06/13/2024 2:34 [...] see enteritis POC Chronic idiopathic constipation 05/02/2024 Overview (11/28/2024 3:31 PM EDT): >>OVERVIEW FOR CHRONIC CONSTIPATION WRITTEN ON 10/08/2024 3:51 PM BY RADHA MOELLER MA Bowel regimen, be consistent Assessment & Plan (11/28/2024 3:33 PM EDT): She has baseline constipation, probably worsened by oxycodone and GLP 1. Continue Senokot and MiraLAX, add Linzess. Referred back to GI for further evaluation, may need an updated colonoscopy. Assessment & Plan (05/02/2024 1:36 PM EDT): May be related to increased Oxycodone dose. Increase fiber and water intake + start Senna. Long-term current use of opiate analgesic 2023 Overview (03/19/2024): Medication: oxycodone 5mg TID PRN Indication: Lumbar OA w/ radiculopathy Last [employer] Agreement: 06/14/23 Sprain of metacarpophalangeal joint of right ricardo mb 02/02/2024 Assessment & Plan (05/02/2024 1:43 PM EDT): S/P cortisol injections. Fu with Orthopaedics prn. Advised to use thumb splint. Assessment & Plan (02/02/2024 1:11 PM EDT): Will order thumb splint to mobilize joint for 4 weeks. Use Tylenol plus Diclofenac gel prn. F/u with me next visit. 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 -Continue gabapentin 300mg bid for neuropathic pain and help with anxiety as well. -Call [facility] and rs appt, I will fu on this in 6w. -Oxycodone 5mg bid sent to pharmacy x 2w, she has Naloxone at home -FU with [employer] team on 10/17 Screening mammogram for breast [...] in wait list for OP services with [facility], provided agency information to patient. Assessment & [...] and is able to contract for safety FU in Assessment & Plan (08/23/2023 4:01 PM [...] to BID and will fu closely w [employer] nurse Refer to in house pain clinic [...] treatment if dependence continues. Monitor closely with [employer] nurse. Intertrigo of genitocrural region due to [...] on 06/22/23 re taper and FU with [employer] nurse. She couldn't provide urine for Utox [...] driving. See previous note and FU with [employer] nurse. Will work with her over the next month to cut down to off on nonprescriped controlled substances. FU with me in 4-6 weeks. Anemia 08/12/2022 Cervical lymphadenopathy 08/12/2022 Eczema 08/12/2022 Hypertriglyceridemia 08/12/2022 Wheezing 08/12/2022 Mass of neck 08/12/2022 Allergic rhinitis 04/15/2014 Insomnia 04/15/2014 Loss of sense of smell 05/17/2013 Depressive disorder 12/29/2011 Assessment & Plan (08/17/2022 11:09 AM EST): Has increased anxiety, unclear if related to life situations or exacerbated by taking benzos, unclear about other substances. Counseled to cut down to off on benzos. Increase fluoxetine to 60mg and refer to N FU in 3-4w. Essential hypertension 12/29/2011 Assessment & Plan (11/28/2024 3:29 PM EDT): Uncontrolled today, may be related to uncontrolled diabetes, BP is usually controlled. Continue lisinopril/HCTZ and follow-up BP in 1 month. Counseled re low salt diet/increase moderate physical activity. Check home BP BIW and prn CP/HERNANDEZ/MAHARAJ Non smoking patient. Assessment & Plan (11/10/2023 3:34 PM EDT): [...] BIW and prn CP/HERNANDEZ/MAHARAJ Non smoking patient. Pure hypercholesterolemia 12/29/2011 Assessment & Plan (05/02/2024 1:34 PM EDT): We discussed re rx options. Recommended moderate amount of exercise and increase consumption of fruit, vegetables, fish and high fiber foods. Should decrease consumption of highly saturated fats or trans fats. Start Atorvastatin 40 mg at bedtime. Fu with labs in 3 months. Type 2 diabetes mellitus with hyperglycemia 12/09 Assessment & Plan (03/11/2025 2:47 PM EDT): It is probably better control, we will follow-up A1c in 6 weeks. Patient is not having hypoglycemia, I will increase Ozempic to 1 mg/week and follow-up in 6 weeks, will optimize as much as possible to a BMI of 25. Continue Jardiance and metformin Counseled re more frequent low calorie/carb meals. Encouraged physical activity as tolerated. Abdominal evaluation due on April 2025, appointment made by patient Dental examination on July 2024, reminded to schedule appointment for follow- up dental clinic. Assessment & Plan (11/28/2024 3:30 PM EDT): Uncontrolled, she is off Trulicity for 2 or 3 months. DC Trulicity and start Ozempic 0.25 mg x 1 month and will continue to titrate up as tolerated. Continue metformin and Jardiance Counseled re more frequent low calorie/carb meals. Check fgstk 2x daily Encouraged physical activity as tolerated. FU in 4-6 weeks Assessment & Plan (11/27/2024 9:03 AM EDT): >>ASSESSMENT AND PLAN FOR TYPE 2 DIABETES MELLITUS WITH OTHER SPECIFIED COMPLICATION, UNSPECIFIED WHETHER ASSISTED INSULIN USE (CMS/HCC) WRITTEN ON 08/17/2022 11:07 AM BY GÓMEZ FERMIN MD Uncontrolled Increase trulicity to 3mg/w, continue Metformin Counseled re more frequent low calorie/carb meals. Check fgstk 2x daily Encouraged physical activity as tolerated. FU in 3-4w w labs Assessment & Plan (11/27/2024 9:03 AM EDT): >>ASSESSMENT AND PLAN FOR TYPE 2 DIABETES MELLITUS WITH OTHER SPECIFIED COMPLICATION, UNSPECIFIED WHETHER ASSISTED INSULIN USE (CMS/HCC) WRITTEN ON 09/08/2022 9:42 AM BY NHI MOYA Seems to be improved, will FU in 6 weeks. Assessment & Plan (11/27/2024 9:03 AM EDT): >>ASSESSMENT AND PLAN FOR TYPE 2 DIABETES MELLITUS WITH OTHER SPECIFIED COMPLICATION, UNSPECIFIED WHETHER ASSISTED INSULIN USE (CMS/HCC) WRITTEN ON 07/26/2023 9:50 PM BY GÓMEZ FERMIN MD Improved, A1c is not at goal yet. Continue on Trulicity 3mg (4.5mg is not available at this time/back order)+ Metformin 1000mg bid. Add jardiance Counseled re more frequent low calorie/carb meals. Check fgstk 2x daily Encouraged physical activity as tolerated. FU in 4-6w. Assessment & Plan (11/27/2024 9:03 AM EDT): >>ASSESSMENT AND PLAN FOR TYPE 2 DIABETES MELLITUS WITH OTHER SPECIFIED COMPLICATION, UNSPECIFIED WHETHER ASSISTED INSULIN USE (CMS/HCC) WRITTEN ON 08/18/2023 10:46 AM BY JOSEPH TREVINO Improving, continue medications, Jardiance added 2 wks ago Fu in 6 wks See previous note Assessment & Plan (11/27/2024 9:03 AM EDT): >>ASSESSMENT AND PLAN FOR TYPE 2 DIABETES MELLITUS WITH OTHER SPECIFIED COMPLICATION, UNSPECIFIED WHETHER ASSISTED INSULIN USE ([facility]) WRITTEN ON 10/09/2023 6:04 PM BY GÓMEZ FERMIN MD Continue Jardiance + Trulicity + Metformin and fu 1mo Assessment & Plan (11/27/2024 9:03 AM EDT): >>ASSESSMENT AND PLAN FOR TYPE 2 DIABETES MELLITUS WITH OTHER SPECIFIED COMPLICATION, UNSPECIFIED WHETHER ASSISTED INSULIN USE ([facility]) WRITTEN ON 11/10/2023 3:35 PM BY GÓMEZ FERMIN MD Significantly improved. A1c is not at goal yet. No change in meds Counseled re more frequent low calorie/carb meals. Check fgstk 2x daily Encouraged physical activity as tolerated. FU in 3 months. Assessment & Plan (11/27/2024 9:03 AM EDT): >>ASSESSMENT AND PLAN FOR TYPE 2 DIABETES MELLITUS WITH OTHER SPECIFIED COMPLICATION, UNSPECIFIED WHETHER DIRECTOR DESIGN INSULIN USE ([facility]) WRITTEN ON 02/02/2024 12:15 PM BY ITZEL CHRISTOPHER Improving, A1c is not at goal yet. Continue on Metformin + Trulicity + Jardiance, same dose Counseled re more frequent low calorie/carb meals. Check fgstk twice daily Encouraged physical activity as tolerated. FU in 3 months with labs. Assessment & Plan (11/27/2024 9:03 AM EDT): >>ASSESSMENT AND PLAN FOR TYPE 2 DIABETES MELLITUS WITH OTHER SPECIFIED COMPLICATION, UNSPECIFIED WHETHER DIRECTOR DESIGN INSULIN USE ([facility]) WRITTEN ON 05/02/2024 1:28 PM BY LADARIUS VALENTIN Uncontrolled, will increase Trulicity to 4.5 mg. No change in other medications. Continue current medications. Counseled re more frequent low calorie/carb meals. Check fgstk 2x daily Encouraged physical activity as tolerated. FU in 3 months. Resolved Problems Problem Noted Date Diagnosed Date Resolved Date Vulvar candidiasis 11/28/2024 Assessment & Plan (11/28/2024 3:34 PM EDT): Due to uncontrolled diabetes. Rx fluconazole weekly x 3 weeks plus clotrimazole cream twice daily Avoid shaving pubic area, may have a stronger reaction to shaving creams Fall (on) (from) other stair s and steps, initial encounter 10/08/2024 03/11/2025 Left hand pain 10/08/2024 03/11/2025 Abdominal pain 10/08/2024 03/11/2025 Assessment & Plan (12/30/2024 6:33 AM EDT): -likely r/t constipation given negative ED work up. -trial magnesium citrate once followed by miralax every other day. States she has these meds at home -advised increased dietary fiber, increased water intake and routine physical activity as this -emergency precautions reviewed Cough 08/12/2022 02/02/2024 Unintentional weight loss 08/12/2022 Tired 08/12/2022 03/11/2025 Right flank pain 08/12/2022 02/02/2024 Asthma 04/15/2014 02/02/2024 Backache 02/04/2013 03/11/2025 Assessment & Plan (12/30/2024 6:36 AM EDT): -acute on chronic presentation -advised ibuprofen q6 h as needed -daily stretching encouraged. Exercises taught today -return & ED precautions reviewed Assessment & Plan (08/17/2022 11:11 AM EST): [...] will refer to MH team. Will notify [employer] nurse and bring her more often for Utox and pill count. Patient aware of potential interaction of benzos with both ambien and oxycodone Kidney stone 12/29/2011 03/11/2025 Encounters Date Type Department Care Team Description 03/19/2025 Refill [facility] [address] [place] [id number] Gómez Fermin MD Primary insomnia 03/11/2025 9:00 AM EDT Telemedicine [facility] [address] [place] [address] Gómez Fermin MD Type 2 diabetes mellitus with hyperglycemia, without long-term current use of insulin (CMS/HCC) (Primary Dx); Class 1 obesity due to excess calories with serious comorbidity and body mass index (BMI) of 30.0 to 30.9 in adult; Elevated liver enzymes; Chronic bilateral low back pain, unspecified whether sciatica present; Encounter for colorectal cancer screening 03/11/2025 Travel 03/05/2025 Refill [facility] [address] [place], [place] [phone] Gómez Fermin MD 03/05/2025 Telephone [facility] [address] [place] [address] Gómez Fermin MD Chart Prep 02/25/2025 Refill [facility] [address] [place] [address] Nicole Polanco MD Generalized anxiety disorder with panic attacks 02/22/2025 Orders Only GENERIC EXTERNAL DATA DEPARTMENT Provider, Generic External Data 02/10/2025 Refill [facility] [address] [place] [address] Nicole Polanco MD Chronic bilateral low back pain, unspecified whether sciatica present 01/30/2025 Refill [facility] [address] [place], [place] [phone] Gómez Fermin MD Type 2 diabetes mellitus with other specified complication, unspecified whether [facility] insulin use (CMS/HCC) 01/17/2025 Refill [facility] [address] [place], [place] [phone] Gómez Fermin MD Type 2 diabetes mellitus with hyperglycemia, without long-term current use of insulin (CMS/HCC) 01/13/2025 Refill [facility] [address] [place] [address] Gómez Fermin MD Chronic bilateral low back pain, unspecified whether sciatica present 01/07/2025 10:30 AM EDT Clinical Support [facility] [address] [place] [address] Marlena López RN Long-term current use of opiate analgesic (Primary Dx) 01/07/[address] [id number] Marlena López RN BPI scoring; Pt requesting increase dose of Oxycodone 01/07/2025 Travel 01/03/2025 Refill [facility] [address] [place] [address] Gómez Fermin MD from Last 3 Months Immunizations Immunization Administration Dates Next Due Influenza injectable quadriv [...] Answer Date Recorded Patient Health Questionnaire-9 Score 7 03/11/2025 Patient Health Questionnaire-9 Score 7 03/11/2025 Last PHQ-9: Questionnaire Data Not on file 0 03/11/2025 Housing Stability Answer Date Recorded What is your housing situation today? I have luís gail 04/28/[address] you li [...] Answer Date Recorded Patient Health Questionnaire-2 Score 1 03/11/2025 Comments No Sex and Gender Information Value Date Recorded Sex Assigned at Female 05/09/2022 10:16 AM EDT Legal Sex Female 10:16 AM EDT Gender Identity Female 05/09/2022 10:16 AM EDT Sexual Orientation Don't know 05/09/2022 10 :16 AM EDT Last Filed Vital Signs Vital Sign Reading Time Taken Comments Blood Pressure 138/91 11/27/2024 9:05 AM EDT Pulse 68 11/27/2024 9:05 AM EDT Temperature 35.2 C (95.3 F) 11/27/2024 9:05 AM EDT Respiratory Rate 18 11/16/2024 10:19 AM EDT Oxygen Saturation 97% 11/27/2024 9:05 AM EDT Inhaled Oxygen Concentration - - Weight 75.8 kg (167 lb) 11/27/2024 9:05 AM EDT Height 157.5 cm (5' 2 ) 11/27/2024 9:05 AM EDT Body Mass Index 30.54 11/27/2024 9:05 AM EDT Plan of Treatment Upcoming Encounters Date Type Department Care Team (Late st Contact Info) Description 04/16/2025 2:00 PM EDT Clinical Support [facility] [address] [place] [phone] Marlena López RN 05/21/2025 9:15 AM EST Office Visit [facility] [address] [place] [phone] Gómez Fermin MD [address] [place] [phone] Health Maintenance Due Date Last Done Comments CT Colonography 1970 Colonoscopy 1970 Colorectal Cancer Screening 1970 FIT DNA/Cologuard 1970 FIT 1970 FOBT 1970 Sigmoidoscopy 1970 Eye Exam 1980 Hepatitis A Vaccines (1 of 2 - Risk 2-dose series) 1989 Hepatitis B Vaccines (1 of 3 - 19+ 3-dose series) 1989 Zoster Vaccines (1 of 2) 2020 Dental Oral Exam 08/11/2023 02/07/2023, 04/26/2019 Dental Prophylaxis 11/11/2023 05/12/2023, 07/17/2019 Diabetes: Urine Protein Screening 01/06/2024 01/05/2023, 04/28/2020 Dental X-Ray: Bitewings 02/09/2024 02/08/20 23, 09/17/2021, 04/26/2019 Diabetes: Foot Exam 08/18/2024 08/18/2023, 08/18/2023, 08/18/2023, Additional history exists SDOH Screening 09/27/2024 09/28/2023 Diabetes: Hemoglobin A1C 01/08/2025 025, 05/02/2024, 02/02/2024, Additional history exists COVID-19 Vaccine ( season) 2025 11/25/2020, 11/04/2020, 04/27/2016 Influenza Vaccine (#1) 2025 , 08/16/2022, 06/08/2020, Additional history exists Lipid Panel 04/12/2025 04/12/2024, 12/09, 04/28/2020 Alcohol/Substance Use Screening 10/09/2025 10/09/2024 Tobacco Screening 11/27/2025 11/27/2024 Mammogram 12/12/2025 12/12/2024, 11/07, 08/01/2019, Additional history exists Dental X-Ray: Full Mouth 02/08/2026 02/07/2023, 04/09 Depression Screening 03/11/2026 03/11/2025, 03/11/20 25 Disability Screening 03/11/2026 03/11/2025 Cervical Cancer Screening 11/17/2026 HPV/Cotest 11/17/2026 11/17/2021, 11/14/2018 Pap Smear 11/17/2026 11/17/2021 DTaP/Tdap/Td Vaccines (3 - Td or Tdap) [...] Procedure Name Priority Date/Time Associated Diagnosis Comments MITOCHONDRIAL ANTIBODY WITH REFLEX TO TITER Routine 02/22/2025 10:43 AM EDT ACTIN (SMOOTH MUSCLE) ANTIBODY (IGG) Routine 02/22/2025 10:43 AM EDT FERRITIN Routine 02/22/2025 10:43 AM EDT PROTHROMBIN TIME-INR Routine 02/22/2025 10:43 AM EDT POCT DOREEN-14 URINE DRUG SCREEN Routine 01/07/2025 10:40 AM EDT Long-term current use of opiate analgesic BI MAMMOGRAM SCREENING TOMOSYNTHESIS BILATERAL Routine 12/12/2024 3:52 PM EDT POCT GLYCATED HEMOGLOBIN, TOTAL Routine 10/09/2024 10:55 AM EDT Type 2 diabetes mellitus with hyperglycemia, without long-term current use of insulin (CMS/HCC) LIPID PANEL WITH REFLEX TO DIRECT LDL Routine 04/12/2024 8:58 AM EDT Type 2 diabetes mellitus with hyperglycemia, without long-term current use of insulin (CMS/HCC) HEPATITIS PANEL, GENERAL Routine 08/18/2023 10:53 AM [...] hyperglycemia, without long-term current use of insulin (CMS/HCC) THINPREP IMAGING PAP AND HPV MRNA E6/E7 WITH REFLEX TO HPV 16,18/45 Routine 11/17/2021 2:37 PM EDT from Last 3 Months or Most Recently Relevant to Health Maintenance Results * Actin (Smooth Muscle) Antibody (IgG) (02/22/2025 10:43 AM EDT) Smooth Muscle Antibody <20 <20 U [facility] Comment:Reference Range: <20 U: Negative>or=20 U: PositiveAntibodies recognizing actin are the main componentof smooth muscle antibodies associated with auto- immune liver disease. Actin antibodies are found inapproximately 75% of patients with autoimmunehepatitis (AIH) type 1, approximately 65% of patientswith autoimmune cholangitis, approximately 30% ofpatients with primary biliary cirrhosis andapproximately 2% of healthy controls. High values areclosely correlated with AIH type 1.THIS TEST WAS PERFORMED AT:[id number] [place] [id number] VENTURA MD,PHD 02/22/2025 10:4 3 AM EDT 02/22/2025 10:43 AM EDT Generic External Data Provider LAB BLOOD ORDERAB LES Final Result Performing Organization Address [facility] Co de Phone Number [facility] [address] [place] [phone] * Mitochondrial Antibody with Reflex to Titer (02/22/2025 10:43 AM EDT) Pathologist [facility] Mitochondrial Antibodies NEGATIVE NEGATIVE [facility] Comment:THIS TEST WAS PERFOR MED AT:[facility] [address] [id number] HOANG MD Mitochondrial Ab Titer TNP [facility] 02/22/2025 10:4 3 AM EDT 02/22/2025 10:43 AM EDT Generic External Data Provider LAB BLOOD ORDERAB LES Final Result Performing Organization Address [facility] de Phone Number [facility] [address] [place] [phone] * Prothrombin Time-INR (02/22/2025 10:43 AM EDT) Prothrombin Time 12.4 10.9 - 12.4 SEC [facility] INTERNATIONAL NORM RATIO 1.1 0.9 - 1.1 [facility] Comment:INTERNATIONAL NORMAL IZED RATIO (INR) REFERENCE RANGES Reference RangeFor patients not on anticoagulant therapy: 0.9 - 1.1INR ranges for oral anticoagulanttherapy:For prevention and treatment of venous thrombosis and pulmonary embolism: 2.0 - 3.0For acute myocardial infarction with aspirin therapy: 2.0 - 3.0For acute myocardial infarction without aspirin therapy: 3.0 - 4.0For patients with mechanical prosthetic heart valves: 2.5 - 3.5 02/22/2025 10:4 3 AM EDT 02/22/2025 10:43 AM EDT us Generic External Data Provider LAB BLOOD ORDERAB LES Final Result Performing Organization Address [facility]/ZIP Co de Phone Number [facility] [address] [place] [phone] * Ferritin (02/22/2025 10:43 AM EDT) Ferritin 39 10 - 250 ng/mL [facility] 02/22/2025 10:4 3 AM EDT 02/22/2025 10:43 AM EDT us Generic External Data Provider LAB BLOOD ORDERAB LES Final Result Performing Organization Address City/[facility] Co de Phone Number [facility] [address] [place] [phone] * POCT DOREEN-14 Urine Drug Screen (01/07/2025 10:40 AM EDT) THC Negative Negative Cocaine Screen, Urine Negative Negative Opiate Screen, Urine Negative Negative Methamphetamine Screen Urine Negative Negative Amphetamine Screen, Urine Negative Negative Benzodiazepines Screen, Urine Negative Negative Barbiturate Screen, Urine Negative Negative Methadone Screen, Urine Negative Negative Buprenophine Screen, Urine Negative Negative TCA, Urine Negative Negative MDMA Urine Negative Negative ng/mL Oxycodone Screen, Urine Positive Negative Phencyclidine (PCP), Urine Negative Negative Propoxyphene, Urine Negative Negative Fentanyl, Urine Negative Negative Urine Urine specimen obtained by clean catch procedure / Unknown 01/07/2025 10:40 AM EDT Marlena Mendieta RN - 01/07/2025 10:40 AM EDT UTOX cup Lot#[id number] Exp. 04/15/26 Internal Pass Control us Gómez Fermin MD POINT OF CARE TEST ENTER /EDIT ORDERABLES Final Result * BI Mammogram Screening Tomosynthesis Bilateral (12/12/2024 3:52 PM EDT) Anatomical Region Laterality Modality Breast Bilateral Mammography 12/12/2024 3:52 PM EDT Narrative 12/16/2024 5:33 PM EDT [facility] [place], [place] [address] Mammography Report Signed Patient: Kelly Schumacher MR#: [id number] : 1970 Acct:[id number] Age/Sex: 54 / F ADM Date: 12/12/24 Loc: HO.MAMMO Attending Dr: Gómez Fermin MD Ordering Physician: Gómez Fermin MD Results: 1Ne gative Date of Service: 12/12/24 Follow Up: 1 Year From Orig ina Mammogram Procedure(s): MM tomosynthesis screening BI Accession Number(s): [id number] cc: Gómez Fermin MD EXAMINATION: MM SCREENING DIGITAL BREAST TOMOSYNTHESIS, BILATERAL CLINICAL INFORMATION: Screening. Asymptomatic. COMPARISON: Mammography: Comparison is made with available priors TECHNIQUE: Digital breast mammography with tomosynthesis is performed in both the craniocaudal and mediolateral oblique views along with computer-aided detection (CAD). FINDINGS: The breasts are heterogeneously dense, which may obscure small masses (ACR BI-RADS breast composition Category c). There are no significant masses, abnormal calcifications, [...] target due date for their next mammogram. Electronically signed by: Avani Overton DO 12/16/2024 05:30 PM EDT Dictated By: Avani Overton DO Signed By: <Electronically signed by Avani Overton DO in OV> 12/16/24 1730 DD/ 155 TD/TT: 12/12/24 1603 Supervising Librarian: Procedure Note Donotuseinterpreter, Image - 12/16/2024 [facility] [address] [place] [address] Mammography Report Signed Patient: Elijah Schumacher#: [id number] : 1970Acct:[id number] Age/Sex: 54 / FADM Date: 12/12/24 Loc: HO.MAMMO Attending Dr: Gómez Fermin MD Ordering Physician: Gómez Fermin MDResults: 1Ne gative Date of Service: 12/12/24Follow Up: 1 Year From Orig inal Mammogram Procedure(s): MM tomosynthesis screening BI Accession Number(s): [id number] cc: Gómez Fermin MD EXAMINATION: MM SCREENING DIGITAL BREAST TOMOSYNTHESIS, BILATERAL CLINICAL INFORMATION: Screening. Asymptomatic. COMPARISON: Mammography: Comparison is made with available priors TECHNIQUE: Digital breast mammography with tomosynthesis is performed in both the craniocaudal and mediolateral oblique views along with computer-aided detection (CAD). FINDINGS: The breasts are heterogeneously dense, which may obscure small masses (ACR BI-RADS breast composition Category c). There are no significant masses, abnormal calcifications, [...] target due date for their next mammogram. Electronically signed by: Avani Overton DO 12/16/2024 05:30 PM EDT Dictated By: Avani Overton DO Signed By: <Electronically signed by Avani Overton DO in OV> 12/16/24 1730 DD/ 1552 TD/TT: 12/12/24 1609 Supervising Librarian: us Gómez Fermin MD IMG BI PROCEDURES Edited Result - Final * (ABNORMAL) POCT HGB A1C (10/09/2024 10:55 AM EDT) Hemoglobin A1C 7.3(A) 4.0 - 6.0 % QC Media Lot # [id number] Lot# Expiration Date Blood 10/09/2024 10:5 5 AM EDT [facility] POINT OF CARE TEST ENTER/ EDIT ORDERABLES Final Result * (ABNORMAL) Lipid Panel with Reflex to Direct LDL (04/12/2024 8:58 AM EDT) Triglycerides 140 <150 mg/dL [facility] Comment:Desirable Triglyceri de: less than 150 mg/dLBorderline High Triglyceride 150-199 mg/dLHigh Triglyceride: 200-499 mg/dLVery High Triglyceride: greater than or equal to 5OO mg/dL Cholesterol 197 <200 mg/dL [facility] Comment:Desirable Cholestero l: less than 200 mg/dLBorderline High Cholesterol: 200-239 mg/dLHigh Cholesterol: greater than 239 mg/dL LDL Cholesterol Calculated 122(H) <100 mg/dL [facility] Comment:Desirable LDL: less than 100 mg/dLNear Optimal/Above Optimal LDL: 110- 129 mg/dLBorderline High LDL: 130-159 mg/dLHigh LDL: 160-189 mg/dLVery High LDL: greater than or equal to 190 mg/dL HDL Cholesterol 47 >40 mg/dL [facility] Comment:Desirable HDL: great er than 40 mg/dL Note: This HDL assay may give artificially low results in patients with liver disease. Blood 04/12/2024 8:58 AM EDT 04/12/2024 11:06 AM EDT Gómez Fermin MD LAB BLOOD ORDERABLES Fin al Result [facility] [address] [place] [phone] * Hepatitis Panel, General (08/18/2023 10:53 AM EST) Pathologist [facility] Hepatitis A IgM Nonreactive Nonreactive [facility] Comment:IgM antibodies to HERNANDEZ V not detected; does not exclude earlyacute or recovered HAV infection. ~Hepatitis B Surface Antibody REACTIVE Nonreactive [facility] Comment:REACTIVE: > 11.99 mI U/mL Hepatitis B Core Antibody Nonreactive Nonreactive [facility] Hepatitis C Antibody Nonreactive Nonreactive [facility] Comment:Antibodies to HCV no t detected; does not exclude early acuteHCV infection. Hepatitis B Surface Ag Negative Negative [facility] Blood 08/18/2023 10:5 3 AM EST 08/18/2023 11:21 AM EST Gómez Fermin MD LAB BLOOD ORDERABLES Fin al Result [facility] [address] [place] [phone] * HIV-1/2 Antigen and Antibodies, Fourth Generation, with Reflexes (08/18/2023 10:53 AM EST) Pathologist [facility] HIV AB/AG Nonreactive Nonreactive [facility] Comment:HIV-1 p24 Ag and/or HIV-1/HIV-2 Ab not detected.A test result that is nonreactive does not exclude thepossibility of exposure to or infection with HIV-1 and/orHIV-2. Nonreactive results in this assay for individualswith prior exposure to HIV-1 and/or HIV-2 may be due toantigen and antibody levels that are below the limit ofdetection of this assay.The [employer] HIV Ag/Ab Combo assay result andsupplemental assay results should be interpreted inconjunction with the patient's clinical presentation,history and other laboratory results. If the results areinconsistent with clinical evidence, additional testing issuggested to confirm the result. Blood Venous blood specimen / Unknown 08/18/2023 10:53 AM EST 08/18/2023 11:21 AM EST Gómez Fermin MD LAB BLOOD ORDERABLES Fin al Result [facility] [address] [place] [phone] * Albumin, Random Urine W/O Creatinine (01/05/2023 10:25 AM EDT) Albumin, Urine 0.6 See Note: mg/dL [facility] [place] [facility] Comment: Reference Range: Reference Range Not established [employer] [place] [employer] Comment: The ADA defines abnormalities in albumin excretion as follows: Albuminuria Category Result (mcg/mg creatinine) Normal to Mildly increased <30 Moderately increased 30-299 Severely increased > OR = 300 The ADA recommends that at least two of three specimens collected within a 3-6 month period be abnormal before considering a patient to be within a diagnostic category. Urine Urine specimen obtained by clean catch procedure / Unknown 01/05/2023 10:25 AM EDT 01/05/2023 10:25 AM EDT Narrative [facility] - 01/05/2023 11:12 PM EDT FASTING:YES FASTING: YES Gómez Fermin MD LAB URINE ORDERABLES Fin al Result Performing Organization Address City/[facility] Co de Phone Number [facility] [address], [place] [phone] [facility] [place] [facility] [address] [place] [phone] * THINPREP TIS PAP AND HPV mRNA E6/E7 WITH REFLEX TO HPV 16,18/45 (11/17/2021 2:37 PM EDT) Clinical Information: None given [facility] COMMENT SEE COMMENT [facility] Comment: EXPLANATORY NOTE: The Pap is a screening test for cervical cancer. It is not a diagnostic test and is subject to false negative and false positive results. It is most reliable when a satisfactory sample, regularly obtained, is submitted with relevant clinical findings and history, and when the Pap result is evaluated along with historic and current clinical information. COMMENT: This Pap test has been evaluated with computer assisted technology. [facility] Infection Control Practitioner: SEE COMMENT [facility] Comment: RMM, CT(ASCP) CT screening location: [address] [address] HPV nRNA E6/E7 Not Detected Not Detected [facility] Comment: Methodology: Supervisor Cigarette Making Department-Mediated Amplification This assay detects E6/E7 viral messenger RNA (mRNA) from 14 high-risk HPV types (16,18,31,33,35,39,45,51,52,56,58,59,66,68). The analytical performance characteristics of this assay have been determined by [employer] [facility]. The modifications have not been cleared or approved by the FDA. This assay has been validated pursuant to the CLIA regulations and is used for clinical purposes. For additional information, please refer to http://education.[employer]/faq/DEL073f4 (This link if provided for information/ educational purposes only.) Interpretation/Re sult: Negative for intraepithelial lesion or malignancy. [facility] LMP: PM [facility] Prev. BX: NONE GIVEN [facility] Prev. PAP: ASC HPV NEG 11/2018 [facility] Review Infection Control Practitioner: SEE COMMENT [facility] Comment: BJ, CT(ASCP) CT screening location: [address] [address] SOURCE: None given [facility] Statement Of Adequacy: SEE COMMENT [facility] Comment: Satisfactory for evaluation. Endocervical/transformation zone component present. 11/17/2021 2:37 PM EDT us Niya Rock CNM LAB PATHOLOGY ORDERABLES Final Result [facility] [address] from Last 3 Months or Most Recently Relevant to Health Maintenance Insurance DENTAL - HSN PARTIAL (MEDICAID) Care Teams Joint Creaser Relationship Specialty Start Date End Date Gómez Fermin MD [address] [place] [address] PCP - General Family Medicine 03/25/21
--- OUTSIDE RECORDS SUMMARY | 2025-03-26 19:06 | XMS_ITS | Encounter Summary ---
Author Organization [employer] Address [address] [place] [address] 7 [place] [address] Care Team Providers Care Supervisor Customer Complaint Service Name Role Phone Judi Allen MD Primary Care Provider + Reason for Visit * Reason Comments Med Refill Encounter Details Date Type Department Care Team ([facility] st Contact Info) Description 11/11/2024 Refill [facility] [address] [place], [place] [phone] Judi Allen MD [address] [place], [place] [phone] Type 2 diabetes mellitus with hyperglycemia, without long-term current use of insulin ([facility]) Social History Tobacco Use Types Packs/Day Years [...] Description 04/16/2025 2:00 PM EDT Clinical Support [facility] [address] [place] [phone] Marlena López RN 05/21/2025 9:15 AM EST Office Visit [facility] [address] [place] [phone] Judi Allen MD [address] [place] [phone] documented as of this encounter Visit Diagnoses Diagnosis Type 2 diabetes mellitus with hyperglycemia, without long-term current use of insulin ([facility]) documented in this encounter Additional Health Concerns Assessment Noted Time PHQ-9 Depression Total Score: 13 024 3:34 PM EST documented as of this encounter Care Teams Supervisor Customer Complaint Service Relationship Specialty Start Date End Date Judi Allen MD [address] [place] [phone] PCP - General Family Medicine 03/25/21 documented as of this encounter
--- OUTSIDE RECORDS SUMMARY | 2025-03-26 19:06 | XMS_ITS | Encounter Summary ---
Author Organization [employer] Address [address] [place] [address] 7 [place] [address] Care Team Providers Care Pets Salesperson Name Role Phone Judi Allen MD Primary Care Provider + Reason for Visit * Reason Comments Med Refill Encounter Details Date Type Department Care Team ([facility] st Contact Info) Description 04/21/2023 Refill [facility] [address] [place], [place] [phone] Judi Allen MD [address] [place], [place] [phone] Arm paresthesia, left Social History Tobacco Use [...] Description 04/16/2025 2:00 PM EDT Clinical Support [facility] [address] [place] [phone] Marlena López RN 05/21/2025 9:15 AM EST Office Visit [facility] [address] [place] [phone] Judi Allen MD [address] [place] [phone] documented as of this encounter Visit Diagnoses Diagnosis Arm paresthesia, left Disturbance of skin sensation documented in this encounter Care Teams Pets Salesperson Relationship Specialty Start Date End Date Judi Allen MD [address] [place] [phone] PCP - General Family Medicine 03/25/21 documented as of this encounter
--- OUTSIDE RECORDS SUMMARY | 2025-03-26 19:06 | XMS_ITS | Encounter Summary ---
Author Organization [employer] Address [address] [place] [address] 7 [place] [address] Care Team Providers Care Project Development Manager Name Role Phone Judi Allen MD Primary Care Provider + Encounter Details Date Type Department Care Team (Latest Contact Info) Description 07/17/2019 Abstract [facility] CONVERSIONS Dental, Provider, DDS Social History Tobacco [...] Description 04/16/2025 2:00 PM EDT Clinical Support [facility] MEDICINE [address] [place] [phone] Marlena López RN 05/21/2025 9:15 AM EST Office Visit [facility] [address] [place] [phone] Judi Allen MD [address] [place] [phone] documented as of this encounter Visit Diagnoses Not on filedocumented in this encounter Care Teams Project Development Manager Relationship Specialty Start Date End Date Judi Allen MD [address] [place] [phone] PCP - General Family Medicine 9/16/21 documented as of this encounter
--- OUTSIDE RECORDS SUMMARY | 2025-03-26 19:06 | XMS_ITS | Encounter Summary ---
Author Organization [employer] Address [address] [place] [address] 7 [place] [address] Care Team Providers Care Overlocker Name Role Phone Judi Allen MD Primary Care Provider + Reason for Visit * Reason Onset Date Comments Nurse Triage 10/08/2024 ER Follow-up 10/08/2024 Encounter Details Date Type Department Care Team ([facility] st Contact Info) Description 10/08/2024 Telephone [facility] [address] [place] [address] Judi Allen MD [address] [place] [address] Nurse Triage; ER Follow-up Social History Tobacco Use Types Packs/Day Years [...] enough money to get more: Never True 10/ Transportation Answer Date Recorded In the past [...] encounter Miscellaneous Notes * Telephone Encounter - Harini Marx RN - 10/08/2024 9:59 AM EDT called pt to triage, spoke to pt through [employer] Reader. pt states seen yesterday at [facility] for left back, flank pain and persistent constipation. pt also seen on 09/17 for similar. pt reports was given medication to take for the constipation and this has resolved at this time. pt states still having severe left low back and flank pain, and requesting an appt as soon as possible. pt was scripted for Oxycodone on 09/26 to use for pain as needed. no notes in the chart as yet from the ER visit of yesterday and will request. given appt tomorrow with blue team provider at 11:45 for exam and recheck. advised home care: follow ER discharge instructions, plenty of fluids, rest as needed, ice, heat, medication as prescribed and call back if worsening or new concerns. pt understands and agrees with plan. insurance verified. Protocol Used: Back Pain (Adult) Protocol-Based Disposition: See in Office or Video Visit within 3 Days Video visit offer not recorded Positive Triage Question: * Patient wants to be seen * All higher-acuity triage questions were negative Care Advice Discussed: * Reassurance and Education - Back Pain * Cold or Heat * Sleep * Continue Activity * Pain Medicines * Reasons To Call Back - Fever occurs - Numbness or weakness occurs - Loss of control of your bladder or bowel - Severe pain not better after taking pain medicines - Pain begins to shoot into the leg - Pain lasts over 2 weeks - Pain becomes worse - You become worse * Telephone Encounter - Aileen Elaina Zavala - 10/08/2024 9:10 AM EDT Patient calling to report ED visit on : Date: 10/07 Hospital: [facility] Seen for: Back pain Symptomatic Yes *if yes message should go to Triage Patient advised will forward to team nurse for follow up [phone] (ghanaian) documented in this encounter Plan of Treatment Upcoming Encounters Date Type Department Care Team (Late st Contact Info) Description 04/16/2025 2:00 PM EDT Clinical Support [facility] [address] [place] [phone] Marlena López RN 05/21/2025 9:15 AM EST Office Visit [facility] [address] [place] [phone] Judi Allen MD [address] [place] [address] documented as of this encounter Visit Diagnoses Not on filedocumented in this encounter Additional Health Concerns Assessment Noted Time PHQ-9 Depression Total Score: 13 08/23/2 024 3:34 PM EST documented as of this encounter Care Teams Overlocker Relationship Specialty Start Date End Date Judi Allen MD [address] [place] [phone] PCP - General Family Medicine 03/25/21 documented as of this encounter
--- OUTSIDE RECORDS SUMMARY | 2025-03-26 19:06 | XMS_ITS | Encounter Summary ---
Author Organization [employer] Address [address] [place] [address] [address] [place] [address] Care Team Providers Care Dam Tender Name Role Phone Judi Allen MD Primary Care Provider + Encounter Details Date Type Department Care Team ([facility] Contact Info) Description 10/28/2022 Orders Only [facility] [address] [place], [place] [phone] Brenda Metzger LPN Social History Tobacco Use [...] Description 04/16/2025 2:00 PM EDT Clinical Support [facility] [address] [place] [address] Marlena López RN 05/21/2025 9:15 AM EST Office Visit [facility] [address] [place] [address] Judi Allen MD [address] [place] [address] documented as of this encounter Visit Diagnoses Not on filedocumented in this encounter Care Teams Dam Tender Relationship Specialty Start Date End Date Judi Allen MD [address] [place] [phone] PCP - General Family Medicine 03/25/21 documented as of this encounter
--- OUTSIDE RECORDS SUMMARY | 2025-03-26 19:06 | XMS_ITS | Encounter Summary ---
Author Organization [employer] Address [address] [place] [address] 7 [place] [address] Care Team Providers Care Cutter And Presser Name Role Phone Judi Allen MD Primary Care Provider + Encounter Details Date Type Department Care Team (Late st Contact Info) Description 08/12/2022 Abstract [facility] [address] [place] [phone] Judi Allen MD [address] [place] [address] [phone] Social History Tobacco Use Types Packs/Day Years [...] Description 04/16/2025 2:00 PM EDT Clinical Support [facility] [address] [place] [address] [phone] Marlena López RN 05/21/2025 9:15 AM EST Office Visit [facility] [address] [place] [address] Judi Allen MD [address] [place] [phone] documented as of this encounter Procedures Procedure [...] mmol/L Blood Venous blood specimen / Unknown Historical Provider LAB BLOOD ORDERABLES Brie l Result documented in this encounter Visit Diagnoses Not on filedocumented in this encounter Care Teams Cutter And Presser Relationship Specialty Start Date End Date Judi Allen MD [address] [place] [address] PCP - General Family Medicine 03/25/21 documented as of this encounter
--- OUTSIDE RECORDS SUMMARY | 2025-03-26 19:06 | XMS_ITS | Encounter Summary ---
Author Organization [employer] Address [address] [place] [address] [address] [place] [address] Care Team Providers Care Commissary Representative Name Role Phone Judi Allen MD Primary Care Provider + Reason for Visit * Reason Comments Med Refill Encounter Details Date Type Department Care Team ([facility] st Contact Info) Description 11/01/2023 Refill [facility] [address] [place], [place] [phone] Judi Allen MD [address] [place], [place] [phone] Arm paresthesia, left Social History Tobacco Use [...] Description 04/16/2025 2:00 PM EDT Clinical Support [facility] [address] [place] [phone] Marlena López RN 05/21/2025 9:15 AM EST Office Visit [facility] [address] [place] [phone] Judi Allen MD [address] [place] [phone] documented as of this encounter Visit Diagnoses Diagnosis Arm paresthesia, left Disturbance of skin sensation documented in this encounter Additional Health Concerns Assessment Noted Time PHQ-9 Depression Total Score: 13 024 3:34 PM EST documented as of this encounter Care Teams Commissary Representative Relationship Specialty Start Date End Date Judi Allen MD [address] [place] [phone] PCP - General Family Medicine 03/25/21 documented as of this encounter
--- OUTSIDE RECORDS SUMMARY | 2025-03-26 19:06 | XMS_ITS | Encounter Summary ---
Author Organization [employer] Address [address] [place] [address] 7 [place] [address] Care Team Providers Care Language Therapist Name Role Phone Judi Allen MD Primary Care Provider + Encounter Details Date Type Department Care Team (Late Contact Info) Description 09/23/2022 Telephone [facility] [address] [place] [address] [phone] Judi Allen MD [address] [place] [phone] Social History Tobacco Use Types Packs/Day Years [...] 2:00 PM EDT Clinical Support [facility] [address] [place] [phone] Marlena López RN 05/21/2025 9:15 AM EST Office Visit [facility] [address] [place] [phone] Judi Allen MD [address] [place] [address] documented as of this encounter Visit Diagnoses Not on filedocumented in this encounter Care Teams Language Therapist Relationship Specialty Start Date End Date Judi Allen MD [address] [place] [phone] PCP - General Family Medicine 03/25/21 documented as of this encounter
--- OUTSIDE RECORDS SUMMARY | 2025-03-26 19:06 | XMS_ITS | Encounter Summary ---
Author Organization [employer] Address [address] [place] [address] 7 [place] [address] Care Team Providers Care Manager Trade Name Role Phone Judi Allen MD Primary Care Provider + Encounter Details Date Type Department Care Team (Late Contact Info) Description 07/28/2022 Orders Only [facility] [address] [place], [place] [phone] Brenda Metzger LPN Social History Tobacco Use [...] 2:00 PM EDT Clinical Support [facility] [address] [place] [address] [phone] Marlena López RN 05/21/2025 9:15 AM EST Office Visit [facility] [address] [place] [address] [phone] Judi Allen MD [address] [place] [address] [phone] documented as of this encounter Visit Diagnoses Not on filedocumented in this encounter Care Teams Manager Trade Relationship Specialty Start Date End Date Judi Allen MD [address] [place] [phone] PCP - General Family Medicine 03/25/21 documented as of this encounter
== END 2025-03-26 16:31 | disposition home or self-care (01) ==
LOC: HO.HGI 15:48
PROVIDERS: PCP Internal Medicine; Visit Provider Nurse Practitioner Family
DX: Z01.818 Encounter for other preprocedural examination (principal); Z12.11 Encounter for screening for malignant neoplasm of colon; K59.09 Other constipation; K76.0 Fatty (change of) liver, not elsewhere classified
CPT/HCPCS: 99214

== ENCOUNTER → 2025-03-26 15:48 | Outpatient (BNVA) | payer OTHER, SELFPAY | PROVIDERS: PCP Internal Medicine; Visit Provider Nurse Practitioner Family | DX: Z12.11 Encounter for screening for malignant neoplasm of colon (principal); K76.0 Fatty (change of) liver, not elsewhere classified; K59.09 Other constipation | CPT/HCPCS: 99212 ==

== ENCOUNTER 2025-04-10 14:02 | Outpatient (REF) | payer OTHER, SELFPAY ==
--- OUTSIDE RECORDS SUMMARY | 2025-04-10 15:41 | XMS_ITS | Encounter Summary ---
Author Organization [employer] Address [address] [place] [address] 7 [place] [address] Care Team Providers Care Fire Officer Name Role Phone Judi Allen MD Primary Care Provider + Reason for Visit * Reason Comments Med Refill Encounter Details Date Type Department Care Team (Late Contact Info) Description 09/06/2022 Refill [facility] [address] [place] [phone] Judi Allen MD [address] [place] [address] Chronic bilateral low back pain, unspecified whether [...] Description 04/16/2025 2:00 PM EDT Clinical Support [facility] [address] [place] [phone] Marlena López RN 05/21/2025 9:15 AM EST Office Visit [facility] [address] [place] [phone] Judi Allen MD [address] [place] [phone] 05/26/2025 9:00 AM EST Nutrition [facility] DIABETES/NUTRITION [address] [place] [phone] [place] [address] documented as of this encounter Visit Diagnoses Diagnosis Chronic bilateral low back pain, unspecified whether sciatica present documented in this encounter Care Teams Fire Officer Relationship Specialty Start Date End Date Judi Allen MD [address] [place] [phone] PCP - General Family Medicine 03/25/21 documented as of this encounter
--- OUTSIDE RECORDS SUMMARY | 2025-04-10 15:41 | XMS_ITS | Clinical Summary ---
Author Organization [employer] Address [address] [place] [address] 7[address] [place] [address] Care Team Providers Care Accountant Property Name Role Phone óGmez Ferimn MD Primary Care Provider + Allergies Active Allergy Reactions Criticality Noted Date Comments Azithromycin 02/28/2017 Iodinated Contrast Media Itching High 09/20/2024 Iodine 02/28/2017 Medications * This document contains information received from the source organization and may not represent a complete record from that organization. FREESTYLE LITE test strip TEST BLOOD SUGAR TWICE DAILY 100 strip 11 11/26/19 23 Active naloxone (Narcan) 4 mg/0.1 mL nasal spray Administer 1 spray (4 mg) into affected nostril(s) if needed for opioid reversal. 2 each 2 01/26/20 23 Active Sodium Fluoride (PreviDent 5000 Plus) 1.1 % cream Apply 1 mg to teeth 3 times daily. 1 g 3 02/08/20 23 Active gabapentin (Neurontin) 300 MG capsuleIndicati ons:Generalized anxiety disorder with panic attacks,Arm paresthesia, left Take 1 capsule (300 mg) by mouth 2 times daily. 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 30 tablet 10/13/19 24 Active albuterol (2.5 MG/3ML) 0.083% nebulizer solution Take 3 mL by nebulization every 6 (six) hours if needed for wheezing. 75 mL 10/13/19 24 Active cyclobenzaprine (Flexeril) 10 MG tablet Take 1 tablet (10 mg) by mouth at bedtime for 10 days. 10 tablet 11/10/19 24 Active meclizine (Antivert) 25 MG tablet TAKE 1 TABLET BY MOUTH THREE TIMES DAILY IN THE MORNING, AT NOON, AND AT BEDTIME NEEDED FOR DIZZINESS OR FOR NAUSEA 30 tablet 11/14/19 24 Active Diclofenac Sodium 1 % gelIndications: Arthritis APPLY 2 GRAMS TOPICALLY TO AFFECTED AREA(S) FOUR TIMES DAILY 100 g 3 01/16/20 24 Active hydrocortisone 2.5 % cream Apply pea sized amount to skin bid for 1 week 15 g 01/22/20 24 Active Multiple Vitamins-Iron (Tab-A-Fatimah/Iro n/Beta Carotene) tablet TAKE 1 TABLET BY MOUTH EVERY DAY 90 tablet 3 02/22/20 24 Active atorvastatin (Lipitor) 40 MG tablet Take 1 tablet (40 mg) by mouth at bedtime. 90 tablet 3 05/02/20 24 2024 Active lisinopril-hydr oCHLOROthiazide 20-25 MG tablet Take 1 tablet by mouth Once per day. 90 tablet 3 05/28/20 24 Active senna-docusate sodium (Senokot-S) 8.6-50 MG tablet Take 1 tablet by mouth Once per day. 30 tablet 11 06/13/20 24 2024 Active Jardiance 25 MGIndications:T ype 2 diabetes mellitus with hyperglycemia, without long-term current use of insulin (HCC) TAKE 1 TABLET BY MOUTH EVERY DAY IN THE MORNING 30 tablet 11 08/05/19 25 Active lidocaine (Lidoderm) 5 % patchIndication s:Chronic bilateral low back pain with left-sided sciatica Apply 1 patch topically Once per day. Remove & discard patch within 12 hours or as directed by MD. 30 patch 3 10/10/19 25 Active pantoprazole (ProtoNix) 40 MG EC tabletIndicatio ns:Gastroesopha geal reflux disease, unspecified whether esophagitis present TAKE 1 TABLET BY MOUTH EVERY DAY 90 tablet 3 10/24/19 25 Active cholecalciferol (Vitamin D-3) 125 MCG (5000 UT) capsule TAKE 1 CAPSULE BY MOUTH EVERY DAY IN THE MORNING 90 capsule 3 10/24/19 25 Active albuterol 108 (90 Base) MCG/ACT inhaler INHALE 2 PUFFS BY MOUTH EVERY 4 HOURS NEEDED FOR WHEEZING OR SHORTNESS OF BREATH 8.5 g 3 11/05/19 25 Active linaCLOtide (Linzess) 145 MCG capsule Take 1 capsule (145 mcg) by mouth before breakfast. Do not crush or chew. 30 capsule 11 11/28/19 25 2025 Active FLUoxetine (PROzac) 20 MG capsuleIndicati ons:Recurrent major depressive disorder, in partial remission (CMS/HCC) TAKE 3 CAPSULES BY MOUTH EVERY DAY IN THE MORNING 270 capsule 3 11/28/19 25 Active clotrimazole (Lotrimin) 1 % cream APPLY TOPICALLY TWICE DAILY FOR FOURTEEN DAYS 30 g 1 01/04/20 25 Active metFORMIN XR (Glucophage-XR) 500 MG 24 hr tabletIndicatio ns:Type 2 diabetes mellitus with other specified complication, unspecified whether long-term insulin use (HCC) TAKE 2 TABLETS BY MOUTH EVERY 12 HOURS 360 tablet 2 01/31/20 25 Active busPIRone (Buspar) 5 MG tabletIndicatio ns:Generalized anxiety disorder with panic attacks TAKE 1/2 TABLET BY MOUTH TWICE DAILY FOR 7 DAYS, MAY INCREASE TO 1 TABLET BY MOUTH TWICE DAILY THEREAFTER 60 tablet 1 02/27/20 25 Active Multiple Vitamins-Minera ls (CertaVite/Anti oxidants) tablet TAKE 1 TABLET BY MOUTH EVERY DAY 90 tablet 03/06/20 25 Active semaglutide (Ozempic, 1 MG/DOSE,) 4 MG/3ML solution pen-injectorInd ications:Type 2 diabetes mellitus with hyperglycemia, without long-term current use of insulin (HCC) Inject 1 mg under the skin 1 (one) time per week. 1 each 3 03/11/20 25 Active zolpidem (Ambien) 10 MG tabletIndicatio ns:Primary insomnia TAKE 1 TABLET BY MOUTH AT BEDTIME NEEDED 15 tablet 2 03/19/20 25 Active oxyCODONE (Roxicodone) 5 MG immediate release tabletIndicatio ns:Chronic bilateral low back pain, unspecified whether sciatica present TAKE 1 TABLET BY MOUTH THREE TIMES DAILY IN THE MORNING, AT NOON, AND AT BEDTIME NEEDED FOR SEVERE PAIN FOR UP TO 28 DAYS 84 tablet 04/10/20 25 2024 Active zolpidem (Ambien) 10 MG tabletIndicatio ns:Primary insomnia TAKE 1 TABLET BY MOUTH AT BEDTIME NEEDED 15 tablet 2 12/21/19 25 2024 Discontinued oxyCODONE (Roxicodone) 5 MG immediate release tabletIndicatio ns:Chronic bilateral low back pain, unspecified whether sciatica present Take 1 tablet (5 mg) by mouth if needed in the morning, at noon, and at bedtime for severe pain for up to 28 days. 84 tablet 03/11/20 25 2024 Discontinued Active Problems Problem Noted Date Diagnosed Date [...] PRN Indication: Lumbar OA w/ radiculopathy Last HEALTH CARE ANALYST Agreement: 06/14/23 Sprain of metacarpophalangeal joint of [...] 2019 and she has been seen at [facility] until last year. I had a lengthy discussion with patient about the lack of evidence re long-term opiate use on chronic pain and added [...] she has Naloxone at home -FU with HEALTH CARE ANALYST team on 10/17 Screening mammogram for breast [...] in wait list for OP services with [facility], provided agency information to patient. Assessment [...] to BID and will fu closely w HEALTH CARE ANALYST nurse Refer to in house pain clinic [...] treatment if dependence continues. Monitor closely with HEALTH CARE ANALYST nurse. Intertrigo of genitocrural region due to [...] on 06/22/23 re taper and FU with HEALTH CARE ANALYST nurse. She couldn't provide urine for Utox [...] driving. See previous note and FU with HEALTH CARE ANALYST nurse. Will work with her over the [...] Increase fluoxetine to 60mg and refer to [facility] FU in 3-4w. Essential hypertension 12/29/2011 Assessment [...] MELLITUS WITH OTHER SPECIFIED COMPLICATION, UNSPECIFIED WHETHER METALLURGICAL TECHNICIAN INSULIN USE (CMS/HCC) WRITTEN ON 08/17/2022 11:07 AM BY GÓMEZ FERMIN MD Uncontrolled Increase trulicity to 3mg/w, continue Metformin Counseled re more frequent low calorie/carb meals. Check fgstk 2x daily Encouraged physical activity as tolerated. FU in 3-4w w labs Assessment & Plan (11/27/2024 9:03 AM EDT): >>ASSESSMENT AND PLAN FOR TYPE 2 DIABETES MELLITUS WITH OTHER SPECIFIED COMPLICATION, UNSPECIFIED WHETHER METALLURGICAL TECHNICIAN INSULIN USE (CMS/HCC) WRITTEN ON 09/08/2022 9:42 AM BY NHI MOYA Seems to be improved, will FU in 6 weeks. Assessment & Plan (11/27/2024 9:03 AM EDT): >>ASSESSMENT AND PLAN FOR TYPE 2 DIABETES MELLITUS WITH OTHER SPECIFIED COMPLICATION, UNSPECIFIED WHETHER MCFP INSULIN USE (CMS/HCC) WRITTEN ON 07/26/2023 9:50 [...] MELLITUS WITH OTHER SPECIFIED COMPLICATION, UNSPECIFIED WHETHER METALLURGICAL TECHNICIAN INSULIN USE (CMS/HCC) WRITTEN ON 08/18/2023 10:46 AM BY JOSEPH TREVINO Improving, continue medications, Jardiance added 2 wks ago Fu in 6 wks See previous note Assessment & Plan (11/27/2024 9:03 AM EDT): >>ASSESSMENT AND PLAN FOR TYPE 2 DIABETES MELLITUS WITH OTHER SPECIFIED COMPLICATION, UNSPECIFIED WHETHER MCFP INSULIN USE (CMS/HCC) WRITTEN ON 10/09/2023 6:04 PM BY GÓMEZ FERMIN MD Continue Jardiance + Trulicity + Metformin and fu 1mo Assessment & Plan (11/27/2024 9:03 AM EDT): >>ASSESSMENT AND PLAN FOR TYPE 2 DIABETES MELLITUS WITH OTHER SPECIFIED COMPLICATION, UNSPECIFIED WHETHER METALLURGICAL TECHNICIAN INSULIN USE (CMS/HCC) WRITTEN ON 11/10/2023 3:35 PM BY GÓMEZ FERMIN MD Significantly improved. A1c is not at goal yet. No change in meds Counseled re more frequent low calorie/carb meals. Check fgstk 2x daily Encouraged physical activity as tolerated. FU in 3 months. Assessment & Plan (11/27/2024 9:03 AM EDT): >>ASSESSMENT AND PLAN FOR TYPE 2 DIABETES MELLITUS WITH OTHER SPECIFIED COMPLICATION, UNSPECIFIED WHETHER MCFP INSULIN USE ([facility]) WRITTEN ON 02/02/2024 12:15 PM BY ITZEL [...] MELLITUS WITH OTHER SPECIFIED COMPLICATION, UNSPECIFIED WHETHER [facility]FP INSULIN USE ([facility]) WRITTEN ON 05/02/2024 1:28 PM BY LADARIUS [...] avoid this behavior, I will refer to team. Will notify HEALTH CARE ANALYST nurse and bring her more often for Utox and pill count. Patient aware of potential interaction of benzos with both ambien and oxycodone Kidney stone 12/29/2011 03/11/2025 Encounters Date Type Department Care Team Description 04/09/2025 Travel 04/07/2025 Refill [facility] [address] [place] [id number] Gómez Fermin MD Chronic bilateral low back pain, unspecified whether sciatica present 04/06/2025 Orders Only [facility] [address] [place] [phone] Gómez Fermin MD 03/19/2025 Refill [facility] [address] [place] [address] Gómez Fermin MD Primary insomnia 03/11/2025 9:00 AM EDT Telemedicine [facility] [address] [place] [address] Gómez Fermin MD Type 2 diabetes mellitus with hyperglycemia, without long-term current use of insulin ([facility]) (Primary Dx); Class 1 obesity due to excess calories with serious comorbidity and body mass index (BMI) of 30.0 to 30.9 in adult; Elevated liver enzymes; Chronic bilateral low back pain, unspecified whether sciatica present; Encounter for colorectal cancer screening 03/11/2025 Travel 03/05/2025 Refill [facility] [address] [place] [address] Gómez Fermin MD 03/05/2025 Telephone [facility] [address] [place] [address] Gómez Fermin MD Chart Prep 02/25/2025 Refill [facility] [address] [place] [address] Nicole Polanco MD Generalized anxiety disorder with panic attacks 02/22/2025 Orders Only GENERIC EXTERNAL DATA DEPARTMENT Provider, Generic External Data 02/10/2025 Refill [facility] [address] [place] [address] Nicole Polanco MD Chronic bilateral low back pain, unspecified whether sciatica present 01/30/2025 Refill [facility] [address] [place] [address] Gómez Fermin MD Type 2 diabetes mellitus with other specified complication, unspecified whether longitudinal float operator insulin use ([facility]) 01/17/2025 Refill [facility] [address] [place] [address] Gómez Fermin MD Type 2 diabetes mellitus with hyperglycemia, without long-term current use of insulin ([facility]) 01/13/2025 Refill [facility] [address] [place] [address] Gómez Fermin MD Chronic bilateral low back pain, unspecified whether sciatica present from Last 3 Months Immunizations Immunization Administration [...] Description 04/16/2025 2:00 PM EDT Clinical Support [facility] [address] [place] [address] Marlena López RN 05/21/2025 9:15 AM EST Office Visit [facility] [address] [place] [phone] Gómez Fermin MD [address] [place] [address] 05/26/2025 9:00 AM EST Nutrition [facility] [address] [place] [address] [place] [address] Health Maintenance Due Date Last Done Comments CT Colonography 1970 Colonoscopy 1970 Colorectal Cancer Screening 1970 FIT DNA/Cologuard 1970 FIT 1970 04/06/2025 FOBT 1970 Sigmoidoscopy 1970 Eye Exam 1980 [...] Procedure Name Priority Date/Time Associated Diagnosis Comments FECAL IMMUNOCHEMICAL Routine 04/06/2025 12:00 AM EDT MITOCHONDRIAL ANTIBODY WITH REFLEX TO TITER Routine 02/22/2025 10:43 AM EDT ACTIN (SMOOTH MUSCLE) ANTIBODY (IGG) Routine 02/22/2025 10:43 AM EDT FERRITIN Routine 02/22/2025 10:43 AM EDT PROTHROMBIN TIME-INR Routine 02/22/2025 10:43 AM EDT BI MAMMOGRAM SCREENING TOMOSYNTHESIS BILATERAL Routine 12/12/2024 [...] without long-term current use of insulin ([facility]) THINPREP IMAGING PAP AND HPV MRNA E6/E7 WITH REFLEX TO HPV 16,18/45 Routine 11/17/2021 2:37 PM EDT from Last 3 Months or Most Recently Relevant to Health Maintenance Results * Fecal immunochemical (04/06/2025 12:00 AM EDT) Pathologist [facility] FIT1 NEGATIVE NEGATIVE [facility] FIT DATE 1 04/06/25 [facility] FIT2 NEGATIVE NEGATIVE [facility] FIT DATE 2 04/07/25 [facility] 04/06/2025 04/06/2025 us Gómez Fermin MD LAB BODY FLUIDS AND STOO LS ORDERABLES Final Result [facility] [address] [place] [phone] * Actin (Smooth Muscle) Antibody (IgG) (02/22/2025 10:43 AM EDT) Pathologist [facility] Smooth Muscle Antibody <20 <20 U [facility] Comment:Reference Range: <20 U: Negative>or=20 U: [...] with AIH type 1.THIS TEST WAS PERFORMED AT:[id number] [place] [address]TSHYODGCHLOE VENTURA MD,PHD 02/22/2025 10:4 3 AM EDT 02/22/2025 10:43 AM EDT us Generic External Data Provider LAB BLOOD ORDERAB LES Final Result Performing Organization Address [facility] de Phone Number [facility] [address] [place] [phone] * Mitochondrial Antibody with Reflex to Titer (02/22/2025 10:43 AM EDT) Mitochondrial Antibodies NEGATIVE NEGATIVE [facility] Comment:THIS TEST WAS PERFOR MED AT:[employer] [address] [id number] HOANG MD Mitochondrial Ab Titer TNP [facility] 02/22/2025 10:4 3 AM EDT 02/22/2025 10:43 AM EDT us Generic External Data Provider LAB BLOOD ORDERAB LES Final Result Performing Organization Address [facility] Phone Number [facility] [address] [place] [phone] * Prothrombin Time-INR (02/22/2025 10:43 AM EDT) Prothrombin Time 12.4 10.9 - 12.4 SEC [facility] INTERNATIONAL NORM RATIO 1.1 0.9 - 1.1 [facility] Comment:INTERNATIONAL NORMAL IZED RATIO (INR) REFERENCE [...] ORDERAB LES Final Result Performing Organization Address [facility] Co de Phone Number [facility] [address] [place] [address] [phone] * Ferritin (02/22/2025 10:43 AM EDT) Ferritin 39 10 - 250 ng/mL [facility] 02/22/2025 10:4 3 AM EDT 02/22/2025 10:43 AM EDT Generic External Data Provider LAB BLOOD ORDERAB LES Final Result Performing Organization Address [facility] de Phone Number [facility] [address] [place] [phone] * BI Mammogram Screening Tomosynthesis Bilateral (12/12/2024 3:52 PM EDT) Anatomical Region Laterality Modality Breast Bilateral Mammography 12/12/2024 3:52 PM EDT Narrative 12/16/2024 5:33 PM EDT [address] [place] [address] Mammography Report Signed Patient: Kelly Schumacher MR#: [id number] : 1970 Acct:[id number] Age/Sex: 54 / F ADM Date: 12/12/24 Loc: HO.MAMMO Attending Dr: Gómez Fermin MD Ordering Physician: Gómez Fermin MD Results: 1Ne gative Date of Service: 12/12/24 Follow Up: 1 Year From Orig inal Mammogram Procedure(s): MM tomosynthesis screening BI Accession Number(s): [id number] cc: Gómez Fermin MD EXAMINATION: MM SCREENING [...] OV> 12/16/24 1730 DD/ 1552 TD/TT: 12/12/24 1603 Stenotypist: Procedure Note Donotuseinterpreter, Image - 12/16/2024 [facility] [address] [place] [address] Mammography Report Signed Patient: Elijah Schumacher#: [id number] : 1970Acct:[id number] Age/Sex: 54 / FADM Date: 12/12/24 Loc: HO.MAMMO Attending Dr: Gómez Fermin MD Ordering Physician: óGmez Fermin MDResults: 1Ne gative Date of Service: 12/12/24Follow Up: 1 Year From Orig inal Mammogram Procedure(s): MM tomosynthesis screening BI Accession Number(s): [id number] cc: Gómez Fermin MD EXAMINATION: MM SCREENING [...] Avani Overton DO 12/16/2024 05:30 PM EDT RP Dictated By: Avani Overton DO Signed By: <Electronically signed by Avani Overton DO in OV> 12/16/24 1730 DD/ 1552 TD/TT: 12/12/24 1603 Stenotypist: Gómez Fermin MD IMG BI PROCEDURES Edited Result - Final * (ABNORMAL) POCT HGB A1C (10/09/2024 10:55 AM EDT) Hemoglobin A1C 7.3(A) 4.0 - 6.0 % QC Media Lot # [id number] Lot# Expiration Date [id number] Blood 10/09/2024 10:5 [address] [facility] POINT OF CARE TEST ENTER/ EDIT ORDERABLES Final Result * (ABNORMAL) Lipid Panel with Reflex to Direct LDL (04/12/2024 8:58 AM EDT) Triglycerides 140 <150 mg/dL [facility] Comment:Desirable Triglyceri de: less than 150 mg/dLBorderline High Triglyceride 150-199 mg/dLHigh Triglyceride: 200-499 mg/dLVery High Triglyceride: greater than or equal to 5OO mg/dL Cholesterol 197 <200 mg/dL [facility] Comment:Desirable Cholestero l: less than 200 mg/dLBorderline High Cholesterol: 200-239 mg/dLHigh Cholesterol: greater than 239 mg/dL LDL Cholesterol Calculated 122(H) <100 mg/dL [facility] Comment:Desirable LDL: less than 100 mg/dLNear Optimal/Above Optimal LDL: 110- 129 mg/dLBorderline High LDL: 130-159 mg/dLHigh LDL: 160-189 mg/dLVery High LDL: greater than or equal to 190 mg/dL HDL Cholesterol 47 >40 mg/dL [facility] Comment:Desirable HDL: great er than 40 mg/dL Note: This HDL assay may give artificially low results in patients with liver disease. Blood 04/12/2024 8:58 AM EDT 04/12/2024 11:06 AM EDT Gómez Fermin MD LAB BLOOD ORDERABLES Fin al Result Performing Organization Address [facility] de Phone Number [facility] [address] [place] [phone] * Hepatitis Panel, General (08/18/2023 10:53 AM EST) Hepatitis A IgM Nonreactive Nonreactive [facility] Comment:IgM antibodies to HERNANDEZ V not detected; does not exclude earlyacute or recovered HAV infection. ~Hepatitis B Surface Antibody REACTIVE Nonreactive [facility] Comment:REACTIVE: > 11.99 mI U/mL Hepatitis B Core Antibody Nonreactive Nonreactive [facility] Hepatitis C Antibody Nonreactive Nonreactive [facility] Comment:Antibodies to HCV no t detected; does not exclude early acuteHCV infection. Hepatitis B Surface Ag Negative Negative [facility] Blood 08/18/2023 10:5 3 AM EST 08/18/2023 11:21 AM EST us Gómez Fermin MD LAB BLOOD ORDERABLES Fin al Result Performing Organization Address [facility] Co de Phone Number [facility] [address] [place] [phone] * HIV-1/2 Antigen and Antibodies, Fourth Generation, with Reflexes (08/18/2023 10:53 AM EST) HIV AB/AG Nonreactive Nonreactive [facility] Comment:HIV-1 p24 Ag and/or HIV-1/HIV-2 Ab not detected.A test result that is nonreactive does not exclude thepossibility of exposure to or infection with HIV-1 and/orHIV-2. Nonreactive results in this assay for individualswith prior exposure to HIV-1 and/or HIV-2 may be due toantigen and antibody levels that are below the limit ofdetection of this assay.The [employer] HIV Ag/Ab Combo assay result andsupplemental assay results should be interpreted inconjunction with the patient's clinical presentation,history and other laboratory results. If the results areinconsistent with clinical evidence, additional testing issuggested to confirm the result. Blood Venous blood specimen / Unknown 08/18/2023 10:53 AM EST 08/18/2023 11:21 AM EST us Gómez Fermin MD LAB BLOOD ORDERABLES Fin al Result [facility] [address] [place] [address] [phone] * Albumin, Random Urine W/O Creatinine (01/05/2023 10:25 AM EDT) Albumin, Urine 0.6 See Note: mg/dL [facility] Comment: Reference Range: Reference Range Not established [facility] [place] [employer] [facility] Comment: The ADA defines abnormalities in [...] 11:12 PM EDT FASTING:YES FASTING: YES us Gómez Fermin MD LAB URINE ORDERABLES Fin al Result [facility] [address] [facility], [facility], [place] [address] [facility] [address] [place] [address] * THINPREP TIS PAP AND HPV mRNA [...] computer assisted technology. [facility] Install Technician: SEE COMMENT [facility] Comment: RMM, CT(ASCP) CT screening location: [place] [address] HPV nRNA E6/E7 Not Detected Not Detected [facility] Comment: Methodology: Spanish Professor-Mediated Amplification This assay detects E6/E7 viral messenger RNA (mRNA) from 14 high-risk HPV types (16,18,31,33,35,39,45,51,52,56,58,59,66,68). The analytical performance characteristics of this assay have been determined by [facility]. The modifications have not been cleared or approved by the FDA. This assay has been validated pursuant to the CLIA regulations and is used for clinical purposes. For additional information, please refer to http://education.[employer]/faq/SJI488g1 (This link if provided for information/ educational purposes only.) Interpretation/Re sult: Negative for intraepithelial lesion or malignancy. [facility] LMP: [facility] Prev. BX: NONE GIVEN [facility] Prev. PAP: ASC HPV NEG 11/2018 [facility] Review Install Technician: SEE COMMENT [facility] Comment: BJJunior, CT(ASCP) CT screening location: [place] [address] SOURCE: None given [facility] Statement Of Adequacy: SEE COMMENT [facility] Comment: Satisfactory for evaluation. Endocervical/transformation zone component present. 11/17/2021 2:37 PM EDT [facility] PATHOLOGY ORDERABLES Final Result [facility] [address] from Last 3 Months or Most Recently Relevant to Health Maintenance Insurance [facility] PARTIAL (MEDICAID) Care Teams Accountant Property Relationship Specialty Start Date End Date Gómez Fermin MD [address] [place] [address] PCP - General Family Medicine 03/25/21
--- OUTSIDE RECORDS SUMMARY | 2025-04-10 15:41 | XMS_ITS | Encounter Summary ---
Author Organization [employer] Address [address] [place] [address] 7t [place] [address] Care Team Providers Care Supervisor Fabrication And Assembly Name Role Phone Judi Allen MD Primary Care Provider + Reason for Visit * Reason Comments Med Refill Encounter Details Date Type Department Care Team ([facility] st Contact Info) Description 04/07/2025 Refill [facility] MEDICINE [address] [place], [place] [phone] Judi Allen MD 230 [place] [address] Chronic bilateral low back pain, unspecified whether [...] Description 04/16/2025 2:00 PM EDT Clinical Support [facility] MEDICINE [address] [place] [address] [phone] Marlena López RN 05/21/2025 9:15 AM EST Office Visit [facility] MEDICINE [address] [place] [address] 73238 Judi Allen MD [address] [place] [address] 05/26/2025 9:00 AM EST Nutrition [facility] DIABETES/NUTRITION [address] [place] [address] 230 [place] [address] documented as of this encounter Visit Diagnoses Diagnosis Chronic bilateral low back pain, unspecified whether sciatica present documented in this encounter Additional Health Concerns Assessment Noted Time PHQ-9 Depression Total Score: 7 03/11/20 25 9:03 AM EDT documented as of this encounter Care Teams Supervisor Fabrication And Assembly Relationship Specialty Start Date End Date Judi Allen MD [address] [place] [address] 15515 PCP - General Family Medicine 03/25/21 documented as of this encounter
--- OUTSIDE RECORDS SUMMARY | 2025-04-10 15:41 | XMS_ITS | Encounter Summary ---
Author Organization [employer] Address [address] [place] [address] 7 [place] [address] Care Team Providers Care Journeyman Pressman Name Role Phone Judi Allen MD Primary Care Provider + Reason for Visit * Reason Comments Med Refill Encounter Details Date Type Department Care Team ([facility] st Contact Info) Description 05/17/2024 Refill [facility] MEDICINE 230 [place], [place] [phone] Judi Allen MD 230 [place], [place] [phone] Type 2 diabetes mellitus with hyperglycemia, without long-term current use of insulin ([facility]) Social History Tobacco Use Types [...] 2:00 PM EDT Clinical Support [facility] MEDICINE [address] [place] [address] Marlena López RN 05/21/2025 9:15 AM EST Office Visit [facility] MEDICINE [address] [place] [address] [phone] Judi Allen MD [address] [place] [address] 7[address] 05/26/2025 9:00 AM EST Nutrition [facility] DIABETES/NUTRITION [address] [place] [address] [place] [address] documented as of this encounter Visit Diagnoses Diagnosis Type 2 diabetes mellitus with hyperglycemia, without long-term current use of insulin (HCC) documented in this encounter Additional Health Concerns Assessment Noted Time PHQ-9 Depression Total Score: 13 024 3:34 PM EST documented as of this encounter Care Teams Journeyman Pressman Relationship Specialty Start Date End Date Judi Allen MD [address] [place] [address] 62301 PCP - General Family Medicine 03/25/21 documented as of this encounter
--- OUTSIDE RECORDS SUMMARY | 2025-04-10 15:41 | XMS_ITS | Encounter Summary ---
Author Organization [employer] Address [address] [place] [address] 7 [place] [address] Care Team Providers Care Client Development Manager Name Role Phone Judi Allen MD Primary Care Provider + Encounter Details Date Type Department Care Team (Late st Contact Info) Description 08/12/2022 Abstract [facility] MEDICINE [address] [place] [address] [phone] Judi Allen MD [address] [place] [address] [phone] Social History Tobacco Use Types Packs/Day Years [...] Description 04/16/2025 2:00 PM EDT Clinical Support [facility] MEDICINE [address] [place] [address] [phone] Marlena López RN 05/21/2025 9:15 AM EST Office Visit [facility] MEDICINE 230 [place] [address] Judi Allen MD 230 [place] [address] 05/26/2025 9:00 AM EST Nutrition [facility] DIABETES/NUTRITION 230 [place] [address] Hermila Conde, KIRA 230 [place] [address] documented as of this encounter Procedures Procedure [...] on filedocumented in this encounter Care Teams Client Development Manager Relationship Specialty Start Date End Date Judi Allen MD 230 [place], [place] [phone] PCP - General Family Medicine 03/25/21 documented as of this encounter
--- OUTSIDE RECORDS SUMMARY | 2025-04-10 15:41 | XMS_ITS | Encounter Summary ---
Author Organization [employer] Address [address] [place] [address] 7 [place] [address] Care Team Providers Care Paper Gluing Operator Name Role Phone Judi Allen MD Primary Care Provider + Reason for Visit * Reason Onset Date Comments Nurse Triage 10/08/2024 ER Follow-up 10/08/2024 Encounter Details Date Type Department Care Team ([facility] st Contact Info) Description 10/08/2024 Telephone [facility] MEDICINE 230 [place] [address] Judi Allen MD 230 [place] [address] Nurse Triage; ER Follow-up Social History Tobacco [...] pt to triage, spoke to pt through [employer] Cut Out Worker. pt states seen yesterday at [facility] for left back, flank pain and persistent [...] ED visit on : Date: 10/07 Hospital: [facility] Seen for: Back pain Symptomatic Yes *if yes message should go to Triage Patient advised will forward to team nurse for follow up [phone] (frisian) documented in this encounter Plan of Treatment Upcoming Encounters Date Type Department Care Team (Late st Contact Info) Description 04/16/2025 2:00 PM EDT Clinical Support [facility] MEDICINE [address] [place] [address] [phone] Marlena López RN 05/21/2025 9:15 AM EST Office Visit [facility] MEDICINE [address] [place] [address] 70198 Judi Allen MD 230 [place] [address] 05/26/2025 9:00 AM EST Nutrition [facility] DIABETES/NUTRITION [address] [place] [address] 230 [place] [address] documented as of this encounter Visit Diagnoses Not on filedocumented in this encounter Additional Health Concerns Assessment Noted Time PHQ-9 Depression Total Score: 13 02/2 024 3:34 PM EST documented as of this encounter Care Teams Paper Gluing Operator Relationship Specialty Start Date End Date Judi Allen MD [address] [place] [address] 42749 PCP - General Family Medicine 03/25/21 documented as of this encounter
--- OUTSIDE RECORDS SUMMARY | 2025-04-10 15:41 | XMS_ITS | Encounter Summary ---
Author Organization [employer] Address [address] [place] [address] 7 [place] [address] Care Team Providers Care Opthalmic Tech Name Role Phone Judi Allen MD Primary Care Provider + Encounter Details Date Type Department Care Team (Late st Contact Info) Description 10/27/2022 Orders Only [facility] MEDICINE [address] [place] [address] [phone] Sia Youssef LPN Social History Tobacco Use [...] Description 04/16/2025 2:00 PM EDT Clinical Support [facility] MEDICINE [address] [place] [address] Marlena López RN 05/21/2025 9:15 AM EST Office Visit [facility] MEDICINE 230 [place] [address] Judi Allen MD 230 [place] [address] 05/26/2025 9:00 AM EST Nutrition [facility] DIABETES/NUTRITION 230 [place], [place] [phone] Hermila Conde [address] 230 [place] [address] documented as of this encounter Visit Diagnoses Not on filedocumented in this encounter Care Teams Opthalmic Tech Relationship Specialty Start Date End Date Judi Allen MD [address] [place] [phone] PCP - General Family Medicine 03/25/21 documented as of this encounter
--- OUTSIDE RECORDS SUMMARY | 2025-04-10 15:41 | XMS_ITS | Clinical Summary ---
Author Organization [facility] Address [address] [place] [address] Phone Care Team Providers Care Dry Wall Applicator Name Role Phone Name, Michael BYNUM Primary Care Provider [phone] Allergies No known active allergies Medications acetaminophen [...] and TFCC repair 10 years ago Immunizations Immunization Administration Dates Next Due Influenza Quadrivalent, 0.5m [...] Last Done Comments Breast Cancer Screening 1970 Colorectal Cancer Screening: Colonoscopy 1970 Diabetes: Annual Foot Exam 1980 Diabetes: Annual Retina Eye Exam 1980 Hepatitis A Vaccines (1 of 2 - Risk 2-dose series) 1989 Hepatitis B Vaccines (1 of 3 - 19+ 3-dose series) 1989 Cervical Cancer Screening: Pap Smear 10/22/1991 Zoster Vaccines (1 of 2) 2020 Cholesterol Screening (Lipid Panel) 08/03/2023 Hepatitis C Screening 08/03/2023 Social Influencers of Health Screening 08/03/2023 Depression Screening 07/10/2024 Diabetes: Annual Urine Albumin-Creatinine Ratio (uACR) 07/15/2024 01/05/2023 COVID-19 Vaccine ( season) 2025 11/25/2020, 11/04/2020, [...] Td or Tdap) 08/16/2032 08/16/2022, 09/29/2010 RSV Immunization Adult Patients (1 - 1-dose 75+ series) 2045 Pneumococcal [...] patient's age to complete this topic Insurance [facility] PUBLIC PLANS KRISTY GOLDSMITH [id number] Care Teams Dry Wall Applicator Relationship Specialty Start Date End Date Name, MD [facility] - [facility]
--- OUTSIDE RECORDS SUMMARY | 2025-04-10 15:41 | XMS_ITS | Encounter Summary ---
Author Organization [employer] Address [address] [place] [address] 7t [place] [address] Care Team Providers Care Stemming Machine Operator Name Role Phone Judi Allen MD Primary Care Provider + Encounter Details Date Type Department Care Team ([facility] st Contact Info) Description 04/06/2025 Orders Only [facility] MEDICINE 230 [place], [place] [phone] Judi Allen MD [address] [place] [address] Social History Tobacco Use Types Packs/Day Years [...] Description 04/16/2025 2:00 PM EDT Clinical Support [facility] MEDICINE [address] [place] [address] 10347 Marlena López RN 05/21/2025 9:15 AM EST Office Visit [facility] MEDICINE [address] [place] [address] 564[address] Judi Allen MD [address] [place] [address] 05/26/2025 9:00 AM EST Nutrition [facility] DIABETES/NUTRITION [address] [place] [address] [place] [address] documented as of this encounter Procedures Procedure Name Priority Date/Time Associated Diagnosis Comments FECAL IMMUNOCHEMICAL Routine 04/06/2025 12:00 AM EDT documented in this encounter Results * Fecal immunochemical (04/06/2025 12:00 AM EDT) FIT1 NEGATIVE NEGATIVE [facility] FIT DATE 1 04/06/25 [facility] FIT2 NEGATIVE NEGATIVE [facility] FIT DATE 2 04/07/25 [facility] 04/06/2025 04/06/2025 us Judi Allen MD LAB BODY FLUIDS AND STOO LS ORDERABLES Final Result [facility] [address] [place] [address] [phone] documented in this encounter Visit Diagnoses Not on filedocumented in this encounter Additional Health Concerns Assessment Noted Time PHQ-9 Depression Total Score: 7 03/11/20 25 9:03 AM EDT documented as of this encounter Care Teams Stemming Machine Operator Relationship Specialty Start Date End Date Judi Allen MD [address] [place] [phone] PCP - General Family Medicine 03/25/21 documented as of this encounter
--- OUTSIDE RECORDS SUMMARY | 2025-04-10 15:41 | XMS_ITS | Encounter Summary ---
Author Organization [employer] Address [address] [place] [address] 7t [place] [address] Care Team Providers Care Window Trimmer Apprentice Name Role Phone Judi Allen MD Primary Care Provider + Encounter Details Date Type Department Care Team ([facility] Contact Info) Description 11/24/2022 Orders Only [facility] CHC MED & PEDS [address] [place], [place] [phone] Brenda Metzger LPN Social History Tobacco Use [...] 04/16/2025 2:00 PM EDT Clinical Support [facility] MEDICINE 230 [place] [address] Marlena López RN 05/21/2025 9:15 AM EST Office Visit [facility] MEDICINE [address] [place] [address] Judi Allen MD 230 [place] [address] 05/26/2025 9:00 AM EST Nutrition [facility] DIABETES/NUTRITION 230 [place], [place] [phone] Hermila Conde [address] 230 [place] [address] documented as of this encounter Visit Diagnoses Not on filedocumented in this encounter Care Teams Window Trimmer Apprentice Relationship Specialty Start Date End Date Judi Allen MD [address] [place] [address] 8[address]99 PCP - General Family Medicine 03/25/21 documented as of this encounter
--- OUTSIDE RECORDS SUMMARY | 2025-04-10 15:41 | XMS_ITS | Encounter Summary ---
Author Organization [employer] Address [address] [place] [address] 7 [place] [address] Care Team Providers Care Automatic Lump Making Machine Tender Name Role Phone Judi Allen MD Primary Care Provider + Encounter Details Date Type Department Care Team (Late Contact Info) Description 09/23/2022 Telephone [facility] MEDICINE [address] [place] [address] [phone] Judi Allen MD [address] [place] [address] Social History Tobacco Use Types Packs/Day Years [...] 2:00 PM EDT Clinical Support [facility] MEDICINE [address] [place] [address] 09894 Marlena López RN 05/21/2025 9:15 AM EST Office Visit [facility] MEDICINE [address] [place] [address] Judi Allen MD 230 [place] [address] 05/26/2025 9:00 AM EST Nutrition [facility] DIABETES/NUTRITION 230 [place], [place] [phone] Hermila Conde [address] [place] [address] documented as of this encounter Visit Diagnoses Not on filedocumented in this encounter Care Teams Automatic Lump Making Machine Tender Relationship Specialty Start Date End Date Judi Allen MD [address] [place] [address] 36277 PCP - General Family Medicine 03/25/21 documented as of this encounter
--- OUTSIDE RECORDS SUMMARY | 2025-04-10 15:41 | XMS_ITS | Encounter Summary ---
Author Organization [employer] Address [address] [place] [address] 7t [place] [address] Care Team Providers Care Assistant Production Manager Name Role Phone Judi Allen MD Primary Care Provider + Encounter Details Date Type Department Care Team (Late Contact Info) Description 11/22/2022 Abstract [facility] MEDICINE [address] [place] [address] [phone] Judi Allen MD [address] [place] [address] [phone] Social History Tobacco Use Types Packs/Day Years [...] 04/16/2025 2:00 PM EDT Clinical Support [facility] MEDICINE [address] [place] [address] 28592 Marlena López RN 05/21/2025 9:15 AM EST Office Visit [facility] MEDICINE 230 [place] [address] Judi Allen MD 230 [place] [address] 05/26/2025 9:00 AM EST Nutrition [facility] DIABETES/NUTRITION [address] [place], [place] [phone] Hermila Conde, KIRA [address] [place] [address] documented as of this encounter Visit Diagnoses Not on filedocumented in this encounter Care Teams Assistant Production Manager Relationship Specialty Start Date End Date Judi Allen MD 230 [place] [address] PCP - General Family Medicine 03/25/21 documented as of this encounter
--- OUTSIDE RECORDS SUMMARY | 2025-04-10 15:41 | XMS_ITS | Encounter Summary ---
Author Organization [employer] Address [address] [place] [address] 7 [place] [address] Care Team Providers Care Payloader Machine Operator Name Role Phone Judi Allen MD Primary Care Provider + Reason for Visit * Reason Comments Med Refill Encounter Details Date Type Department Care Team (Late st Contact Info) Description 02/17/2023 Refill [facility] MEDICINE 230 [place], [place] [phone] Judi Allen MD 230 [place] [address] Chronic bilateral low back pain, unspecified whether [...] [facility] MEDICINE [address] [place] [address] Marlena López, RN 05/21/2025 9:15 AM EST Office Visit [facility] MEDICINE [address] [place] [address] Judi Allen MD 230 [place] [address] 05/26/2025 9:00 AM EST Nutrition [facility] DIABETES/NUTRITION [address] [place] [address] 230 [place] [address] documented as of this encounter Visit Diagnoses Diagnosis Chronic bilateral low back pain, unspecified whether sciatica present Primary hypertension Unspecified essential hypertension documented in this encounter Care Teams Payloader Machine Operator Relationship Specialty Start Date End Date Judi Allen MD [address] [place] [address] 6[address] PCP - General Family Medicine 03/25/21 documented as of this encounter
--- OUTSIDE RECORDS SUMMARY | 2025-04-10 15:41 | XMS_ITS | Encounter Summary ---
Author Organization [employer] Address [address] [place] [address] 7 [place] [address] Care Team Providers Care Judicial Reporter Name Role Phone Judi Allen MD Primary Care Provider + Reason for Visit * Reason Comments Med Refill Encounter Details Date Type Department Care Team (Late Contact Info) Description 10/14/2022 Refill [facility] MEDICINE 230 [place] [address] Judi Allen MD 230 [place] [address] Chronic bilateral low back pain, unspecified whether [...] Description 04/16/2025 2:00 PM EDT Clinical Support [facility] MEDICINE [address] [place] [phone] Marlena López RN 05/21/2025 9:15 AM EST Office Visit [facility] MEDICINE [address] [place] [address] [phone] Judi Allen MD [address] [place] [address] 29[address] 05/26/2025 9:00 AM EST Nutrition [facility] DIABETES/NUTRITION [address] [place] [phone] [place] [address] documented as of this encounter Visit Diagnoses Diagnosis Chronic bilateral low back pain, unspecified whether sciatica present documented in this encounter Care Teams Judicial Reporter Relationship Specialty Start Date End Date Judi Allen MD [address] [place] [address] 38231 PCP - General Family Medicine 03/25/21 documented as of this encounter
--- OUTSIDE RECORDS SUMMARY | 2025-04-10 15:41 | XMS_ITS | Encounter Summary ---
Author Organization [employer] Address [address] [place] [address] 7 [place] [address] Care Team Providers Care Coal Trammer Name Role Phone Judi Allen MD Primary Care Provider + Encounter Details Date Type Department Care Team (Late st Contact Info) Description 01/30/2023 Orders Only [facility] MEDICINE [address] [place] [address] [phone] Sia Youssef LPN Social History Tobacco Use [...] Description 04/16/2025 2:00 PM EDT Clinical Support [address] [phone] Marlena López RN 05/21/2025 9:15 AM EST Office Visit [facility] MEDICINE [address] [place] [address] [phone] Judi Allen MD [address] [place] [address] [phone] 05/26/2025 9:00 AM EST Nutrition [facility] DIABETES/NUTRITION 230 [place], [place] [phone] Hermila Conde [address] [place], [place] [phone] documented as of this encounter Visit Diagnoses Not on filedocumented in this encounter Care Teams Coal Trammer Relationship Specialty Start Date End Date Judi Allen MD 230 [place], [place] [phone] PCP - General Family Medicine 03/25/21 documented as of this encounter
--- OUTSIDE RECORDS SUMMARY | 2025-04-10 15:41 | XMS_ITS | Encounter Summary ---
Author Organization [employer] Address [address] [place] [address] 7 [place] [address] Care Team Providers Care Commissioner Conservation Of Resources Name Role Phone Judi Allen MD Primary Care Provider + Reason for Visit * Reason Comments Med Refill Encounter Details Date Type Department Care Team ([facility] st Contact Info) Description 04/21/2023 Refill [facility] MEDICINE 230 [place], [place] [phone] Judi Allen MD 230 [place], [place] [phone] Arm paresthesia, left Social History Tobacco Use [...] 2:00 PM EDT Clinical Support [facility] MEDICINE [address] [place] [address] [phone] Marlena López, RN 05/21/2025 9:15 AM EST Office Visit [facility] MEDICINE [address] [place] [address] [phone] Judi Allen MD [address] [place] [address] 05/26/2025 9:00 AM EST Nutrition [facility] DIABETES/NUTRITION [address] [place] [address] [place] [address]907 documented as of this encounter Visit Diagnoses Diagnosis Arm paresthesia, left Disturbance of skin sensation documented in this encounter Care Teams Commissioner Conservation Of Resources Relationship Specialty Start Date End Date Judi Allen MD [address] [place] [address] [phone] PCP - General Family Medicine 03/25/21 documented as of this encounter
--- OUTSIDE RECORDS SUMMARY | 2025-04-10 15:41 | XMS_ITS | Encounter Summary ---
Author Organization [employer] Address [address] [place] [address] 7t [place] [address] Care Team Providers Care Posting Specialist Name Role Phone Judi Allen MD Primary Care Provider + Encounter Details Date Type Department Care Team (Latest Contact Info) Description 04/09/2025 Travel Social History Tobacco Use Types Packs/Day Years [...] 2:00 PM EDT Clinical Support [facility] MEDICINE [address] [place] [address] 19[address] Marlena López, MARIPOSA 05/21/2025 9:15 AM EST Office Visit [facility] MEDICINE [address] [place] [address] 14241 Judi Allen MD [address] [place] [address] 05/26/2025 9:00 AM EST Nutrition [facility] DIABETES/NUTRITION [address] [place] [address] [place] [address] documented as of this encounter Visit Diagnoses Not on filedocumented in this encounter Additional Health Concerns Assessment Noted Time PHQ-9 Depression Total Score: 7 03/11/20 25 9:03 AM EDT documented as of this encounter Care Teams Posting Specialist Relationship Specialty Start Date End Date Judi Allen MD [address] [place] [address] 23520 PCP - General Family Medicine 03/25/21 documented as of this encounter
--- OUTSIDE RECORDS SUMMARY | 2025-04-10 15:41 | XMS_ITS | Encounter Summary ---
Author Organization [facility] [employer] Address [address] [place] [address] 7 [place] [address] Care Team Providers Care Unitizer Name Role Phone Judi Allen MD Primary Care Provider + Reason for Visit * Reason Comments Med Refill Encounter Details Date Type Department Care Team ([facility] st Contact Info) Description 11/11/2024 Refill [facility] MEDICINE [address] [place], [place] [phone] Judi Allen MD 230 [place], [place] [phone] Type 2 diabetes mellitus with hyperglycemia, without long-term current use of insulin ([facility]) Social History Tobacco Use Types Packs/Day Years [...] Description 04/16/2025 2:00 PM EDT Clinical Support [facility] MEDICINE [address] [place] [address] 76[address] Marlena López RN 05/21/2025 9:15 AM EST Office Visit [facility] MEDICINE [address] [place] [address] 60479 Judi Allen MD [address] [place] [address] 80646 05/26/2025 9:00 AM EST Nutrition [facility] DIABETES/NUTRITION [address] [place] [address] [place] [address] 476[address] documented as of this encounter Visit Diagnoses Diagnosis Type 2 diabetes mellitus with hyperglycemia, without long-term current use of insulin (HCC) documented in this encounter Additional Health Concerns Assessment Noted Time PHQ-9 Depression Total Score: 13 024 3:34 PM EST documented as of this encounter Care Teams Unitizer Relationship Specialty Start Date End Date Judi Allen MD [address] [place] [phone] PCP - General Family Medicine 03/25/21 documented as of this encounter
--- OUTSIDE RECORDS SUMMARY | 2025-04-10 15:41 | XMS_ITS | Encounter Summary ---
Author Organization [employer] Address [address] [place] [address] 7t [place] [address] Care Team Providers Care Certified Personal Trainer Name Role Phone Judi Allen MD Primary Care Provider + Encounter Details Date Type Department Care Team ([facility] Contact Info) Description 10/28/2022 Orders Only [facility] CHC MED & PEDS [address] [place], [place] [phone] Brenda Metzger LPN Social History Tobacco Use [...] 2:00 PM EDT Clinical Support [facility] MEDICINE 230 [place] [address] Marlena López RN 05/21/2025 9:15 AM EST Office Visit [facility] MEDICINE 230 [place] [address] Judi Allen MD 230 [place] [address] 05/26/2025 9:00 AM EST Nutrition [facility] DIABETES/NUTRITION 230 [place], [place] [phone] Hermila Conde [address] 230 [place] [address] documented as of this encounter Visit Diagnoses Not on filedocumented in this encounter Care Teams Certified Personal Trainer Relationship Specialty Start Date End Date Judi Allen MD [address] [place] [phone] PCP - General Family Medicine 03/25/21 documented as of this encounter
--- OUTSIDE RECORDS SUMMARY | 2025-04-10 15:42 | XMS_ITS | Encounter Summary ---
Author Organization [employer] Address [address] [place] [address] 7t [place] [address] Care Team Providers Care Brake Repair Mechanic Name Role Phone Judi Allen MD Primary Care Provider + Reason for Visit * Reason Comments Med Refill Encounter Details Date Type Department Care Team ([facility] st Contact Info) Description 11/01/2023 Refill [facility] MEDICINE [address] [place], [place] [phone] Judi Allen MD 230 [place], [place] [phone] Arm paresthesia, left Social History Tobacco Use [...] Description 04/16/2025 2:00 PM EDT Clinical Support [facility] MEDICINE [address] [place] [address] [phone] Marlena López RN 05/21/2025 9:15 AM EST Office Visit [facility] MEDICINE [address] [place] [address] 16224 Judi Allen MD [address] [place] [address] 05/26/2025 9:00 AM EST Nutrition [facility] DIABETES/NUTRITION [address] [place] [phone] [place] [address] documented as of this encounter Visit Diagnoses Diagnosis Arm paresthesia, left Disturbance of skin sensation documented in this encounter Additional Health Concerns Assessment Noted Time PHQ-9 Depression Total Score: 13 024 3:34 PM EST documented as of this encounter Care Teams Brake Repair Mechanic Relationship Specialty Start Date End Date Judi Allen MD [address] [place] [address] 38440 PCP - General Family Medicine 03/25/21 documented as of this encounter
--- OUTSIDE RECORDS SUMMARY | 2025-04-10 15:42 | XMS_ITS | Encounter Summary ---
Author Organization [employer] Address [address] [place] [address] 7t [place] [address] Care Team Providers Care Pneumatic Tool Repairer Name Role Phone Judi Allen MD Primary Care Provider + Reason for Visit * Reason Comments Med Refill Encounter Details Date Type Department Care Team ([facility] st Contact Info) Description 10/03/2023 Refill [facility] MEDICINE 230 [place], [place] [phone] Judi Allen MD 230 [place], [place] [phone] Chronic bilateral low back pain, unspecified whether [...] Clinical Support [facility] MEDICINE [address] [place] [address] [phone] Marlena López RN 05/21/2025 9:15 AM EST Office Visit [facility] MEDICINE [address] [place] [address] 43860 Judi Allen MD [address] [place] [address] 15950 05/26/2025 9:00 AM EST Nutrition [facility] DIABETES/NUTRITION [address] [place] [address] 230 [place] [address] documented as of this encounter Visit Diagnoses Diagnosis Chronic bilateral low back pain, unspecified whether sciatica present documented in this encounter Additional Health Concerns Assessment Noted Time PHQ-9 Depression Total Score: 13 024 3:34 PM EST documented as of this encounter Care Teams Pneumatic Tool Repairer Relationship Specialty Start Date End Date Judi Allen MD [address] [place] [address] 46514 PCP - General Family Medicine 03/25/21 documented as of this encounter
--- OUTSIDE RECORDS SUMMARY | 2025-04-10 15:42 | XMS_ITS | Encounter Summary ---
Author Organization [employer] Address [address] [place] [address] 7 [place] [address] Care Team Providers Care Aerotriangulation Specialist Name Role Phone Judi Allen MD Primary Care Provider + Encounter Details Date Type Department Care Team (Late st Contact Info) Description 07/28/2022 Orders Only [facility] CHC MED & PEDS 505 [place], [place] [phone] Brenda Metzger LPN Social History Tobacco Use [...] Description 04/16/2025 2:00 PM EDT Clinical Support [facility] MEDICINE [address] [place] [address] [phone] Marlena López RN 05/21/2025 9:15 AM EST Office Visit [facility] MEDICINE [address] [place] [address] [phone] Judi Allen MD [address] [place] [address] [phone] 05/26/2025 9:00 AM EST Nutrition [facility] DIABETES/NUTRITION 230 [place], [place] [phone] Hermila Conde RD 230 [place], [place] [phone] documented as of this encounter Visit Diagnoses Not on filedocumented in this encounter Care Teams Aerotriangulation Specialist Relationship Specialty Start Date End Date Judi Allen MD 230 [place] [address] PCP - General Family Medicine 03/25/21 documented as of this encounter
--- OUTSIDE RECORDS SUMMARY | 2025-04-10 15:42 | XMS_ITS | Encounter Summary ---
Author Organization [employer] Address [address] [place] [address] 7 [place] [address] Care Team Providers Care Internal Security Manager Name Role Phone Judi Allen MD Primary Care Provider + Encounter Details Date Type Department Care Team (Latest Contact Info) Description 07/17/2019 Abstract [facility] CONVERSIONS Dental, Provider, DDS Social [...] Description 04/16/2025 2:00 PM EDT Clinical Support [facility] MEDICINE [address] [place] [address] 81928 Marlena López RN 05/21/2025 9:15 AM EST Office Visit [facility] MEDICINE [address] [place] [address] 19146 Judi Allen MD [address] [place] [address] 19[address] 05/26/2025 9:00 AM EST Nutrition [facility] DIABETES/NUTRITION [address] [place] [address] [place] [address] 30441 documented as of this encounter Visit Diagnoses Not on filedocumented in this encounter Care Teams Internal Security Manager Relationship Specialty Start Date End Date Judi Allen MD [address] [place] [address] 14614 PCP - General Family Medicine 03/25/21 documented as of this encounter
--- OUTSIDE RECORDS SUMMARY | 2025-04-10 15:42 | XMS_ITS | Encounter Summary ---
Author Organization [employer] Address [address] [place] [address] 7 [place] [address] Care Team Providers Care Rural Sociologist Name Role Phone Judi Allen MD Primary Care Provider + Encounter Details Date Type Department Care Team (Late st Contact Info) Description 07/13/2022 Orders Only [facility] CHC MED & PEDS 505 [place], [place] [phone] Brenda Metzger LPN Social History Tobacco Use [...] Description 04/16/2025 2:00 PM EDT Clinical Support [facility] MEDICINE [address] [place] [address] 11328 Marlena López, RN 05/21/2025 9:15 AM EST Office Visit [facility] MEDICINE [address] [place] [address] [phone] Judi Allen MD 230 [place], [place] [phone] 05/26/2025 9:00 AM EST Nutrition [facility] DIABETES/NUTRITION [address] [place] [address] 230 [place] [address] documented as of this encounter Procedures Procedure Name Priority Date/Time Associated Diagnosis Comments XR KNEE 3 VIEWS LEFT Routine 07/19/2022 2:24 PM EST documented in this encounter Results * XR Knee 3 Views Left (07/19/2022 2:24 PM EST) Anatomical Region Laterality Modality Lower Extremities, Knee Left Radiogra phic Imaging 07/19/2022 2:24 PM EST Narrative 07/23/2022 1:32 PM EST [address] [address] XRay Report Signed Patient: Kelly Schumacher MR#: [id number] : 1970 Acct:[id number] Age/Sex: 51 / F ADM Date: 07/19/22 Loc: HO.XRAY Attending Dr: Jose Armando Rasmussen MD Ordering Physician: JOSE ARMANDO RASMUSSEN MD Date of Service: 07/19/22 Procedure(s): XR knee LT 3V Accession Number(s): [id number] cc: JOSE ARMANDO RASMUSSEN MD EXAMINATION: XR KNEE, LEFT CLINICAL INFORMATION: [...] in OV> 07/23/22 1329 DD/ 1424 TD/TT: Painter Helper: LUANA Procedure Note Donotuseinterpreter, Image - 08/15/[address] [address] XRay Report Signed Patient: Elijah Schumacher#: [id number] : 1970Acct:[id number] Age/Sex: 51 / FADM Date: 07/19/22 Loc: [facility] Attending Dr: Jose Armando Rasmussen MD Ordering Physician: JOSE ARMANDO RASMUSSEN MD Date of Service: 07/19/22 Procedure(s): XR knee LT 3V Accession Number(s): [id number] cc: JOSE ARMANDO RASMUSSEN MD EXAMINATION: XR KNEE, LEFT CLINICAL INFORMATION: [...] MD Signed By: <Electronically signed by Spencer Satniago MD in OV> 07/23/22 1329 DD/ 1424 TD/TT: Painter Helper: LUANA [facility] External Provider IMG XR PROCEDURES Final Result documented in this encounter Visit Diagnoses Not on filedocumented in this encounter Care Teams Rural Sociologist Relationship Specialty Start Date End Date Judi Allen MD [address] [place] [phone] PCP - General Family Medicine 03/25/21 documented as of this encounter
--- OUTSIDE RECORDS SUMMARY | 2025-04-10 15:42 | XMS_ITS | Encounter Summary ---
Author Organization [employer] Address [address] [facility] 7t [place] [address] Care Team Providers Care Prep Manager Name Role Phone Judi Allen MD Primary Care Provider + Encounter Details Date Type Department Care Team ([facility] st Contact Info) Description 01/24/2024 Orders Only [facility] CHC MED & PEDS [address] [place], [place] [phone] Tiki Marie, LUCI [address] [place] [address] Social History Tobacco Use Types Packs/Day Years [...] Support [facility] MEDICINE [address] [place] [phone] Marlena López RN 05/21/2025 9:15 AM EST Office Visit [facility] MEDICINE [address] [place] [address] Judi Allen MD [address] [place] [address] 201[address] 05/26/2025 9:00 AM EST Nutrition [facility] DIABETES/NUTRITION [address] [place] [address] Hermila Conde, KIRA [address] [place] [address] documented as of this encounter Visit Diagnoses Not on filedocumented in this encounter Additional Health Concerns Assessment Noted Time PHQ-9 Depression Total Score: 13 024 3:34 PM EST documented as of this encounter Care Teams Prep Manager Relationship Specialty Start Date End Date Judi Allen MD [address] [place] [address] PCP - General Family Medicine 03/25/21 documented as of this encounter
--- OUTSIDE RECORDS SUMMARY | 2025-04-10 15:42 | XMS_ITS | Encounter Summary ---
Author Organization [employer] Address [address] [place] [address] 7t [place] [address] Care Team Providers Care Asphalt Paver Operator Name Role Phone Judi Allen MD Primary Care Provider + Encounter Details Date Type Department Care Team ([facility] st Contact Info) Description 05/29/2023 Orders Only [facility] CHC MED & PEDS [address] [place], [place] [phone] Brenda Metzger LPN Social History Tobacco Use [...] PM EDT Clinical Support [facility] MEDICINE [address] [place] [address] 23283 Marlena López RN 05/21/2025 9:15 AM EST Office Visit [facility] MEDICINE [address] [place] [address] 97689 Judi Allen MD [address] [place] [address] 05/26/2025 9:00 AM EST Nutrition [facility] DIABETES/NUTRITION [address] [place] [address] Hermila Conde, RD 230 [place] [address] documented as of this encounter Visit Diagnoses Not on filedocumented in this encounter Care Teams Asphalt Paver Operator Relationship Specialty Start Date End Date Judi Allen MD [address] [place] [address] PCP - General Family Medicine 03/25/21 documented as of this encounter
== END 2025-04-10 14:03 | disposition home or self-care (01) ==
LOC: HO.LNP 14:02
PROVIDERS: Visit Provider Internal Medicine
DX: Z13.89 Encounter for screening for other disorder (principal)

== ENCOUNTER 2025-04-10 14:05 | Outpatient (REF) | payer OTHER, SELFPAY | END 2025-04-10 14:06 | disposition home or self-care (01) | LOC: HO.LNP 14:05 | PROVIDERS: Visit Provider Internal Medicine | DX: Z13.89 Encounter for screening for other disorder (principal) ==

== ENCOUNTER 2025-04-10 14:30 | Outpatient (REF) | payer OTHER, SELFPAY ==
[2025-04-10 15:26] LABS: FIT Date 2 9/29/25; FIT Int Ctl YES; FIT Lot M502755; FIT1 NEGATIVE (NEGATIVE); FIT2 NEGATIVE (NEGATIVE)
== END 2025-04-10 14:31 | disposition home or self-care (01) ==
LOC: HO.LNP 14:30
PROVIDERS: Visit Provider Internal Medicine
DX: Z12.11 Encounter for screening for malignant neoplasm of colon (principal)
CPT/HCPCS: 82274

== ENCOUNTER 2025-05-28 14:55 | Outpatient (AMB) | payer OTHER, SELFPAY ==
[2025-05-28 14:58] VITALS: BP 115/89; PULSE 79; BMI 29.8
--- NOTE | 2025-05-28 14:58 | MHC.OFFVIS ---
Vital Signs 05/28/25 14:58 Height 5 ft 2 in Weight 163 lb BMI 29.8 BP 115/89 Blood Pressure Location Lt brachial Position Sitting Pulse 79 Intake Visit Reasons: 2m Intake Note: Patient in office today in 2 months follow up for FIT test results. CC: Patient reports doing well and denies having any new GI symptoms today. Virtualization Engineer Required: Yes Virtualization Engineer Language: Machine Engraver Name: Nicolas MONIQUE Gillette Accompanied by: Self / Same As Patient Allergies Iodinated Contrast Media (IV Dye, Iodine Containing) Allergy (Intermediate, Verified 05/28/25 15:11) ITCHING HPI HPI 2m: Details: Patient is a 54-year-old female with PMH of diabetes, hypertension and hyperlipidemia. F/U for chronic constipation and NAFLD. Patient reports constipation has improved since increasing Linzess (linaclotide) to max dose. BMs now occur at least every other day; no >2 days without BM. Describes complete evacuation after BMs. Denies hematochezia, abd pain, N/V. Appetite remains normal. Denies issues w/ med adherence; has current supply of Linzess. Reports significant weight loss (from 180s to 160s) attributed to GLP-1 agonist. No new GI sx, hospitalizations, or acute events since last F/U. [facility] Medical History Hemorrhoids Colon cancer screening Transaminitis NAFLD (nonalcoholic fatty liver disease) Chronic constipation Elevated liver enzymes Abdominal pain Kidney stones H. 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 Review of Systems Const Reports as per HPI ENT Reports as per HPI Card Reports as per HPI Resp Reports as per HPI GI Reports as per HPI Reports as per HPI Physical Exam Vital Signs: Last Vital Signs Pulse 79 05/28/25 14:58 BP 115/89 05/28/25 14:58 BMI result Body Mass Index 29.8 Const General: healthy appearing, no acute distress and well developed Nutritional Appearance: average body habitus Orientation/consciousness: patient oriented x3 HEENT Head: Yes normal to inspection, Yes normocephalic and Yes atraumatic Face and sinus: Yes normal facial exam Eyes General: appearance normal, both eyes and all related structures Neck Neck: Yes normal visual inspection Resp Effort & Inspection: normal respiratory effort, able to speak in complete sentences, no tracheal deviation and symmetric chest movement Cardio Jugular venous distension: no JVD Neuro General: patient oriented x3 Gait exam (Neuro): Normal gait present Psych Appearance: grossly normal Mental Status: mental status grossly normal Speech and movement: Normal speech and movement present Affect: normal affect Attitude: cooperative Thought process: Normal thought process present Thought content: Normal thought content present Insight: Good insight present (Psych) Judgement: Good judgement present (Psych) Assessment & Plan Assessment & Plan (1) Chronic constipation: Code(s): K59.09 - Other constipation Category: Medical Plan: Improving; Symptom response to max dose Linzess; continued use warranted. Additional testing: None at this time. Medications: - Continue Linzess at current (max) dose. - Provided 3-month Rx to prevent lapses. Lifestyle Recommendations: - Reinforced high-fiber diet (fruits, vegetables, beans), ongoing hydration, regular physical activity. - Reviewed use of supplemental laxatives as needed for colonoscopy prep. Referrals / Coordination of Care: None required until post-colonoscopy. Follow-Up Plan: Return after colonoscopy unless new/worsening sx; PRN outreach for Rx needs. (2) NAFLD (nonalcoholic fatty liver disease): Code(s): K76.0 - Fatty (change of) liver, not elsewhere classified Category: Medical Plan: Stable; no new sx reported. Maintains prior lifestyle advice; weight loss may contribute to improvement. Additional testing: None at this time. Medications: No changes. Lifestyle Recommendations: - Continue weight loss, balanced diet, physical activity. Referrals / Coordination of Care: None. Follow-Up Plan: Continue monitoring with PCP (3) Colon cancer screening: Comment: 05/07/19 Colonoscopy complete with poor-fair prep. annual FIT testing advised Code(s): Z12.11 - Encounter for screening for malignant neoplasm of colon Category: Medical Plan: Pending scheduling; FIT negative. Prior poor prep necessitates modified regimen for next colonoscopy. Additional testing: Colonoscopy (pending). Medications: - Rx 2 bisacodyl tabs nightly x5 nights pre-procedure + standard for Miralax/Gatorade prep (detailed instructions provided). Lifestyle Recommendations: - Follow clear liquid diet day prior to procedure (no red/blue/purple dyes). - Strict NPO 4 hrs prior to procedure. Referrals / Coordination of Care: Endoscopy scheduling to call pt; packet/video w/ prep details provided. Follow-Up Plan: Post-procedure f/u after colonoscopy. Plan Follow-up after endoscopy or sooner as needed Time: I spent a total of 20 minutes on the date of encounter which includes: Preparing to see the patient (reviewed previous documentation, test results and medical history) Performing a medically appropriate exam and/or evaluation Ordering medications, tests, and procedures Documenting clinical information in the health record Medications: New bisacodyl take four tablets once day of colonoscopy prep 20 mg (4 x 5 mg) PO ONCE 4 tabs 0RF polyethylene glycol 3350 (Miralax) per colonoscopy prep instructions 238 grams PO ONCE 238 grams 0RF bisacodyl Take two tablets at bedtime, starting five nights before colonoscopy 10 mg (2 x 5 mg) PO BEDTIME 10 tabs 0RF Refilled linaclotide Take one tablet daily taken at least 30 minutes before a meal on an empty stomach 290 mcg PO QAM 30 caps 3RF Coding Level of Care Code Est Pt Level 3 (40791) Diagnoses Chronic constipation K59.09 NAFLD (nonalcoholic fatty liver disease) K76.0 Colon cancer screening Z12.11
--- OUTSIDE RECORDS SUMMARY | 2025-05-29 03:27 | XMS_ITS | Encounter Summary ---
Author Organization [employer] Address [address] [place] [address] 7 [place] [address] Care Team Providers Care Gray Mixing Operator Name Role Phone Judi Allen MD Primary Care Provider + Encounter Details Date Type Department Care Team (Late Contact Info) Description 10/27/2022 Orders Only [facility] MEDICINE [address] [place] [address] [phone] Sia Youssef LPN Social History Tobacco Use [...] Care Team (Late st Contact Info) Description 07/09/2025 2:00 PM EST Clinical Support [facility] MEDICINE [address] [place] [phone] Marlena López RN 07/21/2025 3:00 PM EST Nutrition [facility] DIABETES/NUTRITION [address] [place] [address] [place], [place] [phone] documented as of this encounter Visit Diagnoses Not on filedocumented in this encounter Care Teams Gray Mixing Operator Relationship Specialty Start Date End Date Judi Allen MD 230 [place] [address] PCP - General Family Medicine 03/25/21 documented as of this encounter
--- OUTSIDE RECORDS SUMMARY | 2025-05-29 03:27 | XMS_ITS | Encounter Summary ---
Author Organization [employer] Address [address] [place] [address] 7 [place] [address] Care Team Providers Care Mathematical Sciences Professor Name Role Phone Judi Allen MD Primary Care Provider + Reason for Visit * Reason Comments Med Refill Encounter Details Date Type Department Care Team ([facility] st Contact Info) Description 05/17/[address] [facility] MEDICINE [address] [place], [place] [phone] Judi Allen MD 230 [place], [place] [phone] Type 2 diabetes mellitus with hyperglycemia, without long-term current use of insulin ([facility]) Social History Tobacco Use Types Packs/Day [...] Description 07/09/2025 2:00 PM EST Clinical Support [facility] MEDICINE [address] [place] [address] Marlena López RN 07/21/2025 3:[address] [facility] DIABETES/NUTRITION [address] [place] [address] [place] [address] documented as of this encounter Visit Diagnoses Diagnosis Type 2 diabetes mellitus with hyperglycemia, without long-term current use of insulin (HCC) documented in this encounter Additional Health Concerns Assessment Noted Time PHQ-9 Depression Total Score: 13 024 3:34 PM EST documented as of this encounter Care Teams Mathematical Sciences Professor Relationship Specialty Start Date End Date Judi Allen MD [address] [place] [phone] PCP - General Family Medicine 03/25/21 documented as of this encounter
--- OUTSIDE RECORDS SUMMARY | 2025-05-29 03:27 | XMS_ITS | Encounter Summary ---
Author Organization [employer] Address [address] [place] [address] 7 [place] [address] Care Team Providers Care Real Estate Professional Name Role Phone Judi Allen MD Primary Care Provider + Encounter Details Date Type Department Care Team (Late Contact Info) Description 07/28/2022 Orders Only [facility] CHC MED & PEDS [address] [place], [place] [phone] Brenda Metzger LPN Social History Tobacco Use [...] Description 07/09/2025 2:00 PM EST Clinical Support [facility] MEDICINE [address] [place], [place] [phone] Marlena López RN 07/21/2025 3:00 PM EST Nutrition [facility] DIABETES/NUTRITION [address] [place], [place] [phone] Hermila Conde [address] [place], [place] [phone] documented as of this encounter Visit Diagnoses Not on filedocumented in this encounter Care Teams Real Estate Professional Relationship Specialty Start Date End Date Judi Allen MD [address] [place] [address] PCP - General Family Medicine 03/25/21 documented as of this encounter
--- OUTSIDE RECORDS SUMMARY | 2025-05-29 03:27 | XMS_ITS | Encounter Summary ---
Author Organization [employer] Address [address] [place] [address] 7 [place] [address] Care Team Providers Care Clinic Nurse Name Role Phone Judi Allen MD Primary Care Provider + Encounter Details Date Type Department Care Team (Late st Contact Info) Description 08/12/2022 Abstract [facility] MEDICINE [address] [place] [address] [phone] Judi Allen MD [address] [place] [address] [phone] Social History Tobacco Use Types Packs/Day Years [...] Description 07/09/2025 2:00 PM EST Clinical Support [facility] MEDICINE [address] [place] [address] [phone] Marlena López RN 07/21/2025 3:00 PM EST Nutrition [facility] DIABETES/NUTRITION [address] [place] [address] Hermila Conde, KIRA [address] [place] [address] documented as of this encounter Procedures Procedure [...] on filedocumented in this encounter Care Teams Clinic Nurse Relationship Specialty Start Date End Date Judi Allen MD 230 [place] [address] PCP - General Family Medicine 03/25/21 documented as of this encounter
--- OUTSIDE RECORDS SUMMARY | 2025-05-29 03:27 | XMS_ITS | Encounter Summary ---
Author Organization [employer] Address [address] [place] [address] 7 [place] [address] Care Team Providers Care Government Affairs Specialist Name Role Phone Judi Allen MD Primary Care Provider + Reason for Visit * Reason Comments Med Refill Encounter Details Date Type Department Care Team ([facility] st Contact Info) Description 04/21/2023 Refill [facility] MEDICINE 230 [place], [place] [phone] Judi Allen MD 230 [place], [place] [phone] Arm paresthesia, left Social History Tobacco Use [...] Description 07/09/2025 2:00 PM EST Clinical Support [facility] MEDICINE [address] [place] [phone] Marlena López RN 07/21/2025 3:00 PM EST Nutrition [facility] DIABETES/NUTRITION 230 [place] [address] [place] [address] documented as of this encounter Visit Diagnoses Diagnosis Arm paresthesia, left Disturbance of skin sensation documented in this encounter Care Teams Government Affairs Specialist Relationship Specialty Start Date End Date Judi Allen MD [address] [place] [phone] PCP - General Family Medicine 03/25/21 documented as of this encounter
--- OUTSIDE RECORDS SUMMARY | 2025-05-29 03:27 | XMS_ITS | Encounter Summary ---
Author Organization [employer] Address [address] [place] [address] 7t [place] [address] Care Team Providers Care Platform Loader Name Role Phone Judi Allen MD Primary Care Provider + Encounter Details Date Type Department Care Team (Late st Contact Info) Description 07/13/2022 Orders Only [facility] CHC MED & PEDS [address] [place], [place] [phone] Brenda Metzger LPN Social History Tobacco Use [...] Description 07/09/2025 2:00 PM EST Clinical Support [facility] MEDICINE 230 [place] [address] Marlena López, MARIPOSA 07/21/2025 3:00 PM EST Nutrition [facility] DIABETES/NUTRITION 230 [place], [place] [phone] Hermila Conde [address] [place], [place] [phone] documented as of this encounter Procedures Procedure Name Priority Date/Time Associated Diagnosis Comments XR KNEE 3 VIEWS LEFT Routine 07/19/2022 2:24 PM EST documented in this encounter Results * XR Knee 3 Views Left (07/19/2022 2:24 PM EST) Anatomical Region Laterality Modality Lower Extremities, Knee Left [facility] 07/19/2022 2:24 PM EST Narrative 07/23/2022 1:32 PM EST [address] [address] XRay Report Signed Patient: Kelly Schumacher MR#: [id number] : 1970 Acct:[id number] Age/Sex: 51 / F ADM Date: 07/19/22 Loc: HO.XRAY Attending Dr: Jose Armando Rasmussen MD Ordering Physician: JOSE ARMANDO RASMUSSEN MD Date of Service: 07/19/22 Procedure(s): XR knee LT 3V Accession Number(s): [id number] cc: JOSE ARMANDO RASMUSSEN MD EXAMINATION: XR [...] in OV> 07/23/22 1329 DD/ 1424 TD/TT: Control Director: CRAFT Procedure Note Donotuseinterpreter, Image - 02/06/[address] [address] XRay Report Signed Patient: Elijah Schumacher#: [id number] : 1970Acct:[id number] Age/Sex: 51 / FADM Date: 07/19/22 Loc: HO.KEVINAY Attending Dr: Jose Armando Rasmussen MD Ordering Physician: JOSE ARMANDO RASMUSSEN MD Date of Service: 07/19/22 Procedure(s): XR knee LT 3V Accession Number(s): [id number] cc: JOSE ARMANDO RASMUSSEN MD EXAMINATION: XR [...] in OV> 07/23/22 1329 DD/ 1424 TD/TT: Control Director: LUANA [facility] External Provider IMG XR PROCEDURES Final Result documented in this encounter Visit Diagnoses Not on filedocumented in this encounter Care Teams Platform Loader Relationship Specialty Start Date End Date Judi Allen MD [address] [place] [phone] PCP - General Family Medicine 03/25/21 documented as of this encounter
--- OUTSIDE RECORDS SUMMARY | 2025-05-29 03:27 | XMS_ITS | Encounter Summary ---
Author Organization [employer] Address [address] [place] [address] 7t [place] [address] Care Team Providers Care Family Services Coordinator Name Role Phone Judi Allen MD Primary Care Provider + Reason for Visit * Reason Comments Med Refill Encounter Details Date Type Department Care Team ([facility] st Contact Info) Description 11/01/2023 Refill [facility] MEDICINE 230 [place], [place] [phone] Judi Allen MD 230 [place], [place] [phone] Arm paresthesia, left Social History Tobacco Use [...] Description 07/09/2025 2:00 PM EST Clinical Support [facility] MEDICINE [address] [place] [phone] Marlena López RN 07/21/2025 3:00 PM EST Nutrition [facility] DIABETES/NUTRITION [address] [place] [phone] Hermila Conde, KIRA 230 [place] [address] documented as of this encounter Visit Diagnoses Diagnosis Arm paresthesia, left Disturbance of skin sensation documented in this encounter Additional Health Concerns Assessment Noted Time PHQ-9 Depression Total Score: 13 024 3:34 PM EST documented as of this encounter Care Teams Family Services Coordinator Relationship Specialty Start Date End Date Judi Allen MD [address] [place] [address] PCP - General Family Medicine 03/25/21 documented as of this encounter
--- OUTSIDE RECORDS SUMMARY | 2025-05-29 03:27 | XMS_ITS | Encounter Summary ---
Author Organization [employer] Address [address] [place] [address] 7 [place] [address] Care Team Providers Care Gasoline Engine Inspector Name Role Phone Judi Allen MD Primary Care Provider + Encounter Details Date Type Department Care Team (Late Contact Info) Description 09/23/2022 Telephone [facility] MEDICINE [address] [place] [address] [phone] Judi Allen MD [address] [place] [phone] Social History Tobacco Use Types Packs/Day Years [...] Department Care Team (Late Contact Info) Description 07/09/2025 2:00 PM EST Clinical Support [facility] MEDICINE [address] [place] [phone] Marlena López RN 07/21/2025 3:00 PM EST Nutrition [facility] DIABETES/NUTRITION 230 [place], [place] [phone] Hermila Conde, KIRA 230 [place] [address] documented as of this encounter Visit Diagnoses Not on filedocumented in this encounter Care Teams Gasoline Engine Inspector Relationship Specialty Start Date End Date Judi Allen MD 230 [place] [address] PCP - General Family Medicine 03/25/21 documented as of this encounter
--- OUTSIDE RECORDS SUMMARY | 2025-05-29 03:27 | XMS_ITS | Encounter Summary ---
Author Organization [employer] Address [address] [place] [address] 7 [place] [address] Care Team Providers Care Bag Shaker Name Role Phone Judi Allen MD Primary Care Provider + Reason for Visit * Reason Comments Med Refill Encounter Details Date Type Department Care Team (Late Contact Info) Description 10/14/2022 Refill [facility] MEDICINE 230 [place] [address] Judi Allen MD 230 [place] [address] Chronic bilateral low back pain, unspecified whether [...] Description 07/09/2025 2:00 PM EST Clinical Support [facility] MEDICINE [address] [place] [address] Marlena López, MARIPOSA 07/21/2025 3:00 PM EST Nutrition [facility] DIABETES/NUTRITION [address] [place] [address] Hermila Conde, KIRA 230 [place] [address] documented as of this encounter Visit Diagnoses Diagnosis Chronic bilateral low back pain, unspecified whether sciatica present documented in this encounter Care Teams Bag Shaker Relationship Specialty Start Date End Date Judi Allen MD 230 [place] [address] PCP - General Family Medicine 03/25/21 documented as of this encounter
--- OUTSIDE RECORDS SUMMARY | 2025-05-29 03:27 | XMS_ITS | Encounter Summary ---
Author Organization [employer] Address [address] [place] [address] 7 [place] [address] Care Team Providers Care Batch Unloader Name Role Phone Judi Allen MD Primary Care Provider + Encounter Details Date Type Department Care Team (Latest Contact Info) Description 07/17/2019 Abstract [facility] CONVERSIONS Dental, Provider, DDS Social History Tobacco [...] 2:00 PM EST Clinical Support [facility] MEDICINE [address] [place] [address] Marlena López RN 07/21/2025 3:00 PM EST Nutrition [facility] DIABETES/NUTRITION [address] [place] [address] Hermila Conde, RD 230 [place] [address] documented as of this encounter Visit Diagnoses Not on filedocumented in this encounter Care Teams Batch Unloader Relationship Specialty Start Date End Date Judi Allen MD 230 [place] [address] PCP - General Family Medicine 03/25/21 documented as of this encounter
--- OUTSIDE RECORDS SUMMARY | 2025-05-29 03:27 | XMS_ITS | Encounter Summary ---
Author Organization [employer] Address [address] [place] [address] 7t [place] [address] Care Team Providers Care Pipe Fitter Name Role Phone Judi Allen MD Primary Care Provider + Reason for Visit * Reason Comments Med Refill Encounter Details Date Type Department Care Team ([facility] st Contact Info) Description 05/16/2025 Refill [facility] MEDICINE [address] [place], [place] [phone] Judi Allen MD [address] [place] [employer], [place] [phone] Primary insomnia Social History Tobacco Use Types [...] Description 07/09/2025 2:00 PM EST Clinical Support [facility] MEDICINE [address] [place] [address] Marlena López RN 07/21/2025 3:00 PM EST Nutrition [facility] DIABETES/NUTRITION [address] [place] [address] Hermila Conde, KIRA [address] [place] [address] documented as of this encounter Visit Diagnoses Diagnosis Primary insomnia Persistent disorder of initiating or maintaining sleep documented in this encounter Additional Health Concerns Assessment Noted Time PHQ-9 Depression Total Score: 7 03/11/20 25 9:03 AM EDT documented as of this encounter Care Teams Pipe Fitter Relationship Specialty Start Date End Date Judi Allen MD [address] [place] [phone] PCP - General Family Medicine 03/25/21 documented as of this encounter
--- OUTSIDE RECORDS SUMMARY | 2025-05-29 03:27 | XMS_ITS | Encounter Summary ---
Author Organization [employer] Address [address] [place] [address] 7 [place] [address] Care Team Providers Care Corporate Representative Name Role Phone Judi Allen MD Primary Care Provider + Reason for Visit * Reason Comments Med Refill Encounter Details Date Type Department Care Team (Late st Contact Info) Description 02/17/2023 Refill [facility] MEDICINE [address] [place], [place] [phone] Judi Allen MD 230 [place] [address] Chronic bilateral low back pain, unspecified whether [...] Description 07/09/2025 2:00 PM EST Clinical Support [facility] MEDICINE [address] [place] [address] Marlena López, RN 07/21/2025 3:00 PM EST Nutrition [facility] DIABETES/NUTRITION [address] [place] [address] [place] [address] documented as of this encounter Visit Diagnoses Diagnosis Chronic bilateral low back pain, unspecified whether sciatica present Primary hypertension Unspecified essential hypertension documented in this encounter Care Teams Corporate Representative Relationship Specialty Start Date End Date Judi Allen MD 230 [place] [address] PCP - General Family Medicine 03/25/21 documented as of this encounter
--- OUTSIDE RECORDS SUMMARY | 2025-05-29 03:27 | XMS_ITS | Encounter Summary ---
Author Organization [employer] Address [address] [place] [address] 7 [place] [address] Care Team Providers Care Meter Record Clerk Name Role Phone Judi Allen MD Primary Care Provider + Encounter Details Date Type Department Care Team (Late Contact Info) Description 11/22/2022 Abstract [facility] MEDICINE [address] [place] [address] [phone] Judi Allen MD [address] [place] [address] Social History Tobacco Use Types Packs/Day Years [...] Description 07/09/2025 2:00 PM EST Clinical Support [facility] MEDICINE [address] [place] [phone] Marlean López RN 07/21/2025 3:00 PM EST Nutrition [facility] DIABETES/NUTRITION 230 [place], [place] [phone] Hermila Conde, KIRA 230 [place] [address] documented as of this encounter Visit Diagnoses Not on filedocumented in this encounter Care Teams Meter Record Clerk Relationship Specialty Start Date End Date Judi Allen MD 230 [place] [address] PCP - General Family Medicine 03/25/21 documented as of this encounter
--- OUTSIDE RECORDS SUMMARY | 2025-05-29 03:27 | XMS_ITS | Encounter Summary ---
Author Organization [employer] Address [address] [place] [address] 7 [place] [address] Care Team Providers Care Milk House Worker Name Role Phone Judi Allen MD Primary Care Provider + Reason for Visit * Reason Onset Date Comments Nurse Triage 10/08/2024 ER Follow-up 10/08/2024 Encounter Details Date Type Department Care Team ([facility] st Contact Info) Description 10/08/2024 Telephone [facility] MEDICINE [address] [place] [address] Judi Allen MD 230 [place] [address] Nurse Triage; ER Follow-up Social History Tobacco [...] pt to triage, spoke to pt through [employer]. pt states seen yesterday at [facility] for left back, flank pain and persistent [...] ED visit on : Date: 10/07 Hospital: [facility] Seen for: Back pain Symptomatic Yes *if yes message should go to Triage Patient advised will forward to team nurse for follow up [phone] (hungarian) documented in this encounter Plan of Treatment Upcoming Encounters Date Type Department Care Team (Late st Contact Info) Description 07/09/2025 2:00 PM EST Clinical Support [facility] MEDICINE [address] [place] [address] Marlena López RN 07/21/2025 3:00 PM EST Nutrition [facility] DIABETES/NUTRITION [address] [place] [address] [place] [address] documented as of this encounter Visit Diagnoses Not on filedocumented in this encounter Additional Health Concerns Assessment Noted Time PHQ-9 Depression Total Score: 13 0214/2 024 3:34 PM EST documented as of this encounter Care Teams Milk House Worker Relationship Specialty Start Date End Date Judi Allen MD 230 [place] [address] PCP - General Family Medicine 03/25/21 documented as of this encounter
--- OUTSIDE RECORDS SUMMARY | 2025-05-29 03:27 | XMS_ITS | Encounter Summary ---
Author Organization [employer] Address [address] [place] [address] 7t [place] [address] Care Team Providers Care Documentation Manager Name Role Phone Judi Allen MD Primary Care Provider + Encounter Details Date Type Department Care Team ([facility] Contact Info) Description 11/24/2022 Orders Only [facility] CHC MED & PEDS [address] [place], [place] [phone] Brenda Metzger LPN Social History Tobacco Use [...] Description 07/09/2025 2:00 PM EST Clinical Support [facility] MEDICINE 230 [place] [address] Marlena López RN 07/21/2025 3:00 PM EST Nutrition [facility] DIABETES/NUTRITION 230 [place], [place] [phone] Hermila Conde RD 230 [place], [place] [phone] documented as of this encounter Visit Diagnoses Not on filedocumented in this encounter Care Teams Documentation Manager Relationship Specialty Start Date End Date Judi Allen MD 230 [place], [place] [phone] PCP - General Family Medicine 03/25/21 documented as of this encounter
--- OUTSIDE RECORDS SUMMARY | 2025-05-29 03:27 | XMS_ITS | Encounter Summary ---
Author Organization [employer] Address [address] [place] [address] 7 [place] [address] Care Team Providers Care Disability Manager Name Role Phone Judi Allen MD Primary Care Provider + Encounter Details Date Type Department Care Team (Late st Contact Info) Description 01/30/2023 Orders Only [facility] MEDICINE [address] [place] [address] [phone] Sia Youssef LPN Social History Tobacco Use [...] Description 07/09/2025 2:00 PM EST Clinical Support [facility] MEDICINE [address] [place] [address] [phone] Marlena López RN 07/21/2025 3:00 PM EST Nutrition [facility] DIABETES/NUTRITION [address] [place] [address] [phone] [address] [place], [place] [phone] documented as of this encounter Visit Diagnoses Not on filedocumented in this encounter Care Teams Disability Manager Relationship Specialty Start Date End Date Judi Allen MD [address] [place] [address] PCP - General Family Medicine 03/25/21 documented as of this encounter
--- OUTSIDE RECORDS SUMMARY | 2025-05-29 03:27 | XMS_ITS | Encounter Summary ---
Author Organization [employer] Address [address] [facility] 7t [place] [address] Care Team Providers Care Marine Fire Fighter Name Role Phone Judi Allen MD Primary Care Provider + Encounter Details Date Type Department Care Team ([facility] st Contact Info) Description 01/24/2024 Orders Only [facility] CHC MED & PEDS [address] [place], [place] [phone] Tiki Marie, LUCI [address] [place] [address] Social History Tobacco Use Types Packs/Day Years [...] Description 07/09/2025 2:00 PM EST Clinical Support [facility] MEDICINE [address] [place] [address] Marlena López RN 07/21/2025 3:00 PM EST Nutrition [facility] DIABETES/NUTRITION [address] [place] [address] Hermila Conde, KIRA 230 [place] [address] documented as of this encounter Visit Diagnoses Not on filedocumented in this encounter Additional Health Concerns Assessment Noted Time PHQ-9 Depression Total Score: 13 024 3:34 PM EST documented as of this encounter Care Teams Marine Fire Fighter Relationship Specialty Start Date End Date Judi Allen MD [address] [place] [address] PCP - General Family Medicine 03/25/21 documented as of this encounter
--- OUTSIDE RECORDS SUMMARY | 2025-05-29 03:27 | XMS_ITS | Encounter Summary ---
Author Organization [employer] Address [address] [place] [address] 7 [place] [address] Care Team Providers Care Labor Relations Analyst Name Role Phone Judi Allen MD Primary Care Provider + Reason for Visit * Reason Comments Med Refill Encounter Details Date Type Department Care Team (Late Contact Info) Description 09/06/[address] [facility] MEDICINE 230 [place] [address] Judi Allen MD 230 [place] [address] Chronic bilateral low back pain, unspecified whether [...] 07/09/2025 2:00 PM EST Clinical Support [facility] MEDICINE 230 [place] [address] Marlena López RN 07/21/2025 3:[address] [facility] DIABETES/NUTRITION 230 [place] [address] Hermila Conde, KIRA 230 [place] [address] documented as of this encounter Visit Diagnoses Diagnosis Chronic bilateral low back pain, unspecified whether sciatica present documented in this encounter Care Teams Labor Relations Analyst Relationship Specialty Start Date End Date Judi Allen MD 230 [place] [address] PCP - General Family Medicine 03/25/21 documented as of this encounter
--- OUTSIDE RECORDS SUMMARY | 2025-05-29 03:27 | XMS_ITS | Clinical Summary ---
Author Organization [employer] Address [address] [place] [address] [address] [place] [address] Care Team Providers Care Food And Beverage Server Name Role Phone Gómez Fermin MD Primary [...] 25 doses. 30 tablet 10/13/19 24 Active cyclobenzaprine (Flexeril) 10 MG [...] DAY 90 tablet 3 02/22/20 24 Active lisinopril-hydr oCHLOROthiazide 20-25 MG tablet Take 1 tablet by mouth Once per day. 90 tablet 3 05/28/20 24 Active senna-docusate sodium (Senokot-S) 8.6-50 MG tablet Take 1 tablet by mouth Once per day. 30 tablet 11 06/13/20 24 025 Active Jardiance 25 MGIndications:T ype 2 diabetes [...] or chew. 30 capsule 11 11/28/19 25 026 Active FLUoxetine (PROzac) 20 MG capsuleIndicati ons:Recurrent major depressive disorder, in partial remission (CMS/HCC) TAKE 3 CAPSULES BY MOUTH EVERY DAY IN THE MORNING 270 capsule 3 11/28/19 25 Active metFORMIN XR (Glucophage-XR) 500 MG 24 hr tabletIndicatio ns:Type 2 diabetes mellitus with other specified complication, unspecified whether half-way insulin use (HCC) TAKE 2 TABLETS BY MOUTH EVERY 12 HOURS 360 tablet 2 01/31/20 25 Active Multiple Vitamins-Minera ls (CertaVite/Anti oxidants) tablet TAKE 1 TABLET BY MOUTH EVERY DAY 90 tablet 03/06/20 25 Active semaglutide (Ozempic, 1 MG/DOSE,) 4 MG/3ML solution pen-injectorInd ications:Type 2 diabetes mellitus with hyperglycemia, without long-term current use of insulin (HCC) Inject 1 mg under the skin 1 (one) time per week. 1 each 3 03/11/20 25 Active busPIRone (Buspar) 5 MG tabletIndicatio ns:Generalized anxiety disorder with panic attacks TAKE 1 TABLET BY MOUTH TWICE DAILY 60 tablet 1 04/30/20 25 Active oxyCODONE (Roxicodone) 5 MG immediate release tabletIndicatio ns:Chronic bilateral low back pain, unspecified whether sciatica present TAKE 1 TABLET BY MOUTH THREE TIMES DAILY IN THE MORNING, AT NOON, AND AT BEDTIME NEEDED FOR SEVERE PAIN FOR UP TO 28 DAYS 84 tablet 05/08/20 25 025 Active atorvastatin (Lipitor) 40 MG tablet TAKE 1 TABLET BY MOUTH EVERY DAY AT BEDTIME 90 tablet 3 05/06/20 25 Active clotrimazole (Lotrimin) 1 % cream APPLY TOPICALLY TWICE DAILY FOR 14 DAYS 30 g 1 05/14/20 25 Active zolpidem (Ambien) 10 MG tabletIndicatio ns:Primary insomnia Take 1 tablet (10 mg) by mouth if needed at bedtime for sleep. 28 tablet 5 4:03 PM EST 05/21/20 25 Active atorvastatin (Lipitor) 40 MG tablet Take 1 tablet (40 mg) by mouth at bedtime. 90 tablet 3 05/02/20 24 025 Discontinued clotrimazole (Lotrimin) 1 % cream APPLY TOPICALLY TWICE DAILY FOR FOURTEEN DAYS 30 g 1 01/04/20 25 025 Discontinued busPIRone (Buspar) 5 MG tabletIndicatio ns:Generalized anxiety disorder with panic attacks TAKE 1/2 TABLET BY MOUTH TWICE DAILY FOR 7 DAYS, MAY INCREASE TO 1 TABLET BY MOUTH TWICE DAILY THEREAFTER 60 tablet 1 02/27/20 25 025 Discontinued zolpidem (Ambien) 10 MG tabletIndicatio ns:Primary insomnia TAKE 1 TABLET BY MOUTH AT BEDTIME NEEDED 15 tablet 2 03/19/20 25 025 Discontinued(R eorder (will not trigger notification to Pharmacy)) oxyCODONE (Roxicodone) 5 MG immediate release tabletIndicatio ns:Chronic bilateral low back pain, unspecified whether sciatica present TAKE 1 TABLET BY MOUTH THREE TIMES DAILY IN THE MORNING, AT NOON, AND AT BEDTIME NEEDED FOR SEVERE PAIN FOR UP TO 28 DAYS 84 tablet 04/10/20 25 025 Discontinued Active Problems Problem Noted Date Diagnosed Date Class 1 obesity due to exces s calories with serious comorbidity and body mass index (BMI) of 30.0 to 30.9 in adult 11/27/2024 Assessment & Plan (05/21/2025 4:00 PM EST): - Obesity is improving, weight is down to 170 lbs on Ozempic 1 mg, tolerates well. Will continue to adjust as needed and tolerated to a BMI of around 27. - Continue semaglutide 1 mg/week. - Discussed re weight reduction options including exercise, life style modifications, diet. - Recommended to decrease soda and sugary beverage consumption, increase protein intake with meals (at least 1 portion of protein with each meal) to assist with satiety, increase dietary fiber - Recommended at least 150 min/week of moderate intensity exercise. Follow-up with me in 3 months Assessment & Plan (03/11/2025 2:56 PM EDT): [...] PRN Indication: Lumbar OA w/ radiculopathy Last [employer] Agreement: 06/14/23 Sprain of metacarpophalangeal joint of [...] 2019 and [facility]. I had a lengthy discussion with patient about the lack of evidence re tile finisher opiate use on chronic pain and added the fact that she was being taper down to oxycodone bid, I will continue with similar dose and fu after she's seen at In house chronic pain clinic (appt needs to be rs). -Continue gabapentin 300mg bid for neuropathic pain and help with anxiety as well. -Call [facility] and rs appt, I will fu on this in 6w. -Oxycodone 5mg bid sent to pharmacy x 2w, she has Naloxone at home -FU with [employer] team on 10/17 Screening mammogram for breast [...] in wait list for OP services with [facility], provided agency information to patient. Assessment [...] apply) New/Additional Services needed Off-site services for BH. Referral for OP individual therapy will be [...] to BID and will fu closely w [employer] nurse Refer to in house pain clinic [...] treatment if dependence continues. Monitor closely with [employer] nurse. Intertrigo of genitocrural region due to [...] in partial remission 08/17/2022 Assessment & Plan (05/21/2025 4:05 PM EST): Depression is partially improved, increased stress related to family illness. She feels safe at home and is able to reach out for safety. -Continue buspirone. Advised follow-up with therapist as needed. - Increased Ambien to 10 mg for one week, then continue 5 to 10 mg as needed for the next month prescription sent for 1mo, will follow-up in 3 months. Advised gradual reduction back to 5 mg once sleep pattern improves to minimize risk of medication tolerance. Will monitor response and adjust therapy as needed. - Follow-up with psychotherapist Assessment & Plan (08/23/2023 4:01 PM EST): [...] on 06/22/23 re taper and FU with [employer] nurse. She couldn't provide urine for Utox [...] driving. See previous note and FU with [employer] nurse. Will work with her over the [...] mellitus with hyperglycemia 12/09 Assessment & Plan (05/21/2025 3:58 PM EST): - Better controlled, will check A1c and adjust Ozempic if needed. Continue Jardiance and metformin - Ordered labs prior to next appointment - Ophthalmology evaluation is scheduled for June. -Advised to get influenza and COVID immunization KELLY. Assessment & Plan (03/11/2025 2:47 PM EDT): [...] MELLITUS WITH OTHER SPECIFIED COMPLICATION, UNSPECIFIED WHETHER SHELTER INSULIN USE (CMS/HCC) WRITTEN ON 08/17/2022 11:07 AM BY GÓMEZ FERMIN MD Uncontrolled Increase trulicity to 3mg/w, continue Metformin Counseled re more frequent low calorie/carb meals. Check fgstk 2x daily Encouraged physical activity as tolerated. FU in 3-4w w labs Assessment & Plan (11/27/2024 9:03 AM EDT): >>ASSESSMENT AND PLAN FOR TYPE 2 DIABETES MELLITUS WITH OTHER SPECIFIED COMPLICATION, UNSPECIFIED WHETHER SCRIPT READER INSULIN USE (CMS/HCC) WRITTEN ON 09/08/2022 9:42 AM BY NHI MOYA Seems to be improved, will FU in 6 weeks. Assessment & Plan (11/27/2024 9:03 AM EDT): >>ASSESSMENT AND PLAN FOR TYPE 2 DIABETES MELLITUS WITH OTHER SPECIFIED COMPLICATION, UNSPECIFIED WHETHER SCRIPT READER INSULIN USE (CMS/HCC) WRITTEN ON 07/26/2023 9:50 [...] MELLITUS WITH OTHER SPECIFIED COMPLICATION, UNSPECIFIED WHETHER SCRIPT READER INSULIN USE (CMS/HCC) WRITTEN ON 08/18/2023 10:46 AM BY JOSEPH TREVINO Improving, continue medications, Jardiance added 2 wks ago Fu in 6 wks See previous note Assessment & Plan (11/27/2024 9:03 AM EDT): >>ASSESSMENT AND PLAN FOR TYPE 2 DIABETES MELLITUS WITH OTHER SPECIFIED COMPLICATION, UNSPECIFIED WHETHER SHELTER INSULIN USE (CMS/HCC) WRITTEN ON 10/09/2023 6:04 PM BY GÓMEZ FERMIN MD Continue Jardiance + Trulicity + Metformin and fu 1mo Assessment & Plan (11/27/2024 9:03 AM EDT): >>ASSESSMENT AND PLAN FOR TYPE 2 DIABETES MELLITUS WITH OTHER SPECIFIED COMPLICATION, UNSPECIFIED WHETHER SCRIPT READER INSULIN USE (CMS/HCC) WRITTEN ON 11/10/2023 3:35 [...] MELLITUS WITH OTHER SPECIFIED COMPLICATION, UNSPECIFIED WHETHER SCRIPT READER INSULIN USE (CMS/HCC) WRITTEN ON 02/02/2024 12:15 PM BY ITZEL [...] MELLITUS WITH OTHER SPECIFIED COMPLICATION, UNSPECIFIED WHETHER SHELTER INSULIN USE (CMS/[place]) WRITTEN ON 05/02/2024 1:28 PM BY LADARIUS [...] will refer to MH team. Will notify [employer] nurse and bring her more often for Utox and pill count. Patient aware of potential interaction of benzos with both ambien and oxycodone Kidney stone 12/29/2011 03/11/2025 Encounters Date Type Department Care Team Description 05/26/2025 Telephone [facility] MEDICINE [address] [place] [address] Patient Contact 05/21/2025 9:15 AM EST Telemedicine [facility] [address] [place] [address] Gómez Fermin MD Type 2 diabetes mellitus with hyperglycemia, without long-term current use of insulin (HCC) (Primary Dx); Class 1 obesity due to excess calories with serious comorbidity and body mass index (BMI) of 30.0 to 30.9 in adult; Recurrent major depressive disorder, in partial remission (CMS/HCC); Primary insomnia 05/21/2025 Travel 05/20/2025 Telephone [facility] [address], [place] [phone] Gómez Fermin MD chart prep 05/16/2025 Refill [facility] [address] [place], [place] [phone] Gómez Fermin MD Primary insomnia 05/13/2025 Refill [facility] [address] [place] [address] Gómez Fermin MD 05/09/2025 Telephone [facility] [address] [place] [address] Gómez Fermin MD Nurse Triage 05/06/2025 Refill [facility] [address] [place] [address] Gómez Fermin MD Chronic bilateral low back pain, unspecified whether sciatica present 04/30/2025 Refill [facility] [address] [place] [address] Gómez Fermin MD Generalized anxiety disorder with panic attacks 04/16/2025 Telephone [facility] [address] [place] [address] López RN [facility] [employer] Renewal today 04/09/2025 Travel 04/07/2025 Refill [facility] [address] [place] [address] Gómez Fermin MD Chronic bilateral low back pain, unspecified whether sciatica present 04/06/2025 Orders Only [facility] [address] [place] [address] Gómez Fermin MD 03/19/2025 Refill [facility] [address] [place] [address] Gómez Fermin MD Primary insomnia 03/11/2025 9:00 AM EDT Telemedicine [facility] [address] [place] [phone] Gómez Fermin MD Type 2 diabetes mellitus with hyperglycemia, without long-term current use of insulin (CMS/HCC) (Primary Dx); Class 1 obesity due to excess calories with serious comorbidity and body mass index (BMI) of 30.0 to 30.9 in adult; Elevated liver enzymes; Chronic bilateral low back pain, unspecified whether sciatica present; Encounter for colorectal cancer screening 03/11/2025 Travel 03/05/2025 Refill [facility] P[facility]S [address] [place], [place] [phone] Gómez Fermin MD 03/05/2025 Telephone [facility] WALK[facility] [address] [place] [address] Gómez Fermin MD Chart Prep from Last 3 Months Immunizations Immunization Administration [...] drink = 0.6 oz pur e alcohol) Alcohol Answer Date Recorded How often do you have a drink containing alcohol ? 0 05/21/2025 Average Number of Drinks Not on file Frequency of Binge Drinking Not on file 05/10 Depression Answer Date Recorded Patient Health Questionnaire-9 Score 5 05/21/2025 Patient Health Questionnaire-9 Score 5 05/21/2025 Last PHQ-9: Questionnaire Data Not on file 1 07/21/2024 Housing Stability Answer Date Recorded What is your housing situation today? I have luís reynolds 05/21/[address] you li ve. Do you have problems with any of the following? None of the above 05/21/2025 Food Insecurity Answer Date Recorded Within the past 12 months, y ou worried that your food would run out before you got money to buy more: Sometimes True 2024 Within the past 12 months,th e food you bought just didn't last and you didn't have enough money to get more: Sometimes True 05/21/2025 Transportation Answer Date Recorded In the past 12 months, has l ack of transportation kept you from medical appts, meetings, work or from getting things needed for daily living? No 05/21/2025 Utilities Answer Date Recorded In the past 12 months, has t he electric, gas, oil or water company threatened to shut off services in your home? Yes 05/21/2025 Depression Answer Date Recorded Patient Health Questionnaire-2 Score 1 05/21/2025 Internet Access Answer Date Recorded Internet Access Q1 Yes 05/21/2025 Internet Access Q2 Not on file 05/21/2025 Comments No Sex and Gender Information Value [...] Description 07/09/2025 2:00 PM EST Clinical Support [facility] [address] [place] [address] Marlena López RN 07/21/2025 3:00 PM EST Nutrition [facility] DIABETES/NUTRITION [address] [place] [address] Hermila Conde, KIRA [address] [place] [address] Health Maintenance Due Date Last Done Comments CT Colonography 1970 Colonoscopy 1970 FIT DNA/Cologuard 1970 FOBT 1970 Sigmoidoscopy 1970 Eye Exam 1980 Hepatitis A Vaccines (1 of 2 - Risk 2-dose series) 1989 Hepatitis B Vaccines (1 of 3 - 19+ 3-dose series) 1989 RSV Patients and Patients Aged 60 years or older (1 - Risk 50-74 years 1-dose series) 2020 Zoster Vaccines (1 of 2) 2020 Dental Oral Exam 08/11/2023 02/07/2023, 04/26/2019 Dental Prophylaxis 11/11/2023 05/12/2023, 07/17/2019 Diabetes: Urine Protein Screening 01/06/2024 01/05/2023, 04/28/2020 Dental X-Ray: Bitewings 02/09/2024 02/08/20, 09/17/2021, 04/26/2019 Diabetes: Foot Exam 08/18/2024 08/18/2023, 08/18/2023, 08/18/2023, Additional history exists Diabetes: Hemoglobin A1C 01/08/2025 025, 05/02/2024, 02/02/2024, Additional history exists COVID-19 Vaccine ( season) 2025 11/25/2020, 11/04/2020, 04/27/2016 Influenza Vaccine (#1) 2025 , 08/16/2022, 06/08/2020, Additional history exists Lipid Panel 04/12/2025 04/12/2024, 12/09, 04/28/2020 Mammogram 12/12/2025 12/12/2024, 11/07, 08/01/2019, Additional history exists Dental X-Ray: Full Mouth 02/08/2026 02/07/2023, 04/09 Disability Screening 03/11/2026 03/11/2025 Colorectal Cancer Screening 04/06/2026 FIT 04/06/2026 04/06/2025 Alcohol/Substance Use Screening 05/21/2026 05/21/2025 Depression Screening 05/21/2026 05/21/2025, 05/21/20 25 SDOH Screening 05/21/2026 05/21/2025 Tobacco Screening 05/21/2026 05/21/2025 Cervical Cancer Screening 11/17/2026 HPV/Cotest 11/17/2026 11/17/2021, [...] on patient's age to complete this topic Goals Goal Patient Goal Type Associated Problems Recent Progress Patient-Stated? Author Help patients manage their type 2 diabetes Care Plan Help patients manage their type 2 diabetes No Trupti Toledo MA Weekly blood pressure task Care Plan Weekly blood pressure task No Trupti Toledo MA Help patients manage their type 2 diabetes Care Plan Help patients manage their type 2 diabetes No Trupti Toledo MA Patient has chronic kidney disease Care Plan Patient has chronic kidney disease No Trupti Toledo MA Weekly blood pressure task Care Plan Weekly blood pressure task No Trupti Toledo MA Patient has chronic kidney disease Care Plan Patient has chronic kidney disease No Trupti Toledo MA Weekly blood pressure task Care Plan Weekly blood pressure task No Hermila Conde RD Weekly blood pressure task Care Plan Weekly blood pressure task No Hermila Conde RD Patient has chronic kidney disease Care Plan Patient has chronic kidney disease No Hermila Conde RD Patient has chronic kidney disease Care Plan Patient has chronic kidney disease No Hermila Conde RD Weekly blood pressure task Care Plan Weekly blood pressure task No Dino Logan Weekly blood pressure task Care Plan Weekly blood pressure task No Dino Logan Patient has chronic kidney disease Care Plan Patient has chronic kidney disease No Dino Logan Patient has chronic kidney disease Care Plan Patient has chronic kidney disease Dino Miller Procedures Procedure Name Priority Date/Time Associated Diagnosis Comments FECAL IMMUNOCHEMICAL Routine 04/06/2025 12:00 AM EDT BI MAMMOGRAM SCREENING TOMOSYNTHESIS BILATERAL Routine 12/12/2024 3:52 PM EDT POCT GLYCATED HEMOGLOBIN, TOTAL Routine 10/09/2024 10:55 AM EDT Type 2 diabetes mellitus with hyperglycemia, without long-term current use of insulin ([facility]) LIPID PANEL WITH REFLEX TO DIRECT LDL Routine 04/12/2024 8:58 AM EDT Type 2 diabetes mellitus with hyperglycemia, without long-term current use of insulin ([facility]) HEPATITIS PANEL, GENERAL Routine 08/18/2023 10:53 AM [...] hyperglycemia, without long-term current use of insulin ([facility]) THINPREP IMAGING PAP AND HPV MRNA E6/E7 WITH REFLEX TO HPV 16,18/45 Routine 11/17/2021 2:37 PM EDT from Last 3 Months or Most Recently Relevant to Health Maintenance Results * Fecal immunochemical (04/06/2025 12:00 AM EDT) FIT1 NEGATIVE NEGATIVE [facility] FIT DATE 1 04/06/25 [facility] FIT2 NEGATIVE NEGATIVE [facility] FIT DATE 2 04/07/25 [facility] 04/06/2025 04/06/2025 Gómez Fermin MD LAB BODY FLUIDS AND STOO LS ORDERABLES Final Result [facility] [address] [place] [phone] * BI Mammogram Screening Tomosynthesis Bilateral (12/12/2024 3:52 PM EDT) Anatomical Region Laterality Modality Breast Bilateral Mammography 12/12/2024 3:52 PM EDT Narrative 12/16/2024 5:33 PM EDT [address] [place] [address] Mammography Report Signed Patient: Kelly Schumacher MR#: [id number] : 1970 Acct:[id number] Age/Sex: 54 / F ADM Date: 12/12/24 Loc: HO.MAMMO Attending Dr: Gómez Fermin MD Ordering Physician: Gómez Fermin MD Results: 1Ne gative Date of Service: 12/12/24 Follow Up: 1 Year From [facility] Mammogram Procedure(s): MM tomosynthesis screening BI Accession Number(s): [id number] cc: Gómez Fermin MD EXAMINATION: MM SCREENING [...] 12/16/24 1730 DD/ 1552 TD/TT: 12/12/24 1603 Shipwright Apprentice: Procedure Note Donotuseinterpreter, Image - 12/16/2024 [facility] [address] [place] [address] Mammography Report Signed Patient: Elijah Schumacher#: [id number] : 1970Acct:[id number] Age/Sex: 54 / FADM Date: 12/12/24 Loc: HO.MAMMO Attending Dr: Gómez Fermin MD Ordering Physician: Gómez Fermin MDResults: 1Ne gative Date of Service: 12/12/24Follow Up: 1 Year From Orig ina Mammogram Procedure(s): MM tomosynthesis screening BI Accession Number(s): [id number] cc: Gómez Fermin MD EXAMINATION: MM SCREENING [...] 12/16/24 1730 DD/ 1552 TD/TT: 12/12/24 1603 Shipwright Apprentice: Gómez Fermin MD IMG BI PROCEDURES Edited Result - Final * (ABNORMAL) POCT HGB A1C (10/09/2024 10:55 AM EDT) Hemoglobin A1C 7.3(A) 4.0 - 6.0 % QC Media Lot # [id number] Lot# Expiration Date Blood 10/09/2024 10:5 5 AM EDT [facility] POINT OF CARE TEST ENTER/ EDIT ORDERABLES Final Result * (ABNORMAL) Lipid Panel with Reflex to Direct LDL (04/12/2024 8:58 AM EDT) Triglycerides 140 <150 mg/dL [facility] Comment:Desirable Triglyceri de: less than 150 mg/dLBorderline High Triglyceride 150-199 mg/dLHigh Triglyceride: 200-499 mg/dLVery High Triglyceride: greater than or equal to 5OO mg/dL Cholesterol 197 <200 mg/dL [facility] Comment:Desirable Cholestero l: less than 200 mg/dLBorderline High Cholesterol: 200-239 mg/dLHigh Cholesterol: greater than 239 mg/dL LDL Cholesterol Calculated 122(H) <100 mg/dL [facility] Comment:Desirable LDL: less than 100 mg/dLNear Optimal/Above Optimal LDL: 110- 129 mg/dLBorderline High LDL: 130-159 mg/dLHigh LDL: 160-189 mg/dLVery High LDL: greater than or equal to 190 mg/dL HDL Cholesterol 47 >40 mg/dL [facility] Comment:Desirable HDL: great er than 40 mg/dL Note: This HDL assay may give artificially low results in patients with liver disease. Blood 04/12/2024 8:58 AM EDT 04/12/2024 11:06 AM EDT Gómez Fermin MD LAB BLOOD ORDERABLES Fin al Result Performing Organization Address [facility] de Phone Number [facility] [address] [place] [phone] * Hepatitis Panel, General (08/18/2023 10:53 AM EST) Hepatitis A IgM Nonreactive Nonreactive [facility] Comment:IgM antibodies to HERNANDEZ V not detected; does not exclude earlyacute or recovered HAV infection. ~Hepatitis B Surface Antibody REACTIVE Nonreactive [facility] Comment:REACTIVE: > 11.99 mI U/mL Hepatitis B Core Antibody Nonreactive Nonreactive [facility] Hepatitis C Antibody Nonreactive Nonreactive [facility] Comment:Antibodies to HCV no t detected; does not exclude early acuteHCV infection. Hepatitis B Surface Ag Negative Negative [facility] Blood 08/18/2023 10:5 3 AM EST 08/18/2023 11:21 AM EST Gómez Fermin MD LAB BLOOD ORDERABLES Fin al Result Performing Organization Address [facility] de Phone Number [facility] [address] [place] [phone] * HIV-1/2 Antigen and Antibodies, Fourth Generation, with Reflexes (08/18/2023 10:53 AM EST) HIV AB/AG Nonreactive Nonreactive [facility] Comment:HIV-1 p24 Ag and/or HIV-1/HIV-2 Ab not detected.A test result that is nonreactive does not exclude thepossibility of exposure to or infection with HIV-1 and/orHIV-2. Nonreactive results in this assay for individualswith prior exposure to HIV-1 and/or HIV-2 may be due toantigen and antibody levels that are below the limit ofdetection of this assay.The eCardioniElevate HR HIV Ag/Ab Combo assay result andsupplemental assay results should be interpreted inconjunction with the patient's clinical presentation,history and other laboratory results. If the results areinconsistent with clinical evidence, additional testing issuggested to confirm the result. Blood Venous blood specimen / Unknown 08/18/2023 10:53 AM EST 08/18/2023 11:21 AM EST Gómez Fermin MD LAB BLOOD ORDERABLES Fin al Result Performing Organization Address City/[facility]/ZIP Co de Phone Number [facility] [address] [place] [phone] * Albumin, Random Urine W/O Creatinine (01/05/2023 10:25 AM EDT) Albumin, Urine 0.6 See Note: mg/dL [facility] [place] [facility] Comment: Reference Range: Reference Range Not established [facility] [place] [facility] Comment: The ADA defines abnormalities in albumin [...] ORDERABLES Fin al Result Performing Organization Address City/[facility]/ZIP Co de Phone Number [facility] [address], [place] [phone] [facility] [place] [facility] [address] [place] [phone] * THINPREP TIS PAP AND HPV mRNA E6/E7 WITH REFLEX TO HPV 16,18/45 (11/17/2021 2:37 PM EDT) Clinical Information: None given [facility] COMMENT SEE [facility]MENT [facility] Comment: EXPLANATORY NOTE: The Pap [...] has been evaluated with computer assisted technology. [facility] Patient Centered Care Specialist: SEE COMMENT [facility] Comment: RMM, CT(ASCP) CT screening location: [place] [address] HPV nRNA E6/E7 Not Detected Not Detected [facility] [facility] Comment: Methodology: Tree Puller-Mediated Amplification This assay detects E6/E7 viral messenger RNA (mRNA) from 14 high-risk HPV types (16,18,31,33,35,39,45,51,52,56,58,59,66,68). The analytical performance characteristics of this assay have been determined by [employer]. The modifications have not been cleared or approved by the FDA. This assay has been validated pursuant to the CLIA regulations and is used for clinical purposes. For additional information, please refer to http://education.[employer]/faq/MVP835f3 (This link if provided for information/ educational purposes only.) Interpretation/Re sult: Negative for intraepithelial lesion or malignancy. [facility] LMP: PM [facility] Prev. BX: NONE GIVEN [facility] Prev. PAP: ASC HPV NEG 11/2018 [facility] Review Patient Centered Care Specialist: SEE COMMENT [facility] Comment: BJ, CT(ASCP) CT screening location: [place] [id number] SOURCE: None given [facility] Statement Of Adequacy: SEE COMMENT [facility] Comment: Satisfactory for evaluation. Endocervical/transformation zone component present. 11/17/2021 2:37 PM EDT Niya Rock CNM LAB PATHOLOGY ORDERABLES Final Result [facility] [address] from Last 3 Months or Most Recently Relevant to Health Maintenance Additional Health Concerns Active Problems Noted Date Diagnosed Date Help patients manage their type 2 diabetes 05/21 Weekly blood pressure task 05/21/2025 Help patients manage their type 2 diabetes 05/21 Patient has chronic kidney disease 05/21/2025 Weekly blood pressure task 05/21/2025 Patient has chronic kidney disease 05/21/2025 Weekly blood pressure task 05/21/2025 Weekly blood pressure task 05/21/2025 Patient has chronic kidney disease 05/21/2025 Patient has chronic kidney disease 05/21/2025 Weekly blood pressure task 05/26/2025 Weekly blood pressure task 05/26/2025 Patient has chronic kidney disease 05/26/2025 Patient has chronic kidney disease 05/26/2025 Insurance [facility] - [facility] PARTIAL (MEDICAID) Care Teams Food And Beverage Server Relationship Specialty Start Date End Date Gómez Fermin MD [address] [place] [id number] PCP - General Family Medicine 03/25/21
--- OUTSIDE RECORDS SUMMARY | 2025-05-29 03:27 | XMS_ITS | Encounter Summary ---
Author Organization [email or web address] Address [address] [place] [address] 7 [place] [address] Care Team Providers Care Commissioning Agent Name Role Phone Judi Allen MD Primary Care Provider + Reason for Visit * Reason Comments Med Refill Encounter Details Date Type Department Care Team ([facility] st Contact Info) Description 11/11/2024 Refill [facility] MEDICINE [address] [place], [place] [phone] Judi Allen MD [address] [place], [place] [phone] Type 2 diabetes mellitus with hyperglycemia, without long-term current use of insulin ([facility]) Social History Tobacco Use Types [...] Description 07/09/2025 2:00 PM EST Clinical Support [facility] MEDICINE [address] [place] [phone] Marlena López RN 07/21/2025 3:00 PM EST Nutrition [facility] DIABETES/NUTRITION [address] [place] [phone] [place] [address] documented as of this encounter Visit Diagnoses Diagnosis Type 2 diabetes mellitus with hyperglycemia, without long-term current use of insulin (HCC) documented in this encounter Additional Health Concerns Assessment Noted Time PHQ-9 Depression Total Score: 13 024 3:34 PM EST documented as of this encounter Care Teams Commissioning Agent Relationship Specialty Start Date End Date Judi Allen MD [address] [place] [phone] PCP - General Family Medicine 03/25/21 documented as of this encounter
--- OUTSIDE RECORDS SUMMARY | 2025-05-29 03:27 | XMS_ITS | Encounter Summary ---
Author Organization [employer] Address [address] [place] [address] 7t [place] [address] Care Team Providers Care Regional Climate Change Analyst Name Role Phone Judi Allen MD Primary Care Provider + Encounter Details Date Type Department Care Team ([facility] Contact Info) Description 10/28/2022 Orders Only [facility] CHC MED & PEDS [address] [place], [place] [phone] Brenda Metzger LPN Social History Tobacco Use [...] Description 07/09/2025 2:00 PM EST Clinical Support [facility] MEDICINE [address] [place] [address] Marlena López RN 07/21/2025 3:00 PM EST Nutrition [facility] DIABETES/NUTRITION [address] [place], [place] [phone] Hermila [address] [place], [place] [phone] documented as of this encounter Visit Diagnoses Not on filedocumented in this encounter Care Teams Regional Climate Change Analyst Relationship Specialty Start Date End Date Judi Allen MD [address] [place] [employer], [place] [phone] PCP - General Family Medicine 03/25/21 documented as of this encounter
--- OUTSIDE RECORDS SUMMARY | 2025-05-29 03:27 | XMS_ITS | Encounter Summary ---
Author Organization [employer] Address [address] [place] [address] 7 [place] [address] Care Team Providers Care Superintendent Car Construction Name Role Phone Judi Allen MD Primary Care Provider + Reason for Visit * Reason Onset Date Comments Patient Contact 05/26/2025 Encounter Details Date Type Department Care Team ([facility] st Contact Info) Description 05/26/2025 Telephone [facility] MEDICINE [address] [place], [place] [phone] Hermila Conde RD [address] [place], [place] [phone] Patient Contact Social History Tobacco Use Types Packs/Day Years [...] encounter Miscellaneous Notes * Telephone Encounter - Dino Logan - 05/26/2025 9:06 AM EST Patient walked in requesting\ to cancel nutrition consult 05/26/25, appointment was canceled and patient was rescheduled for 07/21/24. documented in this encounter Plan of Treatment Upcoming Encounters Date Type Department Care Team (Late st Contact Info) Description 07/09/2025 2:00 PM EST Clinical Support [facility] MEDICINE [address] [place] [address] Marlena López RN 07/21/2025 3:00 PM EST Nutrition [facility] DIABETES/NUTRITION [address] [place] [address] [place] [address] documented as of this encounter Goals Goal Patient Goal Type Associated Problems [...] Care Plan Weekly blood pressure task No HarrisepHermila hernandez RD Patient has chronic kidney disease Care [...] has chronic kidney disease No Dino Logan documented as of this encounter Visit Diagnoses Not on filedocumented in this encounter Additional Health Concerns Active Problems Noted Date [...] 05/26/2025 Patient has chronic kidney disease 05/26/2025 Assessment Noted Time PHQ-9 Depression Total Score: 5 05/21/20 25 9:19 AM EST documented as of this encounter Care Teams Superintendent Car Construction Relationship Specialty Start Date End Date Judi Allen MD [address] [place] [phone] PCP - General Family Medicine 03/25/21 documented as of this encounter
--- OUTSIDE RECORDS SUMMARY | 2025-05-29 03:27 | XMS_ITS | Encounter Summary ---
Author Organization [employer] Address [address] [place] [address] 7t [place] [address] Care Team Providers Care Front End Assistant Name Role Phone Judi Allen MD Primary Care Provider + Reason for Visit * Reason Comments Med Refill Encounter Details Date Type Department Care Team ([facility] st Contact Info) Description 10/03/[address] [facility] MEDICINE [address] [place], [place] [phone] Judi Allen MD [address] [place] [address] Chronic bilateral low back pain, unspecified whether [...] 07/09/2025 2:00 PM EST Clinical Support [facility] MEDICINE [address] [place] [phone] Marlena López, MARIPOSA 07/21/2025 3:[address] [facility] DIABETES/NUTRITION [address] [place] [phone] Hermila Conde, KIRA [address] [place] [address] documented as of this encounter Visit Diagnoses Diagnosis Chronic bilateral low back pain, unspecified whether sciatica present documented in this encounter Additional Health Concerns Assessment Noted Time PHQ-9 Depression Total Score: 13 024 3:34 PM EST documented as of this encounter Care Teams Front End Assistant Relationship Specialty Start Date End Date Judi Allen MD [address] [place] [phone] PCP - General Family Medicine 03/25/21 documented as of this encounter
--- OUTSIDE RECORDS SUMMARY | 2025-05-29 03:27 | XMS_ITS | Encounter Summary ---
Author Organization [employer] Address [address] [place] [address] [address]t [place] [address] Care Team Providers Care Electric Meter Repairer Helper Name Role Phone Judi Allen MD Primary Care Provider + Encounter Details Date Type Department Care Team ([facility] st Contact Info) Description 05/29/2023 Orders Only [facility] CHC MED & PEDS [address] [place], [place] [phone] Brenda Metzger LPN Social History Tobacco Use [...] Description 07/09/2025 2:00 PM EST Clinical Support [facility] MEDICINE [address] [place] [address] Marlena López, MARIPOSA 07/21/2025 3:00 PM EST Nutrition [facility] DIABETES/NUTRITION [address] [place] [address] Hermila Conde, KIRA [address] [place] [address] documented as of this encounter Visit Diagnoses Not on filedocumented in this encounter Care Teams Electric Meter Repairer Helper Relationship Specialty Start Date End Date Judi Allen MD [address] [place] [phone] PCP - General Family Medicine 03/25/21 documented as of this encounter
== END 2025-05-28 15:24 | disposition home or self-care (01) ==
LOC: HO.HGI 14:55
PROVIDERS: PCP Internal Medicine; Visit Provider Nurse Practitioner Family
DX: Z01.818 Encounter for other preprocedural examination (principal); Z12.11 Encounter for screening for malignant neoplasm of colon; K59.09 Other constipation; K76.0 Fatty (change of) liver, not elsewhere classified
CPT/HCPCS: 99213

== ENCOUNTER → 2025-05-28 14:55 | Outpatient (BNVA) | payer OTHER, SELFPAY | PROVIDERS: PCP Internal Medicine; Visit Provider Nurse Practitioner Family | DX: Z01.818 Encounter for other preprocedural examination (principal); K76.0 Fatty (change of) liver, not elsewhere classified; K59.09 Other constipation | CPT/HCPCS: 99212 ==